=== PATIENT | male | born 1975 | race Caucasian/White ===

== ENCOUNTER 2022-11-01 15:14 | Outpatient (OUT) | payer BC, SELFPAY ==
[2022-11-01 07:35] LABS: Basophils Percent Auto 0.4 % (0.2-2.0); Eosinophils Absolute Auto 0.2 10^3/uL (0.0-0.7); Eosinophils Percent Auto 4.3 % (0.9-7.0); Hematocrit 46.1 % (42.0-54.0); Hemoglobin 15.7 g/dL (14.0-18.0); Immature Granulocytes Abs Auto 0.02 10^3/uL (0.00-0.03); Immature Granulocytes Pct Auto 0.4 % (0.0-0.5); Lymphocytes Absolute Auto 1.8 10^3/uL (1.2-3.8); Lymphocytes Percent Auto 33.1 % (20.5-60.0); Mean Corpuscular HGB Conc 34.1 g/dL (29.9-35.2); Mean Corpuscular Hemoglobin 30.7 pg (25.9-34.0); Mean Platelet Volume 8.8 fL (9.5-13.5); Monocytes Absolute Auto 0.4 10^3/uL (0.3-0.8); Monocytes Percent Auto 7.4 % (1.7-12.0); Neutrophils Absolute Auto 2.9 10^3/uL (1.4-6.5); Neutrophils Percent Auto 54.4 % (43.0-75.0); Platelet Count 225 10^3/uL (150-450); Red Blood Count 5.12 10^6/uL (4.70-6.10); Red Cell Distribution Width 12.3 % (11.0-15.0); White Blood Count 5.4 10^3/uL (4.0-11.0)
[2022-11-01 07:43] LABS: Microalbumin Urine Random <1.3 mg/dL (<=30.0)
[2022-11-01 07:54] LABS: Estimated Average Glucose 157 mg/dL; Glycohemoglobin A1C 7.1 % (4.5-6.2)
[2022-11-01 07:56] LABS: Alanine Aminotransferase 32 U/L (16-63); Albumin Level 3.9 g/dL (3.4-5.0); Alkaline Phosphatase 49 U/L (46-116); Anion Gap 8.3; Aspartate Amino Transferase 23 U/L (15-37); BUN Creatinine Ratio 12.7; Bilirubin Total 0.5 mg/dL (0.2-1.0); Calcium 9.2 mg/dL (8.5-10.1); Carbon Dioxide 29.2 mmol/L (21.0-32.0); Chloride 101 mmol/L (98-107); Chol HDL Ratio 3.7; Cholesterol 157 mg/dL (<=200); Estimated GFR (African America >60 (>=60); Estimated GFR (Non-African Ame >60 (>=60); Globulin 3.8 g/dL; Glucose 167 mg/dL (74-106); HDL Cholesterol 42 mg/dL (40-60); LDL Cholesterol Calculated 93.4 mg/dL; Potassium 4.5 mmol/L (3.5-5.1); Sodium 134 mmol/L (136-145); Total Protein 7.7 g/dL (6.4-8.2); Triglycerides 108 mg/dL (<=150); VLDL CHOLESTEROL 21.6 mg/dL
== END 2022-11-01 15:15 | disposition home or self-care (01) ==
LOC: LAB 11-11 15:14
PROVIDERS: PCP Internal Medicine; Visit Provider Internal Medicine
DX: Z00.00 Encounter for general adult medical examination without abnormal findings (principal)
CPT/HCPCS: 36415; 80053; 80061; 82043; 83036; 85025

== ENCOUNTER 2023-02-07 09:39 | Outpatient (OUT) | payer BC, SELFPAY ==
[2023-02-07 10:54] LABS: Estimated Average Glucose 186 mg/dL; Glycohemoglobin A1C 8.1 % (4.5-6.2)
== END 2023-02-07 09:40 | disposition home or self-care (01) ==
LOC: LAB 09:41
PROVIDERS: PCP Internal Medicine; Visit Provider Internal Medicine
DX: E11.65 Type 2 diabetes mellitus with hyperglycemia (principal)
CPT/HCPCS: 36415; 83036

== ENCOUNTER 2023-03-18 13:42 | Outpatient (OUT) | payer BC, SELFPAY ==
--- NOTE | 2023-03-18 | ECG_ITS ---
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
--- NOTE | 2023-03-18 14:18 | CA_ITS ---
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1975 Requested By: TONI GUERRA Order Number: [id number] Reading MD: TONI GUERRA Interpretive Statements Predominant rhythm is sinus with average rate of 87 bpm Tachycardia - max rate of 132 bpm - longest episode of 20min 13sec with rates between 113-126 bpm Bradycardia - min rate of 57 bmp Ventricular ectopy - 119 total (<1%) - 115 PVC - 4 couplets Patient triggered events: 5 - associated with palpitations - associated with rates of 108 and the remainder NSR Impression: Predominant rhythm is sinus with average rate of 87 bpm Fastest rate of 132 bpm and slowest rate of 57 bpm 115 PVC and 4 couplets No pauses or blocks No atrial fibrillation Electronically Signed On 04-12-2023 17:15:23 EST by TONI GUERRA
[2023-03-18 15:00] LABS: Thyroid Stimulating Hormone 1.304 uIU/mL (0.358-3.740)
== END 2023-03-18 13:43 | disposition home or self-care (01) ==
LOC: CARD 13:42
PROVIDERS: PCP Internal Medicine; Visit Provider Internal Medicine
DX: R00.2 Palpitations (principal); R01.1 Cardiac murmur, unspecified; I10 Essential (primary) hypertension
CPT/HCPCS: 36415; 84443; 93005; 93242

== ENCOUNTER 2023-05-13 16:14 | Outpatient (OUT) | payer BC, SELFPAY ==
--- OUTSIDE RECORDS SUMMARY | 2023-05-13 16:17 | XMS_ITS | CCD ---
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 waterproof, cover it with a watertight plastic bag when you take a bath or a shower.? Take fiyn-oqq-pkwlrgc and prescription medicines only as told by your doctor.? If you were prescribed an antibiotic, take it as told by your doctor. Do not stop taking the antibiotic before the prescription is done.? Do not use any tobacco products, such as cigarettes, chewing tobacco, and e-cigarettes. If you need help quitting, ask your doctor.? Keep all follow-up visits as told by your doctor. This is important. These include PT and OT visits.GET HELP IF:? A wound with stitches opens up.? You have more redness, swelling, or pain in your hand.? You have more fluid or blood coming from your hand.? Your hand feels warm to the touch.? You have pus or a bad smell coming from your hand.? You have a fever.GET HELP RIGHT AWAY IF:? You suddenly have very bad pain in your hand.? You had feeling (sensation) in your hand before but you suddenly lose feeling.? Your wrist or hand becomes bent (contracted) without you trying to bend it.? Your symptoms had gotten better and they suddenly get worse.? Your hand or fingers are turning pink or blue.This information is not intended to replace advice given to you by your health care provider. Make sure you discuss any questions you have with your health care provider.Document Released: 10/01/2010 Document Revised: 08/04/2016 Document Reviewed: 12/05/2015[employer] Interactive Patient Education ?2017 [employer].Medication Information:The exam and treatment you received today in the [facility] Emergency Department were for an urgent problem and are not intended as complete care. It is important for you to follow up with a doctor, nurse practitioner, or physician?s commercial escrow assistant for ongoing care. If your symptoms become worse or you do not improve as expected and you are unable to reach your usual health care provider, you should return to the Emergency Department, we are available 24 hours a day.For those patients who have received Radiology results, the interpretation of your X-ray as given to you by our Emergency Department physician is only a preliminary report. The Radiologist will review your films and if there is a change in the diagnosis you will be notified by phone. Please make sure you have provided a working phone number so we can reach you if necessary.In the event that you had a lab culture while you were a patient in the Emergency Department, you will be notified by phone if there is a need to change your antibiotic. Please make sure you have provided a working phone number so we can reach you if necessary.[facility] Emergency Department has provided you with a complete list of medications post discharge. Please inform your division order analyst/provider of your visit and for further instruction on these medications. Any specific questions regarding your chronic medications and dosages should be discussed with your primary care physician(s) and/or pharmacist. New MedicationsPrinted Prescriptionscephalexin (Keflex 500 mg oral capsule) 1 cap Oral Every 12 hours scheduled time for 5 Days. Refills: 0.Medications to Continue That Have Not ChangedOther Medicationsglimepiride (glimepiride 1 mg oral tablet) 1 tab(s) Oral every day.lisinopril (lisinopril 2.5 mg oral tablet) 1 tab(s) Oral every day.metFORMIN (metFORMIN 1000 mg oral tablet) 1 tab(s) Oral 2 times a day.Visit InformationVisit Diagnosis:Diagnoses This Visit Crush injury - 3rd digit left hand (T14.8XXA) UC - Wrist/Hand/Finger Pain or Swelling ([id number])If you received any narcotics, sedation, or any other medication that causes drowsiness for the next 24 hours, unless otherwise directed:? Do not drive a car.? Do not operate machinery such as power tools, lawn mowers, drills, sewing machines, or stoves? Avoid alcoholic beverages and drugs for allergies, nerves, or sleep? Do not make important personal or business decisions or sign any legal documentsReason for Visit:C/O smashing injury to left middle finger.Allergies:Substance Reaction Symptoms Type CommentsNo Known Medication Allergies DrugVital Signs: Vitals and Measurements this Visit (last charted value for your 04/10/2017 visit) Vital Signs This Visit Temperature Oral: 36.9 DegC Peripheral Pulse Rate: 73 bpm Respiratory Rate: 16 br/min Systolic Blood Pressure: 122 mmHg Diastolic Blood Pressure: 82 mmHg SpO2: 97 % O2 Flow: 0 L/min Measurements This Visit Height: 172.7 cm Weight: 97.5 kg Body Mass Index: 32.69 kg/y0Chgklvhb List:Problem Onset CommentsNo Problems foundMajor Tests and Procedures:The following procedures and tests were performed during your ED visit.LaboratoryRadiologyXR Finger Left 04/10/17 12:11:00 EST Stat, struck 3rd digit left hand with hammer, ecchymosis, Allow Modification Per Radiologist, Transport Mode: Cart, 04/10/17 12:11:00 ESTCardiology Viruses or BacteriaWhat?s got you sick?Antibiotics only treat bacterial infections. Viral illnesses cannot be treated with antibiotics. When an antibiotic is not prescribed, ask your healthcare professional for tips on how to relieve symptoms and feel better. Usual CauseIllnessVirusesBacteria Antibiotic NeededCold/Runny Nose NOBronchitis/Chest Cold (in otherwise healthy children and adults) NOWhooping Cough YesFlu NOStrep Throat YesSore Throat (except strep) NOFluid in the middle ear (otitis media with effusion) NOUrinary Tract Infection YesAntibiotics Aren?t Always the Answerwww.cdc.gov/getsmart GET SMART Know When Antibiotics [place]. Department of Health and Human ServicesCenters for Disease Control and Prevention December 2013 Normal [facility] Recordon 017 Urgent Care Record [facility] ? [id number] [place] [address] pATIENT DISCHARGE INSTRUCTIONSPatient InformationName: ROBERTO SCHNEIDER Age: 41 YearsDate of : [birth year]MRN: [id number] For Visit: UC - Wrist/Hand/Finger Pain or Swelling; LEFT 3RD FINGER LACERATIONArrival Time: 04/10/17 11:59:00Phone: Primary Care Physician: José Miguel Cheung Physician: Sheila KilgorerComment:Visit Diagnosis:Diagnoses This Visit Crush injury - 3rd digit left hand (T14.8XXA) UC - Wrist/Hand/Finger Pain or Swelling ([id number])If you received any narcotics, sedation, or any other medication that causes drowsiness for the next 24 hours, unless otherwise directed:? Do not drive a car.? Do not operate machinery such as power tools, lawn mowers, drills, sewing machines, or stoves? Avoid alcoholic beverages and drugs for allergies, nerves, or sleep? Do not make important personal or business decisions or sign any legal documentsWith: Address: When:José Miguel Cheung [address] [place] [id number] Business (1)Comments:Keep the injury clean and dry, do not submerge in the waterCan take ibuprofen and/or Tylenol as needed for pain, can elevate as needed to help reduce swellingAny increase in discomfort or any inability to perform your work duties return for reevaluationMedication Information:The exam and treatment you received today in the [facility] Urgent Care were for an urgent problem and are not intended as complete care. It is important for you to follow up with a doctor, nurse practitioner, or physician?s commercial escrow assistant for ongoing care. If your symptoms become worse or you do not improve as expected and you are unable to reach your usual health care provider, you should return to the Emergency Department, we are available 24 hours a day.For those patients who have received Radiology results, the interpretation of your X-ray as given to you by our Urgent Care physician is only a preliminary report. The Radiologist will review your films and if there is a change in the diagnosis you will be notified by phone. Please make sure you have provided a working phone number so we can reach you if necessary.In the event that you had a lab culture while you were a patient in the Urgent Care, you will be notified by phone if there is a need to change your antibiotic. Please make sure you have provided a working phone number so we can reach you if necessary.[facility] has provided you with a complete list of medications post discharge. Please inform your division order analyst/provider of your visit and for further instruction on these medications. Any specific questions regarding your chronic medications and dosages should be discussed with your primary care physician(s) and/or pharmacist. Medications to Continue That Have Not ChangedOther Medicationsglimepiride (glimepiride 1 mg oral tablet) 1 tab(s) Oral every day.lisinopril (lisinopril 2.5 mg oral tablet) 1 tab(s) Oral every day.metFORMIN (metFORMIN 1000 mg oral tablet) 1 tab(s) Oral 2 times a day.Visit InformationAllergies:Substanc e Reaction Symptoms Type CommentsNo Known Medication Allergies DrugVital Signs: Vitals and Measurements this Visit (last charted value for your 04/10/2017 visit) Vital Signs This Visit Temperature Oral: 36.9 DegC Peripheral Pulse Rate: 73 bpm Respiratory Rate: 16 br/min Systolic Blood Pressure: 122 mmHg Diastolic Blood Pressure: 82 mmHg SpO2: 97 % O2 Flow: 0 L/min Measurements This Visit Height: 172.7 cm Weight: 97.5 kg Body Mass Index: 32.69 kg/r4Dliieqjk List:Problem Onset CommentsNo Problems found Patient EducationCrush Injury of the Kathi crush injury of the hand happens when a great amount of force is suddenly applied to your hand. For example, this might happen if a heavy load falls on your hand. This injury can damage your skin and many parts (structures) in the hand and wrist joint. Treatment will depend on which parts are damaged and how severe your injury is.HOME CAREIf You Have a Splint:? Wear the splint as told by your doctor. Remove it only as told by your doctor.? Loosen the splint if your fingers tingle, get numb, or turn cold and blue.? Do not let your splint get wet if it is not waterproof.? Keep the splint clean. Wound Care? If you have any skin wounds that were covered with bandages (dressings), follow instructions from your doctor about how to take care of your wounds. Make sure you:? Wash your hands with soap and water before you change your bandage. If you cannot use soap and water, use hand orchid hand.? Change your bandage as told by your doctor.? Leave stitches (sutures), skin glue, or skin tape (adhesive) strips in place. They may need to stay in place for 2 weeks or longer. If tape strips get loose and curl up, you may trim the loose edges. Do not remove tape strips completely unless your doctor says it is okay.? If you have skin wounds, check them every day for signs of infection. Check for:? More redness, swelling, or pain.? More fluid or blood.? Warmth.? Pus or a bad smell.Managing Pain, Stiffness, and Swelling? If directed, put ice on the injured area.? Put ice in a plastic bag.? Place a towel between your skin and the bag.? Leave the ice on for 20 minutes, 2?3 times a day.? Raise (elevate) the injured area above the level of your heart while you are sitting or lying down.Driving? Do not drive or use heavy machinery while taking prescription pain medicine.? Ask your doctor when it is safe to drive if you have a splint on your hand or arm.Activity? Return to your normal activities as told by your doctor. Ask your doctor what activities are safe for you.? Work with a physical therapist (PT) or occupational therapist (OT) as told by your doctor.General Instructions? Do not put pressure on any part of the splint until it is fully hardened. This may take many hours.? If you have a splint and it is not waterproof, cover it with a watertight plastic bag when you take a bath or a shower.? Take nwyf-zye-sujwewv and prescription medicines only as told by your doctor.? If you were prescribed an antibiotic, take it as told by your doctor. Do not stop taking the antibiotic before the prescription is done.? Do not use any tobacco products, such as cigarettes, chewing tobacco, and e-cigarettes. If you need help quitting, ask your doctor.? Keep all follow-up visits as told by your doctor. This is important. These include PT and OT visits.GET HELP IF:? A wound with stitches opens up.? You have more redness, swelling, or pain in your hand.? You have more fluid or blood coming from your hand.? Your hand feels warm to the touch.? You have pus or a bad smell coming from your hand.? You have a fever.GET HELP RIGHT AWAY IF:? You suddenly have very bad pain in your hand.? You had feeling (sensation) in your hand before but you suddenly lose feeling.? Your wrist or hand becomes bent (contracted) without you trying to bend it.? Your symptoms had gotten better and they suddenly get worse.? Your hand or fingers are turning pink or blue.This information is not intended to replace advice given to you by your health care provider. Make sure you discuss any questions you have with your health care provider.Document Released: 10/01/2010 Document Revised: 08/04/2016 Document Reviewed: 12/05/2015[employer] Interactive Patient Education ?2017 [employer] Viruses or BacteriaWhat?s got you sick?Antibiotics only treat bacterial infections. Viral illnesses cannot be treated with antibiotics. When an antibiotic is not prescribed, ask your healthcare professional for tips on how to relieve symptoms and feel better. Usual CauseIllnessVirusesBacteria Antibiotic NeededCold/Runny Nose NOBronchitis/Chest Cold (in otherwise healthy children and adults) NOWhooping Cough YesFlu NOStrep Throat YesSore Throat (except strep) NOFluid in the middle ear (otitis media with effusion) NOUrinary Tract Infection YesAntibiotics Aren?t Always the Answerwww.cdc.gov/getsmart GET SMART Know When Antibiotics [place] Department of Health and Human ServicesCenters for Disease Control and Prevention December 2013 [facility] XR Finger Lefton 12-15-2017 XR Finger Left FINGER LEFTCLINICAL DATA: Impact injury to middle finger distally today, painFour views of the left middle finger were obtained. No definite acutefracture or dislocation is seen. No significant focal osseous or articularabnormalities are identified. There is mild soft tissue swelling distally.No obvious opaque foreign body. There is a small faint density overlying thesoft tissue of the middle finger laterally at the level of the proximalphalanx on the frontal view with slight out pouching of the skin surface onthe oblique view, correlate for a small skin density at this level.IMPRESSION:1. LEFT MIDDLE FINGER STUDY FAILS TO DEMONSTRATE DEFINITE ACUTE FRACTURE ORDISLOCATION.2. FOLLOW-UP NEEDED.AKHIL Frances #: [id number]: 04/10/2017T: 04/10/2017 Final Dictated by: Obed Oliveira MD SDictated DT/TM: 04/10/17 1:07Signed (Electronic Signature): Obed Oliveira MD 04/10/17 4:38 pmTechnologist: Mallory LOMAX [facility] Vital Signs Date Time Vital Sign Value Performing Clinician Facility 02-16-2023 15:30-0400 Body height 171.45 cm José Miguel Ball Other [address] Other 02-16-2023 15:30-0400 Body mass index (BMI) [Ratio] 34.59 kg/m2 José Miguel Ball Other [address] Other 02-16-2023 15:30-0400 Body weight 101.7 kg José Miguel Ball Other [address] Other 02-16-2023 15:30-0400 Diastolic blood pressure 87 mm[Hg] José Miguel Ball Other [address] Other 02-16-2023 15:30-0400 Respiratory rate 12 /min José Miguel Ball Other [address] Other 02-16-2023 15:30-0400 Systolic blood pressure 129 mm[Hg] José Miguel Ball Other [address] Other 10-21-2022 15:30-0400 Body height 171.45 cm José Miguel Ball Other [address] Other 10-21-2022 15:30-0400 Body mass index (BMI) [Ratio] 34.78 kg/m2 José Miguel Ball Other [address] Other 10-21-2022 15:30-0400 Body weight 102.24 kg José Miguel Ball Other [address] Other 10-21-2022 15:30-0400 Diastolic blood pressure 92 mm[Hg] José Miguel Ball Other [address] Other 10-21-2022 15:30-0400 Respiratory rate 12 /min José Miguel Ball Other [address] Other 10-21-2022 15:30-0400 Systolic blood pressure 133 mm[Hg] José Miguel Ball Other [address] Other 07-29-2022 16:30-0400 Body height 171.45 cm José Miguel Ball Other [address] Other 07-29-2022 16:30-0400 Body mass index (BMI) [Ratio] 34.96 kg/m2 José Miguel Ball Other [address] Other 07-29-2022 16:30-0400 Body weight 102.79 kg José Miguel Ball Other [address] Other 07-29-2022 16:30-0400 Diastolic blood pressure 76 mm[Hg] José Miguel Ball Other [address] Other 07-29-2022 16:30-0400 Respiratory rate 12 /min José Miguel Ball Other [facility] Other 07-29-2022 16:30-0400 Systolic blood pressure 122 mm[Hg] José Miguel Ball Other [facility] Other 07-23-2022 13:04-0400 Body height 172.72 cm DO José Miguel Ball Work Phone: [facility] 07-23-2022 13:04-0400 Body temperature 98.7 [degF] DO José Miguel Ball Work Phone: [facility] 07-23-2022 13:04-0400 Body weight 101 kg DO José Miguel Ball Work Phone: [facility] 07-23-2022 13:04-0400 Diastolic blood pressure 85 mm[Hg] DO José Miguel Ball Work Phone: [facility] 07-23-2022 13:04-0400 Heart rate 91 /min DO José Miguel Ball Work Phone: [facility] 07-23-2022 13:04-0400 Respiratory rate 18 /min DO José Miguel Ball Work Phone: [facility] 07-23-2022 13:04-0400 SaO2% (BldA) [Mass fraction] 98 % DO José Miguel Ball Work Phone: [facility] 07-23-2022 13:04-0400 Systolic blood pressure 139 mm[Hg] DO José Miguel Ball Work Phone: [facility] 05-02-2022 09:15-0500 Body height 171.45 cm Karlenemaxine Trevino Other [facility] Other 05-02-2022 09:15-0500 Body mass index (BMI) [Ratio] 37.03 kg/m2 Karlenemaxine Trevino Other [address] Other 05-02-2022 09:15-0500 Body weight 108.86 kg Karlene Calvey Other [address] Other 12-06-2021 09:15-0400 Body height 171.45 cm Karlene Calvey Other [address] Other 12-06-2021 09:15-0400 Body mass index (BMI) [Ratio] 37.03 kg/m2 Karlene Calvey Other [address] Other 12-06-2021 09:15-0400 Body weight 108.86 kg Karlene Calvey Other [address] Other 11-08-2021 10:15-0400 Body height 171.45 cm Karlene Calvey Other [address] Other 11-08-2021 10:15-0400 Body mass index (BMI) [Ratio] 37.03 kg/m2 Karlene Calvey Other [address] Other 11-08-2021 10:15-0400 Body weight 108.86 kg Karlene Calvey Other [address] Other 07-16-2021 09:15-0400 Body height 171.45 cm Karlene Calvey Other [address] Other 07-16-2021 09:15-0400 Body mass index (BMI) [Ratio] 37.03 kg/m2 Karlene Calvey Other [address] Other 07-16-2021 09:15-0400 Body weight 108.86 kg Karlene Calvey Other [address] Other 03-20-2021 10:30-0500 Body height 171.45 cm Karlene Trevino Other [address] Other 03-20-2021 10:30-0500 Body mass index (BMI) [Ratio] 32.4 kg/m2 Karlene Trevino Other [address] Other 03-20-2021 10:30-0500 Body weight 95.26 kg Karlene Trevino Other [address] Other Encounters Encounter Date Encounter Type Care Provider Facility Start: 05-11-2023 End: 05-11-2023 ambulatory José Miguel Jonatan Other [address] Other Start: 05-11-2023 Telephone encounter José Miguel Ball [facility] Start: 05-04-2023 End: 05-04-2023 ambulatory José Miguel Ball Other [address] Other Start: 05-04-2023 Telephone encounter José Miguel Ball [facility] Start: 03-27-2023 End: 03-27-2023 ambulatory José Miguel Ball Other [address] Other Start: 03-27-2023 Office outpatient vi sit 15 minutes José Miguel Ball [facility] Start: 03-23-2023 End: 03-23-2023 ambulatory José Miguel Ball Other [address] Other Start: 03-23-2023 Telephone encounter José Miguel Ball [facility] Start: 03-12-2023 End: 03-12-2023 ambulatory José Miguel Ball Other [address] Other Start: 03-12-2023 Telephone encounter José Miguel Ball [facility] Start: 03-10-2023 End: 03-10-2023 ambulatory José Miguel Ball Other [address] Other Start: 03-10-2023 Telephone encounter José Miguel Ball [facility] Start: 03-06-2023 End: 03-06-2023 ambulatory José Miguel Cheung Other [address] Other Start: 03-06-2023 Telephone encounter José Miguel [facility] Start: 02-16-2023 End: 02-16-2023 ambulatory José Miguel Cheung Other [address] Other Start: 02-16-2023 Office outpatient vi sit 25 minutes José Miguel Cheung [facility] Start: 02-09-2023 End: 02-09-2023 ambulatory José Miguel Cheung Other [address] Other Start: 02-09-2023 Telephone encounter José Miguel [facility] [facility] Start: 02-02-2023 End: 02-02-2023 ambulatory José Miguel Cheung Other [address] Other Start: 02-02-2023 Telephone encounter José Miguel [facility] Start: 01-21-2023 End: 01-21-2023 ambulatory José Miguel Cheung Other [address] Other Start: 01-21-2023 Office outpatient vi sit 15 minutes José Miguel Cheung [facility] Start: 01-07-2023 End: 01-07-2023 ambulatory Karlene Trevino Other [address] Other Start: 01-07-2023 Office outpatient vi sit 15 minutes Karlene Trevino [facility] Start: 12-31-2022 End: 12-31-2022 ambulatory Karlene Trevino Facility:[facility] Start: 12-31-2022 End: 12-31-2022 ambulatory DO José Miguel Cheung Work Phone: [facility] Work Phone: Start: 12-31-2022 End: 12-31-2022 Patient encounter procedure DO José Miguel Cheung Work Phone: [facility] [employer] Work Phone: Start: 11-27-2022 End: 11-27-2022 ambulatory José Miguel Cheung Other [address] Other Start: 11-27-2022 Office outpatient vi sit 15 minutes José Miguel Cheung [facility] Start: 11-12-2022 End: 11-12-2022 Patient encounter procedure DO José Miguel Cheung Work Phone: [facility] Start: 11-12-2022 End: 11-12-2022 ambulatory José Miguel Cheung [facility] Other Start: 11-12-2022 Office outpatient vi sit 15 minutes Karlene Trevino [facility] Start: 10-21-2022 End: 10-21-2022 ambulatory José Miguel Cheung Other [address] Other Start: 10-21-2022 Encounter for genera l adult medical examination without abnormal findings José Miguel Cheung [facility] Start: 10-21-2022 Periodic preventive med est patient 40-64yrs José Miguel Cheung [facility] Start: 07-29-2022 End: 07-29-2022 ambulatory José Miguel Cheung Other [address] Other Start: 07-29-2022 Office outpatient vi sit 15 minutes José Miguel Cheung [facility] Start: 07-23-2022 End: 07-23-2022 Emergency department patient visit José Miguel Cheung Facility:[facility] Start: 07-23-2022 End: 07-23-2022 Emergency department patient visit DO José Miguel Cheung Work Phone: [facility] Work Phone: Start: 07-01-2022 End: 07-02-[address] JOSÉ MIGUEL CHEUNG Facility: Start: 06-10-2022 End: 06-10-2022 ambulatory Karlene Trevino Other [address] Other Start: 06-10-2022 Office outpatient vi sit 15 minutes Kralene Calvey [facility] Start: 06-02-2022 End: 06-02-2022 ambulatory José Miguel Cheung Other [address] Other Start: 06-02-2022 Telephone encounter [facility] Start: 05-02-2022 End: 05-02-2022 ambulatory Karlene Calvey Other [address] Other Start: 05-02-2022 Office outpatient vi sit 15 minutes Karlene Calvey [facility] Start: 03-28-2022 End: 03-28-2022 ambulatory Karlene Calvey Other [address] Other Start: 03-28-2022 Office outpatient vi sit 15 minutes Karlene Calvey [facility] Start: 03-28-2022 Telephone encounter Karlene Batesey [facility] Start: 02-21-2022 End: 02-21-2022 ambulatory Karlene Calvey Other [address] Other Start: 02-21-2022 Office outpatient vi sit 15 minutes Karlene Calvey [facility] Start: 02-08-2022 End: 02-09-[address] JOSÉ MIGUEL CHEUNG Facility:[facility] Start: 01-29-2022 Adult health examination José Miguel Cheung Other [address] Other Start: 12-06-2021 End: 12-06-2021 ambulatory Karlene Calvey Other [address] Other Start: 12-06-2021 Office outpatient vi sit 15 minutes Karlene Calvey [facility] Start: 11-18-2021 End: 12-05-[address] JOSÉ MIGUEL CHEUNG Facility:[facility] Start: 11-08-2021 End: 11-08-2021 ambulatory Karlene Calvey Other [address] Other Start: 11-08-2021 Office outpatient vi sit 15 minutes Karlene Calvey [facility] Start: 08-17-2021 End: 08-18-[address] JOSÉ MIGUEL CHEUNG Facility: Start: 08-02-[address] JOSÉ MIGUEL CHEUNG Facili ty:[facility] Start: 07-16-2021 End: 07-16-2021 ambulatory Karlene Calvbecky Other [address] Other Start: 07-16-2021 Office outpatient vi sit 15 minutes Karlene Calvey [facility] Start: 05-21-2021 End: 05-21-2021 ambulatory Karlene Calvey Other [address] Other Start: 05-21-2021 Office outpatient vi sit 15 minutes Karlene Calvey [facility] Start: 03-20-2021 End: 03-20-2021 ambulatory Karlene Calvey Other [address] Other Start: 03-20-2021 Office outpatient vi sit 15 minutes Karlene Calvey [facility] Start: 04-10-2017 End: 04-13-2017 [facility] Facility[facility] Procedures Date Procedure Procedure Detail Performing Clinician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
== END 2023-05-13 16:15 | disposition home or self-care (01) ==
LOC: SLEEP 16:14
PROVIDERS: PCP Internal Medicine; Visit Provider Internal Medicine
DX: G47.33 Obstructive sleep apnea (adult) (pediatric) (principal)
CPT/HCPCS: 95806

== ENCOUNTER 2023-06-26 14:56 | Outpatient (OUT) | payer BC, SELFPAY ==
[2023-06-26 15:44] LABS: Estimated Average Glucose 186 mg/dL; Glycohemoglobin A1C 8.1 % (4.5-6.2)
== END 2023-06-26 14:57 | disposition home or self-care (01) ==
LOC: LAB 14:57
PROVIDERS: PCP Internal Medicine; Visit Provider Internal Medicine
DX: E11.65 Type 2 diabetes mellitus with hyperglycemia (principal)
CPT/HCPCS: 36415; 83036

== ENCOUNTER 2023-07-10 13:45 | Outpatient (OUT) | payer BC, SELFPAY ==
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
--- NOTE | 2023-07-10 14:00 | CA_ITS ---
Patient Name: KASSI SCHNEIDER MR#: [id number] : 1975 Exam Date: 07/10/2023 Ordering Doctor: TAMMY MCGOWAN ECHOCARDIOGRAM REPORT PROCEDURE: CA ECHO DOPPLER COMPLETE INDICATIONS: Dyspnea on exertion, diabetes, hypertension COMPARISON: None. DESCRIPTION: COMPLETE ECHOCARDIOGRAM Real-time transthoracic echocardiography with 2D, M-mode, spectral and color flow Doppler performed. QUALITY: Technical quality was good. 68 , 225#, BSA 2.15 m2 LEFT VENTRICLE: Normal chamber size. Normal left ventricular wall thickness. LV EF: Global left ventricular systolic function is normal; visually estimated ejection fraction is 55 to 60%. No significant wall motion abnormalities. DIASTOLIC: Normal diastolic function. ATRIAL SEPTUM: Visually appears intact. LEFT ATRIUM: Normal chamber size. RIGHT ATRIUM: Normal chamber size. RIGHT VENTRICLE: Normal chamber size. Normal right ventricular systolic function. TRICUSPID VALVE: Normal mobility and thickness. No stenosis with trivial regurgitation. Doppler studies reveal mildly (35-45) elevated right sided pressures. RVSP 37 mmHg MITRAL VALVE: Normal mobility and thickness. No evidence of mitral valve stenosis. There is no mitral annular calcification. Trivial mitral regurgitation. AORTIC VALVE: Normal trileaflet appearance. No visible sclerosis. Normal leaflet mobility. No evidence of aortic valve stenosis. No aortic regurgitation. AORTIC ROOT: Normal diameter when corrected for body surface area and appearance. PULMONIC VALVE: Normal thickness and mobility. No stenosis. No regurgitation. PERICARDIUM: No evidence of pericardial effusion. IVC: Collapses with inspirations. IVC is normal in size. CONCLUSION: 1. Global left ventricular systolic function is normal; visually estimated ejection fraction is 55 to 60% 2. Normal right ventricular size and systolic function 3. Normal diastolic function 4. No significant valvular abnormalities Adult Echocardiography Procedure Report Left Ventricle LVEDD (3.7 - 5.6 cm): 4.38 cm LVESD (2.2 - 4.0 cm): 3.05 cm LVIVS thickness (0.6 - 1.2 cm): 0.83 cm LVPW thickness (0.5 - 1.0 cm): 0.85 cm e': 0.13 m/s E - e': 6.07 LVOT Max Gradient: 4.43 mm[Hg] LVOT Area (cm2): 1.05 m/s Peak Velocity (LVOT): 1.05 m/s Mean Velocity (LVOT): 0.69 m/s LVOT Diameter 2.28 cm Left Atrium LA Volume Index (2D A2C): 23.76 ml/m2 Left Atrium Systolic Dimension: 3.18 cm Mitral Valve MV E to A Ratio: 1.39 Mitral Valve A-Wave Peak Velocity: 0.58 m/s Mitral Valve E-Wave Peak Velocity: 0.81 m/s Right Ventricle Aorta AO Root Diam: 3.69 cm Ascending Ao Diam: 3.46 cm Aortic Valve AoV Area (Peak Prasanna): 3.12 cm2, 3.12 cm2 AoV Area (VTI): 3.14 cm2, 3.14 cm2 Peak Velocity(Antegrade Flow): 1.38 m/s Peak Gradient(Antegrade Flow): 7.63 mm[Hg] Mean Velocity(Antegrade Flow): 0.86 m/s Mean Gradient(Antegrade Flow): 3.64 mm[Hg] Velocity Time Integral: 26.35 cm Tricuspid Valve Peak Velocity (Regurgitant Flow): 2.91 m/s Pulmonic Valve Mean Gradient: 2.42 mm[Hg] Mean Velocity: 0.72 m/s Peak Velocity: 1.05 m/s, 0.95 m/s Peak Gradient: 4.39 mm[Hg], 3.61 mm[Hg] Right Atrium Right Atrium Systolic Pressure: 47.03 ml, 47.03 ml Dictated by: Kenny Bautista M.D. on 07/10/2023 at 16:45 Approved by: Kenny Bautista M.D. on 07/10/2023 at 16:48
== END 2023-07-10 13:46 | disposition home or self-care (01) ==
LOC: CARD 13:45
PROVIDERS: PCP Internal Medicine; Visit Provider Nurse Practitioner
DX: R06.09 Other forms of dyspnea (principal)
CPT/HCPCS: 93306

== ENCOUNTER 2023-09-16 07:17 | Outpatient (OUT) | payer BC, SELFPAY ==
--- NOTE | 2023-09-16 07:00 | NM_ITS ---
Patient Name: KASSI SCHNEIDER MR#: [id number] : 1975 Exam Date: 09/16/2023 Ordering Doctor: MYRON ALMANZA M.D. RADIOLOGY REPORT PROCEDURE: NM TORI PERF SPECT REST STR COMPARISON: None. INDICATIONS: CHEST PAIN TECHNIQUE: Exam Description: Stress/Rest one day protocol gated SPECT Rest Imagin.3 mCi Tc-99m Cardiolite IV on 09/16/2023 Stress Imaging 30.0 mCi Tc-99m Cardiolite IV on 09/16/2023 Exercise Protocol: Luca Heart Rate (bpm): Rest: 55 Max: 146 PMHR: 85 Blood Pressure: Rest: 112/78 Max: 146/84 Exercise Time: Minutes: 9 Seconds: 00 Stage Reached: Stage: 3 Mets 10.1 Symptoms: Rest and peak stress ECG findings were pending and the exercise portion of the study was pending per attending physician Dr. CEBALLOS . For more details please see separate cardiac stress test report. FINDINGS: QUALITY OF STUDY: Good. PERFUSION DEFECT: LOCATION: [place]. SIZE: Small (1-2 segments). SEVERITY: Mild. TYPE: Persistent. WALL MOTION: Normal. LV SIZE: Normal. 90 mL. TID / TCD: None; 0.9 LVEF: Normal. Calculated EF 60%. SUMMARY: Myocardial perfusion imaging study has ABNORMAL findings. CONCLUSION: 1. Small fixed defect in the apex likely atypical thinning 2. No reversible ischemia 3. Pending exercise test Dictated by: Travis Adrian MD on 09/16/2023 at 15:31 Approved by: Travis Adrian MD on 09/16/2023 at 15:33
--- OUTSIDE RECORDS SUMMARY | 2023-09-16 07:19 | XMS_ITS | CCD ---
Author Organization [facility] Care Team Providers Care Dentistry Teacher Name Role Phone Spasic, Mark Unavailable Unavailable Spasic, Mark Unavailable Unavailable Jonatan, José Miguel Unavailable Unavailable Karlene Trevino Unavailable José Miguel Cheung Unavailable JONATAN, DR VALDEZ Primary Care Unavailable BALL, DR VALDEZ Consulting Unavailable BALL, DR VALDEZ Attending Unavailable BALL, DR VALDEZ Admitting Unavailable BALL, DR VALDEZ Primary Care Unavailable CALVEY, KARLENE Attending Unavailable URIEL, KARLENE Admitting Unavailable BALL, [...] Unavailable Ball, DO Valdez Primary Care Provider [phone] Graham, [facility] Emma Fuentes Emergency Provider DO José Miguel Cheung Primary Care Provider [phone] MD Karlene Trevino Attending Provider [phone] José Miguel Cheung Primary Care Unavailable Bullsandy, Emma E Admitting Unavailable Bullimore, Emma E Attending Unavailable José Miguel Cheung Primary Care Unavailable Karlene Trevino Admitting Unavailable Karlene Trevino Attending Unavailable Karlene Trevino Admitting Unavailable Karlene Trevino Attending Unavailable José Miguel Cheung Primary Care Unavailable MYRON ALMANZA Attending Unavailable TAMMY MCGOWAN Attending Unavailable Allergies Allergy Classification Reported Allergen(s) Allergy Type Date of Onset Reaction(s) Facility (1 source) No Known Medication Allergies; Translations: [No Known Medication Allergies] Propensity to adverse reactions to drug (disorder) [facility] Repository (20 sources) Non-steroidal anti-inflammato ry agent Drug allergy unable to take while on [employer] Other (5 sources) patient allergy list reviewed by nurse or physicia Propensity to adverse reactions Comment:Done [employer] Other Medications Current Medications Medication Drug Class(es) [...] tablet (20 sources) Phosphodiesterase 5 Inhibitor Start: 06-24-2022 take 1 tablet by mouth once daily as needed Sildenafil Active MG PO June 15, 2023 12:00am [employer] tablet Orally Once a day as needed for ED; Note: Source Status: Taking; Refills: 5; Provider: Jonatan Fuentes Completed/Discontinued Medications Medication Drug Class(es) Dates Sig [...] suspension (20 sources) Corticosteroid Start: 02-21-2022 Kenalog-40 28 Jan, 2022 40 mg Problems Active Problems Problem Classification [...] Chronic Other nutritional; endocrine; and metabolic disorders (19 sources) Obesity caused by energy imbalance; Translations: [...] sinusitis] Onset: 05-18-2017 Episodic Residual codes; unclassified (4 sources) Obstructive sleep apnea syndrome; Translations: [Obstructive [...] Range Facility Office Visiton 06-26-2023 Follow-up visit [id number] Fr ren Schneider 1975 M Date Provider Department Center 06/26/2023 TAMMY ZAVALA [facility] Family History Problem Relation Age of Onset Coronary artery disease Father Hypertension Father Family Status - Relation Status Age at Father Level of Service:84598 [place] OFFICE/OUTPATIENT NEW MODERATE MDM 45 MINUTES Normal [facility] MR knee LT wo conon 01-01-20 MR knee LT wo con [facility] [place] [address] MRI Report Signed with Addenda Patient: Roberto Schneider MR#: [id number] 816 : 1975 Acct:[id number] Age/Sex: 47 / M ADM Date: 12/31/22 Loc: Room: Type: [facility] Attending Dr: Karlene Trevino MD Copies to: Karlene Trevino MD Ordering Provider: Karlene Trevino MD Date of Service: 12/31/22 MR/MR knee LT wo con: [id number] ADDENDUM 1 MR/MR knee LT wo con Impression: This is of the left knee Impression dictated by: Delmer Keith M.D.12/31/2022 7:14 PM Dictation Location: [place] [address] Addendum Dictated By: Delmer Keith DO Addendum [...] Delmer Keith M.D.12/31/2022 7:09 PM Dictation Location: [place] [address] Transcribed By: [facility] 12/31/221908 Dictated By: Delmer Keith DO 12/31/221904 Signed By: 12/31/221908 [facility] MR knee RT wo conon 01-01-20 MR knee RT wo con [facility] [place] [address] MRI Report Signed Patient: Roberto Schneider MR#: [id number] 816 : 1975 Acct:[id number] Age/Sex: 47 / M ADM Date: 12/31/22 Loc: MR Room: Type: [facility] Attending Dr: Karlene Trevino MD Copies to: [...] Delmer Keith M.D.12/31/2022 7:13 PM Dictation Location: [place] [address] Transcribed By: [facility] 12/31/221912 Dictated By: Delmer Keith DO 12/31/221908 Signed By: 12/31/221912 Normal [facility] XR knee BI 3V - NOT FOR ER U [place] 11-12-2022 XR knee BI 3V - NOT FOR ER USE [facility] Main [place] [address] [place] [address] XRay Report Signed Patient: Roberto Schneider MR#: [id number] 816 : 1975 Acct:[id number] Age/Sex: 47 / M ADM Date: 11/12/22 Loc: SOXD Room: Type: [facility] Attending Dr: Karlene Trevino MD Copies to: [...] Donell Marquez M.D.11/12/2022 4:45 PM Dictation Location: [place] [address] Transcribed By: [facility] 11/12/22 1645 Dictated By: Donell Marquez II, MD 11/12/22 1641 Signed By: 11/12/22 1645 [facility] XR lumbar spine min 4V*on XR lumbar spine min 4V* [facility] Main [place] [address] [place] [address] XRay Report Signed Patient: Roberto Schneider MR#: [id number] 816 : 1975 Acct:[id number] Age/Sex: 46 / M ADM Date: 07/23/22 [...] Donell Marquez M.D.07/23/2022 2:01 PM Dictation Location: [place] [address] Transcribed By: [facility] 07/23/22 1401 Dictated By: Donell Marquez II, MD 07/23/22 1358 Signed By: 07/23/22 1401 [facility] XR thoracic spine 3V*on 06-26 XR thoracic spine 3V* [facility] Main [place] [address] [place] [address] XRay Report Signed Patient: Roberto Schneider MR#: [id number] 816 : 1975 Acct:[id number] Age/Sex: 46 / M ADM Date: 07/23/22 [...] Donell Marquez M.D.07/23/2022 1:58 PM Dictation Location: [place] [address] Transcribed By: [facility] 07/23/22 1358 Dictated By: Donell Marquez II, MD 07/23/22 1356 Signed By: 07/23/22 1358 [facility] GLYCOHEMOGLOBIN A1Con 2022 ADA RECOMMENDATION SEE BELOW Normal [facility] Comment on above: Result Comment: ADA RECOMMENDED LIMIT 4.0 - 6.0 ADA THERAPEUTIC TARGET < 7.0 ACTION SUGGESTED > 7.0 Performed By: #### A 1C #### [facility] [address] [place] [address] Dr. Farheen Carrillo Glucose [Mass/Vol] 140 mg/dL Normal [facility] Comment on above: Performed By: #### A 1C #### [facility] [address] [place] [address] [address] Farheen Carrillo HbA1c (Bld) [Mass fraction] 6.5 % Critically high 4.5-6.2 [facility] Comment on above: Performed By: #### A 1C #### [facility] [address] [address] [address] Farheen Carrillo TESTOSTERONE, TOTALon 2021 Testosterone [Mass/Vol] 389 ng/dL Normal 264-916 [facility] Comment on above: Result Comment: Adul t male reference interval is based on a population of healthy nonobese males (BMI <30) between 19 and 39 years old. emmett Muse.al. JCEM 2017,102;7364-0410. PMID: [id number]. Performed By: #### T ESTTOT #### [facility] [address] [place] [address] [address] Farheen Carrillo GLYCOHEMOGLOBIN A1Con 2021 ADA RECOMMENDATION SEE BELOW Normal [facility] Comment on above: Result Comment: ADA RECOMMENDED LIMIT 4.0 - 6.0 ADA THERAPEUTIC TARGET < 7.0 ACTION SUGGESTED > 7.0 Performed By: #### A 1C #### [facility] [address] [place] [address] Dr. Farheen Carrillo Glucose [Mass/Vol] 194 mg/dL Normal [facility] Comment on above: Performed By: #### A 1C #### [facility] [address] [place] [address] Dr. Farheen Carrillo HbA1c (Bld) [Mass fraction] 8.4 % Critically high 4.5-6.2 [facility] Comment on above: Performed By: #### A 1C #### [facility] [address] [place] [address] Dr. Farheen Carrillo CBC AUTO DIFFon 08-17-2021 BASO # 0.0 103/ul Normal 0.0-0.1 [facility] Comment on above: Performed By: #### D ATCBC #### [facility] [address] [place] [address] Dr. Farheen Carrillo Basophils/100 WBC (Bld) 0.7 % Normal 0.2-2.0 [facility] Comment on above: Performed By: #### D ATCBC #### [facility] [address] [place] [address] Dr. Farheen Carrillo EO # 0.3 103/ul Normal 0.0-0.7 [facility] Comment on above: Performed By: #### D ATCBC #### [facility] [address] [place] [address] Dr. Farheen Carrillo Eosinophils/100 WBC (Bld) 5.5 % Normal 0.9-7.0 [facility] Comment on above: Performed By: #### D ATCBC #### [facility] [address] [place] [address] Dr. Farheen Carrillo Erythrocyte distribution width (RBC) [Ratio] 12.0 % Normal 11.0-15.0 [facility] Comment on above: Performed By: #### D ATCBC #### [facility] [address] [place] [address] [address] aFrheen Carrillo Hematocrit (Bld) [Volume fraction] 44.7 % Normal 42.0-54.0 [facility] Comment on above: Performed By: #### D ATCBC #### [facility] [address] [place] [address] [address] Farheen Carrillo Hemoglobin (Bld) [Mass/Vol] 15.6 g/dL Normal 14.0-18.0 [facility] Comment on above: Performed By: #### D ATCBC #### [facility] [address] [place] [address] Dr. Farheen Carrillo IG # 0.02 10e3/ul Normal 0.00-0.03 [facility] Comment on above: Performed By: #### D ATCBC #### [facility] [address] [place] [address] Dr. Farheen Carrillo IG % 0.3 % Normal 0.0-0.5 [facility] Comment on above: Performed By: #### D ATCBC #### [facility] [address] [place] [address] Dr. Farheen Carrillo LYMPH # 2.3 103/ul Normal 1.2-3.8 [facility] Comment on above: Performed By: #### D ATCBC #### [facility] [address] [place] [address] Dr. Farheen Carrillo Lymphocytes/100 WBC (Bld) 39.1 % Normal 20.5-60.0 [facility] Comment on above: Performed By: #### D ATCBC #### [facility] [address] [place] [address] Dr. Farheen Carrillo MCH (RBC) [Entitic mass] 31.1 pg Normal 25.9-34.0 [facility] Comment on above: Performed By: #### D ATCBC #### [facility] [address] [place] [address] Dr. Farheen Carrillo MCHC (RBC) [Mass/Vol] 34.9 g/dL Normal 29.9-35.2 [facility] Comment on above: Performed By: #### D ATCBC #### [facility] [address] [place] [address] Dr. Farheen Carrillo MCV (RBC) [Entitic vol] 89.0 fL Normal 80.0-94.0 [facility] Comment on above: Performed By: #### D ATCBC #### [facility] [address] [place] [address] Dr. Farheen Carrillo MONO # 0.5 103/ul Normal 0.3-0.8 [facility] Comment on above: Performed By: #### D ATCBC #### [facility] [address] [place] [address] Dr. Farheen Carrillo Monocytes/100 WBC (Bld) 8.5 % Normal 1.7-12.0 [facility] Comment on above: Performed By: #### D ATCBC #### [facility] [address] [place] [address] Dr. Farheen Carrillo NEUT # 2.7 103/ul Normal 1.4-6.5 [facility] Comment on above: Performed By: #### D ATCBC #### [facility] [address] [place] [address] Dr. Farheen Carrillo Neutrophils/100 WBC (Bld) 45.9 % Normal 43.0-75.0 [facility] Comment on above: Performed By: #### D ATCBC #### [facility] [address] [place] [address] Dr. Farheen Carrillo Platelet mean volume (Bld) [Entitic vol] 8.9 fL Critically low 9.5-13.5 [facility] Comment on above: Performed By: #### D ATCBC #### [facility] [address] [place] [address] Dr. Farheen Carrillo PLT 208 103/ul Normal 150-450 [facility] Comment on above: Performed By: #### D ATCBC #### [facility] [address] [place] [address] Dr. Farheen Carrillo RBC 5.02 106/ul Normal 4.70-6.10 [facility] Comment on above: Performed By: #### D ATCBC #### [facility] [address] [place] [address] [address] Farheen Carrillo WBC 5.9 103/ul Normal 4.0-11.0 [facility] Comment on above: Performed By: #### D ATCBC #### [facility] [address] [place] [address] [address] Farheen Carrillo MARGIE- BMP WITH LIPIDon 2021 Anion gap [Moles/Vol] 10.1 mmol/L Normal [facility] Comment on above: Performed By: #### D ATBMP #### [facility] [address] [place] [address] [address] Farheen Carrillo Calcium [Mass/Vol] 8.5 mg/dL Normal 8.5-10.1 [facility] Comment on above: Performed By: #### D ATBMP #### [facility] [address] [place] [address] Dr. Farheen Carrillo Chloride [Moles/Vol] 100 mmol/L Normal 98-107 [facility] Comment on above: Performed By: #### D ATBMP #### [facility] [address] [place] [address] Dr. Farheen Carrillo Cholesterol [Mass/Vol] 164 mg/dL Normal <=200 [facility] Comment on above: Performed By: #### D ATBMP #### [facility] [address] [place] [address] Dr. Farheen Carrillo Cholesterol in HDL [Mass/Vol] 35 mg/dL Critically low 40-60 [facility] Comment on above: Performed By: #### D ATBMP #### [facility] [address] [place] [address] Dr. Farheen Carrillo Cholesterol in LDL [Mass/Vol] 77.8 mg/dL Normal [facility] Comment on above: Performed By: #### D ATBMP #### [facility] [address] [place] [address] Dr. Farheen Carrillo CO2 [Moles/Vol] 29.4 mmol/L Normal 21.0-32.0 [facility] Comment on above: Performed By: #### D ATBMP #### [facility] [address] [place] [address] [address] Farheen Carrillo Creatinine [Mass/Vol] 1.13 mg/dL Normal 0.70-1.30 [facility] Comment on above: Performed By: #### D ATBMP #### [facility] [address] [place] [address] [address] Farheen Carrillo EGFR-AF IRANIAN >60 Normal >=60 [facility] Comment on above: Performed By: #### D ATBMP #### [facility] [address] [place] [address] [address] Farheen Carrillo EGFR-NON AF IRANIAN >60 Normal >=60 [facility] Comment on above: Performed By: #### D ATBMP #### [facility] [address] [place] [address] [address] Farheen Carrillo Glucose [Mass/Vol] 246 mg/dL Critically high 74-106 [facility] Comment on above: Performed By: #### D ATBMP #### [facility] [address] [address] [address] Farheen Carrillo HDL NORMAL > or = 60 mg/dl - LO W CARDIOVASCULAR RISK <40 mg/dl - HIGH CARDIOVASCULAR RISK Normal [facility] Comment on above: Performed By: #### D ATBMP #### [facility] [address] [address] [address] Farheen Carrillo LDL CALC NORMAL SEE BELOW Normal [facility] Comment on above: Result Comment: <100 mg/dl OPTIMAL 100 - 129 mg/dl NEAR OR ABOVE OPTIMAL 130 - 159 mg/dl BORDERLINE HIGH 160 - 189 mg/dl HIGH >190 mg/dl VERY HIGH Performed By: #### D ATBMP #### [facility] [address] [address] [address] Farheen Carrillo Potassium [Moles/Vol] 4.5 mmol/L Normal 3.5-5.1 [facility] Comment on above: Performed By: #### D ATBMP #### [facility] [address] [place] [address] [address] Farheen Carrillo Sodium [Moles/Vol] 135 mmol/L Critically low 136-145 [facility] Comment on above: Performed By: #### D ATBMP #### [facility] [address] [place] [address] [address] Farheen Carrillo Triglyceride [Mass/Vol] 256 mg/dL Critically high <=150 [facility] Comment on above: Performed By: #### D ATBMP #### [facility] [address] [place] [address] [address] Farheen Carrillo Urea nitrogen [Mass/Vol] 18.0 mg/dL Normal 7.0-18.0 [facility] Comment on above: Performed By: #### D ATBMP #### [facility] [address] [place] [address] Dr. Farheen Carrillo Urea nitrogen/Creatini ne [Mass ratio] 15.9 mg/mg Normal [facility] Comment on above: Performed By: #### D ATBMP #### [facility] [address] [place] [address] [address] Farheen Carrillo VLDL CALC 51.2 mg/dL Normal [facility] Comment on above: Performed By: #### D ATBMP #### [facility] [address] [place] [address] [address] Farheen Carrillo GLYCOHEMOGLOBIN A1Con 2021 ADA RECOMMENDATION SEE BELOW Normal [facility] Comment on above: Result Comment: ADA RECOMMENDED LIMIT 4.0 - 6.0 ADA THERAPEUTIC TARGET < 7.0 ACTION SUGGESTED > 7.0 Performed By: #### D ATA1C #### [facility] [address] [place] [address] Dr. Farheen Carrillo Glucose [Mass/Vol] 263 mg/dL Normal [facility] Comment on above: Performed By: #### D ATA1C #### [facility] [address] [place] [address] Dr. Farheen Carrillo HbA1c (Bld) [Mass fraction] 10.8 % Critically high 4.5-6.2 [facility] Comment on above: Performed By: #### D ATA1C #### [facility] [address] [place] [address] [address] Farheen Carrillo XR knee BI 3Von 07-16-2021 XR knee BI 3V [facility] [employer] Other XR knee BI 3V [facility] [employer] Other XR knee BI 3V 1111 [facility] [employer] Other XR knee BI 3V [address] [employer] Other XR knee BI 3V [facility] [employer] Other XR knee BI 3V Signed [employer] Other XR knee BI 3V Patient: Zoila Schneider MR#: [id number] [place] [employer] Other XR knee BI 3V 816 [employer] Other XR knee BI 3V : 1975 Acct:[id number] [place] [employer] Other XR knee BI 3V Age/Sex: 45 / M ADM Date: 07/16/21 [employer] Other XR knee BI 3V Loc: SOXD Room: Type: [facility] [employer] Other XR knee BI 3V Attending Dr: Cindy Trevino MD [employer] Other XR knee BI 3V Ordering Provider: Nigel Trevino MD [employer] Other XR knee BI 3V Date of Service: 07/16/21 [employer] Other XR knee BI 3V 11887) XR/XR knee BI 3V - NOT FOR ER USE: Rupture of right quadriceps tendon, [employer] Other XR knee BI 3V initial encounter;Ruptur [employer] Other XR knee BI 3V Copies to: Karlene Trevino MD [employer] Other XR knee BI 3V 3 views both knee plain film [employer] Other XR knee BI 3V COMPARISON:06/02/20 No rt [employer] Other XR knee BI 3V HISTORY:Bilateral pa tellar tendon repair. [employer] Other XR knee BI 3V Postsurgical changes of bilateral patellar repair identified. There are small bony density inferior [employer] Other XR knee BI 3V to the RIGHT patella . This likely incidental. Bony alignment adequate. No acute bony findings seen. [employer] Other XR knee BI 3V X R/XR knee BI 3V - NOT FOR ER USE [employer] Other XR knee BI 3V IMPRESSION:No postsu rgical complication. [employer] Other XR knee BI 3V Impression dictated by: Delmer Keith M.D.07/16/2021 12:20 PM [employer] Other XR knee BI 3V Dictation Location: [place] [address] [employer] Other XR knee BI 3V Transcribed By: PWS 07/16/21 1220 [employer] Other XR knee BI 3V Dictated By: Randy Keith DO 07/16/21 1218 [employer] Other XR knee BI 3V Signed By: [employer] Other XR knee BI 3V 07/16/21 1220 [employer] Other Coding Summaryon 04-13-2017 Coding Summary CODING DATE: 017 [facility] STATUS: Home PAYOR: Workers Compensation [employer] DESCRIPTION [...] Donovan Rebolledo Date Saved: 04/13/2017 08:58 am [facility] Coding Summary CODING DATE: 017 [facility] STATUS: Home PAYOR: Workers [employer] DESCRIPTION [...] Donovan Rebolledo Date Saved: 04/13/2017 08:58 am [facility] Discharge Instructionson Discharge Instructions [id number] [facility] ED Note-Nursingon 04-11-2017 ED Note-Nursing Pt leaves a message on our voicemail to report he is Fine back to work . [facility] ED Note-Nursing No answer, message w ith return # left [facility] ED Clinical Summaryon 2016 ED Clinical Summary [facility] ? Urgent [address] [place] [address] clinical SummaryPERSON INFORMATIONName: JENNIE ROBERTO PREMA Age: 41 Years Sex: MALEDOB: [birth year] MRN: Acct#:Visit Reason: UC - Wrist/Hand/Finger Pain or Swelling; LEFT 3RD FINGER LACERATION Arrival:04/10/17 11:59:00 Discharge: 04/10/17 12:51:00LOS: 000 00:52 Check In: 04/10/17 11:59:00 Checkout: 04/10/17 12:51:00Address:[address] [facility] [address]NMD: José Miguel Cheung EPROVIDER INFORMATIONProvider Role Assigned UnassignedSpasic Mark BRITO ED PA 04/10/17 12:02:11Zaida De Dios PATENT LITIGATION ASSOCIATE Nurse 04/10/17 12:08:50VITALS INFORMATIONVital Sign Triage LatestTemperature TympanicTemperature Temporal ArteryPulse Rate 73 bpm 73 bpmO2 Sat 97 % 97 %Respiratory Rate 16 br/min 16 br/minBlood Pressure 122 mmHg/82 mmHg 122 mmHg/82 mmHgMEDICAL INFORMATIONMedications Given:Medication Dose Routebacitracin topical 500 unit(s) TOPAllergy Information:No Known Medication AllergiesPHYSICIAN DOCUMENTATIONDISCHARGE INFORMATION:Discharge Disposition: HomeDischarge Location: HomePATIENT EDUCATION INFORMATIONInstructions: Crush Injury of the Hand, Tgak-mk-KeymDuqewz-Up:With: Address: When:José Miguel Cheung [facility] [place] [address] [facility] (1)Comments:Keep the injury clean and dry, do not submerge in the waterCan take ibuprofen and/or Tylenol as needed for pain, can elevate as needed to help reduce swellingAny increase in discomfort or any inability to perform your work duties return for reevaluationDIAGNOSIS:Crush injury - 3rd digit left handComment: Normal [facility] ED Note - Physicianon 2016 ED Note [...] other complaints or concerns. Patient works for [employer]. Nail and nailbed is intact for range [...] PlanDiagnosisCrush injury - 3rd digit left hand ([id number] T14.8XXA, Discharge, Medical)PlanPrescriptions: Launch prescriptionsPharmacy:Keflex 500 mg oral capsule (Prescribe): 500 mg, 1 cap(s), PO, q12hr, for 5 day(s), 10 cap(s), 0 Refill(s).Patient was given the following educational materials: Crush Injury of the Hand, Fidm-xh-Gsvu.Follow up with: José Miguel Cheung Keep the [...] Kilgore[Verified on: 04/10/2017 13:20 EST] Mark Kilgore [facility] ED Note-Nursingon 04-10-2017 ED Note-Nursing Order to clean, use bacitracin, dress the wound and apply splint. Wound cleaned with betasept, bacitracin applied, 2x2, fingercot gauze applied, baseball splint applied per orders. Normal [facility] ED Note-Nursing Injured digit L hand soaking in tepid h2o and betasept. Normal [facility] ED Patient Summaryon 017 ED Patient Summary [facility] ? 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 Change your bandage as told by your [...] take a bath or a shower.? Take hsxi-toy-terxcwt and prescription medicines only as told by [...] Document Reviewed: 12/05/2015[employer]ud[employer] Interactive Patient Education ?2017 [employer].Medication Information:The exam and treatment you received today in the [facility] Emergency Department were for an urgent problem and are not intended as complete care. It is important for you to follow up with a doctor, nurse practitioner, or physician?s pastry assistant for ongoing care. If your symptoms [...] number so we can reach you if necessary.[facility] Emergency Department has provided you with a complete list of medications post discharge. Please inform your occupational therapist rehab manager/provider of your visit and for further instruction [...] (T14.8XXA) UC - Wrist/Hand/Finger Pain or Swelling ([id number])If you received any narcotics, sedation, or any [...] Weight: 97.5 kg Body Mass Index: 32.69 kg/g5Hpfteudp List:Problem Onset CommentsNo Problems foundMajor Tests and [...] the [email or web address].gov/getsmart GET SMART Know When Antibiotics Shazia.. Department of Health and Human ServicesCenters for Disease Control and Prevention December 2013 Normal [facility] Urgent Care Recordon 017 Urgent Care Record [facility] ? Urgent [id number] [place] [address] pATIENT DISCHARGE INSTRUCTIONSPatient InformationName: ROBERTO SCHNEIDER Age: 41 YearsDate of : 73MRN: [id number] Visit: UC - Wrist/Hand/Finger Pain or Swelling; LEFT 3RD FINGER LACERATIONArrival Time: 04/10/17 11:59:00Phone: Primary Care Physician: José Miguel Cheung Physician: Sehila KilgorerComment:Visit Diagnosis:Diagnoses This Visit Crush injury - 3rd digit left hand (T14.8XXA) UC - Wrist/Hand/Finger Pain or Swelling ([id number])If you received any narcotics, sedation, or any [...] legal documentsWith: Address: When:José Miguel Cheung [address], [place] [address] Business (1)Comments:Keep the injury clean and dry, do not submerge in the waterCan take ibuprofen and/or Tylenol as needed for pain, can elevate as needed to help reduce swellingAny increase in discomfort or any inability to perform your work duties return for reevaluationMedication Information:The exam and treatment you received today in the [facility] were for an urgent problem and are not intended as complete care. It is important for you to follow up with a doctor, nurse practitioner, or physician?s pastry assistant for ongoing care. If your symptoms [...] number so we can reach you if necessary.[facility] has provided you with a complete list of medications post discharge. Please inform your occupational therapist rehab manager/provider of your visit and for further instruction [...] Weight: 97.5 kg Body Mass Index: 32.69 kg/m7Bzsbpfro List:Problem Onset CommentsNo Problems found Patient EducationCrush [...] cannot use soap and water, use hand rental boats caretaker.? Change your bandage as told by your [...] take a bath or a shower.? Take nvcl-[id number] and prescription medicines only as told by [...] Document Reviewed: 12/05/2015[employer] Patient Education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
== END 2023-09-16 07:18 | disposition home or self-care (01) ==
LOC: NM 07:18
PROVIDERS: PCP Internal Medicine; Visit Provider Internal Medicine Cardiovascular Disease
DX: R07.9 Chest pain, unspecified (principal)
CPT/HCPCS: 78452; 93017; A9500

== ENCOUNTER 2023-11-13 06:30 | Outpatient (OUT) | payer BC, SELFPAY ==
--- OUTSIDE RECORDS SUMMARY | 2023-11-13 06:34 | XMS_ITS | CCD ---
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 AIypC5HsjeC2DNWomJZbMIGbjDMEu L1mxosvp5dmfqrzVkJtSLGeYNf5AJ f3JLNxhJqdBeZhVKB1 RgD4HLF9mCFmaM3auTvxgjdbtM4sG yc+TdkosEguIKH9CIs0C7TfUyu8AJ UuwRhwSF3rwWWuOZpl Iz2kkTwfwTbrTF6iRRCnwdzcy440T oWpj9jmWCKgwGPaGYjiRYZ8Z14uv6 U4VDIhMJZsSFX1mMQ5 zS9swWtrnixrxUSjeMwolaXacXrhL PelONgrD461OYGxnBiqJgEbDRu1E3 KaGhw3MLElcAgmES0r vKSjWBocMy9jrVjnrSknDP5wIXCwe wzmi700SbMnf9soXWLokEWcYPnoGZ W9C35rv6X4MBItCPJd SRH2rUQ5uV6osFicofunvINbyCapt jLeoHtgPXqgQAxqN843VSJaiTmmIh BsnPr5N9PeUxf9VWZw zKrbAN7mkGVqKGwrCz6txBhguCsfT K9mKIYkfjvvx197PyCcf3bzOPUapV VsRCaaAKB8U27el3M8 OAIgYTCuUPJ0jUW0xQ8xaZhglsdld ORohDqkznNnzXalNSvpLDogJ484WG RvcDsnPlBhdGllbnQg ZTsbHSa3O7GuFgcbuEK+LR26HLKcE O07nXThjOZdq3qirBb9PuYuQVZoPR L0dZixUTrlh2XdPMHn A39lzKSfi1W7EIPnpAitkNZaPvStw WE7wM0xFImxncvrk2tmbvkrVyjhs7 tgnf42mS49J52qZGff PWCdWUObTGYbOKDrtYoaft8rmU6xE i8+PWAayQL5lMR8pI3pPTOqSrP4FM zjC660GmSndNQsZfpj d9bco8cmvGe1KrP5MRCgciDscHymM DV2q0FfGq52M01qIWkjKKXaYYTsUP LlHFAeuUiykv2veO0y Ii8+BEVfhUR1tMI2wM3wZtRmIbF4X YomD313GtVhpHVcUmepV60vY6NepQ A+OGMiTco6WBXkrLsp HP8ffMUiSEfqJh5qQTY7OwYlElBrF YcjT3OqCJQjtakjsrhosMM4WEAwPV XuwH95Ck8hkWhbHBCv yIOMqW5rmvrse5mnehpnRiVrIXHzT Pa9UWm3VWBwbVzgOcYvEDO3CeH0RO W3gEApqH4kiGauliex xK2wF1DzCVGjaruaTi56yZ8dStCwS dS2SGfgGqp+Eu6DRJ7HEhpbYmPBHm sgSjwvdGQ+PHRkIHN0 yVgmAKnoABPixV8eSRPyX3p2YhAwF hJ9JOmtO0ZpTIEvfpoePp90aS9vYk FdRbU5MXkbJ7OoziH0 FSKqoXOuETaaSKZ2J71oq2L0SKZdS NSjITX9sZS7qA6ctSgxtbrcmOHnzD sgdmVydGljYWwtYWxp R857EIFvtEfoIjY8RpW4BjU6WcT6P 4UoPzw2JKXvcDtgRF4vfITsYUmpOg 0oyTjuuObyTR8iZNPi ayefKNAtpO5sMHNecECypRvcLV2wD SJggsobr823FpGuLNE4YGAarBHyS0 PmnH8bGjYpLZQqPDDl I2ZksXWoPBtnW122OZyiPiN4TLOjy lGgC1KqQRLmmXxcOlF8j2J8Zu91SQ BZZWFyczwvdGQ+PHRk QYC8aXqeOIisAJMglF4uDHBhN8d7Y xIjAxS2MQjmX9BsKAEiydhgNa58jD 5dCuCyGqO4BWuvT9Nm unI8AOUnwBJyMYyjZCN3R37ot9C5Y CUlIFTlDBX2tWQ5yK5tiFkwoqvdaU VmdDsgdmVydGljYWwt AEggM135WKXrkIqjQq9hjMG5N6PbC rw9JJBhtKlpQO0oxIXxIRxzNx0wgY ikbHhpND0oXZZfjooo GYAvuH2gVRSuhKYfeKrpEB0uXYOdf wjed955InGpJER6MKLazGWaV5LvpR 2bBlWtRRZdMMEmK2Jk yJYlVBhdE350DOcsGyL6YUKyheXpA 2TeNNFheMtjKyT4j2L7Rx9OyVSrV7 QuX4c3W7UfDlebcTQ+ AY15IVGpDN24nXNnsORwe6msjWq9M uTfPAFnMOK0gMmpENszm3LoNPShZ0 9wgBEec9J2KTWbaBxa dFFfViRwrSS6cM0dCAqjizpdn5sgb xwnKkoya5mthx16gS51Z68pQJquXW RoPSIzMCUiIHZhbGln if7tnT6pWw3+KHBxxHQ3jGL4rE9oV mBgHaG8XAdgW451ObEyvNJiQdysp7 cqm2kjnDi0KzMjKYSl ujKbgDujJYS9x8WfMr14T06kEHyzW RDiPHOuPDGpQISmjSvyvg2mkW8aCv 8+JJ8pu3lxmb26xV71 dHI+SMSjPDN6rBdaVBbzQBTsoA3jN LmmXvX3KWQgFhPplA92zWCcSYptTp 0pzWpvxVryEJ4hLZIu kffga448HhFak8dtAFClbNJzIQjmQ AP6Y93xc5Y3HPGvATEdOKK4nHQ0uS 1hbGlnbjogbGVmdDsg roXaxSmdEYiuRZvoS981EIWtvFcdY kEkiSOyU9hdqrNJLC7uKcifsBA+PH WgJGX8hVkkUZkeECEz dB7fFHPtF0r3VgZrIaC1APymC3Cik iF0AGFkmPDjJLWyyRMHpJ9qocsyn5 xvcjogIzAwMDAwMDt0 BHh3OVBasJaoVaPuLYQ6NpJ6XZW7w KOcxC9jgFotnfkstH2hNoe+RklOOj wvdGQ+HPTqRCR3yBll ZLukYHSciH3cKMTdS0p6FcJtBlO9X GzvO6DhsxA6WZQrvNKxMNOrqPBMtS 8awtirm7nejcmjEqDn HMTqRBt8CPb2URBkxZfpUmAaKRJ3L aE5SFP5yIEjqS2nsOllxmaztX7nWa c+TVJOOjwvdGQ+PHRk MNF5nAnzKNdhEBJahY1iKIIpM3r0R uCxLxU2WDmeX9ZtkeM5ZBEknIDvVG YadNSFbO8xuiitr4lq gbhcXdByJHShMVh6KTb8HFPfhVykY eDgNES5IaM3REL9kXHclS6orDobum uxwT1xGgo+JUR1SJE9 GW45CS93Y0RhOdjzyLNjlMM+PHRhY mxlIHdpZHRoPScxMDAlJyBzdHlsZT 2uPx9rTYEzLXMkxYgw jOSpSoNwu8mbN (more content not included)... Normal [facility] CHEMISTRYOrdered By: Lab ROP User on 10-14-2023 Glucose [Mass/Vol] 240 mg/dL High 55 - 99 mg/dL [facility] POC Subsection Comment on above: Result Comment: Trevor tian RN/ POC Device SN [id number] 1 Invalid Interpretation Code [facility] POC Subsection POC User ID [id number] 1 Invalid Interpretation Code [facility] POC Subsection POC Username EDISON VUONG Invalid Interpretation Code [facility] POC Subsection CNPNon 10-14-2023 CNPN Telephone (CATHMN) KASSI SCHNEIDER ([id number]) 1975 M Date Time Provider Department 10/14/23 MILAGROS GUARDADO During your visit today, we recorded the following information about you: Tianna Mendes 10/14/2023 2:41 PM Signed Call from spouse with concern of swelling and tingling at the catheter insertion site. S/p cath on 10/08. Only noticed these symptoms today No redness, some discomfort, some bruising. Call back number [phone] Jinny Galvez APRN.LIVESTOCK SALES REPRESENTATIVE 10/14/2023 4:56 PM Signed Pt experienced some swelling and tingling in hand and is now at the ER Pt completed ultrasound Allergies As of Date: 10/14/2023 (No Known Allergies) Date Reviewed: 10/09/2023 Reviewed by: Emmie Hayward, DAVON - Fully Assessed Prescriptions as of 10/14/2023 - isosorbide mononitrate ER (IMDUR) 30 mg 24 hr tablet Take 0.5 tablets by mouth once daily. - metFORMIN (GLUCOPHAGE) 500 mg tablet Take 1 tablet by mouth two times a day with meals. - JARDIANCE 25 mg tablet Take 25 mg by mouth daily with breakfast. - pioglitazone (ACTOS) 30 mg tablet Take 30 mg by mouth once daily. - lisinopril (ZESTRIL) 5 mg tablet Take 1 tablet by mouth every afternoon. - metoprolol succinate ER (TOPROL XL) 25 mg 24 hr tablet Take 12.5 mg by mouth daily at bedtime. - Naproxen SR (EC-NAPROSYN) 500 mg EC tablet Take 500 mg by mouth two times a day with meals. - Zflzqqkivotji-Wjzrpbzl-Zqkeqn (MULTIVITAMIN 50 PLUS) tab Take 1 tablet by mouth once daily. - Ascorbic Acid (VITAMIN C) 1,000 mg tablet Take 1,000 mg by mouth once daily. - aspirin, enteric coated (ECOTRIN LOW STRENGTH) 81 mg EC tablet Take 1 tablet by mouth once daily. Problem List As Of Date: 10/14/2023 (None) Encounter Status:Closed by JINNY GALVEZ on 10/14/23 Normal [facility] Capillary Glucose POCon 09-25 Glucose [Mass/Vol] 240 mg/dL High 55-99 [facility] Comment on above: Result Comment: Trevor tian RN/ Performed By: #### 2 [id number] #### [facility] [address] [place] [address] Consent for Treatmenton 09-25 Consent for Treatment [id number] Normal [facility] Discharge Instructionson Discharge Instructions [id number] Normal [facility] ED Clinical Summaryon 2023 ED Clinical Summary [address] [address] ED Clinical Summary Person Information Name: KASSI SCHNEIDER [place] Age: 48 Years : 1975 Sex: Male Language: [place] PCP: JOSÉ MIGUEL CHEUNG DO Marital Status: Phone: [phone] Visit Id: Visit Reason: Post surgical problem; Wrist pain-swelling; RIGHT ARM SWELLING/NUMB WHERE HEART CATH WAS Speciality: Acuity: 3 Enc Type: Emergency Med Service: Emergency Arrival: 10/14/2023 15:50:28 Discharge: 10/14/2023 17:25:58 LOS: 000 01:35 Checkin: 10/14/2023 15:50:28 Checkout: 10/14/2023 17:25:58 Dispo Type: Home (Routine DC) EVENTS: Event Name Event Status Request Date/Time Start Date/Time Complete Date/Time Arrive Complete 10/14/2023 15:50:28 10/14/2023 15:50:28 10/14/2023 15:50:28 Document Home Meds Request 10/14/2023 15:50:28 Triage Complete 10/14/2023 15:50:28 10/14/2023 15:58:37 10/14/2023 15:58:37 Bed Assign Complete 10/14/2023 15:53:21 10/14/2023 15:53:21 10/14/2023 15:53:21 Dr Exam Complete 10/14/2023 15:53:21 10/14/2023 15:58:31 10/14/2023 15:58:31 RN Exam Complete 10/14/2023 15:53:21 10/14/2023 16:41:00 10/14/2023 16:41:00 Registration Complete 10/14/2023 15:58:31 10/14/2023 17:06:03 10/14/2023 17:06:03 Dr Exam Complete 10/14/2023 16:02:10 10/14/2023 16:02:10 10/14/2023 16:02:10 US Complete 10/14/2023 16:23:40 10/14/2023 16:32:23 10/14/2023 17:01:10 Pending Labs Complete 10/14/2023 16:43:50 10/14/2023 16:43:50 10/14/2023 16:43:51 Discharge Complete 10/14/2023 17:04:33 10/14/2023 17:26:15 10/14/2023 17:26:15 Reg Complete Request 10/14/2023 17:06:03 Reg Bed Request Complete 10/14/2023 17:06:03 10/14/2023 17:06:03 10/14/2023 17:06:03 Transfer Complete 10/14/2023 17:26:15 10/14/2023 17:26:15 10/14/2023 17:26:15 ADDRESS: [address] [place] [phone] PHYS DOC NOTES: MEDICAL INFORMATION: Prescriptions Given: PATIENT EDUCATION INFORMATION: Instructions: Follow up: With: Address: When: Chris Dave [address] [place] [address] [employer] ([employer] In 3 days 10/17/2023 Comments: Call Dr for diagnosis based follow up DIAGNOSIS: Post surgical complication; Swelling of right wrist Normal [facility] ED Note-Physicianon 10-14-19 ED Note-Physician Basic Information Time Seen: Robinson Grace PA-C 10/14/2023 15:58 Chief Complaint Pt presents to ED with complaints of right wrist numbness and swelling onset today after right wrist heart cath on thursday. radial pusle and cap refilll WNL History of Present Illness 48-year-old male reports emergency department with chief complaint of right wrist numbness and swelling. Reports started today after walking. Reports he had a heart catheterization in [facility] that he really went to his right wrist on Thursday. He reports that he was doing okay, but became the more numb today. Is concerned. When to get checked out. Denies any fevers or chills. Denies any blood thinner use. States that no chest pain or shortness of breath. Review of Systems No other aggravating or relieving factors no other associated symptoms no other prior treatments or complaints. Family: Reviewed and noncontributory Social: lives at home Review of systems negative unless otherwise specified in the HPI. Physical Exam Vitals & Measurements T: 36.8 ?C(Oral) HR: 73(Peripheral) RR: 18 BP: 122/80 SpO2: 98% HT: 172 cm WT: 102 kg BMI: 34.48 General: The patient appears well and in no apparent distress. Patient is resting comfortably on bed. Afebrile Skin: Warm, dry, no pallor noted. Mild ecchymosis located over the right wrist. No obvious deformity noted. No warmth on palpation. Head: Normocephalic, atraumatic Neck: No JVD Eye: PERRLA, EOMI ENT: Moist mucus membranes Cardiovascular: Regular rate normal peripheral perfusion. Radial pulses +2 bilaterally. Cap refill is brisk. Respiratory: No respiratory distress no accessory muscle use no obvious audible wheezing Chest Wall: no deformity Musculoskeletal: normal ROM, no deformity, no swelling GI: No obvious distention Neurological: A&O moves all extremities equal strength and symmetry Psychiatric: Cooperative and appropriate Medical Decision Making 48-year-old male reports emergency department chief complaint of some numbness of his right hand. Reports he had a cardiac catheterization on Thursday, and having numbness that started today with some mild swelling. Exam of the patient reveals mild ecchymosis noted, but the right hand is otherwise neurovascularly intact. Appropriate cap refill. He is on any blood thinners. Denies any other pains. Compartments are soft. Due to concerns, I did reach out to our mailing manager, Dr. Jo, and did discuss the case with him. He stated that this sounds more like radial nerve compression, but related ultrasound to make sure there is nothing else going on. Due to this, did do an ultrasound. Ultrasound was negative or any DVT. No other acute findings were discussed with the patient. Discussed return precautions. Follow-up with your primary care provider in 3 to 5 days. If symptoms worsen, do not improve, or new symptoms arise please report back to emergency department for further evaluation. The patient was understanding and agreeable to plan moving forward. Assessment/Plan Post surgical complication (T81.9XXA: Unspecified complication of procedure, initial encounter) Swelling of right wrist (M25.431: Effusion, right wrist) Orders: US UE Venous Duplex Right Disposition Plan Patient Discharge Condition Stable Discharge Disposition To home Discharge Prescription List Prescriptions No active prescription medications Follow-up With When Contact Information Chris Dave In 3 days 10/17/[address] [place] [phone] (1) Additional Instructions: Call Dr for diagnosis based follow up Attestation Patient seen and evaluated by the physician periodicals library assistant. Attending physician was present in the emergency department and supervised care. This visit was performed by both the physician and an APC. I performed all aspects of the MDM as documented. This report was transcribed using voice recognition software. Every effort was made to ensure accuracy, however, inadvertently computerized technical sales manager mistakes may be present. Appropriate healthcare PPE was used in evaluating this patient. The patient was placed in a mask. The healthcare provider was wearing mask, gloves, and utilizing proper hand hygiene. All equipment was properly cleansed. I performed a substantive part of the MDM during the patient?s E/M visit. I personally made or approved the documented management plan and acknowledge its risk of complications. (Independent Interpretation) My (EKG/X-Ray/US/CT as applicable) interpretation as above. (Discussion) Management/test interpretation discussed with APC. Problem List/Past Medical History Ongoing No qualifying data Historical Diabetes mellitus Hypertension Procedure/Surgical History Cardiac catheterization. Medications Inpatient No active inpatient medications Home No active home medications Allergies No Known Medication Allergies Social History Alcohol Current, 1-2 times per year, (more content not included)... Normal [facility] Comment on above: Result Comment: Elec tronically Signed By: Robinson Grace PA-C\.br\Date and Time Signed: 10/14/23 18:28 EDT\.br\Electronically Co-Signed By: Shravan Colunga DO\.br\Date and Time Co-Signed: 10/14/23 18:38 EDT ED Patient Education Noteon 10-14-2023 ED Patient Education Note Normal [facility] ED Patient Summaryon 024 ED Patient Summary (Inserted Image. Marlee ble to display) [place] [address] Patient Discharge Instructions Person Information Name: KASSI SCHNEIDER Age: 48 Years Arrival Date: 10/14/2023 15:50:28 Discharge Diagnosis: Post surgical complication; Swelling of right wrist Primary Care Physician: JOSÉ MIGUEL CHEUNG DO Provider Information Primary Provider: Shravan Colunga DO Advanced Truck Operator:None The exam and treatment you received in the Emergency Department were for an urgent problem and are not intended as complete care. It is important that you follow up with a doctor, nurse practitioner, or physician?s periodicals library assistant for ongoing care. If your symptoms become worse or you do not improve as expected and you are unable to reach your usual health care provider, you should return to the Emergency Department. We are available 24 hours a day. KASSI SCHNEIDER has been given the following list of patient education materials, prescriptions and follow-up instructions: Follow-up Instructions: With: Address: When: Chris Dave [address] [place] [address] [employer] ([employer] In 3 days 10/17/2023 Comments: Call Dr for diagnosis based follow up In the event that this physician does not participate in your insurance network, please consult with your insurance company to find a nearby participating provider. Patient Education Materials: A MESSAGE TO ALL PATIENTS REGARDING OPIOIDS PRESCRIPTION OPIOIDS: WHAT YOU NEED TO KNOW Prescription opioids can be used to help relieve kwgqgqkk-rs-kztxdr pain and are often prescribed following a surgery or injury, or for certain health conditions. These medications can be an important part of the treatment but also come with serious risks. It is important to work with your healthcare provider to make sure you are getting the safest, most effective care. WHAT ARE THE RISKS AND SIDE EFFECTS OF OPIOID USE? Prescription opioids carry serious risks of addiction and overdose, especially with prolonged use. An opioid overdose, often marked by slowed breathing, can cause sudden . The use of prescription opioids can have a number of side effects as well, even when taken as directed: ? Tolerance?meaning you might need to take more of the medication for the same pain relief ? Physical dependence?meaning you have symptoms of withdrawal when a medication is stopped ? Increased sensitivity to pain ? Constipation ? Nausea, vomiting, and dry mouth ? Sleepiness and dizziness ? Confusion ? Depression ? Low levels of testosterone that can result in lower sex drive, energy, and strength ? Itching and sweating RISKS ARE GREATER WITH: ? History of drug misuse, substance use disorder, or overdose ? Mental health conditions (such as depression or anxiety) ? Sleep apnea ? Older age (65 years and older) ? Avoid alcohol while taking prescription opioids. Also, unless specifically advised by your health care provider, medications to avoid include: ? Benzodiazepines (such as Xanax or Valium) ? Muscle relaxants (such as Soma or Flexeril) ? Hypnotics (such as Ambien or Lunesta) ? Other prescription opioids KNOW YOUR OPTIONS Talk to your health care provider about ways to manage your pain that don?t involve prescription opioids. Some of these options may actually work better and have fewer risks and side effects. Options may include: ? Pain relievers such as acetaminophen, ibuprofen, and naproxen ? Some medication that are also used for depression or seizures ? Physical therapy and exercise ? Cognitive behavioral therapy, a psychological, goal-directed approach, in which patients learn how to modify physical, behavioral, and emotional triggers of pain and stress. IF YOU ARE PRESCRIBED OPIOIDS FOR PAIN: ? Never take opioids in greater amounts or more often than prescribed. ? Follow up with your primary health care provider. o Work together to create a plan on how to manage your pain. o Talk about ways to help manage your pain that don?t involve prescription opioids. o Talk about any and all concerns and side effects. ? Help prevent misuse and abuse o Never sell or share prescription opioids. o Never use another person?s prescription opioids. ? Store prescription opioids in a secure place and out of reach of others (this may include visitors, children, friends, and family). ? Safely dispose of unused prescription opioids: Find your community drug take-back program or your pharmacy mail-back program, or flush them down the toilet, following guidance from the Food and Drug Administration (www.fda.gov/Drugs/ResourcesF orYou). ? Visit www.cdc.gov/drugoverdose to learn about the risks of opioids abuse and overdose. ? If you believe you may be struggling with addiction, tell your health manager managed care and ask for guidance or call [facility] National Helpline at (more content not included)... Normal [facility] UE Venous Duplex Righton 10-14-2023 UE Venous Duplex Right Exam Date/Time: 10/14/2023 17:01 EDT Reason for Exam: Swelling Report IMPRESSION: NO EVIDENCE FOR DEEP VENOUS THROMBOSIS FROM THE LEVEL OF THE INTERNAL JUGULAR VEIN TO THE ANTECUBITAL FOSSA IN THE RIGHT ARM. UPPER EXTREMITY VENOUS DUPLEX EXAM: CLINICAL HISTORY: Right upper extremity edema A venous duplex exam of the right upper extremity was obtained. The following veins were evaluated, including the jugular, subclavian, axillary, brachial, basilic and cephalic veins. The veins were evaluated with color Doppler imaging, compression and augmentation if possible. All the veins demonstrated show no evidence for deep venous thrombosis. Ordering Provider: Robinson Grace FINAL REPORT Dictated: 10/14/2023 5:22 pm Chip Parish DO Signed (Electronic Signature): 10/14/2023 5:22 pm Signed by: Chip Parish DO Transcribed by: KAL Technologist: TERESA Elizabeth [facility] XR cerv spine AP/LAT/FLX/EXT on 10-13-2023 XR cerv spine AP/LAT/FLX/EXT [facility] [address] [place] [address] XRay Report Signed Patient: Kassi Schneider MR#: [id number] 816 : 1975 Acct:[id number] Age/Sex: 48 / M ADM Date: 10/13/23 Loc: [facility] Room: Type: [facility] Attending Dr: Shravan Hutchison DO Copies to: Shravan Hutchison DO Ordering Provider: Shravan Hutchison DO Date of Service: 10/13/23 XR/XR cerv spine AP/LAT/FLX/EXT: M54.2 - Cervicalgia CERVICAL SPINE WITH FLEXION AND EXTENSION VIEWS -4 views: CLINICAL HISTORY: Right shoulder pain for weeks radiating from the neck. No injury. COMPARISON: None AP as well as lateral views in neutral, flexion and extension were obtained. No acute fractures are identified. There is slight retrolisthesis of C3 on C4 and 2 to 3 mm of retrolisthesis of C5 on C6. Alignment does not change significantly with flexion or extension. Multilevel disc space narrowing is noted with relative sparing at C4-5. There is mild endplate spurring as well as facet disease. No prevertebral soft tissue swelling is identified. XR/XR cerv spine AP/LAT/FLX/EXT IMPRESSION: DEGENERATIVE CHANGES, DESCRIBED. Impression dictated by: Bianca Pérez M.D.10/13/2023 2:34 PM Dictation Location: [place] [address] Transcribed By: [facility] 10/13/23 1434 Dictated By: Bianca Pérez MD 10/13/23 1431 Signed By: 10/13/23 1434 [facility] XR shoulder RT min 2V*on XR shoulder RT min 2V* [facility] [address] [place] [address] XRay Report Signed Patient: Kassi Schneider MR#: [id number] 816 : 1975 Acct:[id number] Age/Sex: 48 / M ADM Date: 10/13/23 Loc: [facility] Room: Type: [facility] Attending Dr: Shravan Hutchison DO Copies to: Shravan Hutchison DO Ordering Provider: Shravan Hutchison DO Date of Service: 10/13/23 XR/XR shoulder RT min 2V*: M25.511 - Pain in right shoulder 4 views RIGHT shoulder plain film HISTORY: RIGHT shoulder pain for weeks COMPARISON: None ACUTE FINDINGS: None DEGENERATIVE CHANGE: Unremarkable SOFT TISSUE FINDINGS: Unremarkable JOINT EFFUSION: None POSTOP CHANGES: None BONY MINERALIZATION: Adequate XR/XR shoulder RT min 2V* IMPRESSION: No acute findings. Impression dictated by: Delmer Keith M.D.10/13/2023 12:08 PM Dictation Location: [place] [address] Transcribed By: [facility] 10/13/23 1208 Dictated By: Delmer Keith DO 10/13/23 1204 Signed By: 10/13/23 1208 Normal [facility] Basic metabolic 2000 panelon 10-09-2023 Anion gap [Moles/Vol] 10 mmol/L Normal 8-15 [facility] Comment on above: Order Comment: Speci men Type: BLOOD SPECIMEN Ordering Facility: [facility] Address: [address] [place] [address] Performed By: #### 2 4321-2 #### [facility] CLIA [id number] [address] [place] [address] [place] Calcium [Mass/Vol] 9.8 mg/dL Normal 8.5-10.2 [facility] Comment on above: Order Comment: Speci men Type: BLOOD SPECIMEN Ordering Facility: [facility] Address: [address] [place] [address] Performed By: #### 2 4321-2 #### [facility] CLIA [id number] [address] [place] [address] [place] Chloride [Moles/Vol] 101 mmol/L Normal 98-107 [facility] Comment on above: Order Comment: Speci men Type: BLOOD SPECIMEN Ordering Facility: [facility] Address: [address] [place] [address] Performed By: #### 2 4321-2 #### [facility] CLIA [id number] [address] [place] [address] [place] CO2 [Moles/Vol] 26 mmol/L Normal 22-30 [facility] Comment on above: Order Comment: Speci men Type: BLOOD SPECIMEN Ordering Facility: [facility] Address: [address] [place] [address] Performed By: #### 2 4321-2 #### [facility] CLIA [id number] [address] [place] [address] [place] Creatinine [Mass/Vol] 1.24 mg/dL High 0.73-1.22 [facility] Comment on above: Order Comment: Speci men Type: BLOOD SPECIMEN Ordering Facility: [facility] Address: [address] [place] [address] Performed By: #### 2 4321-2 #### [facility] CLIA [id number] [address] [place] [address] [place] Creatinine and Glomerular filtration rate.predicted panel (S/P/Bld) 71 mL/min/1.73m??? Normal >=60 [facility] Comment on above: Order Comment: Speci men Type: BLOOD SPECIMEN Ordering Facility: [facility] Address: [address] [place] [address] Result Comment: Haven mated Glomerular Filtration Rate (eGFR) is calculated using the 2020 CKD-EPI creatinine equation. This equation utilizes serum creatinine, sex, and age as parameters. The creatinine assay has traceable calibration to isotope dilution-mass spectrometry. Refer to KDIGO guidelines for clinical interpretation. In patients with unstable renal function, e.g. those with acute kidney injury, the eGFR may not accurately reflect actual GFR. Performed By: #### 2 4321-2 #### [facility] CLIA [id number] [address] [place] [address] [place] Glucose [Mass/Vol] 198 mg/dL High 74-99 [facility] Comment on above: Order Comment: Speci men Type: BLOOD SPECIMEN Ordering Facility: [facility] Address: [address] [place] [address] Result Comment: The [place] Diabetes Association (ADA) provides guidance for cutoff values for fasting glucose and random glucose. The ADA defines fasting as no caloric intake for at least 8 hours. Fasting plasma glucose results between 100 to 125 mg/dL indicate increased risk for diabetes (prediabetes). Fasting plasma glucose results greater than or equal to 126 mg/dL meet the criteria for diagnosis of diabetes. In the absence of unequivocal hyperglycemia, results should be confirmed by repeat testing. In a patient with classic symptoms of hyperglycemia or hyperglycemic crisis, random plasma glucose results greater than or equal to 200 mg/dL meet the criteria for diagnosis of diabetes. Reference: Standards of Medical Care in Diabetes 2016, [place] Diabetes Association. Diabetes Care. 2016.39(Suppl 1). Performed By: #### 2 4321-2 #### [facility] CLIA [id number] [address] [place] [address] [place] Potassium [Moles/Vol] 4.6 mmol/L Normal 3.7-5.1 [facility] Comment on above: Order Comment: Armandoi men Type: BLOOD SPECIMEN Ordering Facility: [facility] Address: [address] [place] [address] Performed By: #### 2 4321-2 #### [facility] CLIA [id number] [address] [place] [address] [place] Sodium [Moles/Vol] 137 mmol/L Normal 136-144 [facility] Comment on above: Order Comment: Armandoi men Type: BLOOD SPECIMEN Ordering Facility: [facility] Address: [address] [place] [address] Performed By: #### 2 4321-2 #### [facility] CLIA [id number] [address] Urea nitrogen [Mass/Vol] 22 mg/dL Normal 9-24 [facility] Comment on above: Order Comment: Speci men Type: BLOOD SPECIMEN Ordering Facility: [facility] Address: [address] [place] [address] Performed By: #### 2 4321-2 #### [facility] CLIA [id number] [address] [place] [address] [facility] CARD CATH DIAGNOSTICon 10-08 CARD CATH DIAGNOSTIC Site Id: [facility] Lab #: [id number] Perinatal Educator 5 Study Date: 10/09/2023 Start Time: 10/09/2023 10:00:30 AM End Time: 10/09/2023 10:50:23 AM Physician Name Milagros Guardado M.D., Agam M.D. Nursing/Cristhian Petersen(Rene) (Anna) Meaghan Haile R.N., R. R.N. + + PATIENT INFORMATION + + Name: KASSI SCHNEIDER : 1975 Age: 48 years Gender: M Height: 68 in / 173 cm Weight: 210.98 lb / 95.70 kg BMI: 31.98 kg/m BSA: 2.09 m Allergies: NKDA + --+ CLINICAL HISTORY/INDICATION(s) + --+ Intermediate-risk noninvasive findings with worsening/limiting symptoms; AUC score = 7. CAD Presentation: Symptoms Unlikely to be Ischemic Angina Classification (within 2 weeks): CCS I Anti-Angina Meds (within 2 weeks): No. No Heart Failure No Cardiomyopathy - No LV Dysfunction Pre-Op Evaluation before Non-Card Surg: No Cardiogenic Shock: No Cardiac Arrest: No 48 year old male with h/o DM, HTN who had atypical chest pain with ectopy on exercise stress test. Access Point Sheath Size Hemostasis Method Right Radial Artery 6F Short Radial TR band + + DIAGNOSTIC FINDINGS + + Coronary Anatomy: Right Dominant Injection Site(s): Coronary Artery LMT: _ The LMT is normal. Additional Comment: The left main is a large caliber vessel that gives rise to the LAD and LCx. There is no obstructive disease in the left main. LAD: _ The 2nd diagonal LAD is narrowed 50 % - focal disease. Additional Comment: The LAD is a large caliber vessel that gives rise to the diagonal branches. There is a focal stenosis of 50% in the proximal portion of the second diagonal branch. LCX: _ The Circumflex has mild diffuse disease. Additional Comment: The LCx is a large caliber vessel that gives rise to the OM branches. There is no evidence of significant obstructive disease in the LCx. RAMUS: _ The Ramus is Absent. RCA: _ The RCA has mild diffuse disease. Additional Comment: The RCA is a large caliber vessel that gives rise to the rPDA and rPL branches. There is mild diffuse disease in the RCA. +-------+ IMAGING +-------+ Intravascular imaging not performed. + + HEMODYNAMIC INTERROGATION + + Hemodynamic interrogation not performed. + + HEMODYNAMICS + + + + IMPRESSION/PLAN + + Impression: -Right dominant coronary circulation -Focal stenosis of 50% in proximal portion of 2nd diagonal branch Recommended Treatment: Medical Therapy for non-obstructive CAD. Plan: -Continue medical management -Add imdur 15 mg daily in AM. Continue low dose aspirin 81/d with food. Continue aggressive medical management of Risk Factors for CAD. + ------+ ADVERSE OUTCOME(s)/COMPLICATION(s) + ------+ None + --+ PROCEDURAL & TECHNICAL DETAILS + --+ Status Category Description Used Catheter, Diagnostic Imaging - 4Fr x 100cm Infiniti TL Diagnostic Angiographic Catheter, Lena Right Coronary, JR 4, Femoral Selective ThruLumen, Standard, 0.038in max guidewire (EA/1) Used Catheter, Diagnostic Imaging - 4Fr x 100cm Infiniti TL Diagnostic Angiographic Catheter, Lena Left Coronary, JL 3.5, Femoral Selective ThruLumen, Small, 0.038in max guidewire (EA/1) PROCEDURE SEQUENCE: Time Procedure Performed 10/09/2023 10:30:57 AM Left Heart Cath PROCEDURE DETAILS: Contrast: Contrast Type Total Infused Omnipaque 150ml 39 Blood Loss: < 30ml Specimen: No Specimen Obtained RADIATION: Procedure performed under Fluoroscopic Guidance Total Dose Dose Area Product Total Exposure Time 316.23 mGy 20.83 Gy*cm 283.00 sec + + MEDICAL HISTORY + + LVEF Assessed within Past 6 Months: No Physician Intra Service Procedure End Time: 10/09/2023 10:50:23 AM Attending Physician Presence Attestation: Electronically submitted by: Milagros Guardado MD On: 10/09/2023 at 4:16:17 PM Final CC [employer] [facility] : [id number] DynamicsSISUID See Link below for Image Normal [facility] CBC panel Auto (Bld)on 10-08 Erythrocyte distribution width (RBC) [Ratio] 12.1 % Normal 11.5-15.0 [facility] Comment on above: Order Comment: Speci men Type: BLOOD SPECIMEN Ordering Facility: [facility] Address: [address] [place] [address] Performed By: #### 5 8410-2 #### [facility] CLIA [id number] [address] [place] [address] [place] Hematocrit (Bld) [Volume fraction] 48.9 % Normal 39.0-51.0 [facility] Comment on above: Order Comment: Speci men Type: BLOOD SPECIMEN Ordering Facility: [facility] Address: [address] [place] [address] Performed By: #### 5 8410-2 #### [facility] CLIA [id number] [address] [place] [address] [place] Hemoglobin (Bld) [Mass/Vol] 16.5 g/dL Normal 13.0-17.0 [facility] Comment on above: Order Comment: Speci men Type: BLOOD SPECIMEN Ordering Facility: [facility] Address: [address] [place] [address] Performed By: #### 5 8410-2 #### [facility] CLIA [id number] [address] [place] [address] [place] MCH (RBC) [Entitic mass] 30.7 pg Normal 26.0-34.0 [facility] Comment on above: Order Comment: Speci men Type: BLOOD SPECIMEN Ordering Facility: [facility] Address: [address] [place] [address] Performed By: #### 5 8410-2 #### [facility] CLIA [id number] [address] [place] [address] [place] MCHC (RBC) [Mass/Vol] 33.7 g/dL Normal 30.5-36.0 [facility] Comment on above: Order Comment: Speci men Type: BLOOD SPECIMEN Ordering Facility: [facility] Address: [address] [place] [address] Performed By: #### 5 8410-2 #### [facility] CLIA [id number] [address] [place] [address] [place] MCV (RBC) [Entitic vol] 91.1 fL Normal 80.0-100.0 [facility] Comment on above: Order Comment: Speci men Type: BLOOD SPECIMEN Ordering Facility: [facility] Address: [address] [place] [address] Performed By: #### 5 8410-2 #### [facility] CLIA [id number] [address] [place] [address] [place] Nucleated RBC (Bld) [#/Vol] 10*3/uL Normal <0.01 [facility] Comment on above: Order Comment: Speci men Type: BLOOD SPECIMEN Ordering Facility: [facility] Address: [address] [place] [address] Performed By: #### 5 8410-2 #### [facility] CLIA [id number] [address] [place] [address] [place] Platelet mean volume (Bld) [Entitic vol] 9.5 fL Normal 9.0-12.7 [facility] Comment on above: Order Comment: Speci men Type: BLOOD SPECIMEN Ordering Facility: [facility] Address: [address] [place] [address] Performed By: #### 5 8410-2 #### [facility] CLIA [id number] [address] [place] [address] [place] Platelets (Bld) [#/Vol] 211 10*3/uL Normal 150-400 [facility] Comment on above: Order Comment: Speci men Type: BLOOD SPECIMEN Ordering Facility: [facility] Address: [address] [place] [address] Performed By: #### 5 8410-2 #### [facility] CLIA [id number] [address] [place] [address] [place] RBC (Bld) [#/Vol] 5.37 10*6/uL Normal 4.20-6.00 [facility] Comment on above: Order Comment: Speci men Type: BLOOD SPECIMEN Ordering Facility: [facility] Address: [address] [place] [address] Performed By: #### 5 8410-2 #### [facility] CLIA [id number] [address] [place] [address] [place] WBC (Bld) [#/Vol] 5.43 10*3/uL Normal 3.70-11.00 [facility] Comment on above: Order Comment: Speci men Type: BLOOD SPECIMEN Ordering Facility: [facility] Address: [address] [place] [address] Performed By: #### 5 8410-2 #### [facility] IA [id number] [address] [place] [address] [place] ECG COMPLETEon 10-09-2023 ECG COMPLETE Ventricular Rate : 6 2 BPM Atrial Rate : 62 BPM P-R Interval : 138 ms QRS Duration : 84 ms Q-T Interval : 408 ms QTC Calculation(Bazett) : 414 ms Calculated P [place] : 28 degrees Calculated R [place] : -9 degrees Calculated T [place] : -2 degrees NORMAL SINUS RHYTHM NORMAL ECG Confirmed by JOSUÉ MONIQUE MD ([id number]) on 10/18/2023 2:13:12 PM NAME : KASSI SCHNEIDER PID : [id number] : 1975 Gender : Male Race : ORD : [id number] Procedure Date : Oct 09 2023 09:24:20 Edit Date : Oct 18 2023 14:13:18 Diagnosis: NORMAL SINUS RHYTHM NORMAL ECG Confirmed by JOSUÉ MONIQUE MD ([id number]) on 10/18/2023 2:13:12 PM Test Reason : 921 Location : 23 : [place] [address] Overread By : JOSUÉ MONIQUE MD Edited By : JOSUÉ MONIQUE MD Referred By : , Acquired by : [id number], Normal [facility] Erythrocyte distribution wid th Auto (RBC) [Ratio]on 10-09-2023 Erythrocyte distribution width (RBC) [Ratio] 12.1 % 11.5-15.0 [facility] Hematocrit Auto (Bld) [Volum e fraction]on 10-09-2023 Hematocrit (Bld) [Volume fraction] 48.9 % 39.0-51.0 [facility] Hemoglobin [Mass/volume] in Bloodon 10-09-2023 Hemoglobin (Bld) [Mass/Vol] 16.5 g/dL 13.0-17.0 [facility] Laboratory - Chemistry and C hemistry - challengeon 10-09-2023 Calcium [Mass/Vol] 9.8 mg/dL 8.5-10.2 [facility] Chloride [Moles/Vol] 101 mmol/L 98-107 [facility] CO2 [Moles/Vol] 26 mmol/L 22-30 [facility] Creatinine [Mass/Vol] 1.24 mg/dL High 0.73-1.22 [facility] Glucose [Mass/Vol] 198 mg/dL High 74-99 [facility] Comment on above: The [place] Diabete s Association (ADA) provides guidance for cutoff values for fasting glucose and random glucose. The ADA defines fasting as no caloric intake for at least 8 hours. Fasting plasma glucose results between 100 to 125 mg/dL indicate increased risk for diabetes (prediabetes).Fasting plasma glucose results greater than or equal to 126 mg/dL meet the criteria for diagnosis of diabetes. In the absence of unequivocal hyperglycemia, results should be confirmed by repeat testing. In a patient with classic symptoms of hyperglycemia or hyperglycemic crisis, random plasma glucose results greater than or equal to 200 mg/dL meet the criteria for diagnosis of diabetes.Reference: Standards of Medical Care in Diabetes 2016, [place] Diabetes Association. Diabetes Care. 2016.39(Suppl 1). Potassium [Moles/Vol] 4.6 mmol/L 3.7-5.1 [facility] Sodium [Moles/Vol] 137 mmol/L 136-144 [facility] Urea nitrogen [Mass/Vol] 22 mg/dL 9-24 [facility] Leukocytes [#/volume] correc ernestine for nucleated erythrocytes in Blood by Automated counon 10-09-2023 WBC corrected for nucl RBC Auto (Bld) [#/Vol] 5.43 k/uL 3.70-11.00 [facility] MCH Auto (RBC) [Entitic mass ]on 10-09-2023 MCH (RBC) [Entitic mass] 30.7 pg 26.0-34.0 [facility] MCHC Auto (RBC) [Mass/Vol]on 10-09-2023 MCHC (RBC) [Mass/Vol] 33.7 g/dL 30.5-36.0 [facility] MCV Auto (RBC) [Entitic vol] on 10-09-2023 MCV (RBC) [Entitic vol] 91.1 fL 80.0-100.0 [facility] No Panel Informationon 10-08 Estimated GFR (CKD-EPI) 71 mL/min/1.73m??? >=60 [facility] Comment on above: Estimated Glomerular Filtration Rate (eGFR) is calculated using the 2020 CKD-EPI creatinine equation. This equation utilizes serum creatinine, sex, and age as parameters. The creatinine assay has traceable calibration to isotope dilution-mass spectrometry. Refer to KDIGO guidelines for clinical interpretation. In patients with unstable renal function, e.g. those with acute kidney injury, the eGFR may not accurately reflect actual GFR. Nucleated RBC Auto (Bld) [#/ Vol]on 10-09-2023 Nucleated RBC (Bld) [#/Vol] 10*3/uL <0.01 [facility] Platelet mean volume Auto (B ld) [Entitic vol]on 10-09-2023 Platelet mean volume (Bld) [Entitic vol] 9.5 fL 9.0-12.7 [facility] Platelets Auto (Bld) [#/Vol] on 10-09-2023 Platelets (Bld) [#/Vol] 211 10*3/uL 150-400 [facility] RBC Auto (Bld) [#/Vol]on RBC (Bld) [#/Vol] 5.37 10*6/uL 4.20-6.[address] [facility] Serum or plasma anion gap de terminationon 10-09-2023 Anion gap [Moles/Vol] 10 mmol/L 8-15 [facility] CNPNon 10-08-2023 CNPN Telephone (CATLMN) KASSI SCHNEIDER ([id number]) 1975 M Date Time Provider Department 10/08/23 MILAGROS GUARDADO During your visit today, we recorded the following information about you: Lisa Martínez, DAVON 10/08/2023 1:29 PM Signed [facility] LAB INSTRUCTIONS: Readiness to Learn: Cognitive Ability: Alert and oriented Motivation To Learn: Interested Family/Significant Other Support: Unable to assess - Family not present Instruction Provided To: Patient Patient Learns Best By: Verbal Instruction Factors Affecting Learning: None Physical Limitations Affecting Learning: None Learning Response: Procedure: Diagnostic Cath with Intervention Pre procedure education topics: Arrival time/NPO Status/Medications/Travel Instructions/Restrictions Patient/Family Response Evaluation: Verbalizes understanding Follow Up Plan and Medication: As directed by physician Instruction/Supplemental Material Given: Cardiac catheterization instructions, procedure information, hospital information, hotel information. Instructed By Lisa Martínez, DAVON. In Department of CARDIOLOGY. Allergies As of Date: 10/08/2023 (No Known Allergies) Date Reviewed: 09/30/2023 Reviewed by: Sonny Greenberg RN - Fully Assessed Reason for Visit: Patient Education [91] Prescriptions as of 10/08/2023 - metFORMIN (GLUCOPHAGE) 500 mg tablet Take 1 tablet by mouth two times a day with meals. - JARDIANCE 25 mg tablet Take 25 mg by mouth daily with breakfast. - pioglitazone (ACTOS) 30 mg tablet Take 30 mg by mouth once daily. - lisinopril (ZESTRIL) 5 mg tablet Take 1 tablet by mouth every afternoon. - metoprolol succinate ER (TOPROL XL) 25 mg 24 hr tablet Take 12.5 mg by mouth daily at bedtime. - Naproxen SR (EC-NAPROSYN) 500 mg EC tablet Take 500 mg by mouth two times a day with meals. - Ivlrfphcjqfep-Cosounsx-Suzsqp (MULTIVITAMIN 50 PLUS) tab Take 1 tablet by mouth once daily. - Ascorbic Acid (VITAMIN C) 1,000 mg tablet Take 1,000 mg by mouth once daily. - aspirin, enteric coated (ECOTRIN LOW STRENGTH) 81 mg EC tablet Take 1 tablet by mouth once daily. Problem List As Of Date: 10/08/2023 (None) Encounter Status:Closed by LISA MARTÍNEZ on 10/08/23 [facility] Mathew 10-02-2023 CNPN Telephone (CATHMN) KASSI SCHNEIDER ([id number]) 1975 M Date Time Provider Department 10/02/23 MILAGROS GUARDADO During your visit today, we recorded the following information about you: Florentino Schaeffer 10/02/2023 4:52 PM Signed Saved medical records to scanned documents. Allergies As of Date: 10/02/2023 (No Known Allergies) Date Reviewed: 09/30/2023 Reviewed by: Sonny Greenberg, DAVON - Fully Assessed Reason for Visit: Received Outside Medical Records [[id number]] Prescriptions as of 10/02/2023 - metFORMIN (GLUCOPHAGE) 500 mg tablet Take 1 tablet by mouth two times a day with meals. - JARDIANCE 25 mg tablet Take 25 mg by mouth daily with breakfast. - pioglitazone (ACTOS) 30 mg tablet Take 30 mg by mouth once daily. - lisinopril (ZESTRIL) 5 mg tablet Take 1 tablet by mouth every afternoon. - metoprolol succinate ER (TOPROL XL) 25 mg 24 hr tablet Take 12.5 mg by mouth daily at bedtime. - Naproxen SR (EC-NAPROSYN) 500 mg EC tablet Take 500 mg by mouth two times a day with meals. - Nhsatzlzwvjqd-Dqitbinw-Msrlwz (MULTIVITAMIN 50 PLUS) tab Take 1 tablet by mouth once daily. - Ascorbic Acid (VITAMIN C) 1,000 mg tablet Take 1,000 mg by mouth once daily. - aspirin, enteric coated (ECOTRIN LOW STRENGTH) 81 mg EC tablet Take 1 tablet by mouth once daily. Problem List As Of Date: 10/02/2023 (None) Encounter Status:Closed by FLORENTINO SCHAEFFER on 10/02/23 Normal [facility] CBC panel Auto (Bld)on 09-29 Erythrocyte distribution width (RBC) [Ratio] 12.2 % 11.5 - 15.0 % [facility] Hematocrit (Bld) [Volume fraction] 47.6 % 39.0 - 51.0 % [facility] Hemoglobin (Bld) [Mass/Vol] 15.8 g/dL 13.0 - 17.0 g/dL [facility] Interpretation and review of laboratory results Normal [facility] MCH (RBC) [Entitic mass] 30.4 pg 26.0 - 34.0 pg [facility] MCHC (RBC) [Mass/Vol] 33.2 g/dL 30.5 - 36.0 g/dL [facility] MCV (RBC) [Entitic vol] 91.7 fL 80.0 - 100.0 fL [facility] Nucleated RBC (Bld) [#/Vol] NINF [facility] Platelet mean volume (Bld) [Entitic vol] 10.0 fL 9.0 - 12.7 fL [facility] Platelets (Bld) [#/Vol] 208 10*3/uL [facility] RBC (Bld) [#/Vol] 5.19 10*6/uL 4.20 - 6.00 m/uL [facility] WBC (Bld) [#/Vol] 5.69 10*3/uL [facility] Erythrocyte distribution width (RBC) [Ratio] 12.2 % Normal 11.5-15.0 [facility] Comment on above: Order Comment: Speci men Type: BLOOD SPECIMEN Ordering Facility: [facility] Address: [address] [place] [address] Performed By: #### 5 8410-2 #### [facility] CLIA [id number] [address] [place] [address] [place] [address] [place] Hematocrit (Bld) [Volume fraction] 47.6 % Normal 39.0-51.0 [facility] Comment on above: Order Comment: Speci men Type: BLOOD SPECIMEN Ordering Facility: [facility] Address: [address] [place] [address] Performed By: #### 5 8410-2 #### [facility] CLIA [id number] [address] [place] [address] [place] Hemoglobin (Bld) [Mass/Vol] 15.8 g/dL Normal 13.0-17.0 [facility] Comment on above: Order Comment: Speci men Type: BLOOD SPECIMEN Ordering Facility: [facility] Address: [address] [place] [address] Performed By: #### 5 8410-2 #### [facility] CLIA [id number] [address] [place] [address] [place] MCH (RBC) [Entitic mass] 30.4 pg Normal 26.0-34.0 [facility] Comment on above: Order Comment: Speci men Type: BLOOD SPECIMEN Ordering Facility: [facility] Address: [address] [place] [address] Performed By: #### 5 8410-2 #### [facility] CLIA [id number] [address] [place] [address] [place] MCHC (RBC) [Mass/Vol] 33.2 g/dL Normal 30.5-36.0 [facility] Comment on above: Order Comment: Speci men Type: BLOOD SPECIMEN Ordering Facility: [facility] Address: [address] [place] [address] Performed By: #### 5 8410-2 #### [facility] CLIA [id number] [address] [place] [address] [place] MCV (RBC) [Entitic vol] 91.7 fL Normal 80.0-100.0 [facility] Comment on above: Order Comment: Speci men Type: BLOOD SPECIMEN Ordering Facility: [facility] Address: [address] [place] [address] Performed By: #### 5 8410-2 #### [facility] CLIA [id number] [address] [place] [address] [place] Nucleated RBC (Bld) [#/Vol] 10*3/uL Normal <0.01 [facility] Comment on above: Order Comment: Speci men Type: BLOOD SPECIMEN Ordering Facility: [facility] Address: [address] [place] [address] Performed By: #### 5 8410-2 #### [facility] CLIA [id number] [address] [place] [address] [place] Platelet mean volume (Bld) [Entitic vol] 10.0 fL Normal 9.0-12.7 [facility] Comment on above: Order Comment: Speci men Type: BLOOD SPECIMEN Ordering Facility: [facility] Address: [address] [place] [address] Performed By: #### 5 8410-2 #### [facility] CLIA [id number] [address] [place] [address] [place] Platelets (Bld) [#/Vol] 208 10*3/uL Normal 150-400 [facility] Comment on above: Order Comment: Speci men Type: BLOOD SPECIMEN Ordering Facility: [facility] Address: [address] [place] [address] Performed By: #### 5 8410-2 #### [facility] CLIA [id number] [address] [place] [address] [place] RBC (Bld) [#/Vol] 5.19 10*6/uL Normal 4.20-6.00 [facility] Comment on above: Order Comment: Speci men Type: BLOOD SPECIMEN [facility] [facility] Address: [address] [place] [address] Performed By: #### 5 8410-2 #### [facility] CLIA [id number] [address] [place], [place] [address] [place] [address] [place] WBC (Bld) [#/Vol] 5.69 10*3/uL Normal 3.70-11.00 [facility] Comment on above: Order Comment: Speci men Type: BLOOD SPECIMEN Ordering Facility: [facility] Address: [address] [place] [address] Performed By: #### 5 8410-2 #### [facility] CLIA [id number] [address] [place] [address] [place] CNOVon 09-30-2023 CNOV Office Visit (CATHMN ) KASSI SCHNEIDER ([id number]) 1975 M Date Time Provider Department 09/30/23 8:45 AM MILAGROS GUARDADO During your visit today, we recorded the following information about you: Pulse Respiration Blood pressure Weight 67/minute 18/minute 118/76 95.7 kg Height 1.727 m Milagros Guardado MD 09/30/2023 10:52 AM [facility] [place] Vinny Mclaughlin Department of Cardiovascular Medicine SECTION OF INTERVENTIONAL CARDIOLOGY OUTPATIENT VISIT DATE September 29, 2023 OUTPATIENT VISIT TYPE NEW PRIMARY CARE PHYSICIAN: To use this Smartlink, specify the provider ID whose address you want to display, e.g., .PROVADDR[1 (where 1 is the provider ID). REFERRING PHYSICIAN: No referring provider defined for this encounter. CHIEF COMPLAINT: No chief complaint on file. HISTORY OF PRESENT ILLNESS: Mr. Schneider is a 48 year old male who presents today - CPOE RF DMx18y, male, Body mass index is 32.08 kg/m?. 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 he needs to clear being off 5-7 days post procedure for being spray unit feeder Tent Thursday The procedure including risks, benefits, options and personnel performing the procedure was discussed with the patient. There are no contraindications to the procedure. Kassi Schneider expressed understanding and agreed to proceed. TCI instructions reviewed no DM Rx morning of procedure no allergie labs and EKG today - Diabetes Mellitus No results found for: HBA1C target Hgba1c < 6.5% Diabetic diet restrictions Target BMI closer to 25.0 Daily Aerobic Exercise adverse response to trulicity taking jardiance 25/am, metformin 500 bid - Hypertension Target JNC VIII Guideline goal for BP control Specifically SBP < 150 mm Hg and DBP < 80 mm Hg lisinopril 5/am, toprol xl 12.5/pm -?HLP Rx as indicated NURSING INTAKE: Past medical history of: obesity, DANIELLE with CPAP, DM2, HTN OSH PCP office visit note 06/26/23: New patient here to establish care. Self [...] to improve. Denies chest pain, and lightheadedness/syncope. The patient is here today for cardiovascular evaluation and a second opinion. He was seeing a mailing manager in [place] for palpitations/fluttering that started about one year ago when he was taking Trulicity injections. That mailing manager had him do an echocardiogram and a stress test. He was told the stress test was abnormal and it was suggested he have a CT scan and a heart cath, but the testing was not available in [place] until October. For the last few months he has been experiencing a tightness and soreness/discomfort on the right side of his chest mostly with activities (walking and carrying laundry baskets up stairs), but sometimes at rest. The discomfort occasionally radiates to the left side of his chest. He complains of neck/back pain, but believes that is due to his job. He has this chest discomfort daily and does not believe it is bad enough to go to the emergency room. He was recently diagnosed with sleep apnea and has been wearing a CPAP for 3 months. His fatigued has improved. His palpitations have also improvised and he gets them occasionally. Risk factors for coronary artery disease hypertension, diabetes, family history of CAD, obesity He denies shortness of breath, dyspnea on exertion, orthopnea, PND, lightheadedness, syncope, claudication, leg swelling, cough, and wheezing. 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 OSH Echo: Conclusions Global left ventricular systolic function is normal; visually estimated EF is 55 to 60% Normal right ventricular size and systolic function Normal diastolic function No significant valvular abnormalities 09/17/23 OSH Treadmill Stress Test: 11/01/22 BUN 15 Creat 1.18 GFR >60 Chol 157 Trig 108 LDL 93.4 HDL 42 A1C 7.1 PAST MEDICAL HISTORY Diagnosis Date Diabetes mellitus (HCC) HTN (hypertension) Sleep apnea CPAP PAST SURGICAL HISTORY Procedure Laterality Date PAST SURGICAL HISTORY OF double patella rupture repair SOCIAL HISTORY Social History Tobacco Use Smoking status: Never Smokeless tobacco: N (more content not included)... Normal [facility] Mathew 09-30-2023 NAIF Telephone (ADARSH) KSASI SCHNEIDER ([id number]) 1975 M Date Time Provider Department 09/30/23 MILAGROS GUARDADO During your visit today, we recorded the following information about you: Florentino Schaeffer 09/30/2023 3:23 PM Signed Rec'd images. Uploaded via [employer] Echo dtd 07/10/23 NM Stress dtd 09/16/23 Allergies As of Date: 09/30/2023 (No Known Allergies) Date Reviewed: 09/30/2023 Reviewed by: Sonny Greenberg RN - Fully Assessed Reason for Visit: Received Outside Medical Records [[id number]] Cmt: [facility] Prescriptions as of 09/30/2023 - metFORMIN (GLUCOPHAGE) 500 mg tablet Take 1 tablet by mouth two times a day with meals. - JARDIANCE 25 mg tablet Take 25 mg by mouth daily with breakfast. - pioglitazone (ACTOS) 30 mg tablet Take 30 mg by mouth once daily. - lisinopril (ZESTRIL) 5 mg tablet Take 1 tablet by mouth every afternoon. - metoprolol succinate ER (TOPROL XL) 25 mg 24 hr tablet Take 12.5 mg by mouth daily at bedtime. - Naproxen SR (EC-NAPROSYN) 500 mg EC tablet Take 500 mg by mouth two times a day with meals. - Efdxlvjqnriqc-Llrdnytu-Ikcyjq (MULTIVITAMIN 50 PLUS) tab Take 1 tablet by mouth once daily. - Ascorbic Acid (VITAMIN C) 1,000 mg tablet Take 1,000 mg by mouth once daily. - aspirin, enteric coated (ECOTRIN LOW STRENGTH) 81 mg EC tablet Take 1 tablet by mouth once daily. Problem List As Of Date: 09/30/2023 (None) Encounter Status:Closed by FLORENTINO SCHAEFFER on 09/30/23 Normal [facility] Cholesterol in LDL Calc [Mas s/Vol]on 09-30-2023 Cholesterol in LDL [Mass/Vol] 75 mg/dL <100 [facility] Comment on above: <100 mg/dL, Optimal 100-129 mg/dL, Near optimal/above optimal 130-159 mg/dL, Borderline high 160-189 mg/dL, High>189 mg/dL, Very highSecondary prevention optimal LDL Cholesterol levels are recommended to be < 70 mg/dL Cholesterol in VLDL Calc [Ma ss/Vol]on 09-30-2023 Cholesterol in VLDL [Mass/Vol] 52 mg/dL High <30 [facility] Comprehensive metabolic 2000 panelon 09-30-2023 Albumin [Mass/Vol] 4.3 g/dL 3.9 - 4.9 g/dL [facility] ALP [Catalytic activity/Vol] 60 U/L 38 - 113 U/L [facility] ALT [Catalytic activity/Vol] 21 U/L 10 - 54 U/L [facility] Anion gap [Moles/Vol] 10 mmol/L 8 - 15 mmol/L [facility] AST [Catalytic activity/Vol] 17 U/L 14 - 40 U/L [facility] Bilirubin [Mass/Vol] 0.4 mg/dL 0.2 - 1.3 mg/dL [facility] Calcium [Mass/Vol] 10.2 mg/dL 8.5 - 10. 2 mg/dL [facility] Chloride [Moles/Vol] 99 mmol/L 98 - 107 mmol/L [facility] CO2 [Moles/Vol] 26 mmol/L 22 - 30 mmol/L [facility] Creatinine [Mass/Vol] 1.21 mg/dL 0.73 - 1.22 mg/dL [facility] GFR/1.73 sq M.predicted among non-blacks MDRD (S/P/Bld) [Vol rate/Area] 73 mL/min/{1.73_m2} - PINF [facility] Comment on above: Estimated Glomerular Filtration Rate (eGFR) is calculated using the 2020 CKD-EPI creatinine equation. This equation utilizes serum creatinine, sex, and age as parameters. The creatinine assay has traceable calibration to isotope dilution-mass spectrometry. Refer to KDIGO guidelines for clinical interpretation. In patients with unstable renal function, e.g. those with acute kidney injury, the eGFR may not accurately reflect actual GFR. Glucose [Mass/Vol] 281 mg/dL High 74 - 99 mg/dL [facility] Comment on above: The [place] Diabete s Association (ADA) provides guidance for cutoff values for fasting glucose and random glucose. The ADA defines fasting as no caloric intake for at least 8 hours. Fasting plasma glucose results between 100 to 125 mg/dL indicate increased risk for diabetes (prediabetes). Fasting plasma glucose results greater than or equal to 126 mg/dL meet the criteria for diagnosis of diabetes. In the absence of unequivocal hyperglycemia, results should be confirmed by repeat testing. In a patient with classic symptoms of hyperglycemia or hyperglycemic crisis, random plasma glucose results greater than or equal to 200 mg/dL meet the criteria for diagnosis of diabetes. Reference: Standards of Medical Care in Diabetes 2016, [place] Diabetes Association. Diabetes Care. 2016.39(Suppl 1). Potassium [Moles/Vol] 5.1 mmol/L 3.7 - 5.1 mmol/L [facility] Protein [Mass/Vol] 7.1 g/dL 6.3 - 8.0 g/dL [facility] Sodium [Moles/Vol] 135 mmol/L Low 136 - 144 mmol/L [facility] Urea nitrogen [Mass/Vol] 22 mg/dL 9 - 24 mg/dL [facility] Albumin [Mass/Vol] 4.3 g/dL Normal 3.9-4.9 [facility] Comment on above: Order Comment: Speci men Type: BLOOD SPECIMEN Ordering Facility: [facility] Address: [address] [place] [address] Performed By: #### 2 4323-8, 26294-2 #### [facility] CLIA [id number] [address] [place] [address] [place] ALP [Catalytic activity/Vol] 60 U/L Normal 38-113 [facility] Comment on above: Order Comment: Speci men Type: BLOOD SPECIMEN Ordering Facility: [facility] Address: [address] [place] [address] Performed By: #### 2 4323-8, 11218-0 #### [facility] CLIA [id number] [address] [place] [address] [place] ALT [Catalytic activity/Vol] 21 U/L Normal 10-54 [facility] Comment on above: Order Comment: Speci men Type: BLOOD SPECIMEN Ordering Facility: [facility] Address: [address] [place] [address] Performed By: #### 2 4323-8, 63421-0 #### [facility] CLIA [id number] [address] [place] [address] [place] Anion gap [Moles/Vol] 10 mmol/L Normal 8-15 [facility] Comment on above: Order Comment: Speci men Type: BLOOD SPECIMEN Ordering Facility: [facility] Address: [address] [place] [address] Performed By: #### 2 4323-8, 58498-4 #### [facility] CLIA [id number] [address] [place] [address] [place] AST [Catalytic activity/Vol] 17 U/L Normal 14-40 [facility] Comment on above: Order Comment: Speci men Type: BLOOD SPECIMEN Ordering Facility: [facility] Address: [address] [place] [address] Performed By: #### 2 4323-8, 92602-4 #### [facility] CLIA [id number] [address] [place] [address] [place] Bilirubin [Mass/Vol] 0.4 mg/dL Normal 0.2-1.3 [facility] Comment on above: Order Comment: Speci men Type: BLOOD SPECIMEN Ordering Facility: [facility] Address: [address] [place] [address] Performed By: #### 2 4323-8, 30480-6 #### [facility] CLIA [id number] [address] [place] [address] [place] Calcium [Mass/Vol] 10.2 mg/dL Normal 8.5-10.2 [facility] Comment on above: Order Comment: Speci men Type: BLOOD SPECIMEN Ordering Facility: [facility] Address: [address] [place] [address] Performed By: #### 2 4323-8, 80069-0 #### [facility] CLIA [id number] [address] [place], [place] [id number] [place] Chloride [Moles/Vol] 99 mmol/L Normal 98-107 [facility] Comment on above: Order Comment: Speci men Type: BLOOD SPECIMEN Ordering Facility: [facility] Address: [address] [place] [address] Performed By: #### 2 4323-8, 93608-9 #### [facility] CLIA [id number] [address] [place] [address] [place] CO2 [Moles/Vol] 26 mmol/L Normal 22-30 [facility] Comment on above: Order Comment: Armandoi men Type: BLOOD SPECIMEN Ordering Facility: [facility] Address: [address] [place] [address] Performed By: #### 2 4323-8, 49656-0 #### [facility] CLIA [id number] [address] [place] [address] [place] Creatinine [Mass/Vol] 1.21 mg/dL Normal 0.73-1.22 [facility] Comment on above: Order Comment: Speci men Type: BLOOD SPECIMEN Ordering Facility: [facility] Address: [address] [place] [address] Performed By: #### 2 4323-8, 14957-8 #### [facility] CLIA [id number] [address] [place] [address] [place] Creatinine and Glomerular filtration rate.predicted panel (S/P/Bld) 73 mL/min/1.73m??? Normal >=60 [facility] Comment on above: Order Comment: Hermann pritchard Type: BLOOD SPECIMEN Ordering Facility: [facility] Address: [address] [place] [address] Result Comment: Haven mated Glomerular Filtration Rate (eGFR) is calculated using the 2020 CKD-EPI creatinine equation. This equation utilizes serum creatinine, sex, and age as parameters. The creatinine assay has traceable calibration to isotope dilution-mass spectrometry. Refer to KDIGO guidelines for clinical interpretation. In patients with unstable renal function, e.g. those with acute kidney injury, the eGFR may not accurately reflect actual GFR. Performed By: #### 2 4323-8, 60861-0 #### [facility] CLIA [id number] [address] [place] [address] [place] Glucose [Mass/Vol] 281 mg/dL High 74-99 [facility] Comment on above: Order Comment: Armandoi men Type: BLOOD SPECIMEN Ordering Facility: [facility] Address: [address] [place] [address] Result Comment: The [place] Diabetes Association (ADA) provides guidance for cutoff values for fasting glucose and random glucose. The ADA defines fasting as no caloric intake for at least 8 hours. Fasting plasma glucose results between 100 to 125 mg/dL indicate increased risk for diabetes (prediabetes). Fasting plasma glucose results greater than or equal to 126 mg/dL meet the criteria for diagnosis of diabetes. In the absence of unequivocal hyperglycemia, results should be confirmed by repeat testing. In a patient with classic symptoms of hyperglycemia or hyperglycemic crisis, random plasma glucose results greater than or equal to 200 mg/dL meet the criteria for diagnosis of diabetes. Reference: Standards of Medical Care in Diabetes 2016, [place] Diabetes Association. Diabetes Care. 2016.39(Suppl 1). Performed By: #### 2 4323-8, 75654-0 #### [facility] CLIA [id number] [address] [place] [address] [place] Potassium [Moles/Vol] 5.1 mmol/L Normal 3.7-5.1 [facility] Comment on above: Order Comment: Speci men Type: BLOOD SPECIMEN Ordering Facility: [facility] Address: [address] [place] [address] Performed By: #### 2 4323-8, 16932-8 #### [facility] CLIA [id number] [address] [place] [address] [place] Protein [Mass/Vol] 7.1 g/dL Normal 6.3-8.0 [facility] Comment on above: Order Comment: Speci men Type: BLOOD SPECIMEN Ordering Facility: [facility] Address: [address] [place] [address] Performed By: #### 2 4323-8, 84436-1 #### [facility] CLIA [id number] [address] [place] [address] [place] Sodium [Moles/Vol] 135 mmol/L Low 136-144 [facility] Comment on above: Order Comment: Speci men Type: BLOOD SPECIMEN Ordering Facility: [facility] Address: [address] [place], [place] [address] Performed By: #### 2 4323-8, 39275-6 #### [facility] CLIA [id number] [address] [place] [address] [place] Urea nitrogen [Mass/Vol] 22 mg/dL Normal 9-24 [facility] Comment on above: Order Comment: Speci men Type: BLOOD SPECIMEN Ordering Facility: [facility] Address: [address] [place] [address] Performed By: #### 2 4323-8, 56950-9 #### [facility] CLIA [id number] [address] [place] [address] [place] ECG COMPLETEon 09-30-2023 ECG COMPLETE Ventricular Rate : 5 8 BPM Atrial Rate : 58 BPM P-R Interval : 132 ms QRS Duration : 92 ms Q-T Interval : 412 ms QTC Calculation(Bazett) : 404 ms Calculated P [place] : 28 degrees Calculated R [place] : -10 degrees Calculated T [place] : -7 degrees SINUS BRADYCARDIA MINIMAL VOLTAGE CRITERIA FOR LVH, MAY BE NORMAL VARIANT ( R in aVL ) BORDERLINE ECG Confirmed by SHAILESH SHINE MD ([id number]) on 10/18/2023 4:21:36 PM NAME : KASSI SCHNEIDER PID : [id number] : 1975 Gender : Male Race : ORD : [id number] Procedure Date : Sep 30 2023 10:26:33 Edit Date : Oct 18 2023 16:21:38 Diagnosis: SINUS BRADYCARDIA MINIMAL VOLTAGE CRITERIA FOR LVH, MAY BE NORMAL VARIANT ( R in aVL ) BORDERLINE ECG Confirmed by SHAILESH SHINE MD ([id number]) on 10/18/2023 4:21:36 PM Test Reason : Location : 314 : J14 J14 Overread By : SHAILESH SHINE MD Edited By : SHAILESH SHINE MD Referred By : MILAGROS GUARDADO Acquired by : CHLOE MARK Normal [facility] Erythrocyte distribution wid th Auto (RBC) [Ratio]on 09-30-2023 Erythrocyte distribution width (RBC) [Ratio] 12.2 % 11.5-15.0 [facility] Hematocrit Auto (Bld) [Volum e fraction]on 09-30-2023 Hematocrit (Bld) [Volume fraction] 47.6 % 39.0-51.0 [facility] Hemoglobin [Mass/volume] in Bloodon 09-30-2023 Hemoglobin (Bld) [Mass/Vol] 15.8 g/dL 13.0-17.0 [facility] Laboratory - Chemistry and C hemistry - challengeon 09-30-2023 Albumin [Mass/Vol] 4.3 g/dL 3.9-4.9 [facility] ALP [Catalytic activity/Vol] 60 U/L 38-113 [facility] ALT [Catalytic activity/Vol] 21 U/L 10-54 [facility] AST [Catalytic activity/Vol] 17 U/L 14-40 [facility] Bilirubin [Mass/Vol] 0.4 mg/dL 0.2-1.3 [facility] Calcium [Mass/Vol] 10.2 mg/dL 8.5-10.2 [facility] Chloride [Moles/Vol] 99 mmol/L 98-107 [facility] Cholesterol [Mass/Vol] 162 mg/dL <200 [facility] Comment on above: <200 mg/dL, Desirabl e 200-239 mg/dL, Borderline high>239 mg/dL, High Cholesterol in HDL [Mass/Vol] 35 mg/dL Low >39 [facility] Comment on above: 40-59 mg/dL, Accepta ble>59 mg/dL, High: Negative risk factor for coronary heart disease<40 mg/dL, Low: Positive risk factor for coronary heart disease CO2 [Moles/Vol] 26 mmol/L 22-30 [facility] Creatinine [Mass/Vol] 1.21 mg/dL 0.73-1.22 [facility] Glucose [Mass/Vol] 281 mg/dL High 74-99 [facility] Comment on above: The [place] Diabete s Association (ADA) provides guidance for cutoff values for fasting glucose and random glucose. The ADA defines fasting as no caloric intake for at least 8 hours. Fasting plasma glucose results between 100 to 125 mg/dL indicate increased risk for diabetes (prediabetes).Fasting plasma glucose results greater than or equal to 126 mg/dL meet the criteria for diagnosis of diabetes. In the absence of unequivocal hyperglycemia, results should be confirmed by repeat testing. In a patient with classic symptoms of hyperglycemia or hyperglycemic crisis, random plasma glucose results greater than or equal to 200 mg/dL meet the criteria for diagnosis of diabetes.Reference: Standards of Medical Care in Diabetes 2016, [place] Diabetes Association. Diabetes Care. 2016.39(Suppl 1). Potassium [Moles/Vol] 5.1 mmol/L 3.7-5.1 [facility] Sodium [Moles/Vol] 135 mmol/L Low 136-144 [facility] Triglyceride [Mass/Vol] 260 mg/dL High <150 [facility] Comment on above: <150 mg/dL, Normal 1 50-199 mg/dL, Borderline high 200-499 mg/dL, High>499 mg/dL, Very high Urea nitrogen [Mass/Vol] 22 mg/dL 9-24 [facility] Leukocytes [#/volume] correc ernestine for nucleated erythrocytes in Blood by Automated counon 09-30-2023 WBC corrected for nucl RBC Auto (Bld) [#/Vol] 5.69 k/uL 3.70-11.00 [facility] Lipid 1996 panelon 4 Cholesterol [Mass/Vol] 162 mg/dL NINF - 200 mg/dL [facility] Comment on above: <200 mg/dL, Desirabl e 200-239 mg/dL, Borderline high >239 mg/dL, High Cholesterol in HDL [Mass/Vol] 35 mg/dL Low 39 - PINF mg/dL [facility] Comment on above: 40-59 mg/dL, Accepta ble >59 mg/dL, High: Negative risk factor for coronary heart disease <40 mg/dL, Low: Positive risk factor for coronary heart disease Cholesterol in LDL [Mass/Vol] 75 mg/dL NINF - 100 mg/dL [facility] Comment on above: <100 mg/dL, Optimal 100-129 mg/dL, Near optimal/above optimal 130-159 mg/dL, Borderline high 160-189 mg/dL, High >189 mg/dL, Very high Secondary prevention optimal LDL Cholesterol levels are recommended to be < 70 mg/dL Cholesterol in LDL/Cholesterol in HDL [Mass ratio] 2.14 {ratio} NINF - 2.54 [facility] Comment on above: Reference: 1. National Cholesterol Education Program ATP III Guideline At-A-Glance Quick Desk Reference: National Heart, Lung, and Blood [place]. National Institutes of Health. 2001: NIH Publication No. 01-3305. 2. An International Atherosclerosis Society position paper: global recommendations for the management of dyslipidemia: executive summary, Atherosclerosis. 2014: 232(2):410-413. Cholesterol in VLDL [Mass/Vol] 52 mg/dL High NINF - 30 mg/dL [facility] Cholesterol non HDL [Mass/Vol] 127 mg/dL NINF - 130 mg/dL [facility] Comment on above: <130 mg/dL, Optimal 130-159 mg/dL, Near optimal/above optimal 160-189 mg/dL, Borderline high 190-219 mg/dL, High >219 mg/dL, Very high Secondary prevention optimal non HDL Cholesterol levels are recommended to be <100 mg/dL Cholesterol.total/ Cholesterol in HDL [Mass ratio] 4.63 {ratio} NINF - 5.10 [facility] Fasting Time 0 hrs [facility] Triglyceride [Mass/Vol] 260 mg/dL High NINF - 150 mg/dL [facility] Comment on above: <150 mg/dL, Normal 150-199 mg/dL, Borderline high 200-499 mg/dL, High >499 mg/dL, Very high Cholesterol [Mass/Vol] 162 mg/dL Normal <200 [facility] Comment on above: Order Comment: Speci men Type: BLOOD SPECIMEN Ordering Facility: [facility] Address: [address] [place] [address] Result Comment: <200 mg/dL, Desirable 200-239 mg/dL, Borderline high >239 mg/dL, High Performed By: #### 2 4323-8, 83194-1 #### [facility] CLIA [id number] [address] [place], [place] [address] [id number] [place] [address] [place] Cholesterol in HDL [Mass/Vol] 35 mg/dL Low >39 [facility] Comment on above: Order Comment: Hermann men Type: BLOOD SPECIMEN Ordering Facility: [facility] Address: [address] [place] [address] Result Comment: 40-5 9 mg/dL, Acceptable >59 mg/dL, High: Negative risk factor for coronary heart disease <40 mg/dL, Low: Positive risk factor for coronary heart disease Performed By: #### 2 4323-8, 54098-2 #### [facility] CLIA [id number] [address] [place] [address] [place] Cholesterol in LDL [Mass/Vol] 75 mg/dL Normal <100 [facility] Comment on above: Order Comment: Hermann pritchard Type: BLOOD SPECIMEN Ordering Facility: [facility] Address: [address] [place] [address] Result Comment: <100 mg/dL, Optimal 100-129 mg/dL, Near optimal/above optimal 130-159 mg/dL, Borderline high 160-189 mg/dL, High >189 mg/dL, Very high Secondary prevention optimal LDL Cholesterol levels are recommended to be < 70 mg/dL Performed By: #### 2 4323-8, 79867-8 #### [facility] CLIA [id number] [address] [place] [address] [place] Cholesterol in LDL/Cholesterol in HDL [Mass ratio] 2.14 {ratio} Normal <2.54 [facility] Comment on above: Order Comment: Hermann pritchard Type: BLOOD SPECIMEN Ordering Facility: [facility] Address: [address] [place] [address] Result Comment: Refjean paul ferris: 1. National Cholesterol Education Program ATP III Guideline At-A-Glance Quick Desk Reference: National Heart, Lung, and Blood [place]. National Institutes of Health. 2001: NIH Publication No. 01-3305. 2. An International Atherosclerosis Society position paper: global recommendations for the management of dyslipidemia: executive summary, Atherosclerosis. 2014: 232(2):410-413. Performed By: #### 2 4323-8, 26722-9 #### [facility] CLIA [id number] [address] [place] [address] [place] Cholesterol in VLDL [Mass/Vol] 52 mg/dL High <30 [facility] Comment on above: Order Comment: Speci men Type: BLOOD SPECIMEN Ordering Facility: [facility] Address: [address] [id number] Performed By: #### 2 4323-8, 62079-5 #### [facility] CLIA [id number] [address] [place] [address] [place] Cholesterol non HDL [Mass/Vol] 127 mg/dL Normal <130 [facility] Comment on above: Order Comment: Speci men Type: BLOOD SPECIMEN Ordering Facility: [facility] Address: [address] [place] [address] Result Comment: <130 mg/dL, Optimal 130-159 mg/dL, Near optimal/above optimal 160-189 mg/dL, Borderline high 190-219 mg/dL, High >219 mg/dL, Very high Secondary prevention optimal non HDL Cholesterol levels are recommended to be <100 mg/dL Performed By: #### 2 4323-8, 71180-6 #### [facility] CLIA [id number] [address] [place] [address] [place] Cholesterol.total/ Cholesterol in HDL [Mass ratio] 4.63 {ratio} Normal <5.10 [facility] Comment on above: Order Comment: Speci men Type: BLOOD SPECIMEN Ordering Facility: [facility] Address: [address] [place] [address] Performed By: #### 2 4323-8, 14045-3 #### [facility] CLIA [id number] [address] [place] [address] [place] FASTING TIME 0 hrs Normal [facility] Comment on above: Order Comment: Speci men Type: BLOOD SPECIMEN Ordering Facility: [facility] Address: [address] [place], [place] [id number] Performed By: #### 2 4323-8, 94058-0 #### [facility] CLIA [id number] [address] [place] [address] [place] Triglyceride [Mass/Vol] 260 mg/dL High <150 [facility] Comment on above: Order Comment: Speci men Type: BLOOD SPECIMEN Ordering Facility: [facility] Address: [address] [place] [address] Result Comment: <150 mg/dL, Normal 150-199 mg/dL, Borderline high 200-499 mg/dL, High >499 mg/dL, Very high Performed By: #### 2 4323-8, 69706-9 #### [facility] CLIA [id number] [address] [place] [address] [place] [address] [place] MCH Auto (RBC) [Entitic mass ]on 09-30-2023 MCH (RBC) [Entitic mass] 30.4 pg 26.0-34.0 [facility] MCHC Auto (RBC) [Mass/Vol]on 09-30-2023 MCHC (RBC) [Mass/Vol] 33.2 g/dL 30.5-36.0 [facility] MCV Auto (RBC) [Entitic vol] on 09-30-2023 MCV (RBC) [Entitic vol] 91.7 fL 80.0-100.0 [facility] No Panel Informationon 09-29 Interpretation and review of laboratory results Abnormal [facility] Estimated GFR (CKD-EPI) 73 mL/min/1.73m??? >=60 [facility] Comment on above: Estimated Glomerular Filtration Rate (eGFR) is calculated using the 2020 CKD-EPI creatinine equation. This equation utilizes serum creatinine, sex, and age as parameters. The creatinine assay has traceable calibration to isotope dilution-mass spectrometry. Refer to KDIGO guidelines for clinical interpretation. In patients with unstable renal function, e.g. those with acute kidney injury, the eGFR may not accurately reflect actual GFR. Fasting Status 0 hrs [facility] Non-HDL Cholesterol 127 mg/dL <130 [facility] Comment on above: <130 mg/dL, Optimal 130-159 mg/dL, Near optimal/above optimal 160-189 mg/dL, Borderline high 190-219 mg/dL, High>219 mg/dL, Very highSecondary prevention optimal non HDL Cholesterol levels are recommended to be <100 mg/dL Nucleated RBC Auto (Bld) [#/ Vol]on 06-05-2024 Nucleated RBC (Bld) [#/Vol] 10*3/uL <0.01 [facility] Platelet mean volume Auto (B ld) [Entitic vol]on 09-30-2023 Platelet mean volume (Bld) [Entitic vol] 10.0 fL 9.0-12.7 [facility] Platelets Auto (Bld) [#/Vol] on 09-30-2023 Platelets (Bld) [#/Vol] 208 10*3/uL 150-400 [facility] Protein [Mass/volume] in Ser um or Plasmaon 09-30-2023 Protein [Mass/Vol] 7.1 g/dL 6.3-8.0 [facility] RBC Auto (Bld) [#/Vol]on RBC (Bld) [#/Vol] 5.19 10*6/uL 4.20-6.[address] [facility] Serum or plasma anion gap de terminationon 09-30-2023 Anion gap [Moles/Vol] 10 mmol/L 8-15 [facility] Serum or plasma total choles terol/high density lipoprotein (HDL) cholesterol mass jani 09-30-2023 Cholesterol.total/ Cholesterol in HDL [Mass ratio] 4.63 {ratio} <5.10 [facility] Office Visiton 09-18-2023 Follow-up visit [id number] Fr ren Schneider 1975 M Date Provider Department Center 09/18/2023 3848-MYRON SANCHES DAVID [facility] Family History Problem Relation Age of Onset Coronary artery disease Father Hypertension Father Family Status - Relation Status Age at Father Level of Service:55579 HI OFFICE/OUTPATIENT ESTABLISHED MOD MDM 30 MIN Normal [facility] Orders Onlyon 09-17-2023 Orders Only [id number] Fr ren Schneider 1975 M Date Provider Department Center 09/17/2023 Q2561-GOKAWULL, HISTORICAL [facility] Family History Problem Relation Age of Onset Coronary artery disease Father Hypertension Father Family Status - Relation Status Age at Father Normal [facility] Office Visiton 07-27-2023 Follow-up visit [id number] Fr ren Schneider 1975 M Date Provider Department Center 07/27/2023 3848-LARRY SANCHESKiya CARD [facility] Family History Problem Relation Age of Onset Coronary artery disease Father Hypertension Father Family Status - Relation Status Age at Father Level of Service:12477 HI OFFICE/OUTPATIENT ESTABLISHED MOD MDM 30 MIN Reason for Visit and Comments: Follow-up [783300] Normal [facility] Office Visiton 06-26-2023 Follow-up visit [id number] Fr ren Schneider 1975 M Date Provider Department Center 06/26/2023 120-TAMMY MCGOWAN CARD [facility] Family History Problem Relation Age of Onset Coronary artery disease Father Hypertension Father Family Status - Relation Status Age at Father Level of Service:98393 HI OFFICE/OUTPATIENT NEW MODERATE MDM 45 MINUTES Normal [facility] MR knee LT wo conon 01-01-20 MR knee LT wo con [facility] [place] [address] MRI Report Signed with Addenda Patient: Kassi Schneider MR#: [id number] 816 : 1975 Acct:[id number] Age/Sex: 47 / M ADM Date: 12/31/22 Loc: Room: Type: [facility] Attending Dr: Karlene Trevino MD Copies to: Karlene Trevino MD Ordering Provider: Karlene Trevino MD Date of Service: 12/31/22 MR/MR knee LT wo con: S76.112A ADDENDUM 1 MR/MR knee LT wo con Impression: This is of the left knee Impression dictated by: Delmer Keith M.D.12/31/2022 7:14 PM Dictation Location: [place] [address] Addendum Dictated By: Delmer Keith DO Addendum [...] M.D.12/31/2022 7:09 PM Dictation Location: [place] [address] Transcribed By: [facility] 12/31/221908 Dictated By: Delmer Keith DO 12/31/221904 Signed By: 12/31/221908 Normal [facility] MR knee RT wo yousif 01-01-20 MR knee RT wo con [facility] [place] [address] MRI Report Signed Patient: Kassi Schneider MR#: [id number] 816 : 1975 Acct:[id number] Age/Sex: 47 / M ADM Date: 12/31/22 Loc: Room: Type: [facility] Attending Dr: Karlene Trevino MD Copies to: [...] M.D.12/31/2022 7:13 PM Dictation Location: [place] [address] Transcribed By: [facility] 12/31/221912 Dictated By: Delmer Keith DO 12/31/221908 Signed By: 12/31/221912 Normal [facility] XR knee BI 3V - NOT FOR ER U [place] 11-12-2022 XR knee BI 3V - NOT FOR ER USE [facility] [place] [address] [place], [place] [id number] XRay Report Signed Patient: Kassi Schneider MR#: [id number] 816 : 1975 Acct:[id number] Age/Sex: 47 / M ADM Date: 11/12/22 Loc: SOXD Room: Type: [facility] Attending Dr: Karlene Trevino MD Copies to: [...] Donell Marquez M.D.11/12/2022 4:45 PM Dictation Location: [place] [address] Transcribed By: [facility] 11/12/22 1645 Dictated By: Donell Marquez II, MD 11/12/22 1641 Signed By: 11/12/22 1645 Normal [facility] GLYCOHEMOGLOBIN A1Con 2022 ADA RECOMMENDATION SEE BELOW Normal [facility] Comment on above: Result Comment: ADA RECOMMENDED LIMIT 4.0 - 6.0 ADA THERAPEUTIC TARGET < 7.0 ACTION SUGGESTED > 7.0 Performed By: #### A 1C #### [facility] [address] [place] [address] Dr. Farheen Carrillo Glucose [Mass/Vol] 140 mg/dL Normal [facility] Comment on above: Performed By: #### A 1C #### [facility] [address] [place] [address] Dr. Farheen Carrillo HbA1c (Bld) [Mass fraction] 6.5 % Critically high 4.5-6.2 [facility] Comment on above: Performed By: #### A 1C #### [facility] [address] [place] [address] Dr. Farheen Carrillo TESTOSTERONE, TOTALon 2021 Testosterone [Mass/Vol] 389 ng/dL Normal 264-916 [facility] Comment on above: Result Comment: Adul t male reference interval is based on a population of healthy nonobese males (BMI <30) between 19 and 39 years old. emmett Muse.al. JCEM 2017,102;3522-0782. PMID: [id number]. Performed By: #### T ESTTOT #### [facility] [address] [place] [address] Dr. Farheen Carrillo GLYCOHEMOGLOBIN A1Con 2021 ADA RECOMMENDATION SEE BELOW Normal [facility] Comment on above: Result Comment: ADA RECOMMENDED LIMIT 4.0 - 6.0 ADA THERAPEUTIC TARGET < 7.0 ACTION SUGGESTED > 7.0 Performed By: #### A 1C #### [facility] [address] [place] [address] Dr. Farheen Carrillo Glucose [Mass/Vol] 194 mg/dL Normal [facility] Comment on above: Performed By: #### A 1C #### [facility] [address] [place] [address] Dr. Farheen Carrillo HbA1c (Bld) [Mass fraction] 8.4 % Critically high 4.5-6.2 [facility] Comment on above: Performed By: #### A 1C #### [facility] [address] [place] [address] Dr. Farheen Carrillo CBC AUTO DIFFon 08-17-2021 BASO # 0.0 103/ul Normal 0.0-0.1 [facility] Comment on above: Performed By: #### D ATCBC #### [facility] [address] [place] [address] Dr. Farheen Carrillo Basophils/100 WBC (Bld) 0.7 % Normal 0.2-2.0 [facility] Comment on above: Performed By: #### D ATCBC #### [facility] [address] [place] [address] Dr. Farheen Carrillo EO # 0.3 103/ul Normal 0.0-0.7 [facility] Comment on above: Performed By: #### D ATCBC #### [facility] [address] [place] [address] Dr. Farheen Carrillo Eosinophils/100 WBC (Bld) 5.5 % Normal 0.9-7.0 [facility] Comment on above: Performed By: #### D ATCBC #### [facility] [address] [place] [address] Dr. Farheen Carrillo Erythrocyte distribution width (RBC) [Ratio] 12.0 % Normal 11.0-15.0 [facility] Comment on above: Performed By: #### D ATCBC #### [facility] [address] [place] [address] Dr. Farheen Carrillo Hematocrit (Bld) [Volume fraction] 44.7 % Normal 42.0-54.0 [facility] Comment on above: Performed By: #### D ATCBC #### [facility] [address] [place] [address] Dr. Farheen Carrillo Hemoglobin (Bld) [Mass/Vol] 15.6 g/dL Normal 14.0-18.0 [facility] Comment on above: Performed By: #### D ATCBC #### [facility] [address] [place] [address] Dr. Farheen Carrillo IG # 0.02 10e3/ul Normal 0.00-0.03 [facility] Comment on above: Performed By: #### D ATCBC #### [facility] [address] [place] [address] Dr. Farheen Carrillo IG % 0.3 % Normal 0.0-0.5 [facility] Comment on above: Performed By: #### D ATCBC #### [facility] [address] [place] [address] Dr. Farheen Carrillo LYMPH # 2.3 103/ul Normal 1.2-3.8 [facility] Comment on above: Performed By: #### D ATCBC #### [facility] [address] [place] [address] Dr. Farheen Carrillo Lymphocytes/100 WBC (Bld) 39.1 % Normal 20.5-60.0 [facility] Comment on above: Performed By: #### D ATCBC #### [facility] [address] [place] [address] Dr. Farheen Carrillo MCH (RBC) [Entitic mass] 31.1 pg Normal 25.9-34.0 [facility] Comment on above: Performed By: #### D ATCBC #### [facility] [address] [place] [address] Dr. Farheen Carrillo MCHC (RBC) [Mass/Vol] 34.9 g/dL Normal 29.9-35.2 [facility] Comment on above: Performed By: #### D ATCBC #### [facility] [address] [place] [address] Dr. Farheen Carrillo MCV (RBC) [Entitic vol] 89.0 fL Normal 80.0-94.0 [facility] Comment on above: Performed By: #### D ATCBC #### [facility] [address] [place] [address] Dr. Farheen Carrillo MONO # 0.5 103/ul Normal 0.3-0.8 [facility] Comment on above: Performed By: #### D ATCBC #### [facility] [address] [place] [address] Dr. Farheen Carrillo Monocytes/100 WBC (Bld) 8.5 % Normal 1.7-12.0 [facility] Comment on above: Performed By: #### D ATCBC #### [facility] [address] [place] [address] Dr. Farheen Carrillo NEUT # 2.7 103/ul Normal 1.4-6.5 [facility] Comment on above: Performed By: #### D ATCBC #### [facility] [address] [address] [address] Farheen Carrillo Neutrophils/100 WBC (Bld) 45.9 % Normal 43.0-75.0 [facility] Comment on above: Performed By: #### D ATCBC #### [facility] [address] [address] [address] Farheen Carrillo Platelet mean volume (Bld) [Entitic vol] 8.9 fL Critically low 9.5-13.5 [facility] Comment on above: Performed By: #### D ATCBC #### [facility] [address] [address] [address] Farheen Carrillo PLT 208 103/ul Normal 150-450 [facility] Comment on above: Performed By: #### D ATCBC #### [facility] [address] [place] [address] Dr. Farheen Carrillo RBC 5.02 106/ul Normal 4.70-6.10 [facility] Comment on above: Performed By: #### D ATCBC #### [facility] [address] [address] [address] Farheen Carrillo WBC 5.9 103/ul Normal 4.0-11.0 [facility] Comment on above: Performed By: #### D ATCBC #### [facility] [address] [place] [address] Dr. Farheen Carrillo MARGIE- BMP WITH LIPIDon 2021 Anion gap [Moles/Vol] 10.1 mmol/L Normal [facility] Comment on above: Performed By: #### D ATBMP #### [facility] [address] [address] [address] Farheen aCrrillo Calcium [Mass/Vol] 8.5 mg/dL Normal 8.5-10.[address] [facility] Comment on above: Performed By: #### D ATBMP #### [facility] [address] [address] [address] Farheen Carrillo Chloride [Moles/Vol] 100 mmol/L Normal 98-107 [facility] Comment on above: Performed By: #### D ATBMP #### [facility] [address] [address] [address] Farheen Carrillo Cholesterol [Mass/Vol] 164 mg/dL Normal <=200 [facility] Comment on above: Performed By: #### D ATBMP #### [facility] [address] [address] [address] Farheen Carrillo Cholesterol in HDL [Mass/Vol] 35 mg/dL Critically low 40-60 [facility] Comment on above: Performed By: #### D ATBMP #### [facility] [address] [address] [address] Farheen Carrillo Cholesterol in LDL [Mass/Vol] 77.8 mg/dL Normal [facility] Comment on above: Performed By: #### D ATBMP #### [facility] [address] [address] [address] Farheen Carrillo CO2 [Moles/Vol] 29.4 mmol/L Normal 21.0-32.0 [facility] Comment on above: Performed By: #### D ATBMP #### [facility] [address] [address] [address] Farheen Carrillo Creatinine [Mass/Vol] 1.13 mg/dL Normal 0.70-1.30 [facility] Comment on above: Performed By: #### D ATBMP #### [facility] [address] [address] [address] Farheen Carrillo EGFR-AF AFGHAN >60 Normal >=60 [facility] Comment on above: Performed By: #### D ATBMP #### [facility] [address] [address] [address] Farheen Carrillo EGFR-NON AF AFGHAN >60 Normal >=60 [facility] Comment on above: Performed By: #### D ATBMP #### [facility] [address] [address] [address] Farheen Carrillo Glucose [Mass/Vol] 246 mg/dL Critically high 74-106 [facility] Comment on above: Performed By: #### D ATBMP #### [facility] [address] [address] [address] Farheen Carrillo HDL NORMAL > or = 60 mg/dl - LO W CARDIOVASCULAR RISK <40 mg/dl - HIGH CARDIOVASCULAR RISK Normal [facility] Comment on above: Performed By: #### D ATBMP #### [facility] [address] [address] [address] Farheen Carrillo LDL CALC NORMAL SEE BELOW Normal [facility] Comment on above: Result Comment: <100 mg/dl OPTIMAL 100 - 129 mg/dl NEAR OR ABOVE OPTIMAL 130 - 159 mg/dl BORDERLINE HIGH 160 - 189 mg/dl HIGH >190 mg/dl VERY HIGH Performed By: #### D ATBMP #### [facility] [address] [address] [address] Farheen Carrillo Potassium [Moles/Vol] 4.5 mmol/L Normal 3.5-5.1 [facility] Comment on above: Performed By: #### D ATBMP #### [facility] [address] [place] [address] [address] Farheen Carrillo Sodium [Moles/Vol] 135 mmol/L Critically low 136-145 [facility] Comment on above: Performed By: #### D ATBMP #### [facility] [address] [place] [address] [address] Farheen Carrillo Triglyceride [Mass/Vol] 256 mg/dL Critically high <=150 [facility] Comment on above: Performed By: #### D ATBMP #### [facility] [address] [place] [address] [address] Farheen Carrillo Urea nitrogen [Mass/Vol] 18.0 mg/dL Normal 7.0-18.0 [facility] Comment on above: Performed By: #### D ATBMP #### [facility] [address] [place] [address] [address] Farheen Carrillo Urea nitrogen/Creatinin e [Mass ratio] 15.9 mg/mg [facility] Comment on above: Performed By: #### D ATBMP #### [facility] [address] [place] [address] [address] Farheen Carrillo VLDL CALC 51.2 mg/dL Normal [facility] Comment on above: Performed By: #### D ATBMP #### [facility] [address] [place], [place] [address] Dr. Farheen Carrillo GLYCOHEMOGLOBIN A1Con 2021 ADA RECOMMENDATION SEE BELOW Normal [facility] Comment on above: Result Comment: ADA RECOMMENDED LIMIT 4.0 - 6.0 ADA THERAPEUTIC TARGET < 7.0 ACTION SUGGESTED > 7.0 Performed By: #### D ATA1C #### [facility] [address] [place] [address] [address] Farheen Carrillo Glucose [Mass/Vol] 263 mg/dL Normal [facility] Comment on above: Performed By: #### D ATA1C #### [facility] [address] [place] [address] [address] Farheen Carrillo HbA1c (Bld) [Mass fraction] 10.8 % Critically high 4.5-6.2 [facility] Comment on above: Performed By: #### D ATA1C #### [facility] [address] [place], [place] [address] Dr. Farheen Carrillo XR knee BI 3Von 07-16-2021 XR knee BI 3V [facility] [employer] Other XR knee BI 3V [facility] [employer] Other XR knee BI 3V [address] [place] [address] [employer] Other XR knee BI 3V [address] [employer] Other XR knee BI 3V XRay Report [employer] Other XR knee BI 3V Signed [place] [employer] Other XR knee BI 3V Patient: Zoila Schneider terese Wei MR#: [id number] [facility] [employer] Other XR knee BI 3V 816 [facility] [employer] Other XR knee BI 3V : 1975 Acct:[id number] [facility] [employer] Other XR knee BI 3V Age/Sex: 45 / M ADM Date: 07/16/21 [employer] Other XR knee BI 3V Loc: SOXD Room: Type: REG CLI [employer] Other XR knee BI 3V Attending Dr: Cindy Trevino MD [employer] Other XR knee BI 3V Ordering Provider: Nigel Trevino MD [employer] Other XR knee BI 3V Date of Service: 07/16/21 [employer] Other XR knee BI 3V [id number]) XR/XR knee BI 3V - NOT FOR ER USE: Rupture of right quadriceps tendon, [employer] Other XR knee BI 3V initial encounter;Ruptur [employer] Other XR knee BI 3V Copies to: Karlene Trevino MD [employer] Other XR knee BI 3V 3 views both knee plain film [employer] Other XR knee BI 3V COMPARISON:06/02/20 No rt [employer] Other XR knee BI 3V HISTORY:Bilateral pa tellar tendon repair. [employer] Other XR knee BI 3V Postsurgical changes of bilateral patellar repair identified. There are small bony density inferior [employer] Other XR knee BI 3V to the RIGHT patella . This likely incidental. Bony alignment adequate. No acute bony findings seen. [employer] Other XR knee BI 3V X R/XR knee BI 3V - NOT FOR ER USE [employer] Other XR knee BI 3V IMPRESSION:No postsu rgical complication. [employer] Other XR knee BI 3V Impression dictated by: Delmer Keith M.D.07/16/2021 12:20 PM [employer] Other XR knee BI 3V Dictation Location: RADIO-PC-11 [place] [employer] Other XR knee BI 3V Transcribed By: P[place] 07/16/21 1220 [place] [employer] Other XR knee BI 3V Dictated By: Randy Keith DO 07/16/21 1218 [place] [employer] Other XR knee BI 3V Signed By: [employer] Other XR knee BI 3V 07/16/21 1220 [facility] [employer] Other Coding Summaryon 04-13-2017 Coding Summary CODING DATE: 017 [facility] STATUS: Home PAYOR: Workers Compensation [employer] [...] Sang Rebolledo' Date Saved: 04/13/2017 08:58 am [facility] Coding Summary CODING DATE: 017 [facility] STATUS: Home PAYOR: Workers Compensation APC [...] Donovan Rebolledo Date Saved: 04/13/2017 08:58 am [facility] Discharge Instructionson Discharge Instructions [id number] [facility] ED Note-Nursingon 04-11-2017 ED Note-Nursing Pt leaves a message on our voicemail to report he is Fine back to work . [facility] ED Note-Nursing No answer, message w ith return # left [facility] ED Clinical Summaryon 2016 ED Clinical Summary [facility] ? Urgent [id number] [place], [place] [id number] clinical SummaryPERSON INFORMATIONName: SAKINAMAXXKASSI Age: 41 Years Sex: MALEDOB: [birth year] MRN: Acct#:Visit Reason: UC - Wrist/Hand/Finger Pain or Swelling; LEFT 3RD FINGER LACERATION Arrival:04/10/17 11:59:00 Discharge: 04/10/17 12:51:00LOS: 000 00:52 Check In: 04/10/17 11:59:00 Checkout: 04/10/17 12:51:00Address:[address] [place] [id number]: José Miguel Cheung EPROVIDER INFORMATIONProvider Role Assigned UnassignedSpasic Mark BRITO ED PA 04/10/17 12:02:11Zaida De Dios ORDER PLANNER Nurse 04/10/17 12:08:50VITALS INFORMATIONVital Sign Triage LatestTemperature TympanicTemperature Temporal ArteryPulse Rate 73 bpm 73 bpmO2 Sat 97 % 97 %Respiratory Rate 16 br/min 16 br/minBlood Pressure 122 mmHg/82 mmHg 122 mmHg/82 mmHgMEDICAL INFORMATIONMedications Given:Medication Dose Routebacitracin topical 500 unit(s) TOPAllergy Information:No Known Medication AllergiesPHYSICIAN DOCUMENTATIONDISCHARGE INFORMATION:Discharge Disposition: HomeDischarge Location: HomePATIENT EDUCATION INFORMATIONInstructions: Crush Injury of the Hand, Puta-it-CwqlZwiyxl-Up:With: Address: When:José Miguel Cheung [address] [phone] Business (1)Comments:Keep the injury clean and dry, do not submerge in the waterCan take ibuprofen and/or Tylenol as needed for pain, can elevate as needed to help reduce swellingAny increase in discomfort or any inability to perform your work duties return for reevaluationDIAGNOSIS:Crush injury - 3rd digit left handComment: [facility] ED Note - Physicianon 2016 ED Note - Physician Patient: KASSI SCHNEIDER : 41 years Sex: MALE : [...] other complaints or concerns. Patient works for [employer]. Nail and nailbed is intact for range [...] PlanDiagnosisCrush injury - 3rd digit left hand ([id number] T14.8XXA, Discharge, Medical)PlanPrescriptions: Launch prescriptionsPharmacy:Keflex 500 mg oral capsule (Prescribe): 500 mg, 1 cap(s), PO, q12hr, for 5 day(s), 10 cap(s), 0 Refill(s).Patient was given the following educational materials: Crush Injury of the Hand, Hram-tk-Zlff.Follow up with: José Miguel Cheung Keep the [...] Kilgore[Verified on: 04/10/2017 13:20 EST] Mark Kilgore [facility] ED Note-Nursingon 04-10-2017 ED Note-Nursing Order to clean, use bacitracin, dress the wound and apply splint. Wound cleaned with betasept, bacitracin applied, 2x2, fingercot gauze applied, baseball splint applied per orders. [facility] ED Note-Nursing Injured digit L hand soaking in tepid h2o and betasept. [facility] ED Patient Summaryon 017 ED Patient Summary [facility] ? 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 Change your bandage as told by your [...] take a bath or a shower.? Take xlhv-nsi-kvzsvrg and prescription medicines only as told by [...] Document Reviewed: 12/05/2015[employer] Patient Education ?2017 [employer]Medication Information:The exam and treatment you received today in the [facility] Emergency Department were for an urgent problem and are not intended as complete care. It is important for you to follow up with a doctor, nurse practitioner, or physician?s periodicals library assistant for ongoing care. If your symptoms [...] number so we can reach you if necessary.[facility] Emergency Department has provided you with a complete list of medications post discharge. Please inform your automatic clipper and stripper/provider of your visit and for further instruction [...] (T14.8XXA) UC - Wrist/Hand/Finger Pain or Swelling ([id number])If you received any narcotics, sedation, or any [...] Weight: 97.5 kg Body Mass Index: 32.69 kg/k6Ktlzuevz List:Problem Onset CommentsNo Problems foundMajor Tests and [...] Disease Control and Prevention December 2013 Normal [facility]gent Care [place] 017 Urgent Care Record [facility] ? Urgent [id number] [place] [address] pATIENT DISCHARGE INSTRUCTIONSPatient InformationName: KASSI SCHNEIDER Age: 41 YearsDate of : [birth year]MRN: [id number] For Visit: UC - Wrist/Hand/Finger Pain or Swelling; LEFT 3RD FINGER LACERATIONArrival Time: 04/10/17 11:59:00Phone: Primary Care Physician: José Miguel Cheung EAtdioni Physician: Wyatt Kilgorement:Visit Diagnosis:Diagnoses This Visit Crush injury - 3rd digit left hand (T14.8XXA) UC - Wrist/Hand/Finger Pain or Swelling ([id number])If you received any narcotics, sedation, or any [...] any legal documentsWith: Address: When:José Miguel Cheung [address] [place], [place] [phone] Business (1)Comments:Keep the injury clean and dry, do not submerge in the waterCan take ibuprofen and/or Tylenol as needed for pain, can elevate as needed to help reduce swellingAny increase in discomfort or any inability to perform your work duties return for reevaluationMedication Information:The exam and treatment you received today in the [facility] were for an urgent problem and are not intended as complete care. It is important for you to follow up with a doctor, nurse practitioner, or physician?s periodicals library assistant for ongoing care. If your symptoms [...] number so we can reach you if necessary.[facility] Urgent [facility] has provided you with a complete list of medications post discharge. 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 Change your bandage as told by your [...] take a bath or a shower.? Take auyu-crj-hxkmcvq and prescription medicines only as told by [...] Document Reviewed: 12/05/2015[employer] Patient Education ?2017 [employer]. Viruses or BacteriaWhat?s got you sick?Antibiotics only [...] for Disease Control and Prevention December 2013 [facility] XR Finger Lefton 04-10-2017 XR Finger Left [...] ACUTE FRACTURE ORDISLOCATION.2. FOLLOW-UP NEEDED.AKHIL Frances #: [id number]: 04/10/2017T: 04/10/2017 Final Dictated by: Obed Oliveira MD SDictated DT/TM: 04/10/17 1:07Signed (Electronic Signature): Roxanne DUTTA, Obed S 04/10/17 4:38 pmTechnologist: Mallory LOMAX [facility] Vital Signs Date Time Vital Sign Value Performing Clinician Facility 11-04-2023 15:03-0400 Body height 171.45 cm DO José Miguel Ball Work Phone: [facility] 11-04-2023 15:03-0400 Body mass index (BMI) [Ratio] 33.2 kg/m2 DO José Miguel Ball Work Phone: [facility] 11-04-2023 15:03-0400 Body weight 97.74 kg DO José Miguel Ball Work Phone: [facility] 11-04-2023 15:03-0400 Diastolic blood pressure 76 mm[Hg] DO José Miguel Ball Work Phone: [facility] 11-04-2023 15:03-0400 Heart rate 73 /min DO José Miguel Ball Work Phone: [facility] 11-04-2023 15:03-0400 Respiratory rate 12 /min DO José Miguel Ball Work Phone: [facility] 11-04-2023 15:03-0400 Systolic blood pressure 109 mm[Hg] DO José Miguel Ball Work Phone: [facility] 10-14-2023 16:34-0400 gluc 240 mg/dL Shravan Colunga [facility] 10-14-2023 16:34-0400 gluc Shravan Colunga [facility] 10-14-2023 15:54-0400 Body temperature 98.24 [degF] Shravan Colunga [facility] 10-14-2023 15:54-0400 Diastolic blood pressure 80 mm[Hg] Shravan Colunga [facility] 10-14-2023 15:54-0400 Heart rate 73 /min Shravan Colunga [facility] 10-14-2023 15:54-0400 Respiratory rate 18 /min Shravan Colunga [facility] 10-14-2023 15:54-0400 SaO2% (BldA) [Mass fraction] 98 % Shravan Colunga [facility] 10-14-2023 15:54-0400 Systolic blood pressure 122 mm[Hg] Shravan Colunga [facility] 09-30-2023 09:15-0400 Diastolic blood pressure 76 mm[Hg] Milagros Guardado MD Work Phone: [facility] 09-30-2023 09:15-0400 Systolic blood pressure 118 mm[Hg] Milagros Guardado MD Work Phone: [facility] 09-30-2023 09:06-0400 Body height 172.7 cm Milagros Guardado MD Work Phone: [facility] 09-30-2023 09:06-0400 Body mass index (BMI) [Ratio] 32.08 kg/m2 Milagros Guardado MD Work Phone: [facility] 09-30-2023 09:06-0400 Body weight 95.71 kg Milagros Guardado MD Work Phone: [facility] 09-30-2023 09:06-0400 Heart rate 67 /min Milagros Guardado MD Work Phone: [facility] 09-30-2023 09:06-0400 Respiratory rate 18 /min Milagros Guardado MD Work Phone: [facility] 09-30-2023 09:06-0400 SaO2% (BldA) [Mass fraction] 98 % Milagros Guardado MD Work Phone: [facility] Comment on above: 02-16-2023 15:30-0400 Body height 171.45 cm José Miguel Cheung Other [employer] Other 02-16-2023 15:30-0400 Body mass index (BMI) [Ratio] 34.59 kg/m2 José Miguel Ball Other [employer] Other 02-16-2023 15:30-0400 Body weight 101.7 kg José Miguel Ball Other [employer] Other 02-16-2023 15:30-0400 Diastolic blood pressure 87 mm[Hg] José Miguel Ball Other [employer] Other 02-16-2023 15:30-0400 Respiratory rate 12 /min José Miguel Ball Other [employer] Other 02-16-2023 15:30-0400 Systolic blood pressure 129 mm[Hg] José Miguel Ball Other [employer] Other 10-21-2022 15:30-0400 Body height 171.45 cm José Miguel Ball Other [employer] Other 10-21-2022 15:30-0400 Body mass index (BMI) [Ratio] 34.78 kg/m2 José Miguel Ball Other [employer] Other 10-21-2022 15:30-0400 Body weight 102.24 kg José Miguel Ball Other [employer] Other 10-21-2022 15:30-0400 Diastolic blood pressure 92 mm[Hg] José Miguel Ball Other [employer] Other 10-21-2022 15:30-0400 Respiratory rate 12 /min José Miguel Ball Other [employer] Other 10-21-2022 15:30-0400 Systolic blood pressure 133 mm[Hg] José Miguel Ball Other [employer] Other 07-29-2022 16:30-0400 Body height 171.45 cm José Miguel Ball Other [employer] Other 07-29-2022 16:30-0400 Body mass index (BMI) [Ratio] 34.96 kg/m2 José Miguel Ball Other [employer] Other 07-29-2022 16:30-0400 Body weight 102.79 kg José Miguel Ball Other [facility] [employer] Other 07-29-2022 16:30-0400 Diastolic blood pressure 76 mm[Hg] José Miguel Ball Other [facility] [employer] Other 07-29-2022 16:30-0400 Respiratory rate 12 /min José Miguel Ball Other [employer] Other 07-29-2022 16:30-0400 Systolic blood pressure 122 mm[Hg] José Miguel Ball Other [facility]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 answered. Patient voices understanding and is agreeable wi (more content not included)... [facility] 10-14-2023 Hospital Discharg e instructions Follow Up Care 10/14/2023 15:51:49 With:Chris Dave Address: [employer] [place] [id number] Business (1) When:10/17/2023 17:04:28 Comments:Call Dr for diagnosis based follow up [facility] 10-14-2023 Telephone encounter Note Pt experienced some swelling and tingling in hand and is now at the ER Pt completed ultrasound [facility] Work Phone: 10-14-2023 Miscellaneous Notes Pt experienced some swelling and tingling in hand and is now at the ER Pt completed ultrasound Call from spouse with concern of swelling and tingling at the catheter insertion site. S/p cath on 10/08. Only noticed these symptoms today No redness, some discomfort, some bruising. Call back number [phone] documented in this encounter [facility] 10-14-2023 Telephone encounter Note Call from spouse with concern of swelling and tingling at the catheter insertion site. S/p cath on 10/08. Only noticed these symptoms today No redness, some discomfort, some bruising. Call back number [phone] [facility] 10-14-2023 Evaluation + Plan note Extrac ernestine from: Title:ED Note Author:Robinson Grace PA-C te:10/14/23 Post surgical complication ( T81.9XXA: Unspecified complication of procedure, initial encounter) Swelling of right wrist (M25.431: Effusion, right wrist) Orders: US UE Venous Duplex Right [facility]06-17-2024 NoteHNO ID: [id number] Author: MILAGROS GUARDADO MD Service: ? Author Type: Physician Type: Progress Notes Filed: 10/12/2023 08:16 Note Text: .[facility]06-17-2024 History of Present illness Narrative* Milagros Guardado MD - 10/12/2023 8:16 AM EDT . [facility] Telephone encounter Note * Telephone Encounter - Lisa Martínez RN - 10/08/2023 1:29 PM EDT CARDIOVASCULAR LAB INSTRUCTIONS: Readiness to Learn: Cognitive Ability: Alert and oriented Motivation To Learn: Interested Family/Significant Other Support: Unable to assess - Family not present Instruction Provided To: Patient Patient Learns Best By: Verbal Instruction Factors Affecting Learning: None Physical Limitations Affecting Learning: None Learning Response: Procedure: Diagnostic Cath with Intervention Pre procedure education topics: Arrival time/NPO Status/Medications/Travel Instructions/Restrictions Patient/Family Response Evaluation: Verbalizes understanding Follow Up Plan and Medication: As directed by physician Instruction/Supplemental Material Given: Cardiac catheterization instructions, procedure information, hospital information, hotel information. Instructed By Lisa Martínez RN. In Department of CARDIOLOGY. [facility]06-13-2024 Miscellaneous Notes* Telephone Encounter - Lisa Martínez RN - 10/08/2023 1:29 PM EDT CARDIOVASCULAR LAB INSTRUCTIONS: Readiness to Learn: Cognitive Ability: Alert and oriented Motivation To Learn: Interested Family/Significant Other Support: Unable to assess - Family not present Instruction Provided To: Patient Patient Learns Best By: Verbal Instruction Factors Affecting Learning: None Physical Limitations Affecting Learning: None Learning Response: Procedure: Diagnostic Cath with Intervention Pre procedure education topics: Arrival time/NPO Status/Medications/Travel Instructions/Restrictions Patient/Family Response Evaluation: Verbalizes understanding Follow Up Plan and Medication: As directed by physician Instruction/Supplemental Material Given: Cardiac catheterization instructions, procedure information, hospital information, hotel information. Instructed By Lisa Martínez RN. In Department of CARDIOLOGY. [facility] Telephone encounter Note * Telephone Encounter - Florentino Schaeffer - 10/02/2023 4:52 PM EDT Saved medical records to scanned documents. [facility]06-07-2024 Miscellaneous Notes* Telephone Encounter - Florentino Schaeffer - 10/02/2023 4:52 PM EDT Saved medical records to scanned documents. documented in [facility] Telephone encounter Note * Telephone Encounter - Florentino Schaeffer - 09/30/2023 3:13 PM EDT Rec'd images. Uploaded via [employer] 07/10/23 NM Stress dtd 09/16/23 [facility]06-05-2024 Miscellaneous Notes* Telephone Encounter - Florentino Schaeffer - 09/30/2023 3:13 PM EDT Rec'd images. Uploaded via [employer] 07/10/23 NM Stress dtd 09/16/23 documented in this encounterPrem[facility]06-[facility]-2024 NoteCholesterol Ratio (LDL/HDL)September 30, 2023 10:42am2.14<2.54Reference:1. National Cholesterol Education Program ATP III Guideline At-A-Glance Quick Desk Reference: National Heart, Lung, and Blood [place]. National Institutes of Health. 2001: NIH PublicationNo. 330.2. An International Atherosclerosis Society position paper: global recommendations for the management of dyslipidemia: executive summary, Atherosclerosis. 2014: 232(2):410-413.[facility] Comment on above:Reference:1. National Cholesterol Education Program ATP III Guideline At-A-Glance Quick Desk Reference: National Heart, Lung, and Blood [place]. National Institutes of Health. 2000: NIH PublicationNo. .2. An International Atherosclerosis Society position paper: global recommendations for the management of dyslipidemia: executive summary, Atherosclerosis. 2014: 232(2):410-413.09-30-2023 NoteCholesterol Ratio (LDL/HDL)September 30, 2023 10:42am 2.14<2.54Reference:1. National Cholesterol Education Program ATP III Guideline At-A-Glance Quick Desk Reference: National Heart, Lung, and Blood [place]. National Institutes of Health. 2001: NIH PublicationNo. 330.2. An International Atherosclerosis Society position paper: global recommendations for the management of dyslipidemia: executive summary, Atherosclerosis. 2014: 232(2):410-413.[facility] on above:Reference:1. National Cholesterol Education Program ATP III Guideline At-A-Glance Quick Desk Reference: National Heart, Lung, and Blood [place]. National Institutes of Health. 2001: NIH PublicationNo. 330.2. An International Atherosclerosis Society position paper: global recommendations for the management of dyslipidemia: executive summary, Atherosclerosis. 2014: 232(2):410-413. 09-30-2023 NoteCholesterol Ratio (LDL/HDL)September 30, 2023 10:42am2.14<2.54 Reference:1. National Cholesterol Education Program ATP III Guideline At-A-Glance Quick Desk Reference: National Heart, Lung, and Blood [place]. National Institutes of Health. 2001: NIH PublicationNo. 3305.2. An International Atherosclerosis Society position paper: global recommendations for the management of dyslipidemia: executive summary, Atherosclerosis. 2014: 232(2):410-413.[facility] on above:Reference:1. National Cholesterol Education Program ATP III Guideline At-A-Glance Quick Desk Reference: National Heart, Lung, and Blood [place]. National Institutes of Health. 2001: NIH PublicationNo. 3305.2. An International Atherosclerosis Society position paper: global recommendations for the management of dyslipidemia: executive summary, Atherosclerosis. 2014: 232(2):410413. 09-30-2023 History of Present illness Narrative* Milagros Guardado MD - 09/30/2023 8:45 AM EDT Images from the original note were not included. [facility] [place] Vinny Mclaughlin Department of Cardiovascular Medicine SECTION OF INTERVENTIONAL CARDIOLOGY OUTPATIENT VISIT DATE September 29, 2023 OUTPATIENT VISIT TYPE NEW PRIMARY CARE PHYSICIAN: To use this Smartlink, specify the provider ID whose address you want to display, e.g., .PROVADDR[1(where 1 is the provider ID). REFERRING PHYSICIAN: No referring provider defined for this encounter. CHIEF COMPLAINT: No chief complaint on file. HISTORY OF PRESENT ILLNESS: Mr. Schneider is a 48 year old male who presents today - CPOE RF DMx18y, male, Body mass index is 32.08 kg/m . 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 he needs to clear being off 5-7 days post procedure for being spray unit feeder Tent Thursday The procedure including risks, benefits, options and personnel performing the procedure was discussed with the patient. There are no contraindications to the procedure. Kassi Schneider expressed understanding and agreed to proceed. TCI instructions reviewed no DM Rx morning of procedure no allergie labs and EKG today - Diabetes Mellitus No results found for: HBA1C target Hgba1c < 6.5% Diabetic diet restrictions Target BMI closer to 25.0 Daily Aerobic Exercise adverse response to trulicity taking jardiance 25/am, metformin 500 bid - Hypertension Target JNC VIII Guideline goal for BP control Specifically SBP < 150 mm Hg and DBP < 80 mm Hg lisinopril 5/am, toprol xl 12.5/pm -?HLP Rx as indicated NURSING INTAKE: Past medical history of: obesity, DANIELLE with CPAP, DM2, HTN OSH PCP office visit note 06/26/23: New patient here to establish care. Self [...] to improve. Denies chest pain, and lightheadedness/syncope. The patient is here today for cardiovascular evaluation and a second opinion. He was seeing a mailing manager in [place] for palpitations/fluttering that started about one year ago when he was taking Trulicity injections. That mailing manager had him do an echocardiogram and a stress test. He was told thestress test was abnormal and it was suggested he have a CT scan and a heart cath, but the testing was not available in [place] until October. For the last few months he has been experiencing a tightness and soreness/discomfort on the right side of his chest mostly with activities (walking and carrying laundry baskets up stairs), but sometimes at rest. The discomfort occasionally radiates to the left side of his chest. He complains of neck/back pain, but believes that is due to his job. He has this chest discomfort daily and does not believe it is bad enough to go to the emergency room. He was recently diagnosed with sleep apnea and has been wearing a CPAP for 3 months. His fatigued has improved. His palpitations have also improvised and he gets them occasionally. Risk factors for coronary artery disease hypertension, diabetes, family history of CAD, obesity He denies shortness of breath, dyspnea on exertion, orthopnea, PND, lightheadedness, syncope, claudication, leg swelling, cough, and wheezing. 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 OSH Echo: Conclusions Global left ventricular systolic function is normal; visually estimated EF is 55 to 60% Normal right ventricular size and systolic function Normal diastolic function No significant valvular abnormalities 09/17/23 OSH Treadmill Stress Test: 11/01/22 BUN 15 Creat 1.18 GFR >60 Chol 157 Trig 108 LDL 93.4 HDL 42 A1C 7.1 PAST MEDICAL HISTORY Diagnosis Date Diabetes mellitus (HCC) HTN (hypertension) Sleep apnea CPAP PAST SURGICAL HISTORY Procedure Laterality Date PAST SURGICAL HISTORY OF double patella rupture repair SOCIAL HISTORY Social History Tobacco Use Smoking status: Never Smokeless tobacco: Never Vaping Use Vaping Use: Never used Substance Use Topics Alcohol use: Not Currently Comment: very little Drug use: Never FAMILY HISTORY Problem Relation Age of Onset Stroke Father Coronary Artery Disease Father CABG (twice) Heart Attack Paternal Grandfather heavy smoker ALLERGIES: ALLERGIES No Known Allergies MEDICATIONS: metFORMIN (GLUCOPHAGE) 500 mg tablet Take 1 tablet by mouth two times a day with meals. JARDIANCE 25 mg tablet Take 25 mg by mouth daily with breakfast. pioglitazone (ACTOS) 30 mg tablet Take 30 mg by mouth once daily. lisinopril (ZESTRIL) 5 mg tablet Take 1 tablet by mouth every afternoon. metoprolol succinate ER (TOPROL XL) 25 mg 24 hr tablet Take 12.5 mg by mouth once daily. Naproxen SR (EC-NAPROSYN) 500 mg EC tablet Take 500 mg by mouth two times a day with meals. Gyuacixrmedth-Uoexbyaj-Tdowal (MULTIVITAMIN 50 PLUS) tab Take 1 tablet by mouth once daily. Ascorbic Acid (VITAMIN C) 1,000 mg tablet Take 1,000 mg by mouth once daily. REVIEW OF SYSTEMS: GENERAL: no fever, no chills, and no change in weight HEENT: no headaches, no hearing loss, no difficulty swallowing, no visual changes, no nose bleeds SKIN: no rashes, no lesions, and no ulcers RESPIRATORY: SEE HPI CARDIOVASCULAR: no dizziness, no syncope, no claudication, and no edema GASTROINTESTINAL: no abdominal pain, no nausea, no vomiting, no difficulty or painful swallowing, and no melanotic stools GENITOURINARY: no dysuria, no frequency, and no nocturia MUSCULOSKELETAL: no joint pain, no joint swelling, no muscle pain or myalgias, and no pain with walking NEUROLOGIC: no numbness, no tingling, and no sensation of pins and needles HEMATOLOGY: no bruising easily, no prolonged bleeding, no anemia, and no cancer ENDOCRINE: no cold or heat intolerance, no polyuria, no polydipsia, no goiter, no thyroid disease, and diabetes PSYCH: no sleep disturbance, no mood disorders, and no recent psychosocial stressors PHYSICAL EXAMINATION: BP 118/76 Pulse 67 Resp 18 Ht 5' 8 (1.73m) Wt 211 lb (95.7kg) SpO2 98[RA]% BMI 32.09 kg/(m^2). General:well developed, obese, per his Body mass index is 32.08 kg/m . Neck:no JVD, no carotid bruits Lungs:clear to auscultation and no rales Heart:regular rhythm, S1, S2 normal, no S3, no S4, no heaves, no thrills, and no murmur Abdomen:bowel sounds present Extremities:cool Neurologic:Oriented to time, place and person CARDIOVASCULAR MEDICINE TESTING: No Cardiovascular testing perfomed today. There were no tests performed for review. OSH testing above IMPRESSION: Mr. Schneider is a 48 year old male - CPOE RF DMx18y, male, Body mass index is 32.08 kg/m . 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 he needs to clear being off 5-7 days post procedure for being spray unit feeder Tent Thursday The procedure including risks, benefits, options and personnel performing the procedure was discussed with the patient. There are no contraindications to the procedure. Kassi Schneider expressed understanding and agreed to proceed. TCI instructions reviewed no DM Rx morning of procedure no allergie labs and EKG today - Diabetes Mellitus No results found for: HBA1C target Hgba1c < 6.5% Diabetic diet restrictions Target BMI closer to 25.0 Daily Aerobic Exercise adverse response to trulicity taking jardiance 25/am, metformin 500 bid - Hypertension Target JNC VIII Guideline goal for BP control Specifically SBP < 150 mm Hg and DBP < 80 mm Hg lisinopril 5/am, toprol xl 12.5/pm -?HLP Rx as indicated . Milagros Guardado MD September 30, 2023 10:22 AM documented in this encounterPrem[facility] NoteHNO ID: [id number] Author: MILAGROS GUARDADO MD Service: ? Author Type: Physician Type: Progress Notes Filed: 09/30/2023 10:52 Note Text: [facility] Department of Cardiovascular Medicine SECTION OF INTERVENTIONAL CARDIOLOGY OUTPATIENT VISIT DATE September 29, 2023 OUTPATIENT VISIT TYPE NEW PRIMARY CARE PHYSICIAN: To use this Smartlink, specify the provider ID whose address you want to display, e.g., .PROVADDR[1 (where 1 is the provider ID). REFERRING PHYSICIAN: No referring provider defined for this encounter. CHIEF COMPLAINT: No chief complaint on file. HISTORY OF PRESENT ILLNESS: Mr. Schneider is a 48 year old male who presents today - CPOE RF DMx18y, male, Body mass index is 32.08 kg/m?. 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 he needs to clear being off 5-7 days post procedure for being spray unit feeder Tent Thursday The procedure including risks, benefits, options and personnel performing the procedure was discussed with the patient. There are no contraindications to the procedure. Kassi Schneider expressed understanding and agreed to proceed. TCI instructions reviewed no DM Rx morning of procedure no allergie labs and EKG today - Diabetes Mellitus No results found for: HBA1C target Hgba1c < 6.5% Diabetic diet restrictions Target BMI closer to 25.0 Daily Aerobic Exercise adverse response to trulicity taking jardiance 25/am, metformin 500 bid - Hypertension Target JNC VIII Guideline goal for BP control Specifically SBP < 150 mm Hg and DBP < 80 mm Hg lisinopril 5/am, toprol xl 12.5/pm -?HLP Rx as indicated NURSING INTAKE: Past medical history of: obesity, DANIELLE with CPAP, DM2, HTN OSH PCP office visit note 06/26/23: New patient here to establish care. Self [...] to improve. Denies chest pain, and lightheadedness/syncope. The patient is here today for cardiovascular evaluation and a second opinion. He was seeing a mailing manager in [place] for palpitations/fluttering that started about one year ago when he was taking Trulicity injections. That mailing manager had him do an echocardiogram and a stress test. He was told the stress test was abnormal and it was suggested he have a CT scan and a heart cath, but the testing was not available in [place] until October. For the last few months he has been experiencing a tightness and soreness/discomfort on the right side of his chest mostly with activities (walking and carrying laundry baskets up stairs), but sometimes at rest. The discomfort occasionally radiates to the left side of his chest. He complains of neck/back pain, but believes that is due to his job. He has this chest discomfort daily and does not believe it is bad enough to go to the emergency room. He was recently diagnosed with sleep apnea and has been wearing a CPAP for 3 months. His fatigued has improved. His palpitations have also improvised and he gets them occasionally. Risk factors for coronary artery disease hypertension, diabetes, family history of CAD, obesity He denies shortness of breath, dyspnea on exertion, orthopnea, PND, lightheadedness, syncope, claudication, leg swelling, cough, and wheezing. 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 OSH Echo: Conclusions Global left ventricular systolic function is normal; visually estimated EF is 55 to 60% Normal right ventricular size and systolic function Normal diastolic function No significant valvular abnormalities 09/17/23 OSH Treadmill Stress Test: 11/01/22 BUN 15 Creat 1.18 GFR >60 Chol 157 Trig 108 LDL 93.4 HDL 42 A1C 7.1 PAST MEDICAL HISTORY Diagnosis Date Diabetes mellitus (HCC) HTN (hypertension) Sleep apnea CPAP PAST SURGICAL HISTORY Procedure Laterality Date PAST SURGICAL HISTORY OF double patella rupture repair SOCIAL HISTORY Social History Tobacco Use Smoking status: Never Smokeless tobacco: Never Vaping Use Vaping Use: Never used Substance Use Topics Alcohol use: Not Currently Comment: very little Drug use: Never FAMILY HISTORY Problem Relation Age of Onset Stroke Father Coronary Artery Disease Father CABG (twice) Heart Attack Paternal Grandfather heavy s (more content not included)...[facility]05-24-2024 Note [facility] PROGRESS NOTE Chief Complaint: Patient here for follow up stress test. Did have some chest tightness after the stress. Denies SOB. HPI: Kassi Schneider is a 48 y.o. male who was referred to cardiology for palpiations. 48 yo male with past medical history including [id number]: Obesity, DANIELLE with Cpap, HTN, Palpitations, DM type 2- no personal CAD history FMH: Father HTN, Stroke; Maternal grandfather DM PSH: no pertinent cardiac surgery or procedures Social: never a smoker, occasional/social alcohol, denied illicit drug use Stress test was performed for perioperative restratification. Patient was noted to have apical thinning. Additional investigation was recommended. Patient declines cath at this time, would like to proceed with coronary CTA Continues to have occasional chest discomfort. He denies any additional complaints or concerns Review of Systems Review of Systems Constitutional: Positive for malaise/fatigue. Cardiovascular: Positive for chest pain. Musculoskeletal: Positive for arthritis, back pain, joint pain and myalgias. All other systems reviewed and are negative. Visit Vitals Ht 1.753 m (5' 9 ) Wt 97.1 kg (214 lb) BMI 31.60 kg/m??? Smoking Status Never BSA 2.17 m??? No Known Allergies Medications: Current Outpatient Medications on File Prior to Visit Medication Sig Dispense Refill EC-Naproxen 500 mg EC tablet Take 500 mg by mouth every 12 (twelve) hours. Jardiance 25 mg Take 25 mg by mouth in the morning. lisinopril 5 mg tablet TAKE 1 TABLET BY MOUTH EVERY DAY FOR 90 DAYS metFORMIN (Glucophage) 1,000 mg tablet Take 1,000 mg by mouth in the morning and at bedtime. pioglitazone (Actos) 30 mg tablet glimepiride (Amaryl) 2 mg tablet TAKE 1 TABLET BY MOUTH EVERY DAY WITH BREAKFAST OR THE FIRST MAIL MEAL OF THE DAY No current facility-administered medications on file prior [...] found for the past 12 months Assessment/Plan: Diabetes mellitus (CMS/HCC) Diabetes is managed by PCP Intermittent palpitations Stable since starting to use Cpap and stopping trulicity Patient had PVCs, couplets MONTAGUE (dyspnea on exertion) Echo unremarkable Given Frequent PVCs, and in addition to diabetes, prudent to rule out ischemia Abnormal Stress Test Patient was noted to have small defect at the apex, likely apical thinning -Given finding of apical thinning on stress test, in addition to persistent symptoms, would recommend proceeding with invasive coronary angiography with possible revascularization. Patient declines at this time, and wishes to proceed with noninvasive evaluation. Will order CTA coronary. He understands that if this is abnormal, he will proceed with invasive coronary angiography -Optimize medical management -Aggressive risk factor modification -Plan of care discussed with patient. All questions were answered. Patient voices understanding and is agreeable with current plan. -Patient was educated on red flag symptoms. Strict return precautions were provided. Patient verbalizes understanding -Follow-up in cardiology clinic after stress test Thank you for allowing us to participate in the care of your patient. Please do not hesitate to contact cardiology with any questions or concerns. Myron Sanches MDLake County [facility]04-01-2024 NoteUTP CARDIOLOGY PROGRESS NOTE HPI: Kassi Schneider is a 48 y.o. male who was referred to cardiology for palpiations. 48 yo male with past medical history including [id number]: Obesity, DANIELLE with Cpap, HTN, Palpitations, DM type 2- no personal CAD history FMH: Father HTN, Stroke; Maternal grandfather DM PSH: no pertinent cardiac surgery or procedures Social: never a smoker, occasional/social alcohol, denied illicit drug use Patient was evaluated by Eliane Mcgowan NP last month, and echo was obtained due to dyspnea on exertion. Echo was performed. LVEF was within normal limits. No significant valvular abnormalities. Normal right-sided pressures. Patient continues to have palpitations. He continues to have dyspnea on exertion. He denies any anginal chest pain, although he does endorse occasional atypical chest pain. He denies any near-syncope or syncope. No lower extremity edema, orthopnea, or paroxysmal nocturnal dyspnea. Review of Systems 10 point ROS is performed and is negative unless otherwise specified. Visit Vitals BP 130/82 (BP Location: Left arm, Patient Position: Sitting, BP Cuff Size: Adult) Pulse 70 Resp 11 Ht 1.753 m (5' 9 ) Wt 103 kg (228 lb) SpO2 98% BMI 33.67 kg/m??? Smoking Status Never BSA [...] found for the past 12 months Assessment/Plan: Diabetes mellitus (CMS/HCC) Diabetes is managed by PCP Intermittent palpitations Stable since starting to use Cpap and stopping trulicity Patient had PVCs, couplets MONTAGUE (dyspnea on exertion) Echo unremarkable Given Frequent PVCs, and in addition to diabetes, prudent to rule out ischemia Will order Lexiscan stress test to rule out ischemia -Optimize medical management -Aggressive risk factor modification -Plan of care discussed with patient. All questions were answered. Patient voices understanding and is agreeable with current plan. -Patient was educated on red flag symptoms. Strict return precautions were provided. Patient verbalizes understanding -Follow-up in cardiology clinic after stress test Thank you for allowing us to participate in the care of your patient. Please do not hesitate to contact cardiology with any questions or concerns. Myron Sanches MDUnUniversity Hospitals [facility]03-01-2024 Notee [facility]03-01-2024 NoteIn light of MONTAGUE, DM type 2, HTN and noted LVH on EKG will order echocardiogram for assessment of cardiac function, valvular function and rt sided pressures. [facility]03-01-2024 NoteStable since starting to use Cpap and stopping trulicityUnUniversity Hospitals [facility]03-01-2024 Note Diabetes is managed by PCPUnUniversity [facility]als [facility]03-01-2024 Note Continue to use Cpap nightly f/u with PCP and sleep medicineUnUniversity [facility]als [facility]03-01-2024 NoteNew patient here to establish care. Self ref [...] myalgias. All other systems reviewed and are negative.[facility] 06-26-2023 NoteUTP CARDIOLOGY PROGRESS NOTE HPI: Kassi Schneider is a 47 y.o. male here [...] rt sided pressures. RTC after echo with [facility]endingLake [facility]01-18-2024 Evaluation note* Encounter Date Diagnosis Assessment Notes Treatment Notes Treatment Clinical Notes Apr, DANIELLE (obstructive sleep apnea) (ICD-10 - G47.33) AHI 17, Psat 79% [facility] Other 12-01-2023 Evaluation note* Encounter Date Diagnosis [...] Microalbumin, Dilated eye exam and Foot exam [facility] Other 11-16-2023 Evaluation note* Encounter Date Diagnosis Assessment Notes Treatment Notes Treatment Clinical Notes Feb, Controlled type 2 diabetes mellitus with hyperglycemia, without long-term current use of insulin (ICD-10 - E11.65) Feb, Type 2 diabetes mellitus with hyperglycemia (ICD-10 - E11.65) [facility] Other 11-14-2023 Evaluation note* Encounter Date Diagnosis Assessment Notes Treatment Notes Treatment Clinical Notes Feb, Rupture of right quadriceps tendon, initial encounter (ICD-10 - S76.111A) Feb, Acute non-recurrent frontal sinusitis (ICD-10 - J01.10) Feb, Acute non-recurrent maxillary sinusitis (ICD-10 - J01.00) Feb, Type 2 diabetes mellitus with diabetic polyneuropathy, without long-term current use of insulin (ICD-10 - E11.42) [facility] Other 11-14-2023 Evaluation note* Encounter Date Diagnosis Assessment Notes Treatment Notes Treatment Clinical Notes Feb, Controlled type 2 diabetes mellitus with hyperglycemia, without long-term current use of insulin (ICD-10 - E11.65) Feb, Type 2 diabetes mellitus with hyperglycemia (ICD-10 - E11.65) [facility] Other 11-10-2023 Evaluation note* Encounter Date Diagnosis Assessment Notes Treatment Notes Treatment Clinical Notes Feb, Intermittent palpitations (ICD-10 - R00.2) Feb, Heart murmur (ICD-10 - R01.1) Feb, Primary hypertension (ICD-10 - I10) [facility] Other 10-23-2023 Evaluation note* Encounter Date Diagnosis [...] index [BMI] 34.0-34.9, adult (ICD-10 - Z68.34) [facility] Other 10-16-2023 Evaluation note* Encounter Date Diagnosis Assessment Notes Treatment Notes Treatment Clinical Notes Jan, Controlled type 2 diabetes mellitus with hyperglycemia, without long-term current use of insulin (ICD-10 - E11.65) [facility] Other 10-09-2023 Evaluation note* Encounter Date Diagnosis Assessment Notes Treatment Notes Treatment Clinical Notes Jan, Controlled type 2 diabetes mellitus with hyperglycemia, without long-term current use of insulin (ICD-10 - E11.65) [facility] Other 09-27-2023 Evaluation note* Encounter Date Diagnosis Assessment Notes Treatment Notes Treatment Clinical Notes Dec, Acute non-recurrent maxillary sinusitis (ICD-10 - J01.00) Instructed to use Robitussin or Mucinex for cough, saline or Flonase NS for congestion, Tylenol for pain and fever. Dec, Primary hypertension (ICD-10 - I10) Avoid use of decongestants w/ BP meds [facility] Other 09-13-2023 Evaluation note* Encounter Date Diagnosis [...] Patient can f/u on a PRN basis. [facility] Other 08-03-2023 Evaluation note* Encounter Date Diagnosis Assessment Notes Treatment Notes Treatment Clinical Notes Nov, Acute non-recurrent maxillary sinusitis (ICD-10 - J01.00) Instructed to use Robitussin or Mucinex for cough, saline or Flonase NS for congestion, Tylenol for pain and fever. [facility] Other 07-19-2023 Evaluation note* Encounter Date Diagnosis Assessment Notes Treatment Notes Treatment Clinical Notes Oct, Rupture of right quadriceps tendon, initial encounter (ICD-10 - S76.111A) Rx given for Medrol Dosepak. We will also submit for [facility] approval for cortisone injection bilateral knees and MRI of bilateral knees. Patient instructed on the use of Voltaren Gel in the meantime as he is unable to take oral NSAIDs Oct, Rupture of left quadriceps tendon, initial encounter (ICD-10 - S76.112A) [facility] Other 06-27-2023 Evaluation note* Encounter Date Diagnosis [...] Discussed choices and mutually agreed on Cologuard [facility] Other 04-04-2023 Evaluation note* Encounter Date Diagnosis [...] Notify office w/ fever or purulent drainage [facility] Other 02-14-2023 Evaluation note* Encounter Date Diagnosis Assessment Notes Treatment Notes Treatment Clinical Notes May, Rupture of right quadriceps tendon, initial encounter (ICD-10 - S76.111A) Patient returns to recheck bilateral knees. Bilateral knee cortisone injections given on 02/21/2022. Bilateral patella tendon repair ([facility] DOS 06/02/2020). Patient states he has [...] quadriceps tendon, initial encounter (ICD-10 - S76.112A) [facility] Other 01-06-2023 Evaluation note* Encounter Date Diagnosis [...] quadriceps tendon, initial encounter (ICD-10 - S76.112A) [facility] Other 12-02-2022 Evaluation note* Encounter Date Diagnosis Assessment Notes Treatment Notes Treatment Clinical Notes Mar, Rupture of right quadriceps tendon, initial encounter (ICD-10 - S76.111A) We will submit for [facility] approval for Lidocaine Patches, Voltaren Gel, and Copper Fit Knee Sleeves Mar, Rupture of left quadriceps tendon, initial encounter (ICD-10 - S76.112A) [facility] Other 12-02-2022 Evaluation note* Encounter Date Diagnosis Assessment Notes Treatment Notes Treatment Clinical Notes Mar, Rupture of right quadriceps tendon, initial encounter (ICD-10 - S76.111A) Mar, Rupture of left quadriceps tendon, initial encounter (ICD-10 - S76.112A) [facility] Other 10-28-2022 Evaluation note* Encounter Date Diagnosis Assessment Notes Treatment Notes Treatment Clinical Notes Jan, Rupture of right quadriceps tendon, initial encounter (ICD-10 - S76.111A) Bilateral knees injected with cortisone under sterile technique, patient tolerated well. Patient also instructed on the use of topical Voltaren Gel and Lidocaine Patches, Rx given Jan, Rupture of left quadriceps tendon, initial encounter (ICD-10 - S76.112A) [facility] Other 08-12-2022 Evaluation note* Encounter Date Diagnosis Assessment Notes Treatment Notes Treatment Clinical Notes Nov, Rupture of right quadriceps tendon, initial encounter (ICD-10 - S76.111A) Continue use of Naproxen. We will check labs at return appointment Nov, Rupture of left quadriceps tendon, initial encounter (ICD-10 - S76.112A) [facility] Other 07-15-2022 Evaluation note* Encounter Date Diagnosis Assessment Notes Treatment Notes Treatment Clinical Notes Oct, Rupture of right quadriceps tendon, initial encounter (ICD-10 - S76.111A) Patient instructed on the use of NSAID regularly, RX Naproxen. We will also submit for [facility] approval for physical therapy with modalities. May consider cortisone injection in future - will submit for [facility] approval for injection Oct, Rupture of left quadriceps tendon, initial encounter (ICD-10 - S76.112A) [facility] Other 03-22-2022 Evaluation note* Encounter Date Diagnosis Assessment Notes Treatment Notes Treatment Clinical Notes Jun, Rupture of right quadriceps tendon, initial encounter (ICD-10 - S76.111A) Activity as tolerated Jun, Rupture of left quadriceps tendon, initial encounter (ICD-10 - S76.112A) [facility] Other 01-25-2022 Evaluation note* Encounter Date Diagnosis [...] quadriceps tendon, initial encounter (ICD-10 - S76.112A) [facility] Other 11-24-2021 Evaluation note* Encounter Date Diagnosis Assessment Notes Treatment Notes Treatment Clinical Notes Feb, Rupture of right quadriceps tendon, initial encounter (ICD-10 - S76.111A) Take NSAID regularly. Continue working 20 hours per week and current weight limitations until after first of year then increase to 30 hours per week. Feb, Rupture of left quadriceps tendon, initial encounter (ICD-10 - S76.112A) [facility] Other 02-06-2021 History general Narrative - Reported* Type Description Date Medical History DM Surgical History bilateral patella tendon repair 06/02/20 [employer] Other 02-06-2021 History general Narrative - Reported* Type Description Date Medical History DM Medical History bilateral quadriceps tendon rupt ure Surgical History bilateral patella tendon repair 06/02/20 [place] [facility] Other Evaluation noteNo [facility] Other Evaluation noteNo assessment information available [facility] Work Phone: Evaluation note* Diagnosis Onset Date Resolution Status Rupture of left quadriceps muscle acute Rupture of right quadriceps tendon acute [facility] Work Phone: Evaluation note* Diagnosis Hyperlipidemia LDL goal <70- Primary Other and unspecified hyperlipidemia Abnormal stress test Other nonspecific abnormal cardiovascular system function study Type 2 diabetes mellitus with other circulatory complication, without long-term current use of insulin ([facility]) Class 1 obesity due to excess calories with serious comorbidity and body mass index (BMI) of 32.0 to 32.9 in adult Hypertension goal BP (blood pressure) < 140/80 Unspecified essential hypertension Abnormal stress test Other nonspecific abnormal cardiovascular system function study [facility] Diagnosis OPENED IN ERROR- Primary To allow closing an encounter opened in error (used in SmartSet) documented [facility] Diagnosis Onset Date Resolution Status Cervical radiculopathy acute Rotator cuff syndrome of right shoulder acute [facility] Work Phone: evaluation note* Diagnosis Onset Date Resolution Status Cervical radiculopathy acute Rotator cuff syndrome of right shoulder acute Obesity acute DANIELLE (obstructive sleep apnea) acute Primary hypertension acute Type 2 diabetes mellitus with hyperglycemia acute Wellness examination noneact martha [facility] Work Phone: History general Narrative - [...] repair 06/02/20 Hospitalization History SEE SURGICAL HX [place] [facility] Other [facility]qui general Narrative - Reported* Type Description Date [...] repair 06/02/20 Hospitalization History SEE SURGICAL HX [facility] Other Hospital course Narrative No data available for this section [facility] Additional Instructions Ice to the [...] bladder or bowel control or any other [facility] Work Phone: Progress note No data available for this section [facility] (n[facility]ative[facility] Outpatient Procedure (Routine) - Pending Review Specialty Diagnoses / Procedures Referred By Gordy chris [facility] Diagnoses Hyperlipidemia LDL goal <70 Abnormal stress test Type 2 diabetes mellitus with other circulatory complication, without long-term current use of insulin ([facility]) Class 1 obesity due to excess calories with serious comorbidity and body mass index (BMI) of 32.0 to 32.9 in adult Hypertension goal BP (blood pressure) < 140/80 Procedures ECHO ECHO TTHRC R-T 2D W/WOM-MODE COMPL SPEC&COLR D Milagros Guardado MD [address] [place] [address] [facility] [id number] [place] [address] Referral ID Status Reason Start Date Expiration Date Visits Requested Visits Authorized [id number] Pending Review Auto-Generat ed Referral 09/30/2023 09/29/2024 1 1 * Outpatient Procedure (Routine) - Pending Review Specialty Diagnoses / Procedures Referred By Gordy chris Ref[facility] Diagnoses Hyperlipidemia LDL goal <70 Abnormal stress test Type 2 diabetes mellitus with other circulatory complication, without long-term current use of insulin ([facility]) Class 1 obesity due to excess calories with serious comorbidity and body mass index (BMI) of 32.0 to 32.9 in adult Hypertension goal BP (blood pressure) < 140/80 Procedures ECG COMPLETE ECG ROUTINE ECG W/LEAST 12 LDS W/I&R Milagros Guardado MD [address] [place] [address] [facility] [address] [address] Referral ID Status Reason Start Date Expiration Date Visits Requested Visits Authorized [id number] Pending Review Auto-Generat ed Referral 09/30/2023 09/29/2024 1 1 * Transition of Care (Routine) - Ref Not Required Specialty Diagnoses / Procedures Referred By Gordy chris Referred To Contact [facility] [place] Procedures CARDIOVASCULAR MEDICINE OP FOLLOW UP APPT ORDER Milagros Guardado MD [address] [place] [address] [facility] [address] [address] Referral ID Status Reason Start Date Expiration Date Visits Requested Visits Authorized [id number] Ref Not Required PCP Requested Referral 07/01/2024 09/29/2024 1 1 * Outpatient Procedure (Routine) - Closed Specialty Diagnoses / Procedures Referred By Gordy chris Referred To Contact [facility] [place] Diagnoses Hyperlipidemia LDL goal <70 Abnormal stress test Procedures ECG COMPLETE ECG ROUTINE ECG W/LEAST 12 LDS W/I&R Milagros Guardado MD [address] [place] [address] [address] Referral ID Status Reason Start Date Expiration Date V isits Requested Visits Authorized [id number] Closed Auto-Generate d Referral 09/30/2023 09/29/2024 1 1 [facility] Summary Purpose Family History Relationship Condition Age at Onset Recorded Date/T conrado Not Specified Diabetes mellitus Unknown Hypertension Unknown Relationship Condition Age at Onset Recorded Date/T conrado family member Diabetes mellitus Unknown father Hypertension Unknown History of stroke Unknown grandparent Diabetes mellitus Unknown Relationship Condition Age at Onset Recorded Date/T conrado aunt Diabetes mellitus Unknown father Hypertension Unknown History [...] riceps muscle Rupture of right quadriceps tendon Chief Complaint M25.511 - Pain in ri ght shoulder NEW RT SHOULDER/ARM PAIN NX Reason for Visit Cervical radiculopat hy Rotator cuff syndrome of right shoulder Chief Complaint M25.511 m54.2 NEW RT SHOULDER/ARM PAIN NX R shoulder rotator cuff Wellness Reason for Visit Cervical radiculopat hy Rotator cuff syndrome of right shoulder Obesity DANIELLE (obstructive sleep apnea) Primary hypertension Type 2 diabetes mellitus with hyperglycemia Wellness examination Additional Source Comments (unrecognized sect ion and content) No Status Records FoundNo Status Records FoundNo Status Records FoundNo Status Records FoundNo Status Records FoundNo Status Records FoundNo Status Records FoundNo Status Records Found INFORMATION SOURCE (unrecogn ized section and content) DATE CREATED AUTHOR 10/20/2017 [facility] DATE CREATED AUTHOR AUTHOR'S ORGANIZ ATION 07/05/2022 [facility] DATE CREATED AUTHOR AUTHOR'S ORGANIZ ATION 10/09/2023 [facility] EPIC DATE CREATED AUTHOR AUTHOR'S ORGANIZ ATION 10/16/2023 [facility] DATE CREATED AUTHOR AUTHOR'S ORGANIZ ATION 10/18/2023 [facility] DATE CREATED AUTHOR AUTHOR'S ORGANIZ ATION 10/18/2023 [facility] DATE CREATED AUTHOR AUTHOR'S ORGANIZ ATION 10/23/2023 [facility] DATE CREATED AUTHOR AUTHOR'S ORGANIZ ATION 10/29/2023 [facility] REASON FOR VISIT (unrecogniz ed section and content) Reason Comments New Patient Reason Comments Received Outside Medical Records [facility] Reason Comments Received Outside Medical Records Reason Comments Patient Education Care Teams (unrecognized sec tion and content) Team Status: Active Member Role Status Dates José Miguel Cheung DO Primary Care Provider Active Team Status: Active Member Role Status Dates José Miguel Cheung DO Primary Care Provider Active Start: September 30, 2023 Milagros Guardado MD Attending Provider Active Start: September 30, 2023 Team Status: Active Member Role Status Dates José Miguel Cheung DO Primary Care Provider Active Start: October 09, 2023 Milagros Guardado MD Attending Provider Active Start: October 09, 2023 Team Status: Active Member Role Status Dates José Miguel Cheung DO Primary Care Provider Active Start: October 13, 2023 Shravan Hutchison DO Attending Provider Active St art: October 13, 2023 Team Status: Inactive Member Role Status Dates José Miguel Cheung DO Primary Care Provider Active Start: October 13, 2023 End: October 13, 2023 Shravan Hutchison DO Attending Provider Active St art: October 13, 2023 End: October 13, 2023 Team Status: Inactive Member Role Status Dates José Miguel Cheung DO Primary Care Provider Active Emma Stevenson , [employer]- Emergency Provider Active Team Status: Inactive Member Role Status Dates JoséM iguel Cheung DO Primary Care Provider Active Karlene [...] June 16, 2023 End: June 16, 2023 Basket Turner Relationship Specialty Start Date End Date José Miguel Cheung DO [address] [place] [address] PCP - General Internal Medicine 09/30/23 Basket Turner Relationship Specialty Start Date End Date José Miguel Cheung DO [address] [facility] [place] [address] PCP - General Internal Medicine 09/30/23 Basket Turner Relationship Specialty Start Date End Date José Miguel Cheung DO [address] [facility] [place] [address] PCP - General Internal Medicine 09/30/23 Team Status: Active Member Role Status Dates José Miguel Cheung DO Primary Care Provider Active Start: October 21, 2023 Shravan Hutchison DO Attending Provider Active St art: October 21, 2023 Team Status: Inactive Member Role Status Dates José Miguel Cheung DO Primary Care Provide r, Attending Provider Active Start: November 04, 2023 End: November 04, 2023 Goals (unrecognized section and content) Goals may be documented in a n alternate section Source Comments (unrecognize d section and content) In the event this informatio n is protected by the Federal Confidentiality of Alcohol and Drug Abuse Patient Records regulations: The Federal rules restrict any use of the information to criminally investigate or prosecute any alcohol or drug abuse patient.[facility] the event this information is protected by the Federal Confidentiality of Alcohol and Drug Abuse Patient Records regulations: The Federal rules restrict any use of the information to criminally investigate or prosecute any alcohol or drug abuse patient.[facility] Hospital[facility] the event this information is protected by the Federal Confidentiality of Alcohol and Drug Abuse Patient Records regulations: The Federal rules restrict any use of the information to criminally investigate or prosecute any alcohol or drug abuse patient.[facility] Hospital[facility] the event this information is protected by the Federal Confidentiality of Alcohol and Drug Abuse Patient Records regulations: The Federal rules restrict any use of the information to criminally investigate or prosecute any alcohol or drug abuse patient.[facility] HospitalIn the event this information is protected by the Federal Confidentiality of Alcohol and Drug Abuse Patient Records regulations: The Federal rules restrict any use of the information to criminally investigate or prosecute any alcohol or drug abuse patient.[facility] the event this information is protected by the Federal Confidentiality of Alcohol and Drug Abuse Patient Records regulations: The Federal rules restrict any use of the information to criminally investigate or prosecute any alcohol or drug abuse patient.[facility] FOR RECORDS PERTAINING TO PATIENTS WHO ARE [...] BE BASED ON THE PRIMARY CLINICAL RECORDS. [facility]. provides no warranty or guarantee of the accuracy or completeness of information in this document.
[2023-11-13 07:10] LABS: Basophils Percent Auto 0.5 % (0.2-2.0); Eosinophils Absolute Auto 0.2 10^3/uL (0.0-0.7); Hematocrit 45.8 % (42.0-54.0); Hemoglobin 15.6 g/dL (14.0-18.0); Immature Granulocytes Abs Auto 0.01 10^3/uL (0.00-0.03); Immature Granulocytes Pct Auto 0.2 % (0.0-0.5); Lymphocytes Absolute Auto 2.1 10^3/uL (1.2-3.8); Lymphocytes Percent Auto 36.9 % (20.5-60.0); Mean Corpuscular HGB Conc 34.1 g/dL (29.9-35.2); Mean Corpuscular Hemoglobin 31.3 pg (25.9-34.0); Mean Corpuscular Volume 91.8 fL (80.0-94.0); Mean Platelet Volume 9.3 fL (9.5-13.5); Monocytes Absolute Auto 0.5 10^3/uL (0.3-0.8); Monocytes Percent Auto 8.3 % (1.7-12.0); Neutrophils Absolute Auto 2.9 10^3/uL (1.4-6.5); Neutrophils Percent Auto 50.1 % (43.0-75.0); Platelet Count 205 10^3/uL (150-450); Red Blood Count 4.99 10^6/uL (4.70-6.10); Red Cell Distribution Width 12.5 % (11.0-15.0); White Blood Count 5.8 10^3/uL (4.0-11.0)
[2023-11-13 07:38] LABS: Alanine Aminotransferase 32 U/L (16-63); Albumin Globulin Ratio 1.2; Albumin Level 3.7 g/dL (3.4-5.0); Alkaline Phosphatase 52 U/L (46-116); Anion Gap 10.5; Aspartate Amino Transferase 23 U/L (15-37); BUN Creatinine Ratio 18.7; Bilirubin Total 0.6 mg/dL (0.2-1.0); Calcium 9.1 mg/dL (8.5-10.1); Carbon Dioxide 30.4 mmol/L (21.0-32.0); Chloride 101 mmol/L (98-107); Cholesterol 92 mg/dL (<=200); Estimated GFR (African America >60 (>=60); Estimated GFR (Non-African Ame 57 (>=60); Globulin 3.2 g/dL; Glucose 157 mg/dL (74-106); HDL Cholesterol 47 mg/dL (40-60); LDL Cholesterol Calculated 26.8 mg/dL; Potassium 4.9 mmol/L (3.5-5.1); Sodium 137 mmol/L (136-145); Thyroid Stimulating Hormone 2.189 uIU/mL (0.358-3.740); Total Protein 6.9 g/dL (6.4-8.2); Triglycerides 91 mg/dL (<=150); VLDL CHOLESTEROL 18.2 mg/dL
== END 2023-11-13 06:31 | disposition home or self-care (01) ==
LOC: LAB 06:31
PROVIDERS: PCP Internal Medicine; Visit Provider Internal Medicine
DX: Z00.00 Encounter for general adult medical examination without abnormal findings (principal)
CPT/HCPCS: 36415; 80053; 80061; 84443; 85025

== ENCOUNTER 2024-11-19 07:19 | Outpatient (OUT) | payer BC, SELFPAY ==
--- OUTSIDE RECORDS SUMMARY | 2024-11-19 07:22 | XMS_ITS | CCD ---
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 Other injuries and conditions due to external causes (15 sources) History of fall; Translations: [History of falling] 06-06-2020 Episodic Comment on above: Problem List clean-u p per request of Phys. EHR Cmte Other male genital disorders (20 sources) Erectile dysfunction co-occurrent and due to arterial insufficiency; Translations: [Erectile dysfunction due to arterial insufficiency] 06-15-2023 Chronic Other male genital disorders (5 sources) Impotence of organic origin; Translations: [Erectile dysfunction due to diseases classified elsewhere] Onset: 10-16-2017 Chronic Other nervous system disorders (5 sources) Chronic pain; Translations: [Other chronic pain] 02-23-2024 Chronic Other nervous system disorders (4 sources) Other chronic pain; Translations: [Other chronic pain] 02-23-2024 Chronic Other nervous system disorders (15 sources) Postoperative pain ; Translations: [Other acute postprocedural pain] 06-06-2020 Episodic Comment on above: Problem List clean-u p per request of Phys. EHR Cmte Other non-traumatic joint disorders (13 sources) Pain in right shoulder; Translations: [Right [...] nutritional; endocrine; and metabolic disorders (19 sources) Obesity; Translations: [Obesity, unspecified] 06-24-2023 Chronic Other nutritional; endocrine; and metabolic disorders (20 sources) Obese class I; Translations: [Body mass index 33.0-33.9, adult] Onset: 05-10-2015 Chronic Other nutritional; endocrine; and metabolic disorders (5 sources) Obesity, unspecified; Translations: [Obesity, unspecified] 11-04-2023 Chronic Other screening for suspected conditions (not mental disorders or infectious disease) (20 sources) Decreased testosterone level ; Translations: [Other specified abnormal findings of blood chemistry] Onset: 02-08-2022 Episodic Comment on above: Problem List clean-u p per request of Phys. EHR Cmte Other upper respiratory infections (20 sources) Sinusitis; Translations: [Chronic infection of sinus NOS] Chronic Other upper respiratory infections (15 sources) Acute nasopharyngitis [common cold]; Translations: [Acute sinusitis] Onset: 05-18-2017 Episodic Residual codes; unclassified (16 sources) Obstructive sleep apnea syndrome; Translations: [Obstructive sleep apnea (adult) (pediatric)] 06-15-2023 Chronic Residual codes; unclassified (6 sources) Obstructive sleep apnea (adult) (pediatric); Translations: [Obstructive sleep apnea (adult)(pediatric)] Chronic Residual codes; unclassified (15 sources) Difficulty sleeping ; Translations: [Sleep deprivation] 06-07-2020 Episodic Comment on above: Problem List clean-u p per request of Phys. EHR Cmte Residual codes; unclassified (15 sources) Patient encounter status; Translations: [Encounter for prophylactic measures, unspecified] 06-06-2020 Episodic Comment on above: Problem List clean-u p [facility] Spondylosis; intervertebral disc disorders; other back problems (9 sources) Cervical spondylosis; Translations: [Other spondylosis with radiculopathy, cervical region] 02-23-2024 Chronic Spondylosis; intervertebral disc disorders; other back problems (20 sources) Cervical radiculopathy; Translations: [Radiculopathy, cervical region] Onset: 10-13-2023 10-13-2023 Episodic Sprains and strains (20 sources) Strain of right quadriceps muscle, fascia and tendon, initial encounter; Translations: [Strain of left quadriceps muscle, fascia and tendon, initial encounter] Onset: 05-28-2020 Resolved: 12-06-2021 Episodic Comment on above: Problem List clean-u p per request of Phys. EHR Cmte Unclassified (1 source) OPENED IN ERROR 10-12-2023 Past or Other Problems Problem Classification Problem Date Documented Da te Episodic/Chronic Conditions associated with dizziness or vertigo (5 sources) Dizziness and giddiness; Translations: [Dizziness and giddiness] Onset: 01-09-2016 Episodic Immunizations and screening for infectious disease (5 sources) Vaccination given; Translations: [Encounter for immunization] Onset: 02-01-2018 Episodic Other connective tissue disease (17 sources) Unspecified rotator cuff tear or rupture of right shoulder, not specified as traumatic; Translations: [Disorders of bursae and tendons in shoulder region, unspecified] Onset: 12-07-2023 10-13-2023 Episodic Other lower respiratory disease (2 sources) Other forms of dyspnea; Translations: [Other forms of dyspnea] Onset: 06-26-2023 Episodic Other nervous system disorders (5 sources) Paresthesia; Translations: [Paresthesia of skin] Onset: 01-09-2016 Episodic Unclassified (5 sources) Exposure to acute respiratory syndrome coronavirus 2; Translations: [Contact with and (suspected) exposure to COVID-19] Resolved: 07-09-2021 Results Test Name Value Interpretation Reference Range Facility Office Visiton 10-06-2024 Follow-up visit [id number] Fr ren Ocampo 1975 M Date Provider Department Center 10/06/2024 [facility] Family History Problem Relation Age of Onset Coronary artery disease Father Hypertension Father Family Status - Relation Status Age at Mother Alive Father Alive Level of Service:15937 [place] OFFICE/OUTPATIENT ESTABLISHED MOD MDM 30 MIN Reason for Visit and Comments: Chest Pain [627512] Palpitations [101044] Normal [facility] Glucose (Bld) [Mass/Vol]on 0 09-14-2024 Glucose Blood, POC 203 mg/dL [facility] - Hematology and Cell countson 09-14-2024 HbA1c (Bld) [Mass fraction] 9 % [facility] No Panel Informationon 09-14 [facility] Glucose (Bld) [Mass/Vol]on 0 06-06-2024 Glucose Blood, POC 154 mg/dL [facility] - Hematology [facility] Cell countson 06-06-2024 HbA1c (Bld) [Mass fraction] 9.6 % [facility] No Panel Informationon 06-06 [facility] Healthcare Office Visiton 05-30-2024 Follow-up visit [id number] Fr ren Ocampo 1975 M Date Provider Department Center 05/30/2024 3848-[facility] Family History Problem Relation Age of Onset Coronary artery disease Father Hypertension Father Family Status - Relation Status Age at Father Level of Service:66616 [place] OFFICE/OUTPATIENT ESTABLISHED LOW MDM 20 MIN Normal [facility] Glucose (Bld) [Mass/Vol]on 1 Glucose Blood, POC 173 mg/dL [facility] HbA1c (Bld) [Mass fraction]o n 02-01-2024 [facility] Cell count[facility] 02-01-2024 HbA1c (Bld) [Mass fraction] 9.3 % [facility] MR cervical spine wo conon 0 12-30-2023 MR cervical spine wo con [facility] [place] [address] MRI Report Signed Patient: Kassi Ocampo MR#: [id number] : 1975 Acct:[id number] Age/Sex: 48 / M ADM Date: 12/30/23 Loc: Room: Type: [facility] Attending Dr: Shravan Hutchison DO Copies to: Shravan Hutchison DO Ordering Provider: Shravan Hutchison DO Date of Service: 12/30/23 MR/MR cervical spine wo con: failed conservative tx: PT/oral meds/activity mods MR cervical spine wo con 12/30/2023 6:41 AM SIGNS AND SYMPTOMS: Neck pain on the right posteriorly with right upper extremity radiculopathy PROTOCOL: Multiplanar multisequence MR images of the cervical spine were obtained without IV contrast. COMPARISON: 10/13/2023 FINDINGS: The bones of the cervical spine are in anatomic alignment. There is preservation of vertebral body heights. There is mild disc height loss at C3-C4 with moderate disc height loss at C5-C6 and C6-C7. The marrow signal is within normal limits. The cord is normal in signal. No epidural or paraspinous fluid collection is appreciated. The visualized paraspinous soft tissues are within normal limits. The prevertebral soft tissues are within normal limits. At C2-C3: There is a normal disc, central canal, and neural foramen. At C3-C4: There is a broad-based disc bulge with uncovertebral joint spurring and facet hypertrophy. There is mild bilateral neural foraminal narrowing with mild spinal canal narrowing. At C4-C5: There is a normal disc, central canal, and neural foramen. At C5-C6: There is a broad-based disc bulge. There is facet and operative joint degenerative change contributing to moderate to severe right neural foraminal narrowing and mild spinal canal narrowing. At C6-C7: There is a broad-based disc bulge with uncovertebral joint spurring contributing to moderate right and mild left neural foraminal narrowing with mild spinal canal narrowing. At C7-T1: There is a normal disc, central canal, and neural foramen. MR/MR cervical spine wo con IMPRESSION: There is no cord compression or cord signal abnormality. At C3-C4: There is a broad-based disc bulge with uncovertebral joint spurring and facet hypertrophy. There is mild bilateral neural foraminal narrowing with mild spinal canal narrowing. At C5-C6: There is a broad-based disc bulge. There is facet and operative joint degenerative change contributing to moderate to severe right neural foraminal narrowing and mild spinal canal narrowing. At C6-C7: There is a broad-based disc bulge with uncovertebral joint spurring contributing to moderate right and mild left neural foraminal narrowing with mild spinal canal narrowing. Impression dictated by: Donell Marquez M.D.12/30/2023 12:41 PM Dictation Location: [place] [address] Transcribed By: [facility] 12/30/23 1241 Dictated By: Donell Marquez II, MD 12/30/23 1227 Signed By: 12/30/23 1241 Normal [facility] Basophils Auto (Bld) [#/Vol] on 11-13-2023 Basophils (Bld) [#/Vol] 0.0 10 3/uL 0.0-0.1 [facility] Basophils/100 WBC Auto (Bld) on 11-13-2023 Basophils/100 WBC (Bld) 0.5 % 0.2-2.0 [facility] Cholesterol in LDL Calc [Mas s/Vol]on 11-13-2023 Cholesterol in LDL [Mass/Vol] 26.8 mg/dL [facility] Comment on above: <100 mg/dl [id number] 0-129 mg/dl NEAR OR ABOVE [id number] mg/dl BORDERLINE [id number] mg/dl HIGH>190 mg/dl VERY HIGH Cholesterol in VLDL Calc [Ma ss/Vol]on 11-13-2023 Cholesterol in VLDL [Mass/Vol] 18.2 mg/dL [facility] Eosinophils/100 WBC Auto (Bl d)on 11-13-2023 Eosinophils/100 WBC (Bld) 4.0 % 0.9-7.0 [facility] Erythrocyte distribution wid th Auto (RBC) [Ratio]on 11-13-2023 Erythrocyte distribution width (RBC) [Ratio] 12.5 % 11.0-15.0 [facility] Estimated glomerular filtrat ion rate (GFR) non- Americanon 11-13-2023 GFR/1.73 sq M.predicted among non-blacks MDRD (S/P/Bld) [Vol rate/Area] 57 mL/min/{1.73_m2} Low >=60 [facility] Globulin Calc (S) [Mass/Vol] on 11-13-2023 Globulin (S) [Mass/Vol] 3.2 g/dL [facility] Hematocrit Auto (Bld) [Volum e fraction]on 11-13-2023 Hematocrit (Bld) [Volume fraction] 45.8 % 42.0-54.0 [facility] Hemoglobin [Mass/volume] in Bloodon 11-13-2023 Hemoglobin (Bld) [Mass/Vol] 15.6 g/dL 14.0-18.0 [facility] Laboratory - Chemistry and C hemistry - challengeon 11-13-2023 Albumin [Mass/Vol] 3.7 g/dL 3.4-5.0 [facility] ALP [Catalytic activity/Vol] 52 U/L 46-116 [facility] ALT [Catalytic activity/Vol] 32 U/L 16-63 [facility] AST [Catalytic activity/Vol] 23 U/L 15-37 [facility] Bilirubin [Mass/Vol] 0.6 mg/dL 0.2-1.0 [facility] Calcium [Mass/Vol] 9.1 mg/dL 8.5-10.1 [facility] Chloride [Moles/Vol] 101 mmol/L 98-107 [facility] Cholesterol [Mass/Vol] 92 mg/dL <=200 [facility] Cholesterol in HDL [Mass/Vol] 47 mg/dL 40-60 [facility] Comment on above: > or =60 mg/dl - LOW CARDIOVASCULAR RISK<40 mg/dl - HIGH CARDIOVASCULAR RISK CO2 [Moles/Vol] 30.4 mmol/L 21.0-32.0 [facility] Creatinine [Mass/Vol] 1.34 mg/dL High 0.70-1.30 [facility] GFR/1.73 sq M.predicted MDRD (S/P/Bld) [Vol rate/Area] mL/min/{1.73_m2} >=60 [facility] Glucose [Mass/Vol] 157 mg/dL High 74-106 [facility] Potassium [Moles/Vol] 4.9 mmol/L 3.5-5.1 [facility] Protein [Mass/Vol] 6.9 g/dL 6.4-8.2 [facility] Sodium [Moles/Vol] 137 mmol/L 136-145 [facility] Triglyceride [Mass/Vol] 91 mg/dL <=150 [facility] TSH Qn 2.189 m[IU]/L 0.358-3.74 0 [facility] Urea nitrogen [Mass/Vol] 25.0 mg/dL High 7.0-18.0 [facility] Urea nitrogen/Creatinin e [Mass ratio] 18.7 mg/mg [facility] Laboratory - Hematology and Cell countson 11-13-2023 Immature granulocytes/100 WBC (Bld) 0.2 % 0.0-0.5 [facility] Leukocytes [#/volume] correc ernestine for nucleated erythrocytes in Blood by Automated counon 11-13-2023 WBC corrected for nucl RBC Auto (Bld) [#/Vol] 5.8 10 3/uL 4.0-11.0 [facility] Lymphocytes Auto (Bld) [#/Vo l]on 11-13-2023 Lymphocytes (Bld) [#/Vol] 2.1 10 3/uL 1.2-3.8 [facility] Lymphocytes/100 WBC Auto (Bl d)on 11-13-2023 Lymphocytes/100 WBC (Bld) 36.9 % 20.5-60.0 [facility] MCH Auto (RBC) [Entitic mass ]on 11-13-2023 MCH (RBC) [Entitic mass] 31.3 pg 25.9-34.0 [facility] MCHC Auto (RBC) [Mass/Vol]on 11-13-2023 MCHC (RBC) [Mass/Vol] 34.1 g/dL 29.9-35.2 [facility] MCV Auto (RBC) [Entitic vol] on 11-13-2023 MCV (RBC) [Entitic vol] 91.8 fL 80.0-94.0 [facility] Monocytes Auto (Bld) [#/Vol] on 11-13-2023 Monocytes (Bld) [#/Vol] 0.5 10 3/uL 0.3-0.8 [facility] Monocytes/100 WBC Auto (Bld) on 11-13-2023 Monocytes/100 WBC (Bld) 8.3 % 1.7-12.0 [facility] Neutrophils Auto (Bld) [#/Vo l]on 11-13-2023 Neutrophils (Bld) [#/Vol] 2.9 10 3/uL 1.4-6.5 [facility] Neutrophils/100 WBC Auto (Bl d)on 11-13-2023 Neutrophils/100 WBC (Bld) 50.1 % 43.0-75.0 [facility] No Panel Informationon 11-12 Eosinophils # (Auto) 0.2 10 3/uL 0.0-0.7 [facility] Immature Granulocyte # (Auto) 0.01 10 3/uL 0.00-0.03 [facility] Platelet mean volume Auto (B ld) [Entitic vol]on 11-13-2023 Platelet mean volume (Bld) [Entitic vol] 9.3 fL Low 9.5-13.5 [facility] Platelets Auto (Bld) [#/Vol] on 11-13-2023 Platelets (Bld) [#/Vol] 205 10 3/uL 150-450 [facility] RBC Auto (Bld) [#/Vol]on RBC (Bld) [#/Vol] 4.99 10 6/uL 4.70-6.10 [facility] Serum or plasma albumin/glob ulin mass ratioon 11-13-2023 Albumin/Globulin [Mass ratio] 1.2 {ratio} [facility] Serum or plasma anion gap de terminationon 11-13-2023 Anion gap [Moles/Vol] 10.5 mmol/L [facility] Serum or plasma total choles terol/high density lipoprotein (HDL) cholesterol mass jani 11-13-2023 Cholesterol.total/ Cholesterol in HDL [Mass ratio] 2.0 {ratio} [facility] Comment on above: 3.3 - 4.4 LOW RISK4. 4 - 7.1 AVERAGE RISK7.1 - 11.0 MODERATE RISK>11.0 HIGH RISK Office Visiton 10-27-2023 Follow-up visit [id number] Fr ren Ocampo 1975 M Date Provider Department Center 10/27/2023 [facility]8-MYRON ALMANZA DAVID [facility] Family History Problem Relation Age of Onset Coronary artery disease Father Hypertension Father Family Status - Relation Status Age at Father Level of Service:64043 [place] OFFICE/OUTPATIENT ESTABLISHED LOW MDM 20 MIN Normal [facility] Coding Summary.on 10-17-2023 Coding Summary. DJHPBaqb19GDi9lPl+PG hlYWQ+PE1 KJBHaD93ouDOavC4yJ6WNAHwSHevd VVJMTDvRNwDhqtLmGD1fsAImZKOr IC8+CK0dNENaIyavlMPqg1S2kNF4P 30ogu9qTJewvKN7EOYsIjCsxrhut9 ovvNi5WDcxNddpGyYq OAFnbQ88KJA0lK98Bc50sNChuNLji 7uueWa4RrWxZXVdIXO0zXzyQTzao8 XvVBJmD16mrHOxg6H7 MERmoTykmCCxUrAjcSS9pK3rFZvjb dhww8wdadnxZdc7gj17pDSxp9X2vB F1J2ReacJ5MYAenAAg WoodsXEHtG2twwmrd7aubpevGiGvK BBtGNr3FUk3XWQerIfaBzIaUV42ID G0EOHvdcKiP5JkIZKc lWjdAxF2a8V6Dm6PJ1JRJyxzQ9NMX UFSWTwvdGQ+HY34fc50C3NcFelsTo h4PGWaTGY9jXG7gY5k TOEtYLpeq4A6vQQ4I5UqrsPcux2ja 1kdMEYyZTayE76jvXUuu3B8TNYehC J6GFZvdPmwAsQezX53 Oyc+VPLtiZkwh4UtXjazm8bfa3ahv Ua9QwzaHERzjuBetGsoFRH6c0NcYp 2aNTHadDT5kRP0aF2f ZgZrEuC7SQmbL342IjXacRCxPnjlP 79nI2UhtZH+HZPaLui9WJEszVeaRH 8qT4SzZESnhrdqoXHg pHyvHM9pSBGrhuexYSDxpO4hJHFkS 0c4RqMhQnY1LXpbS8HcQIRtlaifAy 07pK0nSnUmJpN2STyb L3GpluK3TEYyiYCxPKieKSY2M62nm 4X6ARYhLQQhGWK4eFZ9zL7sdNaraj ogbGVmdDsgdmVydGlj HBhvSCsjL715CYXhjWcaYpSyNRmbI yBEYXRlOiAgMDYvMjIvMjAyNDwvdG Q+GIPdQNJ9xWkdMIVx iLEbANxvBx7ydEqcuXghQI8dJUFat hnzQWNpyK4fFNYreRNjoXjzRU4kVR Msmvzcz577KcCzQFJ0 ZHCucHArW4YiiS9eKhWpZCUlQUJuL 9QswMYdFLyxS724GQngYzL4SJTekt BtY6WdYIYxlKeiGgX0 i4O8Ju5Eu4BtamkhG0DybTKhAwPbV smyIYy9W3XdZdvliFE+LR26ZSDlPY 94MHl1AMX6dCnzFRvk DHScV4AepO7nWeZmLBSdAAIgUgw+P HRhYmxlIHdpZHRoPScxMDAlJyBzdH rkPY8qHc2rINYgFTLp rEiuhDStGkYap0quYWEiQLegIY7de ElnM8VpjUK6RYQqx1e1Dd99A28xI6 JvdXA+CAVjmIC7cCV5 xS2kRfKdZvT6SPgdM511VlPcgHNwZ rqog1goh5azgWk1MkI1LKSwkxHtkH rkLSR2c7HzDg97R98r MTmyNJTiZFOySNUsOPWslFhjwj5fy G9wIi8+KPOllJQ2oMF1mR5sKbGuUd P1RCmiF784WhQpaHKv Wmazq1cjd1wdkFt4HjJbZMUfoaZca QcaRCQ9r8IjCr46N1BnpPcqu8QvDm k3qt21kAZsd3V1nRA2 P1JuTVCaqbwssCUncBqkFW3oMMHle nqqOQIimI1fJJGuM5x9JtCrPzG4NL mkD1NlleR2VZKucEKq QOBmcPJMhM2taotup5auerxdYuBmZ TFkPMf4GCx9XWIihVxxVeYoLSI5Ih J3AWY5kTQcqD3tlGya srfvcZ9dNjp+GMS8uJRqnAKXMX1zK jwvdGQ+VRKmBJM1bRdlNBivYHQjsV 6cQSWcW4j4YeJsVkV0 GAslA8FadxN4NKEcmVKdFBLwsFEKr A4rvanii3onzqzqOpTqOXWjNUg4CK a4ICJrxHlyAzOiHAT3 MhD0QST4iXKcmG1saFfnjsaypG3yK yc+RvvlwHkjMUN8QAa2W9GdPkf2BZ ZvsVbmKU0ptWCxNOof Le1fmWrpqNrtYV9oTQGcocwug291J tSsu6dqHFQawSZsTSglRNP8D99zu4 G5NZObYQDdDFJ9cMU0 oG8bjOadcrspsSXaaPhpkqEzkEcuW MxvBYmnN742XKVsvIjqQnUxPOs2O9 EmTjq3UWAkmHggOC1b iIYyFAtjIo6ctCwlhZzhPF8xMPCha ikkq471KzDzi6lmDBWbjHTmYIzqFT F8V87bv8L8KVUrWVRc WIG9nTI8pP7ahXgvjysswVTchBudd gZfgBzcUGnjLCwaF349KDDjrUklAn HbeYq0V3QaBox6FAWo xAotKC9myUPdKIztVn1jcAeudMvmZ B2uYMTaauyfa433IdQzm3woPDOgiR HgXRfeILU7J68ul1Q1 TTOqMTVgTUY0uIF6jX4uaMoesaunr UGeyHofgwXyfSwhJNxyZVirH084GC RvcDsnPlBhdGllbnQg QOfsOWp1N1KwElapgGL+SN58FIHbX X67rLCaaVClm7iuyKh6VdNrSQRySJ V0yCyxQZiiu9MwOGZa J05ivOSpt2N3KDNkfQthjWNxDcVqy MN4bA3hGNkvuyxam7ztlhytEjnlc1 pqhc11xR72U72wMAvj DLCvEAQmLPTwUOCkoZsady8vcT8zZ i8+FAQxgIA9lKB1pF4cGPVjXmT1BW osV054AnRlaSAiMlam v2bqk6cbkPm8JaJ4GJNgacQmhEffJ ZP0r8DoBf88S63zUBmvWANpZMJdEO NzCETzhGyviq2daC0t Ii8+FHOipEJ1zNN0zV6qSiIfUoR5W NuqJ973TfCvuWAtIattB39hW7SjyZ A+HGFhEcn7ALNstQfr GC5kaZExBSyuDe8fCNO3IcObFkDqN KayU2NrNRPkegzdyytdmNR7OCNsIP PnbB49Ug9ofWqtNGJr lVLIbE2uzfzpk9cxicrnKsRhIBDyZ Vs3XBx1TIJqfJtrKwUjZCR9DtH5CN X9hGJtyH0eaSlghsat cU8aC3VySMJonoxsXp61bQ6oRdHsN jK7LXsuPut+Uw5GYH7AGttwMdLGYm sgSjwvdGQ+PHRkIHN0 jCtxOIaiWSYuxT6xVRCqI5t0QuHzZ uP6DFzkU3OiZJNapuvlLy79sF4bOz PiBjV3UPgrG8CuoqT4 DLWkqMGoSRsbXYJ3X47hx1E9DLJfQ XNfQXS8rZW7yO3vbNclusletSYoyV sgdmVydGljYWwtYWxp G870LUZtoCqsZqA5RqK3SxH9PwU7W 6VzUpv9CYUzaYnlEM5pzWFoIMwyHk 5oxEgvwRxbEI2vPZIi hqkrUSUbfT8zFXMuvBQbjIbxFO1qU CUrmyfyr229MiWlUQN3ZNCqsVMbC7 UjhL6wEgHjQPNqFXYb S2GjpXDvHGmyY981KAsaPaA0YEUft vFtX7XpORJfvAdiQtR8i8U4Vs61KN BZZWFyczwvdGQ+PHRk PHR8yQnnZHswPVEojB6dNUAzY6q7J rVwLhN8PPqjJ8JjSFIutawhLa67iU 4lImInIxQ0ZZzbB2Cm ezV2XCHqvHXlCYkxVSH5R56il4D4I XDvNMDgYHX8qYK3dW7kzAigilmuhS VmdDsgdmVydGljYWwt QXlfS741ZMVjyJnoEb1usJF4O8DvP jd1AVKkjJcfFB3auLSxVAvfDb5ppB dupQhxWL3zBUYpdslx SYHxmO9bBFDxmMFcwYmpXZ0xYFKiz vumt790IhMaNOT2RVQqpTDzR9DhkO 5lEaKbEMOdBYAyL6Pw wWEpFGyqG215RPfnWjA3QQUqvmWrY 2WwVFTpcOvkJvU4x4V1Pd3RlPQmK6 RmP6v6E2JeRcwvqSD+ YK23DYNbJP42pIClpJInu7kgjUw9F xUyHXIlZYU4lTofCMxtu7EyJWExJ3 9pvPTsl4M6NMTfyJuu sJVfSiKkoOX1vH9yVDnxwdltm2ymy voiVbjof6fiuf77wF52J18qGNrrWI RoPSIzMCUiIHZhbGln kk8fmG7lSa2+BAIhbLL7cUW0uI7mQ uOvIgR8JMufG127IsUzdCEbCishz7 mrn4klmUg5ZrItANUo wlOsuHdyRLI4q1NeFp69A82aNWyhR BTcOCGiPPMnMWPklRqwfp7yzQ7mZv 8+ZZ9cz8fmyy80hR03 dHI+CFUzWGC4rDdtAOjoRKSweH8rU GqhFuZ2UOOcYzCmaZ43oSMyLEluEc 2qxGqznTowTZ5uQHFm wmhso279BxBmv0qfYIOasTHrTMjnL ND3W70me6A3KRZvBXEiBRI0sOR0qS 1hbGlnbjogbGVmdDsg nsPahGwpGUecFTgfO074ZWCulVjuP lLevDReL7rlxuXVIZ7hWxhpaAY+PH PmWHY6bLgnNGheDOGl sR5uKCAiA5q5DhJeYtI3AVspM7Gue vN7SDWxmHVsNSYejSUEnM7ywshmh5 xvcjogIzAwMDAwMDt0 CCg1EVRwiGreCoCtKRC6RbP1DYT6i CKvtS7ytBqlhfsobB4lGqp+RklOOj wvdGQ+BTPiWCT5vElp HMidRKIasL0tFSGxF5c2QmQiMwB9M HlqO2UoowH4IEApxUZpWAKfcXQNgG 5pbuazt4jbzvvzRsQx TWPtDRb2LMx0RGMdgDtbIwFbMJW6G dO5BGW5hLDajO1neRqqfrlarD8cYp c+TVJOOjwvdGQ+PHRk CNC7kPcgLGzoLZVkhZ8bPSXfY6k2H zRbFnY5TPwrK9VlwzR1TQWmzSDeXP YowZJObU4chvnha9cs fkznSaXsZLLqNXx0SRf5JFTgzHmlY lSeEKM9GfF3FTV6qYMttC3wsNjoqb zxbF7zLjw+KHP4OHK7 ZP77KT67N5PtSnzzaLCgcAD+PHRhY mxlIHdpZHRoPScxMDAlJyBzdHlsZT 6dCz4gBSEvRTLcuKpq dBNiHjDjm3sxV (more content not included)... Normal [facility] CHEMISTRYOrdered By: Lab ROP User on 10-14-2023 Glucose [Mass/Vol] 240 mg/dL High 55 - 99 mg/dL [facility] POC Subsection Comment on above: Result Comment: Trevor tian RN/ POC Device SN [id number] 1 Invalid Interpretation Code [facility] POC Subsection POC User ID [id number] 1 Invalid Interpretation Code [facility] P[facility] Subsection POC Username EDISON VUONG Invalid Interpretation Code [facility] POC Subsection Mathew 10-14-2023 NEFTALIN Telephone (CATHMN) KASSI OCAMPO ([id number]) 1975 M Date Time Provider Department 10/14/23 MILAGROS TURNER During your visit today, we recorded the following information about you: Tianna Mendes 10/14/2023 2:41 PM Signed Call from spouse with concern of swelling and tingling at the catheter insertion site. S/p cath on 10/08. Only noticed these symptoms today No redness, some discomfort, some bruising. Call back number [phone] Jinny Galvez APRN.[facility] 10/14/2023 4:56 PM Signed Pt experienced some swelling and tingling in hand and is now at the ER Pt completed ultrasound Allergies As of Date: 10/14/2023 (No Known Allergies) Date Reviewed: 10/09/2023 Reviewed by: Emmie Hayward RN - Fully Assessed Prescriptions as of 10/14/2023 [...] two times a day with meals. - Yycyoyzskuitu-Yvhzibfy-Krbzmq (MULTIVITAMIN 50 PLUS) tab Take 1 tablet by mouth once daily. - Ascorbic Acid (VITAMIN C) 1,000 mg tablet Take 1,000 mg by mouth once daily. - aspirin, enteric coated (ECOTRIN LOW STRENGTH) 81 mg EC tablet Take 1 tablet by mouth once daily. Problem List As Of Date: 10/14/2023 (None) Encounter Status:Closed by JINNY GALVEZ on 10/14/[address] [facility] Capillary Glucose POCon 09-25 Glucose [Mass/Vol] 240 mg/dL High 55-99 [facility] Comment on above: Result Comment: Trevor tian RN/ Performed By: #### [id number] #### [facility] Laboratory [address] [place] [address] Consent for Treatmenton 09-25 Consent for Treatment [id number] Normal [facility] Discharge Instructionson Discharge Instructions [id number] Normal [facility] ED Clinical Summaryon 2023 ED Clinical Summary [address] [address] ED Clinical Summary Person Information Name: KASSI OCAMPO Wei Violetta/[facility] Age: 48 Years : 1975 Sex: Male Language: Syriac PCP: JOSÉ MIGUEL GUERRA DO Marital Status: Phone: [phone] Visit Id: Visit Reason: Post surgical problem; [...] 10/14/2023 17:26:15 10/14/2023 17:26:15 10/14/2023 17:26:15 ADDRESS: [address] [place] [id number] PHYS DOC NOTES: MEDICAL INFORMATION: Prescriptions Given: PATIENT EDUCATION INFORMATION: Instructions: Follow up: With: Address: When: Chris Dave [address] [place] [address] CustomMade (1) In 3 days 10/17/2023 Comments: Call Dr for diagnosis based follow up DIAGNOSIS: Post surgical complication; Swelling of right wrist Normal [facility] ED Note-Physicianon 10-14-19 ED Note-Physician [...] Reports he had a heart catheterization in [facility] that he really went to his right [...] concerns, I did reach out to our stitch welder, Dr. Jo, and did discuss the case [...] Chris Dave In 3 days 10/17/[address] [place], [place] [id number] [facility] (1) Additional Instructions: Call Dr for diagnosis based follow up Attestation Patient seen and evaluated by the physician housekeeper and laundry assistant. Attending physician was present in the emergency department and supervised care. This visit was performed by both the physician and an APC. I performed all aspects of the MDM as documented. This report was transcribed using voice recognition software. Every effort was made to ensure accuracy, however, inadvertently computerized mushroom grower mistakes may be present. Appropriate healthcare PPE [...] per year, (more content not included)... Normal [facility] Comment on above: Result Comment: Elec tronically Signed By: Robinson Grace PA-C\.br\Date and Time Signed: 10/14/23 18:28 EDT\.br\Electronically Co-Signed By: Shravan Colunga DO\.br\Date and Time Co-Signed: 10/14/23 18:38 EDT ED Patient Education Noteon 10-14-2023 ED Patient Education Note Normal [facility] ED Patient Summaryon 024 ED Patient Summary (Inserted Image. Marlee ble to display) [address] [address] Patient Discharge Instructions Person Information Name: KASSI OCAMPO Age: 48 Years Arrival Date: 10/14/2023 15:50:28 Discharge Diagnosis: Post surgical complication; Swelling of right wrist Primary Care Physician: JOSÉ MIGUEL GUERRA DO Provider Information Primary Provider: Shravan Colunga DO Advanced Mill Roll Operator:None The exam and treatment you received in the Emergency Department were for an urgent problem and are not intended as complete care. It is important that you follow up with a doctor, nurse practitioner, or physician?s housekeeper and laundry assistant for ongoing care. If your symptoms become worse or you do not improve as expected and you are unable to reach your usual health care provider, you should return to the Emergency Department. We are available 24 hours a day. KASSI OCAMPO has been given the following list of patient education materials, prescriptions and follow-up instructions: Follow-up Instructions: With: Address: When: Chris Dave [address] [place] [address] Business (1) In 3 days 10/17/2023 Comments: Call Dr for diagnosis based follow up In the event that this physician does not participate in your insurance network, please consult with your insurance company to find a nearby participating provider. Patient Education Materials: A MESSAGE TO ALL PATIENTS REGARDING OPIOIDS PRESCRIPTION OPIOIDS: WHAT YOU NEED TO KNOW Prescription opioids can be used to help relieve cbcunhmb-fg-yqcfyl pain and are often prescribed following a [...] be struggling with addiction, tell your health child care attendant school and ask for guidance or call [facility] National Helpline at (more content not included)... Normal [facility] US UE Venous Duplex Righton 10-14-2023 UE Venous [...] Chip Parish DO Transcribed by: KAL Technologist: HW Normal [facility] XR cerv spine AP/LAT/FLX/EXT on 10-13-2023 XR cerv spine AP/LAT/FLX/EXT [facility] [address] [place] [address] XRay Report Signed Patient: Kassi Ocampo MR#: [id number] : 1975 Acct:[id number] Age/Sex: 48 / M ADM Date: 10/13/23 Loc: [facility] Room: Type: REG CLI Attending Dr: Shravan Hutchison DO Copies to: [...] Bianca Pérez M.D.10/13/2023 2:34 PM Dictation Location: [place] [address] Transcribed By: [facility] 10/13/23 1434 Dictated By: Bianca Pérez MD 10/13/23 1431 Signed By: 10/13/23 1434 Normal [facility] XR shoulder RT min 2V*on XR shoulder RT min 2V* [facility] [address] [place] [address] XRay Report Signed Patient: Kassi Ocampo MR#: [id number] : 1975 Acct:[id number] Age/Sex: 48 / M ADM Date: 10/13/23 Loc: [facility] Room: Type: REG CLI Attending Dr: Shravan Hutchison DO Copies to: [...] Delmer Keith M.D.10/13/2023 12:08 PM Dictation Location: [place] [address] Transcribed By: [facility] 10/13/23 1208 Dictated By: Delmer Keith DO 10/13/23 1204 Signed By: 10/13/23 1208 Normal [facility] Basic metabolic 2000 panelon 10-09-2023 Anion gap [Moles/Vol] 10 mmol/L Normal 8-15 [facility] Comment on above: Order Comment: Speci men Type: BLOOD SPECIMEN Ordering Facility: [facility] Address: [address] [place] [address] Performed By: #### 2 4321-2 #### [facility] CLIA [id number] [address] [place] [address] [place] Calcium [Mass/Vol] 9.8 mg/dL Normal 8.5-10.2 [facility] Comment on above: Order Comment: Speci men Type: BLOOD SPECIMEN Ordering Facility: [facility] Address: [address] [place] [address] Performed By: #### 2 4321-2 #### [facility] CLIA [id number] [address] [place] [address] [place] Chloride [Moles/Vol] 101 mmol/L Normal 98-107 [facility] Comment on above: Order Comment: Speci men Type: BLOOD SPECIMEN Ordering Facility: [facility] Address: [address] [place] [address] Performed By: #### 2 4321-2 #### [facility] CLIA [id number] [address] [place] [address] [place] CO2 [Moles/Vol] 26 mmol/L Normal 22-30 [facility] Comment on above: Order Comment: Speci men Type: BLOOD SPECIMEN Ordering Facility: [facility] Address: [address] [place] [address] Performed By: #### 2 4321-2 #### [facility] CLIA [id number] [address] [place] [address] [place] Creatinine [Mass/Vol] 1.24 mg/dL High 0.73-1.22 [facility] Comment on above: Order Comment: Speci men Type: BLOOD SPECIMEN Ordering Facility: [facility] Address: [address] [place] [address] Performed By: #### 2 4321-2 #### [facility] CLIA [id number] [address] [place] [address] [place] Creatinine and Glomerular filtration rate.predicted panel (S/P/Bld) 71 mL/min/1.73m??? Normal >=60 [facility] Comment on above: Order Comment: Speci men Type: BLOOD SPECIMEN Ordering Facility: [facility] Address: [address] [place] [address] Result Comment: Haven mated Glomerular Filtration Rate [...] GFR. Performed By: #### 2 4321-2 #### [facility] CLIA [id number] [address] [place] [address] [place] Glucose [Mass/Vol] 198 mg/dL High 74-99 [facility] Comment on above: Order Comment: Speci men Type: BLOOD SPECIMEN Ordering Facility: [facility] Address: [address] [place] [address] Result Comment: The [place] Diabetes Association (ADA) provides guidance for cutoff [...] Standards of Medical Care in Diabetes 2016, [place] Diabetes Association. Diabetes Care. 2016.39(Suppl 1). Performed By: #### 2 4321-2 #### [facility] CLIA [id number] [address] [place] [address] [place] Potassium [Moles/Vol] 4.6 mmol/L Normal 3.7-5.1 [facility] Comment on above: Order Comment: Speci men Type: BLOOD SPECIMEN Ordering Facility: [facility] Address: [address] [place] [address] Performed By: #### 2 4321-2 #### [facility] CLIA [id number] [address] [place] [address] [place] Sodium [Moles/Vol] 137 mmol/L Normal 136-144 [facility] Comment on above: Order Comment: Speci men Type: BLOOD SPECIMEN Ordering Facility: [facility] Address: [address] [place] [address] Performed By: #### 2 4321-2 #### [facility] CLIA [id number] [address] [place] [address] [place] Urea nitrogen [Mass/Vol] 22 mg/dL Normal 9-24 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 Nursing/Tech Cristhian Torres(Rene) (Anna) Meaghan Haile R.N., R. R.N. + + PATIENT INFORMATION + + Name: KASSI OCAMPO : 1975 Age: 48 years Gender: M [...] Femoral Selective ThruLumen, Standard, 0.038in max guidewire (EA/) Used Catheter, Diagnostic Imaging - 4Fr x 100cm Infiniti TL Diagnostic Angiographic Catheter, Lena Left Coronary, JL 3.5, Femoral Selective ThruLumen, Small, 0.038in max guidewire (EA/) PROCEDURE SEQUENCE: Time Procedure Performed 10/09/2023 10:30:57 [...] Physician Presence Attestation: Electronically submitted by: Milagros Turner MD On: 10/09/2023 at 4:16:17 PM Final CC [employer] Medical Image : [id number] See Link below for Image Normal [facility] CBC panel Auto (Bld)on 10-08 Erythrocyte distribution width (RBC) [Ratio] 12.1 % Normal 11.5-15.0 [facility] Comment on above: Order Comment: Hermann pritchard Type: BLOOD SPECIMEN Ordering Facility: [facility] Address: [address] [place] [address] Performed By: #### 5 8410-2 #### [facility] CLIA [id number] [address] [place] [address] [place] Hematocrit (Bld) [Volume fraction] 48.9 % Normal 39.0-51.0 [facility] Comment on above: Order Comment: Speci men Type: BLOOD SPECIMEN Ordering Facility: [facility] Address: [address] [place] [address] Performed By: #### 5 8410-2 #### [facility] CLIA [id number] [address] [place] [address] [place] Hemoglobin (Bld) [Mass/Vol] 16.5 g/dL Normal 13.0-17.0 [facility] Comment on above: Order Comment: Speci men Type: BLOOD SPECIMEN Ordering Facility: [facility] Address: [address] [place] [address] Performed By: #### 5 8410-2 #### [facility] CLIA [id number] [address] [place] [address] [place] MCH (RBC) [Entitic mass] 30.7 pg Normal 26.0-34.0 [facility] Comment on above: Order Comment: Speci men Type: BLOOD SPECIMEN Ordering Facility: [facility] Address: [address] [place] [address] Performed By: #### 5 8410-2 #### [facility] CLIA [id number] [address] [place] [address] [place] MCHC (RBC) [Mass/Vol] 33.7 g/dL Normal 30.5-36.0 [facility] Comment on above: Order Comment: Speci men Type: BLOOD SPECIMEN Ordering Facility: [facility] Address: [address] [place] [address] Performed By: #### 5 8410-2 #### [facility] CLIA [id number] [address] [place] [address] [place] MCV (RBC) [Entitic vol] 91.1 fL Normal 80.0-100.0 [facility] Comment on above: Order Comment: Speci men Type: BLOOD SPECIMEN Ordering Facility: [facility] Address: [address] [place] [address] Performed By: #### 5 8410-2 #### [facility] CLIA [id number] [address] [place] [address] [place] Nucleated RBC (Bld) [#/Vol] 10*3/uL Normal <0.01 [facility] Comment on above: Order Comment: Speci men Type: BLOOD SPECIMEN Ordering Facility: [facility] Address: [address] [place] [address] Performed By: #### 5 8410-2 #### [facility] CLIA [id number] [address] [place] [address] [place] Platelet mean volume (Bld) [Entitic vol] 9.5 fL Normal 9.0-12.7 [facility] Comment on above: Order Comment: Speci men Type: BLOOD SPECIMEN Ordering Facility: [facility] Address: [address] [place] [address] Performed By: #### 5 8410-2 #### [facility] CLIA [id number] [address] [place] [address] [place] Platelets (Bld) [#/Vol] 211 10*3/uL Normal 150-400 [facility] Comment on above: Order Comment: Speci men Type: BLOOD SPECIMEN Ordering Facility: [facility] Address: [address] [place] [address] Performed By: #### 5 8410-2 #### [facility] CLIA [id number] [address] [place] [address] [place] RBC (Bld) [#/Vol] 5.37 10*6/uL Normal 4.20-6.00 [facility] Comment on above: Order Comment: Speci men Type: BLOOD SPECIMEN Ordering Facility: [facility] Address: [address] [place] [address] Performed By: #### 5 8410-2 #### [facility] CLIA [id number] [address] [place] [address] [place] WBC (Bld) [#/Vol] 5.43 10*3/uL Normal 3.70-11.00 [facility] Comment on above: Order Comment: Speci men Type: BLOOD SPECIMEN Ordering Facility: [facility] Address: [address] [place] [address] Performed By: #### 5 8410-2 #### [facility] CLIA [id number] [address] [place] [address] [place] ECG COMPLETEon 10-09-2023 ECG COMPLETE Ventricular Rate : 6 2 BPM Atrial Rate : 62 BPM P-R Interval : 138 ms QRS Duration : 84 ms Q-T Interval : 408 ms QTC Calculation(Bazett) : 414 ms Calculated P [place] : 28 degrees Calculated R [place] : -9 degrees Calculated T [place] : -2 degrees NORMAL SINUS RHYTHM NORMAL ECG Confirmed by JOSUÉ MONIQUE MD ([id number]) on 10/18/2023 2:13:12 PM NAME : KASSI OCAMPO PID : [id number] : 1975 Gender : Male Race : ORD : [id number] Procedure Date : Oct 09 2023 09:24:20 Edit Date : Oct 18 2023 14:13:18 Diagnosis: NORMAL SINUS RHYTHM NORMAL ECG Confirmed by JOSUÉ MONIQUE MD ([id number]) on 10/18/2023 2:13:12 PM Test Reason : 921 Location : 23 : [place] [address] Overread By : JOSUÉ MONIQUE MD Edited By : JOSUÉ MONIQUE MD Referred By : , Acquired by : [id number], Normal [facility] Erythrocyte distribution wid th Auto (RBC) [Ratio]on 10-09-2023 Erythrocyte distribution width (RBC) [Ratio] 12.1 % 11.5-15.0 [facility] Hematocrit Auto (Bld) [Volum e fraction]on 10-09-2023 Hematocrit (Bld) [Volume fraction] 48.9 % 39.0-51.0 [facility] Hemoglobin [Mass/volume] in Bloodon 10-09-2023 Hemoglobin (Bld) [Mass/Vol] 16.5 g/dL 13.0-17.0 [facility] Laboratory - Chemistry and C hemistry - challengeon 10-09-2023 Calcium [Mass/Vol] 9.8 mg/dL 8.5-10.2 [facility] Chloride [Moles/Vol] 101 mmol/L 98-107 [facility] CO2 [Moles/Vol] 26 mmol/L 22-30 [facility] Creatinine [Mass/Vol] 1.24 mg/dL High 0.73-1.22 [facility] Glucose [Mass/Vol] 198 mg/dL High 74-99 [facility] Comment on above: The [place] Diabete s Association (ADA) provides guidance for [...] Standards of Medical Care in Diabetes 2016, [place] Diabetes Association. Diabetes Care. 2016.39(Suppl 1). Potassium [Moles/Vol] 4.6 mmol/L 3.7-5.1 [facility] Sodium [Moles/Vol] 137 mmol/L 136-144 [facility] Urea nitrogen [Mass/Vol] 22 mg/dL 9-24 [facility] Leukocytes [#/volume] correc ernestine for nucleated erythrocytes in Blood by Automated counon 10-09-2023 WBC corrected for nucl RBC Auto (Bld) [#/Vol] 5.43 k/uL 3.70-11.00 [facility] MCH Auto (RBC) [Entitic mass ]on 10-09-2023 MCH (RBC) [Entitic mass] 30.7 pg 26.0-34.0 [facility] MCHC Auto (RBC) [Mass/Vol]on 10-09-2023 MCHC (RBC) [Mass/Vol] 33.7 g/dL 30.5-36.0 [facility] MCV Auto (RBC) [Entitic vol] on 10-09-2023 MCV (RBC) [Entitic vol] 91.1 fL 80.0-100.0 [facility] No Panel Informationon 10-08 Estimated GFR (CKD-EPI) 71 mL/min/1.73m??? >=60 [facility] Comment on above: Estimated Glomerular Filtration [...] 10-09-2023 Nucleated RBC (Bld) [#/Vol] 10*3/uL <0.01 [facility] Platelet mean volume Auto (B ld) [Entitic vol]on 10-09-2023 Platelet mean volume (Bld) [Entitic vol] 9.5 fL 9.0-12.7 [facility] Platelets Auto (Bld) [#/Vol] on 10-09-2023 Platelets (Bld) [#/Vol] 211 10*3/uL 150-400 [facility] RBC Auto (Bld) [#/Vol]on RBC (Bld) [#/Vol] 5.37 10*6/uL 4.20-6.00 [facility] Serum or plasma anion gap de terminationon 10-09-2023 Anion gap [Moles/Vol] 10 mmol/L 8-15 [facility] CNPNon 10-08-2023 CNPN Telephone (MELODYN) KASSI OCAMPO ([id number]) 1975 M Date Time Provider Department 10/08/23 KIRBYWeiJUAN VALLADARESYARON RIOS During your visit today, we recorded the following information about you: Lisa Martínez, RN 10/08/2023 1:29 PM Signed CARDIOVASCULAR LAB INSTRUCTIONS: [...] information, hotel information. Instructed By Lisa Martínez, RN. In Department of CARDIOLOGY. Allergies As of Date: 10/08/2023 (No Known Allergies) Date Reviewed: 09/30/2023 Reviewed by: Sonny Greenberg, DAVON - Fully Assessed Reason for Visit: Patient [...] two times a day with meals. - Ujstlppkpnpht-Lnzwggsh-Oewmsa (MULTIVITAMIN 50 PLUS) tab Take 1 tablet by mouth once daily. - Ascorbic Acid (VITAMIN C) 1,000 mg tablet Take 1,000 mg by mouth once daily. - aspirin, enteric coated (ECOTRIN LOW STRENGTH) 81 mg EC tablet Take 1 tablet by mouth once daily. Problem List As Of Date: 10/08/2023 (None) Encounter Status:Closed by LISA MARTÍNEZ on 10/08/[address] [facility] Mathew 10-02-2023 CNPN Telephone (CATHMN) KASSI OCAMPO ([id number]) 1975 M Date Time Provider Department 10/02/23 MILAGROS TURNER During your visit today, we recorded the following information about you: Florentino Frost 10/02/2023 4:52 PM Signed Saved medical records to scanned documents. Allergies As of Date: 10/02/2023 (No Known Allergies) Date Reviewed: 09/30/2023 Reviewed by: Sonny Greenberg, RN - Fully Assessed Reason for Visit: Received Outside Medical Records [[id number]] Prescriptions as of 10/02/2023 - metFORMIN (GLUCOPHAGE) [...] two times a day with meals. - Jfrbaocncqttv-Hdkvqhox-Lvxxcr (MULTIVITAMIN 50 PLUS) tab Take 1 tablet by mouth once daily. - Ascorbic Acid (VITAMIN C) 1,000 mg tablet Take 1,000 mg by mouth once daily. - aspirin, enteric coated (ECOTRIN LOW STRENGTH) 81 mg EC tablet Take 1 tablet by mouth once daily. Problem List As Of Date: 10/02/2023 (None) Encounter Status:Closed by FLORENTINO FROST on 10/02/[address] [facility] CBC panel Auto (Bld)on 09-29 Erythrocyte distribution width (RBC) [Ratio] 12.2 % 11.5 - 15.0 % [facility] Hematocrit (Bld) [Volume fraction] 47.6 % 39.0 - 51.0 % [facility] Hemoglobin (Bld) [Mass/Vol] 15.8 g/dL 13.0 - 17.0 g/dL [facility] Interpretation and review of laboratory results Normal [facility] MCH (RBC) [Entitic mass] 30.4 pg 26.0 - 34.0 pg [facility] MCHC (RBC) [Mass/Vol] 33.2 g/dL 30.5 - 36.0 g/dL [facility] MCV (RBC) [Entitic vol] 91.7 fL 80.0 - 100.0 fL [facility] Nucleated RBC (Bld) [#/Vol] NINF [facility] Platelet mean volume (Bld) [Entitic vol] 10.0 fL 9.0 - 12.7 fL [facility] Platelets (Bld) [#/Vol] 208 10*3/uL [facility] RBC (Bld) [#/Vol] 5.19 10*6/uL 4.20 - 6.00 m/uL [facility] WBC (Bld) [#/Vol] 5.69 10*3/uL [facility] Erythrocyte distribution width (RBC) [Ratio] 12.2 % Normal 11.5-15.0 [facility] Comment on above: Order Comment: Speci men Type: BLOOD SPECIMEN Ordering Facility: [facility] Address: [address] [place] [address] Performed By: #### 5 8410-2 #### [facility] CLIA [id number] [address] [place] [address] [place] [facility] Hematocrit (Bld) [Volume fraction] 47.6 % Normal 39.0-51.0 [facility] Comment on above: Order Comment: Speci men Type: BLOOD SPECIMEN Ordering Facility: [facility] Address: [address] [place] [address] Performed By: #### 5 8410-2 #### [facility] CLIA [id number] [address] [place] [address] [place] Hemoglobin (Bld) [Mass/Vol] 15.8 g/dL Normal 13.0-17.0 [facility] Comment on above: Order Comment: Speci men Type: BLOOD SPECIMEN Ordering Facility: [facility] Address: [address] [place] [address] Performed By: #### 5 8410-2 #### [facility] CLIA [id number] [address] [place] [address] [place] MCH (RBC) [Entitic mass] 30.4 pg Normal 26.0-34.0 [facility] Comment on above: Order Comment: Speci men Type: BLOOD SPECIMEN Ordering Facility: [facility] Address: [address] [place] [address] Performed By: #### 5 8410-2 #### [facility] CLIA [id number] [address] [place] [address] [place] MCHC (RBC) [Mass/Vol] 33.2 g/dL Normal 30.5-36.0 [facility] Comment on above: Order Comment: Speci men Type: BLOOD SPECIMEN Ordering Facility: [facility] Address: [address] [place] [address] Performed By: #### 5 8410-2 #### [facility] CLIA [id number] [address] [place] [address] [place] MCV (RBC) [Entitic vol] 91.7 fL Normal 80.0-100.0 [facility] Comment on above: Order Comment: Speci men Type: BLOOD SPECIMEN Ordering Facility: [facility] Address: [address] [place] [address] Performed By: #### 5 8410-2 #### [facility] CLIA [id number] [address] [place] [address] [place] Nucleated RBC (Bld) [#/Vol] 10*3/uL Normal <0.01 [facility] Comment on above: Order Comment: Speci men Type: BLOOD SPECIMEN Ordering Facility: [facility] Address: [address] [place] [address] Performed By: #### 5 8410-2 #### [facility] CLIA [id number] [address] [place] [address] [place] Platelet mean volume (Bld) [Entitic vol] 10.0 fL Normal 9.0-12.7 [facility] Comment on above: Order Comment: Speci men Type: BLOOD SPECIMEN Ordering Facility: [facility] Address: [address] [place] [address] Performed By: #### 5 8410-2 #### [facility] CLIA [id number] [address] [place] [address] [place] Platelets (Bld) [#/Vol] 208 10*3/uL Normal 150-400 [facility] Comment on above: Order Comment: Speci men Type: BLOOD SPECIMEN Ordering Facility: [facility] Address: [address] [place] [address] Performed By: #### 5 8410-2 #### [facility] CLIA [id number] [address] [place] [address] [place] RBC (Bld) [#/Vol] 5.19 10*6/uL Normal 4.20-6.00 [facility] Comment on above: Order Comment: Speci men Type: BLOOD SPECIMEN Ordering Facility: [facility] Address: [address] [place] [address] Performed By: #### 5 8410-2 #### [facility] CLIA [id number] [address] [place] [address] [place] WBC (Bld) [#/Vol] 5.69 10*3/uL Normal 3.70-11.00 [facility] Comment on above: Order Comment: Speci men Type: BLOOD SPECIMEN Ordering Facility: [facility] Address: [address] [place] [address] Performed By: #### 5 8410-2 #### [facility] CLIA [id number] [address] [place] [address] [place] [address] [place] [facility] CNOVon 09-30-2023 CNOV Office Visit (CATHMN ) KASSI OCAMPO Wei ([id number]) 1975 M Date Time Provider Department 09/30/23 8:45 AM MILAGROS TURNER CATHMN During your visit today, we recorded the following information about you: Pulse Respiration Blood pressure Weight 67/minute 18/minute 118/76 95.7 kg Height 1.727 m Milagros Turner MD 09/30/2023 10:52 AM Signed [facility] [place] [facility] Department of Cardiovascular Medicine SECTION [...] on file. HISTORY OF PRESENT ILLNESS: Mr. Ocampo is a 48 year old male who presents today - CPOE RF DMx18y, male, Body mass index is 32.08 kg/m?. 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 There are no contraindications to the procedure. Kassi Ocampo expressed understanding and agreed to proceed. TCI [...] a second opinion. He was seeing a stitch welder in [place] for palpitations/fluttering that started about one year ago when he was taking Trulicity injections. That stitch welder had him do an echocardiogram and a stress test. He was told the stress test was abnormal and it was suggested he have a CT scan and a heart cath, but the testing was not available in [place] until October. 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 Normal [facility] CNPMarlen 09-30-2023 CNPN Telephone (CATHMN) KASSI OCAMPO ([id number]) 1975 M Date Time Provider Department 09/30/23 MILAGROS TURNER During your visit today, we recorded the following information about you: Santosh Florentino Nemesio 09/30/2023 3:23 PM Signed Rec'd images. Uploaded via [employer] Echo dtd 07/10/23 NM Stress dtd 09/16/23 Allergies As of Date: 09/30/2023 (No Known Allergies) Date Reviewed: 09/30/2023 Reviewed by: Sonny Greenberg RN - Fully Assessed Reason for Visit: Received Outside Medical Records [1822] Cmt: [facility] Prescriptions as of 09/30/2023 - metFORMIN (GLUCOPHAGE) [...] two times a day with meals. - Cjlskkjvftepm-Vetvoayu-Tvpxfp (MULTIVITAMIN 50 PLUS) tab Take 1 tablet by mouth once daily. - Ascorbic Acid (VITAMIN C) 1,000 mg tablet Take 1,000 mg by mouth once daily. - aspirin, enteric coated (ECOTRIN LOW STRENGTH) 81 mg EC tablet Take 1 tablet by mouth once daily. Problem List As Of Date: 09/30/2023 (None) Encounter Status:Closed by FLORENTINO FROST on 09/30/[address] [facility] Cholesterol in LDL Calc [Mas s/Vol]on 09-30-2023 Cholesterol in LDL [Mass/Vol] 75 mg/dL <100 [facility] Comment on above: <100 mg/dL, Optimal 100-129 mg/dL, Near optimal/above optimal 130-159 mg/dL, Borderline high 160-189 mg/dL, High>189 mg/dL, Very highSecondary prevention optimal LDL Cholesterol levels are recommended to be < 70 mg/dL Cholesterol in VLDL Calc [Ma ss/Vol]on 09-30-2023 Cholesterol in VLDL [Mass/Vol] 52 mg/dL High <30 [facility] Comprehensive metabolic 2000 panelon 09-30-2023 Albumin [Mass/Vol] 4.3 g/dL 3.9 - 4.9 g/dL [facility] ALP [Catalytic activity/Vol] 60 U/L 38 - 113 U/L [facility] ALT [Catalytic activity/Vol] 21 U/L 10 - 54 U/L [facility] Anion gap [Moles/Vol] 10 mmol/L 8 - 15 mmol/L [facility] AST [Catalytic activity/Vol] 17 U/L 14 - 40 U/L [facility] Bilirubin [Mass/Vol] 0.4 mg/dL 0.2 - 1.3 mg/dL [facility] Calcium [Mass/Vol] 10.2 mg/dL 8.5 - 10. 2 mg/dL [facility] Chloride [Moles/Vol] 99 mmol/L 98 - 107 mmol/L [facility] CO2 [Moles/Vol] 26 mmol/L 22 - 30 mmol/L [facility] Creatinine [Mass/Vol] 1.21 mg/dL 0.73 - 1.22 mg/dL [facility] GFR/1.73 sq M.predicted among non-blacks MDRD (S/P/Bld) [Vol rate/Area] 73 mL/min/{1.73_m2} - PINF [facility] Comment on above: Estimated Glomerular Filtration Rate [...] 281 mg/dL High 74 - 99 mg/dL [facility] Comment on above: The [place] Diabete s Association (ADA) provides guidance for [...] Standards of Medical Care in Diabetes 2016, [place] Diabetes Association. Diabetes Care. 2016.39(Suppl 1). Potassium [Moles/Vol] 5.1 mmol/L 3.7 - 5.1 mmol/L [facility] Protein [Mass/Vol] 7.1 g/dL 6.3 - 8.0 g/dL [facility] Sodium [Moles/Vol] 135 mmol/L Low 136 - 144 mmol/L [facility] Urea nitrogen [Mass/Vol] 22 mg/dL 9 - 24 mg/dL [facility] Albumin [Mass/Vol] 4.3 g/dL Normal 3.9-4.9 [facility] Comment on above: Order Comment: Speci men Type: BLOOD SPECIMEN Ordering Facility: [facility] Address: [address] [place] [address] Performed By: #### 2 4323-8, 13100-5 #### [facility] CLIA [id number] [address] [place] [address] [place] ALP [Catalytic activity/Vol] 60 U/L Normal 38-113 [facility] Comment on above: Order Comment: Speci men Type: BLOOD SPECIMEN Ordering Facility: [facility] Address: [address] [place] [address] Performed By: #### 2 4323-8, 70976-4 #### [facility] CLIA [id number] [address] [place] [address] [place] ALT [Catalytic activity/Vol] 21 U/L Normal 10-54 [facility] Comment on above: Order Comment: Speci men Type: BLOOD SPECIMEN Ordering Facility: [facility] Address: [address] [place] [address] Performed By: #### 2 4323-8, 78691-9 #### [facility] CLIA [id number] [address] [place] [address] [place] Anion gap [Moles/Vol] 10 mmol/L Normal 8-15 [facility] Comment on above: Order Comment: Speci men Type: BLOOD SPECIMEN Ordering Facility: [facility] Address: [address] [place] [address] Performed By: #### 2 4323-8, 13021-5 #### [facility] CLIA [id number] [address] [place] [address] [place] AST [Catalytic activity/Vol] 17 U/L Normal 14-40 [facility] Comment on above: Order Comment: Speci men Type: BLOOD SPECIMEN Ordering Facility: [facility] Address: [address] [place] [address] Performed By: #### 2 4323-8, 13468-2 #### [facility] CLIA [id number] [address] [place] [address] [place] Bilirubin [Mass/Vol] 0.4 mg/dL Normal 0.2-1.3 [facility] Comment on above: Order Comment: Speci men Type: BLOOD SPECIMEN Ordering Facility: [facility] Address: [address] [place] [address] Performed By: #### 2 4323-8, 83311-2 #### [facility] CLIA [id number] [address] [place] [address] [place] Calcium [Mass/Vol] 10.2 mg/dL Normal 8.5-10.2 [facility] Comment on above: Order Comment: Speci men Type: BLOOD SPECIMEN Ordering Facility: [facility] Address: [address] [place] [address] Performed By: #### 2 4323-8, 90757-6 #### [facility] CLIA [id number] [address] [place] [address] [place] Chloride [Moles/Vol] 99 mmol/L Normal 98-107 [facility] Comment on above: Order Comment: Speci men Type: BLOOD SPECIMEN Ordering Facility: [facility] Address: [address] [place] [address] Performed By: #### 2 4323-8, 92389-6 #### [facility] CLIA [id number] [address] [place] [address] [place] CO2 [Moles/Vol] 26 mmol/L Normal 22-30 [facility] Comment on above: Order Comment: Speci men Type: BLOOD SPECIMEN Ordering Facility: [facility] Address: [address] [place] [address] Performed By: #### 2 4323-8, 33709-0 #### [facility] CLIA [id number] [address] [place] [address] [place] Creatinine [Mass/Vol] 1.21 mg/dL Normal 0.73-1.22 [facility] Comment on above: Order Comment: Hermann pritchard Type: BLOOD SPECIMEN Ordering Facility: [facility] Address: [address] [place] [address] Performed By: #### 2 4323-8, 63405-0 #### [facility] CLIA [id number] [address] [place] [address] [place] Creatinine and Glomerular filtration rate.predicted panel (S/P/Bld) 73 mL/min/1.73m??? Normal >=60 [facility] Comment on above: Order Comment: Hermann pritchard Type: BLOOD SPECIMEN Ordering Facility: [facility] Address: [address] [place] [address] Result Comment: Haven mated Glomerular Filtration Rate [...] actual GFR. Performed By: #### 2 4323-8, 97167-1 #### [facility] CLIA [id number] [address] [place] [address] [place] Glucose [Mass/Vol] 281 mg/dL High 74-99 [facility] Comment on above: Order Comment: Hermann pritchard Type: BLOOD SPECIMEN Ordering Facility: [facility] Address: [address] [place] [address] Result Comment: The [place] Diabetes Association (ADA) provides guidance for cutoff [...] Standards of Medical Care in Diabetes 2016, [place] Diabetes Association. Diabetes Care. 2016.39(Suppl 1). Performed By: #### 2 4323-8, 37252-6 #### [facility] CLIA [id number] [address] [place] [address] [place] Potassium [Moles/Vol] 5.1 mmol/L Normal 3.7-5.1 [facility] Comment on above: Order Comment: Hermann men Type: BLOOD SPECIMEN Ordering Facility: [facility] Address: [address] [place] [address] Performed By: #### 2 4323-8, 10464-8 #### [facility] CLIA [id number] [address] [place] [address] [place] Protein [Mass/Vol] 7.1 g/dL Normal 6.3-8.0 [facility] Comment on above: Order Comment: Armandoi macho Type: BLOOD SPECIMEN Ordering Facility: [facility] Address: [address] [place] [address] Performed By: #### 2 4323-8, 66575-0 #### [facility] CLIA [id number] [address] [place] [address] [place] Sodium [Moles/Vol] 135 mmol/L Low 136-144 [facility] Comment on above: Order Comment: Armandoi men Type: BLOOD SPECIMEN Ordering Facility: [facility] Address: [address] [place] [address] Performed By: #### 2 4323-8, 40752-2 #### [facility] CLIA [id number] [address] [place] [address] [place] Urea nitrogen [Mass/Vol] 22 mg/dL Normal 9-24 [facility] Comment on above: Order Comment: Speci men Type: BLOOD SPECIMEN Ordering Facility: [facility] Address: [address] [place] [address] Performed By: #### 2 4323-8, 98678-1 #### [facility] CLIA [id number] [address] [place] [address] [id number] [place] [address] OF [facility] ECG COMPLETEon 09-30-2023 ECG COMPLETE Ventricular Rate : 5 8 BPM Atrial Rate : 58 BPM P-R Interval : 132 ms QRS Duration : 92 ms Q-T Interval : 412 ms QTC Calculation(Bazett) : 404 ms Calculated P [place] : 28 degrees Calculated R [place] : -10 degrees Calculated T [place] : -7 degrees SINUS BRADYCARDIA MINIMAL VOLTAGE CRITERIA FOR LVH, MAY BE NORMAL VARIANT ( R in aVL ) BORDERLINE ECG Confirmed by SHAILESH SHINE MD ([id number]) on 10/18/2023 4:21:36 PM NAME : KASSI OCAMPO PID : [id number] : 1975 Gender : Male Race : ORD : [id number] Procedure Date : Sep 30 2023 10:26:33 Edit Date : Oct 18 2023 16:21:38 Diagnosis: SINUS BRADYCARDIA MINIMAL VOLTAGE CRITERIA FOR LVH, MAY BE NORMAL VARIANT ( R in aVL ) BORDERLINE ECG Confirmed by SHAILESH SHINE MD ([id number]) on 10/18/2023 4:21:36 PM Test Reason : Location : 314 : J14 J14 Overread By : SHAILESH SHINE MD Edited By : SHAILESH SHINE MD Referred By : MILAGROS TURNER Acquired by : CHLOE MARK Normal [facility] Erythrocyte distribution wid th Auto (RBC) [Ratio]on 09-30-2023 Erythrocyte distribution width (RBC) [Ratio] 12.2 % 11.5-15.0 [facility] Hematocrit Auto (Bld) [Volum e fraction]on 09-30-2023 Hematocrit (Bld) [Volume fraction] 47.6 % 39.0-51.0 [facility] Hemoglobin [Mass/volume] in Bloodon 09-30-2023 Hemoglobin (Bld) [Mass/Vol] 15.8 g/dL 13.0-17.0 [facility] Laboratory - Chemistry and C hemistry - challengeon 09-30-2023 Albumin [Mass/Vol] 4.3 g/dL 3.9-4.9 [facility] ALP [Catalytic activity/Vol] 60 U/L 38-113 [facility] ALT [Catalytic activity/Vol] 21 U/L 10-54 [facility] AST [Catalytic activity/Vol] 17 U/L 14-40 [facility] Bilirubin [Mass/Vol] 0.4 mg/dL 0.2-1.3 [facility] Calcium [Mass/Vol] 10.2 mg/dL 8.5-10.2 [facility] Chloride [Moles/Vol] 99 mmol/L 98-107 [facility] Cholesterol [Mass/Vol] 162 mg/dL <200 [facility] Comment on above: <200 mg/dL, Desirabl e 200-239 mg/dL, Borderline high>239 mg/dL, High Cholesterol in HDL [Mass/Vol] 35 mg/dL Low >39 [facility] Comment on above: 40-59 mg/dL, Accepta ble>59 mg/dL, High: Negative risk factor for coronary heart disease<40 mg/dL, Low: Positive risk factor for coronary heart disease CO2 [Moles/Vol] 26 mmol/L 22-30 [facility] Creatinine [Mass/Vol] 1.21 mg/dL 0.73-1.22 [facility] Glucose [Mass/Vol] 281 mg/dL High 74-99 [facility] Comment on above: The [place] Diabete s Association (ADA) provides guidance for [...] Standards of Medical Care in Diabetes 2016, [place] Diabetes Association. Diabetes Care. 2016.39(Suppl 1). Potassium [Moles/Vol] 5.1 mmol/L 3.7-5.1 [facility] Sodium [Moles/Vol] 135 mmol/L Low 136-144 [facility] Triglyceride [Mass/Vol] 260 mg/dL High <150 [facility] Comment on above: <150 mg/dL, Normal 1 50-199 mg/dL, Borderline high 200-499 mg/dL, High>499 mg/dL, Very high Urea nitrogen [Mass/Vol] 22 mg/dL 9-24 [facility] Leukocytes [#/volume] correc ernestine for nucleated erythrocytes in Blood by Automated counon 09-30-2023 WBC corrected for nucl RBC Auto (Bld) [#/Vol] 5.69 k/uL 3.70-11.00 [facility] Lipid 1996 panelon 4 Cholesterol [Mass/Vol] 162 mg/dL NINF - 200 mg/dL [facility] Comment on above: <200 mg/dL, Desirabl e 200-239 mg/dL, Borderline high >239 mg/dL, High Cholesterol in HDL [Mass/Vol] 35 mg/dL Low 39 - PINF mg/dL [facility] Comment on above: 40-59 mg/dL, Accepta ble >59 mg/dL, High: Negative risk factor for coronary heart disease <40 mg/dL, Low: Positive risk factor for coronary heart disease Cholesterol in LDL [Mass/Vol] 75 mg/dL NINF - 100 mg/dL [facility] Comment on above: <100 mg/dL, Optimal 100-129 mg/dL, Near optimal/above optimal 130-159 mg/dL, Borderline high 160-189 mg/dL, High >189 mg/dL, Very high Secondary prevention optimal LDL Cholesterol levels are recommended to be < 70 mg/dL Cholesterol in LDL/Cholesterol in HDL [Mass ratio] 2.14 {ratio} NINF - 2.54 [facility] Comment on above: Reference: 1. National Cholesterol Education Program ATP III Guideline At-A-Glance Quick Desk Reference: National Heart, Lung, and Blood [place]. National Institutes of Health. 2001: NIH Publication No. 01-3305. 2. An International Atherosclerosis Society position paper: global recommendations for the management of dyslipidemia: executive summary, Atherosclerosis. 2014: 232(2):410-413. Cholesterol in VLDL [Mass/Vol] 52 mg/dL High NINF - 30 mg/dL [facility] Cholesterol non HDL [Mass/Vol] 127 mg/dL NINF - 130 mg/dL [facility] Comment on above: <130 mg/dL, Optimal 130-159 mg/dL, Near optimal/above optimal 160-189 mg/dL, Borderline high 190-219 mg/dL, High >219 mg/dL, Very high Secondary prevention optimal non HDL Cholesterol levels are recommended to be <100 mg/dL Cholesterol.total/ Cholesterol in HDL [Mass ratio] 4.63 {ratio} NINF - 5.10 [facility] Fasting Time 0 hrs [facility] Triglyceride [Mass/Vol] 260 mg/dL High NINF - 150 mg/dL [facility] Comment on above: <150 mg/dL, Normal 150-199 mg/dL, Borderline high 200-499 mg/dL, High >499 mg/dL, Very high Cholesterol [Mass/Vol] 162 mg/dL Normal <200 [facility] Comment on above: Order Comment: Hermann pritchard Type: BLOOD SPECIMEN Ordering Facility: [facility] Address: [address] [place] [address] Result Comment: <200 mg/dL, Desirable 200-239 mg/dL, Borderline high >239 mg/dL, High Performed By: #### 2 4323-8, 53943-8 #### [facility] CLIA [id number] [address] [place] [address] OF [facility] Cholesterol in HDL [Mass/Vol] 35 mg/dL Low >39 [facility] Comment on above: Order Comment: Hermann pritchard Type: BLOOD SPECIMEN Ordering Facility: [facility] Address: [address] [place] [address] Result Comment: 40-5 9 mg/dL, Acceptable >59 mg/dL, High: Negative risk factor for coronary heart disease <40 mg/dL, Low: Positive risk factor for coronary heart disease Performed By: #### 2 4323-8, 96758-3 #### [facility] CLIA [id number] [address] [place] [address] [place] Cholesterol in LDL [Mass/Vol] 75 mg/dL Normal <100 [facility] Comment on above: Order Comment: Hermann men Type: BLOOD SPECIMEN Ordering Facility: [facility] Address: [address] [place] [address] Result Comment: <100 mg/dL, Optimal 100-129 mg/dL, Near optimal/above optimal 130-159 mg/dL, Borderline high 160-189 mg/dL, High >189 mg/dL, Very high Secondary prevention optimal LDL Cholesterol levels are recommended to be < 70 mg/dL Performed By: #### 2 4323-8, 78560-5 #### [facility] CLIA [id number] [address] [place] [address] [place] Cholesterol in LDL/Cholesterol in HDL [Mass ratio] 2.14 {ratio} Normal <2.54 [facility] Comment on above: Order Comment: Armandoi men Type: BLOOD SPECIMEN Ordering Facility: [facility] Address: [address] [place] [address] Result Comment: Refe rence: 1. National Cholesterol Education Program ATP III Guideline At-A-Glance Quick Desk Reference: National Heart, Lung, and Blood [place]. National Institutes of Health. 2001: NIH Publication No. 01-3305. 2. An International Atherosclerosis Society position paper: global recommendations for the management of dyslipidemia: executive summary, Atherosclerosis. 2014: 232(2):410-413. Performed By: #### 2 4323-8, 14396-4 #### [facility] CLIA [id number] [address] [place] [address] [place] Cholesterol in VLDL [Mass/Vol] 52 mg/dL High <30 [facility] Comment on above: Order Comment: Hermann men Type: BLOOD SPECIMEN Ordering Facility: [facility] Address: [address] [place] [address] Performed By: #### 2 4323-8, 91410-1 #### [facility] CLIA [id number] [address] [place] [address] [place] Cholesterol non HDL [Mass/Vol] 127 mg/dL Normal <130 [facility] Comment on above: Order Comment: Speci men Type: BLOOD SPECIMEN Ordering Facility: [facility] Address: [address] [place] [address] Result Comment: <130 mg/dL, Optimal 130-159 mg/dL, Near optimal/above optimal 160-189 mg/dL, Borderline high 190-219 mg/dL, High >219 mg/dL, Very high Secondary prevention optimal non HDL Cholesterol levels are recommended to be <100 mg/dL Performed By: #### 2 4323-8, 73570-7 #### [facility] CLIA [id number] [address] [place] [address] [place] Cholesterol.total/ Cholesterol in HDL [Mass ratio] 4.63 {ratio} Normal <5.10 [facility] Comment on above: Order Comment: Speci men Type: BLOOD SPECIMEN Ordering Facility: [facility] Address: [address] [place] [address] Performed By: #### 2 4323-8, 25556-9 #### [facility] CLIA [id number] [address] [place] [address] [place] FASTING TIME [address] [facility] Comment on above: Order Comment: Speci men Type: BLOOD SPECIMEN Ordering Facility: [facility] Address: [address] [place] [address] Performed By: #### 2 4323-8, 53142-0 #### [facility] CLIA [id number] [address] [place] [address] [place] Triglyceride [Mass/Vol] 260 mg/dL High <150 [facility] Comment on above: Order Comment: Speci men Type: BLOOD SPECIMEN Ordering Facility: [facility] Address: [address] [place] [address] Result Comment: <150 mg/dL, Normal 150-199 mg/dL, Borderline high 200-499 mg/dL, High >499 mg/dL, Very high Performed By: #### 2 4323-8, 55729-1 #### [facility] CLIA [id number] [address] [place] [address] [place] MCH Auto (RBC) [Entitic mass ]on 09-30-2023 MCH (RBC) [Entitic mass] 30.4 pg 26.0-34.0 [facility] MCHC Auto (RBC) [Mass/Vol]on 09-30-2023 MCHC (RBC) [Mass/Vol] 33.2 g/dL 30.5-36.0 [facility] MCV Auto (RBC) [Entitic vol] on 09-30-2023 MCV (RBC) [Entitic vol] 91.7 fL 80.0-100.0 [facility] No Panel Informationon 09-29 Interpretation and review of laboratory results Abnormal [facility] Estimated GFR (CKD-EPI) 73 mL/min/1.73m??? >=60 [facility] Comment on above: Estimated Glomerular Filtration [...] reflect actual GFR. Fasting Status 0 hrs [facility] Non-HDL Cholesterol 127 mg/dL <130 [facility] Comment on above: <130 mg/dL, Optimal 130-159 mg/dL, Near optimal/above optimal 160-189 mg/dL, Borderline high 190-219 mg/dL, High>219 mg/dL, Very highSecondary prevention optimal non HDL Cholesterol levels are recommended to be <100 mg/dL Nucleated RBC Auto (Bld) [#/ Vol]on 09-30-2023 Nucleated RBC (Bld) [#/Vol] 10*3/uL <0.01 [facility] Platelet mean volume Auto (B ld) [Entitic vol]on 09-30-2023 Platelet mean volume (Bld) [Entitic vol] 10.0 fL 9.0-12.7 [facility] Platelets Auto (Bld) [#/Vol] on 09-30-2023 Platelets (Bld) [#/Vol] 208 10*3/uL 150-400 [facility] Protein [Mass/volume] in Ser um or Plasmaon 09-30-2023 Protein [Mass/Vol] 7.1 g/dL 6.3-8.0 [facility] RBC Auto (Bld) [#/Vol]on RBC (Bld) [#/Vol] 5.19 10*6/uL 4.20-6.00 [facility] Serum or plasma anion gap de terminationon 09-30-2023 Anion gap [Moles/Vol] 10 mmol/L 8-15 [facility] Serum or plasma total choles terol/high density lipoprotein (HDL) cholesterol mass jani 09-30-2023 Cholesterol.total/ Cholesterol in HDL [Mass ratio] 4.63 {ratio} <5.10 [facility] GLYCOHEMOGLOBIN A1Con 2022 ADA RECOMMENDATION SEE BELOW Normal [facility] Comment on above: Result Comment: ADA RECOMMENDED LIMIT 4.0 - 6.0 ADA THERAPEUTIC TARGET < 7.0 ACTION SUGGESTED > 7.0 Performed By: #### A 1C #### [facility] [address] [place] [address] Dr. Farheen Carrillo Glucose [Mass/Vol] 140 mg/dL Normal [facility] Comment on above: Performed By: #### A 1C #### [facility] [address] [address] [address] Farheen Carrillo HbA1c (Bld) [Mass fraction] 6.5 % Critically high 4.5-6.2 [facility] Comment on above: Performed By: #### A 1C #### [facility] [address] [address] [address] Farheen Carrillo TESTOSTERONE, TOTALon 2021 Testosterone [Mass/Vol] 389 ng/dL Normal 264-916 [facility] Comment on above: Result Comment: Adul t male reference interval is based on a population of healthy nonobese males (BMI <30) between 19 and 39 years old. et. Almazal. JCEM 2017,102;1300-4237. PMID: [id number]. Performed By: #### T ESTTOT #### [facility] [address] [place] [address] Dr. Farheen Carrillo GLYCOHEMOGLOBIN A1Con 2021 ADA RECOMMENDATION SEE BELOW Normal [facility] Comment on above: Result Comment: ADA RECOMMENDED LIMIT 4.0 - 6.0 ADA THERAPEUTIC TARGET < 7.0 ACTION SUGGESTED > 7.0 Performed By: #### A 1C #### [facility] [address] [place] [address] Dr. Farheen Carrillo Glucose [Mass/Vol] 194 mg/dL Normal [facility] Comment on above: Performed By: #### A 1C #### [facility] [address] [place] [address] Dr. Farheen Carrillo HbA1c (Bld) [Mass fraction] 8.4 % Critically high 4.5-6.2 [facility] Comment on above: Performed By: #### A 1C #### [facility] [address] [place] [address] Dr. Farheen Carrillo CBC AUTO DIFFon 08-17-2021 BASO # 0.0 103/ul Normal 0.0-0.1 [facility] Comment on above: Performed By: #### D ATCBC #### [facility] [address] [place] [address] Dr. Farheen Carrillo Basophils/100 WBC (Bld) 0.7 % Normal 0.2-2.0 [facility] Comment on above: Performed By: #### D ATCBC #### [facility] [address] [place] [address] Dr. Farheen Carrillo EO # 0.3 103/ul Normal 0.0-0.7 [facility] Comment on above: Performed By: #### D ATCBC #### [facility] [address] [place] [address] Dr. Farheen Carrillo Eosinophils/100 WBC (Bld) 5.5 % Normal 0.9-7.0 [facility] Comment on above: Performed By: #### D ATCBC #### [facility] [address] [place] [address] Dr. Farheen Carrillo Erythrocyte distribution width (RBC) [Ratio] 12.0 % Normal 11.0-15.0 [facility] Comment on above: Performed By: #### D ATCBC #### [facility] [address] [place] [address] Dr. Farheen Carrillo Hematocrit (Bld) [Volume fraction] 44.7 % Normal 42.0-54.0 [facility] Comment on above: Performed By: #### D ATCBC #### [facility] [address] [place] [address] Dr. Farheen Carrillo Hemoglobin (Bld) [Mass/Vol] 15.6 g/dL Normal 14.0-18.0 [facility] Comment on above: Performed By: #### D ATCBC #### [facility] [address] [place] [address] Dr. Farheen Carrillo IG # 0.02 10e3/ul Normal 0.00-0.03 [facility] Comment on above: Performed By: #### D ATCBC #### [facility] [address] [place] [address] Dr. Farheen Carrillo IG % 0.3 % Normal 0.0-0.5 [facility] Comment on above: Performed By: #### D ATCBC #### [facility] [address] [place] [address] Dr. Farheen Carrillo LYMPH # 2.3 103/ul Normal 1.2-3.8 [facility] Comment on above: Performed By: #### D ATCBC #### [facility] [address] [place] [address] Dr. Farheen Carrillo Lymphocytes/100 WBC (Bld) 39.1 % Normal 20.5-60.0 [facility] Comment on above: Performed By: #### D ATCBC #### [facility] [address] [place] [address] Dr. Farheen Carrillo MCH (RBC) [Entitic mass] 31.1 pg Normal 25.9-34.0 [facility] Comment on above: Performed By: #### D ATCBC #### [facility] [address] [address] [address] Farheen Carrillo MCHC (RBC) [Mass/Vol] 34.9 g/dL Normal 29.9-35.2 [facility] Comment on above: Performed By: #### D ATCBC #### [facility] [address] [address] [address] Farheen Carrillo MCV (RBC) [Entitic vol] 89.0 fL Normal 80.0-94.0 [facility] Comment on above: Performed By: #### D ATCBC #### [facility] [address] [place] [address] Dr. Farheen Carrillo MONO # 0.5 103/ul Normal 0.3-0.8 [facility] Comment on above: Performed By: #### D ATCBC #### [facility] [address] [place] [address] Dr. Farheen Carrillo Monocytes/100 WBC (Bld) 8.5 % Normal 1.7-12.0 [facility] Comment on above: Performed By: #### D ATCBC #### [facility] [address] [place] [address] Dr. Farheen Carrillo NEUT # 2.7 103/ul Normal 1.4-6.5 [facility] Comment on above: Performed By: #### D ATCBC #### [facility] [address] [place] [address] Dr. Farheen Carrillo Neutrophils/100 WBC (Bld) 45.9 % Normal 43.0-75.0 [facility] Comment on above: Performed By: #### D ATCBC #### [facility] [address] [address] [address] Farheen Carrillo Platelet mean volume (Bld) [Entitic vol] 8.9 fL Critically low 9.5-13.5 [facility] Comment on above: Performed By: #### D ATCBC #### [facility] [address] [place] [address] Dr. Farheen Carrillo PLT 208 103/ul Normal 150-450 [facility] Comment on above: Performed By: #### D ATCBC #### [facility] [address] [address] [address] Farheen Carrillo RBC 5.02 106/ul Normal 4.70-6.10 [facility] Comment on above: Performed By: #### D ATCBC #### [facility] [address] [address] [address] Farheen Carrillo WBC 5.9 103/ul Normal 4.0-11.0 [facility] Comment on above: Performed By: #### D ATCBC #### [facility] [address] [address] [address] Farheen Carrillo MARGIE- BMP WITH LIPIDon 2021 Anion gap [Moles/Vol] 10.1 mmol/L Normal [facility] Comment on above: Performed By: #### D ATBMP #### [facility] [address] [place] [address] Dr. Farheen Carrillo Calcium [Mass/Vol] 8.5 mg/dL Normal 8.5-10.1 [facility] Comment on above: Performed By: #### D ATBMP #### [facility] [address] [place] [address] Dr. Farheen Carrillo Chloride [Moles/Vol] 100 mmol/L Normal 98-107 [facility] Comment on above: Performed By: #### D ATBMP #### [facility] [address] [address] [address] Farheen Carrillo Cholesterol [Mass/Vol] 164 mg/dL Normal <=200 [facility] Comment on above: Performed By: #### D ATBMP #### [facility] [address] [address] [address] Farheen Carrillo Cholesterol in HDL [Mass/Vol] 35 mg/dL Critically low 40-60 [facility] Comment on above: Performed By: #### D ATBMP #### [facility] [address] [place] [address] Dr. Farheen Carrillo Cholesterol in LDL [Mass/Vol] 77.8 mg/dL Normal [facility] Comment on above: Performed By: #### D ATBMP #### [facility] [address] [address] [address] Farheen Carrillo CO2 [Moles/Vol] 29.4 mmol/L Normal 21.0-32.0 [facility] Comment on above: Performed By: #### D ATBMP #### [facility] [address] [address] [address] Farheen Carrillo Creatinine [Mass/Vol] 1.13 mg/dL Normal 0.70-1.30 [facility] Comment on above: Performed By: #### D ATBMP #### [facility] [address] [address] [address] Farheen Carrillo EGFR-AF CENTRAL AFRICAN >60 Normal >=60 [facility] Comment on above: Performed By: #### D ATBMP #### [facility] [address] [address] [address] Farheen Carrillo EGFR-NON AF CENTRAL AFRICAN >60 Normal >=60 [facility] Comment on above: Performed By: #### D ATBMP #### [facility] [address] [address] [address] Farheen Carrillo Glucose [Mass/Vol] 246 mg/dL Critically high 74-106 [facility] Comment on above: Performed By: #### D ATBMP #### [facility] [address] [address] [address] Farheen Carrillo HDL NORMAL > or = 60 mg/dl - LO W CARDIOVASCULAR RISK <40 mg/dl - HIGH CARDIOVASCULAR RISK Normal [facility] Comment on above: Performed By: #### D ATBMP #### [facility] [address] [address] [address] Farheen Carrillo LDL CALC NORMAL SEE BELOW Normal [facility] Comment on above: Result Comment: <100 mg/dl OPTIMAL 100 - 129 mg/dl NEAR OR ABOVE OPTIMAL 130 - 159 mg/dl BORDERLINE HIGH 160 - 189 mg/dl HIGH >190 mg/dl VERY HIGH Performed By: #### D ATBMP #### [facility] [address] [address] [address] Farheen Carrillo Potassium [Moles/Vol] 4.5 mmol/L Normal 3.5-5.1 [facility] Comment on above: Performed By: #### D ATBMP #### [facility] [address] [address] [address] Farheen Carrillo Sodium [Moles/Vol] 135 mmol/L Critically low 136-145 Th [facility] Comment on above: Performed By: #### D ATBMP #### [facility] [address] [address] [address] Farheen Carrillo Triglyceride [Mass/Vol] 256 mg/dL Critically high <=150 [facility] Comment on above: Performed By: #### D ATBMP #### [facility] [address] [place] [address] Dr. Farheen Carrillo Urea nitrogen [Mass/Vol] 18.0 mg/dL Normal 7.0-18.0 [facility] Comment on above: Performed By: #### D ATBMP #### [facility] [address] [address] [address] Farheen Carrillo Urea nitrogen/Creatinin e [Mass ratio] 15.9 mg/mg Normal [facility] Comment on above: Performed By: #### D ATBMP #### [facility] [address] [place] [address] Dr. Farheen Carrillo VLDL CALC 51.2 mg/dL Normal [facility] Comment on above: Performed By: #### D ATBMP #### [facility] [address] [place] [address] Dr. Farheen Carrillo GLYCOHEMOGLOBIN A1Con 2021 ADA RECOMMENDATION SEE BELOW Normal [facility] Comment on above: Result Comment: ADA RECOMMENDED LIMIT 4.0 - 6.0 ADA THERAPEUTIC TARGET < 7.0 ACTION SUGGESTED > 7.0 Performed By: #### D ATA1C #### [facility] [address] [place] [address] Dr. Farheen Carrillo Glucose [Mass/Vol] 263 mg/dL Normal [facility] Comment on above: Performed By: #### D ATA1C #### [facility] [address] [address] [address] Farheen Carrillo HbA1c (Bld) [Mass fraction] 10.8 % Critically high 4.5-6.2 [facility] Comment on above: Performed By: #### D ATA1C #### [facility] [address] [place] [address] Dr. Farheen Carrillo XR knee BI 3Von 07-16-2021 XR knee BI 3V [facility] [employer] Other XR knee BI 3V [facility] [employer] Other XR knee BI 3V [address] [place] [address] [employer] Other XR knee BI 3V [address] [employer] Other XR knee BI 3V XRay Report [employer] Other XR knee BI 3V Signed [employer] Other XR knee BI 3V Patient: Zoila Ocampo MR#: [id number] Adrian [employer] Other XR knee BI 3V 816 [employer] Other XR knee BI 3V : 1975 Acct:[id number] [employer] Other XR knee BI 3V Age/Sex: 45 / M ADM Date: 07/16/21 [employer] Other XR knee BI 3V Loc: [facility] Room: Type: REG CLI [employer] Other XR knee BI 3V Attending Dr: Cindy Ureña MD [employer] Other XR knee BI 3V Ordering Provider: Nigel Ureña MD [employer] Other XR knee BI 3V Date of Service: 07/16/21 [employer] Other XR knee BI 3V [id number]) XR/XR knee BI 3V - NOT FOR ER USE: Rupture of right quadriceps tendon, [employer] Other XR knee BI 3V initial encounter;Ruptur [employer] Other XR knee BI 3V Copies to: Karlene Ureña MD [employer] Other XR knee BI 3V 3 views both knee plain film [employer] Other XR knee BI 3V COMPARISON:06/02/20 No rt [employer] Other XR knee BI 3V HISTORY:Bilateral pa tellar tendon repair. [employer] Other XR knee BI 3V Postsurgical changes of bilateral patellar repair identified. There are small bony density inferior [employer] Other XR knee BI 3V to the RIGHT patella . This likely incidental. Bony alignment adequate. No acute bony findings seen. [employer] Other XR knee BI 3V X R/XR knee BI 3V - NOT FOR ER USE [employer] Other XR knee BI 3V IMPRESSION:No postsu rgical complication. [employer] Other XR knee BI 3V Impression dictated by: Delmer Keith M.D.07/16/2021 12:20 PM [employer] Other XR knee BI 3V Dictation Location: [place] [address] [employer] Other XR knee BI 3V Transcribed By: LUCI 07/16/21 1220 [employer] Other XR knee BI 3V Dictated By: Randy Keith DO 07/16/21 1218 [employer] Other XR knee BI 3V Signed By: [employer] Other XR knee BI 3V 07/16/21 1220 [employer] Other Coding Summaryon 04-13-2017 Coding Summary CODING DATE: 017 [facility] STATUS: Home PAYOR: Workers Compensation [employer] DESCRIPTION [...] Donovan Rebolledo Date Saved: 04/13/2017 08:[address] 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 Discharge Instructionson Discharge Instructions [id number] [facility] ED Note-Nursingon 04-11-2017 ED Note-Nursing Pt leaves a message on our voicemail to report he is Fine back to work . [facility] ED Note-Nursing No answer, message w ith return # left [facility] ED Clinical Summaryon 2016 ED Clinical Summary [facility] ? Urgent [id number] [id number] clinical SummaryPERSON INFORMATIONName: KASSI OCAMPO Age: 41 Years Sex: MALEDOB: [birth year] MRN: Acct#:Visit Reason: UC - Wrist/Hand/Finger Pain or Swelling; LEFT 3RD FINGER LACERATION Arrival:04/10/17 11:59:00 Discharge: 04/10/17 12:51:00LOS: 000 00:52 Check In: 04/10/17 11:59:00 Checkout: 04/10/17 12:51:00Address:[address] [place] [id number]: José Miguel Guerra EPROVIDER INFORMATIONProvider Role Assigned UnassignedSpasic Mark BIRTO ED PA 04/10/17 12:02:11Zaida De Dios PATIENT NAVIGATOR Nurse 04/10/17 12:08:50VITALS INFORMATIONVital Sign Triage LatestTemperature TympanicTemperature Temporal ArteryPulse Rate 73 bpm 73 bpmO2 Sat 97 % 97 %Respiratory Rate 16 br/min 16 br/minBlood Pressure 122 mmHg/82 mmHg 122 mmHg/82 mmHgMEDICAL INFORMATIONMedications Given:Medication Dose Routebacitracin topical 500 unit(s) TOPAllergy Information:No Known Medication AllergiesPHYSICIAN DOCUMENTATIONDISCHARGE INFORMATION:Discharge Disposition: HomeDischarge Location: HomePATIENT EDUCATION INFORMATIONInstructions: Crush Injury of the Hand, Xspj-hl-NuzyHwtgxg-Up:With: Address: When:José Miguel Guerra [address] [place] [address] Business (1)Comments:Keep the injury clean and dry, do not submerge in the waterCan take ibuprofen and/or Tylenol as needed for pain, can elevate as needed to help reduce swellingAny increase in discomfort or any inability to perform your work duties return for reevaluationDIAGNOSIS:Crush injury - 3rd digit left handComment: Normal [facility] ED Note - Physicianon 2016 ED Note - Physician Patient: KASSI OCAMPO : 41 years Sex: MALE : [birth year]Associated [...] other complaints or concerns. Patient works for [employer] Nail and nailbed is intact for range [...] off the rest of today, additionally offered offMonday patient declines , states wanting to go [...] PlanDiagnosisCrush injury - 3rd digit left hand ([id number] T14.8XXA, Discharge, Medical)PlanPrescriptions: Launch prescriptionsPharmacy:Keflex 500 mg oral capsule (Prescribe): 500 mg, 1 cap(s), PO, q12hr, for 5 day(s), 10 cap(s), 0 Refill(s).Patient was given the following educational materials: Crush Injury of the Hand, Dbqo-tm-Zxjx.Follow up with: José Miguel Guerra Keep the injury clean and dry, do [...] Kilgore[Verified on: 04/10/2017 13:20 EST] Mark Kilgore [facility] ED Note-Nursingon 04-10-2017 ED Note-Nursing Order to clean, use bacitracin, dress the wound and apply splint. Wound cleaned with betasept, bacitracin applied, 2x2, fingercot gauze applied, baseball splint applied per orders. [facility] ED Note-Nursing Injured digit L hand soaking in tepid h2o and betasept. [facility] ED Patient Summaryon 017 ED Patient Summary [facility] ? Urgent [id number] [place] [address] pATIENT DISCHARGE INSTRUCTIONSPatient InformationName: KASSI OCAMPO Age: 41 YearsDate of : [birth year]MRN: [id number] For Visit: UC - Wrist/Hand/Finger Pain or Swelling; LEFT 3RD FINGER LACERATIONArrival Time: 04/10/17 11:59:00Phone: Primary Care Physician: José Miguel Guerra Physician: Wyatt Kilgorement:Patient EducationWith: Address: When:José Miguel Guerra [address] [place] [address] Business (1)Comments:Keep the injury clean and dry, [...] cannot use soap and water, use hand manufacturing associate.? Change your bandage as told by your [...] take a bath or a shower.? Take jhhl-xue-nmeipov and prescription medicines only as told by [...] Document Reviewed: 12/05/2015[employer] Patient Education ?2017 [employer].Medication Information:The exam and treatment you received today in the [facility] Emergency Department were for an urgent problem and are not intended as complete care. It is important for you to follow up with a doctor, nurse practitioner, or physician?s housekeeper and laundry assistant for ongoing care. If your symptoms [...] number so we can reach you if necessary.[facility] Emergency Department has provided you with a complete list of medications post discharge. Please inform your drum sander setter/provider of your visit and for further instruction [...] (T14.8XXA) UC - Wrist/Hand/Finger Pain or Swelling ([id number])If you received any narcotics, sedation, or any [...] Weight: 97.5 kg Body Mass Index: 32.69 kg/q5Hvtybupq List:Problem Onset CommentsNo Problems foundMajor Tests and [...] Disease Control and Prevention December 2013 Normal [facility] [place] 017 Urgent Care Record [facility] ? Urgent [id number] [id number] pATIENT DISCHARGE INSTRUCTIONSPatient InformationName: KASSI OCAMPO Age: 41 YearsDate of : [birth year]MRN: [id number] For Visit: UC - Wrist/Hand/Finger Pain or Swelling; LEFT 3RD FINGER LACERATIONArrival Time: 04/10/17 11:59:00Phone: Primary Care Physician: José Miguel Guerra Physician: Sheila KilgorerComment:Visit Diagnosis:Diagnoses This Visit Crush injury - 3rd digit left hand (T14.8XXA) UC - Wrist/Hand/Finger Pain or Swelling ([id number])If you received any narcotics, sedation, or any [...] sign any legal documentsWith: Address: When:José Miguel Guerra [address] [place] [address] [facility] (1)Comments:Keep the injury clean and dry, do not submerge in the waterCan take ibuprofen and/or Tylenol as needed for pain, can elevate as needed to help reduce swellingAny increase in discomfort or any inability to perform your work duties return for reevaluationMedication Information:The exam and treatment you received today in the [facility] were for an urgent problem and are not intended as complete care. It is important for you to follow up with a doctor, nurse practitioner, or physician?s housekeeper and laundry assistant for ongoing care. If your symptoms [...] number so we can reach you if necessary.[facility] has provided you with a complete list of medications post discharge. Please inform your drum sander setter/provider of your visit and for further instruction [...] Weight: 97.5 kg Body Mass Index: 32.69 kg/x1Bknqqslp List:Problem Onset CommentsNo Problems found Patient EducationCrush [...] cannot use soap and water, use hand manufacturing associate.? Change your bandage as told by your [...] take a bath or a shower.? Take ttah-ctj-czghdhm and prescription medicines only as told by [...] Document Reviewed: 12/05/2015[employer] Patient Education ?2017 [employer] Viruses or BacteriaWhat?s got you sick?Antibiotics [...] Antibiotics [place]. Department of Health and Human ServicesDoctors Hospitalers for Disease Control and Prevention December [address] [facility] XR Finger Lefton 04-10-2017 XR Finger [...] FRACTURE ORDISLOCATION.2. FOLLOW-UP NEEDED.Obed Oliveira MDJOB #: [id number]: 04/10/2017T: 04/10/2017 Final Dictated by: Obed Oliveira MD SDictated DT/TM: 04/10/17 1:07Signed (Electronic Signature): Obed Oliveira MD 04/10/17 4:38 pmTechnologist: Mallory LOMAX [facility] Vital Signs Date Time Vital Sign Value Performing Clinician Facility 09-14-2024 13:51-0400 Body height 172.7 cm Susan Bennett MD Work Phone: [facility] 09-14-2024 13:51-0400 Body mass index (BMI) [Ratio] 33.15 kg/m2 Susan Bennett MD Work Phone: [facility] 09-14-2024 13:51-0400 Body weight 98.88 kg Susan Bennett MD Work Phone: [facility] 09-14-2024 13:51-0400 Diastolic blood pressure 64 mm[Hg] Susan Bennett MD Work Phone: [facility] 09-14-2024 13:51-0400 Heart rate 75 /min Susan Bennett MD Work Phone: [facility] 09-14-2024 13:51-0400 Respiratory rate 16 /min Susan Bennett MD Work Phone: [facility] 09-14-2024 13:51-0400 SaO2% (BldA) [Mass fraction] 99 % Susan Bennett MD Work Phone: [facility] 09-14-2024 13:51-0400 Systolic blood pressure 104 mm[Hg] Susan Bennett MD Work Phone: [facility] 06-06-2024 15:06-0500 Body height 174 cm Susan Bennett MD Work Phone: [facility] 06-06-2024 15:06-0500 Body mass index (BMI) [Ratio] 32.36 kg/m2 Susan Bennett MD Work Phone: [facility] 06-06-2024 15:06-0500 Body weight 97.98 kg Susan Bennett MD Work Phone: [facility] 06-06-2024 15:06-0500 Diastolic blood pressure 82 mm[Hg] Susan Bennett MD Work Phone: [facility] 06-06-2024 15:06-0500 Heart rate 88 /min Susan Bennett MD Work Phone: [facility] 06-06-2024 15:06-0500 Respiratory rate 18 /min Susan Bennett MD Work Phone: [facility] 06-06-2024 15:06-0500 SaO2% (BldA) [Mass fraction] 99 % Susan Bennett MD Work Phone: [facility] 06-06-2024 15:06-0500 Systolic blood pressure 100 mm[Hg] Susan Bennett MD Work Phone: [facility] 02-01-2024 11:24-0400 Body height 175.3 cm Susan Bennett MD Work Phone: [facility] 02-01-2024 11:24-0400 Body mass index (BMI) [Ratio] 31.01 kg/m2 Susan Bennett MD Work Phone: [facility] 02-01-2024 11:24-0400 Body weight 95.25 kg Susan Bennett MD Work Phone: [facility] 02-01-2024 11:24-0400 Diastolic blood pressure 72 mm[Hg] Susan Bennett MD Work Phone: [facility] 02-01-2024 11:24-0400 Systolic blood pressure 104 mm[Hg] Susan Bennett MD Work Phone: [facility] 02-01-2024 08:18-0400 Body height 171.45 cm DO José Miguel Ball Work Phone: [facility] 02-01-2024 08:18-0400 Body mass index (BMI) [Ratio] 32.4 kg/m2 DO José Miguel Ball Work Phone: [facility] 02-01-2024 08:18-0400 Body weight 95.31 kg DO José Miguel Ball Work Phone: [facility] 11-04-2023 15:03-0400 Body height 171.45 cm DO José Miguel Ball Work Phone: [facility] 11-04-2023 15:03-0400 Body mass index (BMI) [Ratio] 33.2 kg/m2 DO José Miguel Ball Work Phone: [facility] 11-04-2023 15:03-0400 Body weight 97.74 kg DO José Miguel Ball Work Phone: [facility] 11-04-2023 15:03-0400 Diastolic blood pressure 76 mm[Hg] DO José Miguel Ball Work Phone: [facility] 11-04-2023 15:03-0400 Heart rate 73 /min DO José Miguel Ball Work Phone: [facility] 11-04-2023 15:03-0400 Respiratory rate 12 /min DO José Miguel Ball Work Phone: [facility] 11-04-2023 15:03-0400 Systolic blood pressure 109 mm[Hg] DO José Miguel Ball Work Phone: [facility] 10-14-2023 16:34-0400 gluc 240 mg/dL Shravan [facility] 10-14-2023 16:34-0400 gluc Shravanteddy [facility] 10-14-2023 15:54-0400 Body temperature 98.24 [degF] Shravan [facility] 10-14-2023 15:54-0400 Diastolic blood pressure 80 mm[Hg] Shravanteddy [facility] 10-14-2023 15:54-0400 Heart rate 73 /min Shravan [facility] 10-14-2023 15:54-0400 Respiratory rate 18 /min Shravan [facility] 10-14-2023 15:54-0400 SaO2% (BldA) [Mass fraction] 98 % Shravan [facility] 10-14-2023 15:54-0400 Systolic blood pressure 122 mm[Hg] Shravan [facility] 09-30-2023 09:15-0400 Diastolic blood pressure 76 mm[Hg] Milagros Turner MD Work Phone: [facility] 09-30-2023 09:15-0400 Systolic blood pressure 118 mm[Hg] Milagros Turner MD Work Phone: [facility] 09-30-2023 09:06-0400 Body height 172.7 cm Milagros Turner MD Work Phone: [facility] 09-30-2023 09:06-0400 Body mass index (BMI) [Ratio] 32.08 kg/m2 Milagros Turner MD Work Phone: [facility] 09-30-2023 09:06-0400 Body weight 95.71 kg Milagros Turner MD Work Phone: [facility] 09-30-2023 09:06-0400 Heart rate 67 /min Milagros Turner MD Work Phone: [facility] 09-30-2023 09:06-0400 Respiratory rate 18 /min Milagros Turner MD Work Phone: [facility] 09-30-2023 09:06-0400 SaO2% (BldA) [Mass fraction] 98 % Milagros Turner MD Work Phone: [facility] Comment on above: RA 02-16-2023 15:30-0400 Body height 171.45 cm José Miguel Ball Other [employer] Other 02-16-2023 15:30-0400 Body mass index (BMI) [Ratio] 34.59 kg/m2 José Miguel Ball Other [employer] Other 02-16-2023 15:30-0400 Body weight 101.7 kg José Miguel Ball Other [employer] Other 02-16-2023 15:30-0400 Diastolic blood pressure 87 mm[Hg] José Miguel Ball Other [employer] Other 02-16-2023 15:30-0400 Respiratory rate 12 /min José Miguel Ball Other [employer] Other 02-16-2023 15:30-0400 Systolic blood pressure 129 mm[Hg] José Miguel Ball Other [employer] Other 10-21-2022 15:30-0400 Body height 171.45 cm José Miguel Ball Other [employer] Other 10-21-2022 15:30-0400 Body mass index (BMI) [Ratio] 34.78 kg/m2 José Miguel Ball Other [employer] Other 10-21-2022 15:30-0400 Body weight 102.24 kg José Miguel Ball Other [employer] Other 10-21-2022 15:30-0400 Diastolic blood pressure 92 mm[Hg] José Miguel Ball Other [employer] Other 10-21-2022 15:30-0400 Respiratory rate 12 /min José Miguel Ball Other [employer] Other 10-21-2022 15:30-0400 Systolic blood pressure 133 mm[Hg] José Miguel Ball Other [employer] Other 07-29-2022 16:30-0400 Body height 171.45 cm José Miguel Ball Other [employer] Other 07-29-2022 16:30-0400 Body mass index (BMI) [Ratio] 34.96 kg/m2 José Miguel Ball Other [employer] Other 07-29-2022 16:30-0400 Body weight 102.79 kg José Miguel Ball Other [employer] Other 07-29-2022 16:30-0400 Diastolic blood pressure 76 mm[Hg] José Miguel Ball Other [facility] Other 07-29-2022 16:30-0400 Respiratory rate 12 /min José Miguel Ball Other [facility] Other 07-29-2022 16:30-0400 Systolic blood pressure 122 mm[Hg] José Miguel Ball Other [facility] Other 07-23-2022 13:04-0400 Body height 172.72 cm DO José Miguel Ball Work Phone: [facility] 07-23-2022 13:04-0400 Body temperature 98.7 [degF] DO José Miguel Ball Work Phone: [facility] 07-23-2022 13:04-0400 Body weight 101 kg DO José Miguel Ball Work Phone: [facility] 07-23-2022 13:04-0400 Diastolic blood pressure 85 mm[Hg] DO José Miguel Ball Work Phone: [facility] 07-23-2022 13:04-0400 Heart rate 91 /min DO José Miguel Ball Work Phone: [facility] 07-23-2022 13:04-0400 Respiratory rate 18 /min DO José Miguel Ball Work Phone: [facility] 07-23-2022 13:04-0400 SaO2% (BldA) [Mass fraction] 98 % DO José Miguel Ball Work Phone: [facility] 07-23-2022 13:04-0400 Systolic blood pressure 139 mm[Hg] DO José Miguel Ball Work Phone: [facility] 05-02-2022 09:15-0500 Body height 171.45 cm Karlene Janabecky Other [employer] Other 05-02-2022 09:15-0500 Body mass index (BMI) [Ratio] 37.03 kg/m2 Karlene Ureña Other [employer] Other 05-02-2022 09:15-0500 Body weight 108.86 kg Karlene Calvey Other [employer] Other 12-06-2021 09:15-0400 Body height 171.45 cm Karlene Calvey Other [employer] Other 12-06-2021 09:15-0400 Body mass index (BMI) [Ratio] 37.03 kg/m2 Karlene Calvey Other [employer] Other 12-06-2021 09:15-0400 Body weight 108.86 kg Karlene Calvey Other [employer] Other 11-08-2021 10:15-0400 Body height 171.45 cm Karlene Calvey Other [employer] Other 11-08-2021 10:15-0400 Body mass index (BMI) [Ratio] 37.03 kg/m2 Karlene Calvey Other [employer] Other 11-08-2021 10:15-0400 Body weight 108.86 kg Karlene Calvey Other [employer] Other 07-16-2021 09:15-0400 Body height 171.45 cm Karlene Calvey Other [employer] Other 07-16-2021 09:15-0400 Body mass index (BMI) [Ratio] 37.03 kg/m2 Karlene Calvey Other [employer] Other 07-16-2021 09:15-0400 Body weight 108.86 kg Karlene Calvey Other [employer] Other 03-20-2021 10:30-0500 Body height 171.45 cm Karlene Ureña Other [employer] Other 03-20-2021 10:30-0500 Body mass index (BMI) [Ratio] 32.4 kg/m2 Karlene Ureña Other [employer] Other 03-20-2021 10:30-0500 Body weight 95.26 kg Karlene Ureña Other [employer] Other Encounters Encounter Date Encounter Type Care Provider Facility Start: 10-06-2024 End: 10-06-2024 ambulatory [facility] Start: 09-14-2024 End: 09-14-2024 Office outpatient visit 25 minutes Susan Bennett MD Work Phone: [facility] Comment on above: Type 2 diabetes antolin itus with hyperglycemia, without long-term current use of insulin (CMS/HCC) (Primary Dx); Primary hypertension (CMS/HCC); Vitamin D deficiency; Encounter for dietary consultation; Class 1 obesity due to excess calories with serious comorbidity and body mass index (BMI) of 33.0 to 33.9 in adult Start: 09-14-2024 End: 09-14-2024 ambulatory SUSAN BENNETT Not Available Start: 06-24-2024 End: 06-24-2024 ambulatory José Miguel Guerra DO Work Phone: [facility] Work Phone: Start: 06-24-2024 End: 06-24-2024 Patient encounter procedure José Miguel Guerra DO Work Phone: [facility] Work Phone: Start: 06-14-2024 End: 06-14-2024 Telephone encounter Susan Bennett MD Work Phone: [facility] Comment on above: Medication Problem Start: 06-06-2024 End: 02-10-2025 Office outpatient visit 25 minutes Susan Bennett MD Work Phone: [facility] Comment on above: Type 2 diabetes antolin itus with hyperglycemia, without long-term current use of insulin (CMS/HCC) (Primary Dx); Primary hypertension (CMS/HCC); Vitamin D deficiency; Encounter for dietary consultation; Class 1 obesity due to excess calories with serious comorbidity and body mass index (BMI) of 32.0 to 32.9 in adult Start: 06-06-2024 End: 06-06-2024 ambulatory SUSAN BENNETT Not Available Start: 06-06-2024 End: 06-06-2024 Bamboo flowsheet Susan Bennett MD Work Phone: [facility] Start: 06-06-2024 End: 06-06-2024 Bamboo Soysuperheet Susan Bennett MD Work Phone: [facility] Start: 05-30-2024 End: 05-31-2024 ambulatory [facility] Start: 04-04-2024 End: 04-05-2024 Telephone encounter Susan Bnenett MD Work Phone: [facility] Start: 03-31-2024 End: 03-31-2024 ambulatory José Miguel Ball DO Work Phone: [facility] Work Phone: Start: 03-31-2024 End: 03-31-2024 Discharged Recurring José Miguel Ball DO Work Phone: [facility]-Physical Therapy [place] Start: 03-09-2024 End: 03-09-2024 Patient encounter procedure José Miguel Ball DO Work Phone: [facility] Work Phone: Start: 03-09-2024 End: 03-09-2024 ambulatory José Miguel Ball DO Work Phone: [facility] Work Phone: Start: 03-09-2024 Non-patient / Non-visit Benjam in Ball DO Work Phone: [facility] Work Phone: Start: 03-08-2024 Registered Recurring José Miguel Guerra DO Work Phone: [facility] [place] Start: 03-01-2024 Registered Recurring José Miguel Guerra DO Work Phone: [facility]-Physical Therapy [place] Start: 02-23-2024 End: 02-23-2024 ambulatory DO José Miguel Guerra Work Phone: [facility] Work Phone: Start: 02-23-2024 End: 02-23-2024 Patient encounter procedure DO José Miguel Guerra Work Phone: [facility] [place] Work Phone: Start: 02-21-2024 End: 02-21-2024 Refill Susan Bennett MD Work Phone: [facility] Comment on above: Type 2 diabetes antolin itus with hyperglycemia, unspecified whether half-way insulin use ([facility]); Type 2 diabetes mellitus with hyperglycemia, without long-term current use of insulin ([facility]) Start: 02-20-2024 End: 02-21-2024 Refill Susan Bennett MD Work Phone: [facility] Comment on above: Type 2 diabetes antolin itus with hyperglycemia, 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 ([facility]); Type 2 diabetes mellitus with hyperglycemia, without long-term current use of insulin ([facility]) Start: 02-17-2024 Registered Recurring DO Benjam in Ball Work Phone: [facility]-Physical Therapy [place] Start: 02-09-2024 End: 02-16-2024 Telephone encounter Susan Bennett MD Work Phone: [facility] Start: 02-01-2024 End: 02-01-2024 Bamboo flowsheet Susan Bennett MD Work Phone: [facility] Start: 02-01-2024 End: 02-01-2024 Bamboo flowsheet Susan Bennett MD Work Phone: [facility] Start: 02-01-2024 End: 02-01-2024 Office outpatient visit 25 minutes Susan Bennett MD Work Phone: [facility] Comment on above: Type 2 diabetes antolin itus with hyperglycemia, without long-term current use of insulin (CMS/HCC) (Primary Dx); Primary hypertension (CMS/HCC); Vitamin D deficiency; Encounter for dietary consultation; Class 1 obesity without serious comorbidity with body mass index (BMI) of 31.0 to 31.9 in adult, unspecified obesity type Start: 02-01-2024 End: 02-01-2024 ambulatory SUSAN BENNETT Not Available Start: 02-01-2024 End: 02-01-2024 ambulatory DO José Miguel Ball Work Phone: [facility] Work Phone: Start: 02-01-2024 End: 02-01-2024 Patient encounter procedure DO José Miguel Ball Work Phone: [facility] Work Phone: Start: 01-04-2024 End: 01-04-2024 ambulatory DO José Miguel Ball Work Phone: [facility] Work Phone: Start: 01-04-2024 End: 01-04-2024 Patient encounter procedure DO José Miguel Ball Work Phone: [facility] Work Phone: Start: 12-30-2023 End: 12-30-2023 Patient encounter procedure DO José Miguel Ball Work Phone: [facility]MRI [place] Work Phone: Start: 12-30-2023 End: 12-30-2023 ambulatory DO José Miguel Ball Work Phone: [facility] Work Phone: Start: 12-08-2023 End: 12-08-2023 ambulatory DO José Miguel Guerra Work Phone: [facility] Work Phone: Start: 12-08-2023 End: 12-08-2023 Patient encounter procedure DO José Miguel Ball Work Phone: [facility] Work Phone: Start: 12-07-2023 End: 12-07-2023 ambulatory Shravan Hutchison Facility:[facility] Start: 12-07-2023 Registered Recurring DO Benjam in Ball Work Phone: [facility]-Physical Therapy [place] Start: 11-13-2023 Non-patient / Non-visit DO Erik Guerra [facility] Work Phone: Start: 11-04-2023 End: 11-04-2023 ambulatory DO José Miguel Guerra Work Phone: [facility] Work Phone: Start: 11-04-2023 End: 11-04-2023 Encounter for general adult medical examination without abnormal findings DO José Miguel Guerra Work Phone: [facility] Start: 11-04-2023 End: 11-04-2023 Patient encounter procedure DO José Miguel Guerra Work Phone: [facility] Work Phone: Start: 10-27-2023 End: 10-28-2023 ambulatory [facility] Start: 10-21-2023 Registered Recurring DO Benjam in Ball Work Phone: [facility]-Physical Therapy [place] Start: 10-14-2023 End: 10-14-2023 Emergency department patient visit [facility] Start: 10-14-2023 Telephone encounter Robin Turner MD Work Phone: Cardiology Start: 10-13-2023 End: 10-13-2023 Patient encounter procedure DO José Miguel Guerra Work Phone: [facility] Work Phone: Start: 10-13-2023 End: 10-13-2023 ambulatory DO José Miguel Guerra Work Phone: [facility] Work Phone: Start: 10-09-2023 Non-patient / Non-visit DO Erik Guerra Work Phone: [facility] Work Phone: Start: 10-09-2023 End: 10-09-2023 Patient encounter procedure Milagros Turner MD Work Phone: Cardiology Start: 10-09-2023 End: 10-09-2023 ambulatory Milagros Turner MD Work Phone: Cardiology Start: 10-08-2023 Telephone encounter Robin Turner MD Work Phone: Cardiology Comment on above: Patient Education Start: 10-07-2023 End: 10-07-2023 ambulatory NEDA CUETO Not Available Start: 10-02-2023 Telephone encounter Robin Turner MD Work Phone: Cardiology Comment on above: Received Outside Med ical Records Start: 09-30-2023 Telephone encounter Robin Turner MD Work Phone: Cardiology Comment on above: Received Outside Med ical Records ([facility]) Start: 09-30-2023 Non-patient / Non-visit DO Erik Guerra Work Phone: [facility] Work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 limits; and total cholesterol 157, HDL 42, LDL 92; urine microalbumin 12.3. Currently, he is on glimepiride 2 mg once a day, metformin 500 twice a day, Actos 30. He used to be on Trulicity, gave him palpitations, now doing well. [facility] does not work for him and he has come here for second opinion. SUBJECTIVE: MEDICATIONS: Current Outpatient Medications Medication Instructions aspirin 81 mg, Daily RT atorvastatin (LIPITOR) 10 mg, Daily Continuous Glucose [employer] (Dexcom G7 [employer]) device 1 kit, Subcutaneous, Continuous doxepin (SINEquan) 10 MG capsule TAKE 1 TO 2 CAPSULES BY MOUTH EVERY DAY AT BEDTIME empagliflozin (JARDIANCE) 25 mg, Oral, Daily with breakfast lisinopril 5 MG tablet 1 tablet, Daily RT metFORMIN (Glucophage) 500 MG tablet 1 tablet, 2 times daily with meals metFORMIN (GLUCOPHAGE) 1,000 mg, Oral, 2 times daily metoprolol succinate XL (TOPROL-XL) 12.5 mg, Nightly Mounjaro 2.5 mg, Subcutaneous, Every 7 days naproxen (EC NAPROSYN) 500 mg, 2 times daily with meals pioglitazone (ACTOS) 45 mg, Daily RT pioglitazone (ACTOS) 45 mg, Oral, Daily ALLERGIES: Allergies Allergen Reactions Dulaglutide Palpitations Januvia [Sitagliptin] Other Chest pain Past Medical History: Diagnosis Date Diabetes mellitus (CMS/HCC) Hypertension (CMS/HCC) Vitamin D deficiency, unspecified Past Surgical History: Procedure Laterality Date EYE SURGERY KNEE SURGERY Bilateral REVIEW OF SYMPTOMS: 14 POINT OF SYSTEM REVIEWED AND NEGATIVE OBJECTIVE: Constitutional: Afebrile @ home; no weakness or night sweats SKIN: No change in skin color; no itching, rash or lesions; no hair loss; HEENT: No HAs or injury; no dizziness; No difficulty with vision; no eye pain, discharge or lesions; no hearing loss or difficulty; no nasal discharge, NECK: No pain, limitation of motion, lumps or swollen glands RESP: No cough, wheezing or difficulty breathing. No CP with breathing; CARDIO: No CP , SOB or fatigue, No edema, palpitations or dyspnea with exertion GI: No N/V/D or abd. pain; good appetite with no recent change. No heart burn, liver or gallbladder disease; no rectal bleeding or pain : No urinary pain , frequency or odor. MUSCULOSKELETAL: No muscle pain or cramps; no extremity weakness.No joint pain, stiffness, swelling or limitation of movement NEUROLOGY: No H/O seizures, stroke or fainting. No weakness, tremors. Hematology: No bleeding problems or excessive bruising ENDOCRINE: No increase in hunger, thirst or urination; admits compliance to medical management plan Feet: numbness tingling yes , ulcers or skin break no Lab Results Component Value Date HGBA1C 9.6 06/06/2024 HGBA1C 9.3 02/01/2024 Lab Results Component Value Date GLU 154 06/06/2024 GLU 173 02/01/2024 GLU 189 (A) 10/09/2023 10/07/2023 4:10 PM 10/20/2023 11:47 AM 02/01/2024 11:24 AM 06/06/2024 3:06 PM Vitals BMI 32.34 kg/m2 32.99 kg/m2 31.01 kg/m2 32.36 kg/m2 BSA (m2) 2.2 m2 2.17 m2 2.15 m2 2.18 m2 Systolic 120 112 104 100 Diastolic 78 82 72 82 Heart Rate 65 73 88 SpO2 99 % 98 % 99 % Resp 16 16 18 Height (in) 5' 9 5' 8 5' 9 5' 8.5 Weight (lb) 219 217 210 216 Visit Report Report Report Report ASSESSMENT AND PLAN: Assessment/Plan Diagnoses and all orders for this visit: Type 2 diabetes mellitus with hyperglycemia, without long-term current use of insulin ([facility]) - POCT glucose manually resulted - POCT glycosylated hemoglobin (Hb A1C) docked device - Tirzepatide (Mounjaro) 2.5 MG/0.5ML solution auto-injector; Inject 2.5 mg under the skin every 7 (seven) days We will continue with metformin 1000 twice a day, Actos 45, Jardiance 25 mg, will start him on Mounjaro 2.5 mg once weekly. Primary hypertension ([facility]) Vitamin D deficiency Encounter for dietary consultation Class 1 obesity due to excess calories with serious comorbidity and body mass index (BMI) of 32.0 to 32.9 in adult Diet and exercise reviewed with the patient No follow-ups on file. documented in this encounter [facility] 05-30-2024 Note UTP MARLENY CARDIOL OGY PROGRESS NOTE HPI: Kassi Ocampo is a 48 y.o. male who was referred to cardiology for palpiations. 48 yo male with past medical history including [id number]: Obesity, DANIELLE with Cpap, HTN, Palpitations, DM [...] was long. As such, patient went to [facility] for further evaluation. They recommended coronary angiography, which was performed. Patient was noted to have moderate, nonobstructive disease. Patient here for 6 mo follow up non-obstructive CAD, palpitations, and [place]. Had routine labs with lipid panel in October 2023 after last apt. Had some episodes of palpitations a week or so ago. He attributes this sometimes to hyperglycemia. Denies missing any doses of metoprolol. Some of the episodes lasted off and on throughout the day. He doesn't take aspirin regularly because he forgets. Denies chest pain and SOB. Cardiology ROS: 10 point ROS is performed and is negative unless otherwise specified in HPI. Visit Vitals Smoking Status Never Allergies Allergen Reactions Trulicity [Dulaglutide] Palpitations Medications: Current Outpatient Medications on File Prior to Visit Medication Sig Dispense Refill aspirin 81 mg EC tablet Take 81 mg by mouth in the morning. atorvastatin (Lipitor) 40 mg tablet Take 1 tablet (40 mg) by mouth at bedtime. 90 tablet 3 doxepin (SINEquan) 10 mg capsule if needed at bedtime. EC-Naproxen 500 mg EC tablet Take 500 mg by mouth every 12 (twelve) hours. glimepiride (Amaryl) 2 mg tablet TAKE 1 TABLET BY MOUTH EVERY DAY WITH BREAKFAST OR THE FIRST MAIL MEAL OF THE DAY Jardiance 25 mg Take 25 mg by [...] tablet 3 pioglitazone (Actos) 30 mg tablet No current [...] the past 12 months Assessment/Plan: Diabetes mellitus ([facility]) Diabetes is managed by PCP Intermittent palpitations Overall improved, still having some Patient had PVCs, couplets . Declines repeat monitor Continue metoprolol [place] (dyspnea on exertion) Echo unremarkable Non obstructive CAD on cath Abnormal Stress Test Patient was noted to have small defect at the apex, likely apical thinning Non obstructive CAD -Non Obstructive CAD, patient is on aspirin and metoprolol, high intensity statin. Continue current meds. -Optimize medical management -Aggressive risk factor modification -Plan of care discussed with patient. All questions were answered. Patient voices understanding and is agreeable with current plan. -Patient was ed (more content not included)... [facility] 04-04-2024 Telephone encounter Note Pt needs PA for Jardiance. This is third request please. Thank you! [facility] 04-04-2024 Miscellaneous Notes Pt needs PA for Jardiance. This is third request please. Thank you! documented in this encounter [facility] 02-23-2024 Evaluation note Diagnosis Onset Date Resolution Cervical pain (neck) acute Octo 2023 3:44pm Chronic pain acute January 3:44pm Other spondylosis with radiculopathy, cervical region acute February 22 3:44pm [facility] Work Phone: 1(212) 263-299110-15-2024 Telephone encounter Note* Telephone Encounter - Darwin Lee - 02/09/2024 2:15 PM EDT Patient states Prior Auth needed for Jardiance and the Dexcom please and thank you. [facility] [id number] Miscellaneous Notes* Telephone Encounter - Darwin Lee - 02/09/2024 2:15 PM EDT Patient states Prior Auth needed for Jardiance and the Dexcom please and thank you. documented in this encounterUniversity of [facility] Health [id number] History of Present illness Narrative* Susan Bennett MD - 02/01/2024 10:50 AM EDT Kassi Wei Ocampo is a 48 y.o. male Susan Bennett MD presents with chief complaint of Diabetes and Follow-up HPI: Interim history on 01/2024 Follow up visit on 02/01/2024. A1c 9.3 blood sugar 173 and he is on metformin 1000 twice a day, Actos 45 and Jardiance 25. Asking for DEXCOM . Interim history on 09/2023 Follow up visit on 10/20/2023. A1c 10.9, blood sugar 246 and he is on currently metformin 500 twice a day, Actos 30 and Jardiance 25. He has coronary artery disease, no stent done. He lost weight, butsugars get up. HPI: 06/2023 New patient came by himself. A1c in with his labs recently 6.5; blood sugar in our office 245; in lab back in January 2023 was 8.1; kidney function within normal limits; and total cholesterol 157, HDL 42, LDL 92; urine microalbumin 12.3. Currently, he is on glimepiride 2 mg once a day, metformin 500 twice a day, Actos 30. He used to be on Trulicity, gave him palpitations, now doing well. Januvia does not work for him and he has come here for second opinion. SUBJECTIVE: MEDICATIONS: Current Outpatient Medications Medication Instructions aspirin 81 mg, Oral, Daily RT atorvastatin (LIPITOR) 10 mg, Oral, Daily doxepin (SINEquan) 10 MG capsule TAKE 1 TO 2 CAPSULES BY MOUTH EVERY DAY AT BEDTIME empagliflozin (JARDIANCE) 25 mg, Oral, Daily with breakfast lisinopril 5 MG tablet 1 tablet, Oral, Daily RT metFORMIN (Glucophage) 500 MG tablet 1 tablet, Oral, 2 times daily with meals metFORMIN (GLUCOPHAGE) 1,000 mg, Oral, 2 times daily metoprolol succinate XL (TOPROL-XL) 12.5 mg, Oral, Nightly naproxen (EC NAPROSYN) 500 mg, Oral, 2 times daily with meals pioglitazone (ACTOS) 45 mg, Oral, Daily RT ALLERGIES: Allergies Allergen Reactions Dulaglutide Palpitations Januvia [Sitagliptin] Other Chest pain Past Medical History: Diagnosis Date Diabetes mellitus (CMS/HCC) Hypertension (CMS/HCC) Vitamin D deficiency, unspecified Past Surgical History: Procedure Laterality Date EYE SURGERY KNEE SURGERY Bilateral REVIEW OF SYMPTOMS: 14 POINT OF SYSTEM REVIEWED AND NEGATIVE OBJECTIVE: Constitutional: Afebrile @ home; no weakness or night sweats SKIN: No change in skin color; no itching, rash or lesions; no hair loss; HEENT: No HAs or injury; no dizziness; No difficulty with vision; no eye pain, discharge or lesions; no hearing loss or difficulty; no nasal discharge, NECK: No pain, limitation of motion, lumps or swollen glands RESP: No cough, wheezing or difficulty breathing. No CP with breathing; CARDIO: No CP , SOB or fatigue, No edema, palpitations or dyspnea with exertion GI: No N/V/D or abd. pain; good appetite with no recent change. No heart burn, liver or gallbladderdisease; no rectal bleeding or pain : No urinary pain , frequency or odor. MUSCULOSKELETAL: No muscle pain or cramps; no extremity weakness.No joint pain, stiffness, swellingor limitation of movement NEUROLOGY: No H/O seizures, stroke or fainting. No weakness, tremors. Hematology: No bleeding problems or excessive bruising ENDOCRINE: No increase in hunger, thirst or urination; admits compliance to medical management plan Feet: numbness tingling , ulcers or skin break Lab Results Component Value Date HGBA1C 9.3 02/01/2024 Lab Results Component Value Date GLU 173 02/01/2024 GLU 189 (A) 10/09/2023 GLU 198 (H) 10/09/2023 Visit Vitals BP 104/72 Ht 5' 9 Wt 210 lb BMI 31.01 kg/m Smoking Status Never BSA 2.15 m ASSESSMENT AND PLAN: Assessment/Plan Diagnoses and all orders for this visit: Type 2 diabetes mellitus with hyperglycemia, without long-term current use of insulin ([facility]) - POCT glucose manually resulted - POCT glycosylated hemoglobin (Hb A1C) docked device - empagliflozin (Jardiance) 25 MG; Take 1 tablet (25 mg) by mouth in the morning. Take with meals. We will continue with metformin 1000 twice a day, Actos 45, Jardiance 25 mg, samples given for Jardiance, we will send CGM for Dexcom sensor and reader Primary hypertension ([facility]) Vitamin D deficiency Encounter for dietary consultation Class 1 obesity without serious comorbidity with body mass index (BMI) of 31.0 to 31.9 in adult, unspecified obesity type Diet and exercise reviewed with the patient Follow up in about 4 months (around 06/03/2024). documented in this encounterUniversity of [facility] Health [id number] Evaluation note* Diagnosis Onset Date Resolution Status Admit Date Cervical radiculopathy acute Se ptember 2023 7:41am Rotator cuff syndrome of rig ht shoulder acute January 03, 024 7:41am Cervical radiculopathy acute Oc tober 2023 8:16am Cervical pain (neck) acute Octo ozzie 2023 3:44pm Chronic pain acute January 3:44pm Other spondylosis with radiculopathy, cervical region acute O ctober 2023 3:44pm [facility] Work Phone: 1(651) 440-193407-02-2024 NoteUTP [facility] HPI: Kassi Ocampo is a 48 y.o. male who was referred to cardiology for palpiations. 48 yo male with past medical history including [id number]: Obesity, DANIELLE with Cpap, HTN, Palpitations, DM [...] was long. As such, patient went to [facility] for further evaluation. They recommended coronary angiography, [...] the past 12 months Assessment/Plan: Diabetes mellitus ([facility]) Diabetes is managed by PCP Intermittent palpitations [...] is agreeable wi (more content not included)... [facility]06-19-2024 Hospital Discharge instructions Follow Up Care 10/14/2023 15:51:49 With:Chris Dave Address: [address] [place], [place] [id number] Business (1) When:10/17/2023 17:04:28 Comments:Call for diagnosis based follow up [facility]06-19-2024 Telephone encounter Note* Telephone Encounter - Jinny Galvez APRN.CNP - 10/14/2023 4:55 PM EDT Pt experienced some swelling and tingling in hand and is now at the ER Pt completed ultrasound [facility] Work Phone: 1(180) 524-253806-19-2024 Miscellaneous Notes* Telephone Encounter - Jinny Galvez APRN.CNP - 10/14/2023 4:55 PM EDT Pt experienced some swelling and tingling in hand and is now at the ER Pt completed ultrasound * Telephone Encounter - Tianna Mendes - 10/14/2023 2:39 PM EDT Call from spouse with concern of swelling and tingling at the catheter insertion site. S/p cath on 10/08. Only noticed these symptoms today No redness, some discomfort, some bruising. Call back number [phone] documented in this encounterSum[facility]06-[facility]24 Telephone encounter Note * Telephone Encounter - Tianna Mendes - 10/14/2023 2:39 PM EDT Call from spouse with concern of swelling and tingling at the catheter insertion site. S/p cath on 10/08. Only noticed these symptoms today No redness, some discomfort, some bruising. Call back number [phone] [facility]06-19-2024 Evaluation + Plan noteExtracted from: Title:ED Note Author:Sanjay CARREON, Robinson Siddiqui te:10/14/23 Post surgical complication ( T81.9XXA: Unspecified complication of procedure, initial encounter) Swelling of right wrist (M25.431: Effusion, right wrist) Orders: US UE Venous Duplex Right [facility]06-17-2024 NoteHNO ID: [id number] Author: MILAGROS TURNER MD Service: ? Author Type: Physician Type: Progress Notes Filed: 10/12/2023 08:16 Note Text: .[facility]06-17-2024 History of Present illness Narrative* Milagros Turner MD - 10/12/2023 8:16 AM EDT . documented in this encounterSumma Health06-13-2024 Telephone encounter Note * Telephone Encounter - [...] Lisa Martínez RN. In Department of CARDIOLOGY. [facility]06-13-2024 Miscellaneous Notes* Telephone Encounter - Lisa Martínez [...] In Department of CARDIOLOGY. documented in this encounterSumma Health06-07-2024 Telephone encounter Note * Telephone Encounter - Florentino Frost - 10/02/2023 4:52 PM EDT Saved medical records to scanned documents. [facility]06-07-2024 Miscellaneous Notes* Telephone Encounter - Florentino Frost - 10/02/2023 4:52 PM EDT Saved medical records to scanned documents. documented in this encounterSumma Health06-05-2024 Telephone encounter Note * Telephone Encounter - Florentino Frostoine - 09/30/2023 3:13 PM EDT Rec'd images. Uploaded via [facility] dtd 07/10/23 NM Stress dtd 09/16/23 [facility]06-05-2024 Miscellaneous Notes* Telephone Encounter - Florentino Frost - 09/30/2023 3:13 PM EDT Rec'd images. Uploaded via [employer] [employer] d[employer] 07/10/23 NM Stress dtd 09/16/23 documented in this encounterSumma Health06-05-2024 NoteCholesterol Ratio (LDL/HDL)September 30, 2023 10:42am2.14<2.54Reference:1. National Cholesterol Education Program ATP III Guideline At-A-Glance Quick Desk Reference: National Heart, Lung, and Blood [place]. National Institutes of Health. 2001: NIH PublicationNo. 01-3305.2. An International Atherosclerosis Society position paper: global recommendations for the management of dyslipidemia: executive summary, Atherosclerosis. 2014: 232(2):410-413.[facility] Comment on above:Reference:1. National Cholesterol Education Program ATP III Guideline At-A-Glance Quick Desk Reference: National Heart, Lung, and Blood [place]. National Institutes of Health. 2001: NIH PublicationNo. 3305.2. An International Atherosclerosis Society position paper: global recommendations for the management of dyslipidemia: executive summary, Atherosclerosis. 2014: 232(2):410413.09-30-2023 NoteCholesterol Ratio (LDL/HDL)September 30, 2023 10:42am 2.14<2.54Reference:1. National Cholesterol Education Program ATP III Guideline At-A-Glance Quick Desk Reference: National Heart, Lung, and Blood [place]. National Institutes of Health. 2001: NIH PublicationNo. 3305.2. An International Atherosclerosis Society position paper: global recommendations for the management of dyslipidemia: executive summary, Atherosclerosis. 2014: 232(2):410-413.[facility] HospitalComment on above:Reference:1. National Cholesterol Education Program ATP III Guideline At-A-Glance Quick Desk Reference: National Heart, Lung, and Blood [place]. National Institutes of Health. 2001: NIH PublicationNo. 3305.2. An International Atherosclerosis Society position paper: global recommendations for the management of dyslipidemia: executive summary, Atherosclerosis. 2014: 232(2):410-413. 09-30-2023 NoteCholesterol Ratio (LDL/HDL)September 30, 2023 10:42am2.14<2.54 Reference:1. National Cholesterol Education Program ATP III Guideline At-A-Glance Quick Desk Reference: National Heart, Lung, and Blood [place]. National Institutes of Health. 2001: NIH PublicationNo. 3305.2. An International Atherosclerosis Society position paper: global recommendations for the management of dyslipidemia: executive summary, Atherosclerosis. 2014: 232(2):410-413.[facility] HospitalComment on above:Reference:1. National Cholesterol Education Program ATP III Guideline At-A-Glance Quick Desk Reference: National Heart, Lung, and Blood [place]. National Institutes of Health. 2001: NIH PublicationNo. 3305.2. An International Atherosclerosis Society position paper: global recommendations for the management of dyslipidemia: executive summary, Atherosclerosis. 2014: 232(2):410-413. 09-30-2023 NoteCholesterol Ratio (LDL/HDL)September 30, 2023 10:42am2.14<2.54 Reference:1. National Cholesterol Education Program ATP III Guideline At-A-Glance Quick Desk Reference: National Heart, Lung, and Blood [place]. National Institutes of Health. 2000: NIH PublicationNo. .2. An International Atherosclerosis Society position paper: global recommendations for the management of dyslipidemia: executive summary, Atherosclerosis. 2014: 232(2):410-413.[facility] HospitalComment on above:Reference:1. National Cholesterol Education Program ATP III Guideline At-A-Glance Quick Desk Reference: National Heart, Lung, and Blood [place]. National Institutes of Health. 2001: NIH PublicationNo. .2. An International Atherosclerosis Society position paper: global recommendations for the management of dyslipidemia: executive summary, Atherosclerosis. 2014: 232(2):410-413. 09-30-2023 History of Present illness Narrative* Milagros Turner MD - 09/30/2023 8:45 AM EDT Images from the original note were not included. [facility] [place] Vinny Mclaughlin Department of Cardiovascular Medicine SECTION [...] on file. HISTORY OF PRESENT ILLNESS: Mr. Ocampo is a 48 year old male who presents today - CPOE RF DMx18y, male, Body mass index is 32.08 kg/m . 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 There are no contraindications to the procedure. Kassi Carvajal Anthonyvaleri expressed understanding and agreed to proceed. TCI [...] a second opinion. He was seeing a stitch welder in [place] for palpitations/fluttering that started about one year ago when he was taking Trulicity injections. That stitch welder had him do an echocardiogram and a stress test. He was told thestress test was abnormal and it was suggested he have a CT scan and a heart cath, but the testing was not available in [place] until October. 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 Wcykteiibsljv-Yjmfbxvp-Etosyj (MULTIVITAMIN 50 PLUS) tab Take 1 tablet [...] for review. OSH testing above IMPRESSION: Mr. Ocampo is a 48 year old male - CPOE RF DMx18y, male, Body mass index is 32.08 kg/m . 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 he needs to clear being off 5-7 days post procedure for being cloth layer Tent Thursday The procedure including risks, benefits, options and personnel performing the procedure was discussed with the patient. There are no contraindications to the procedure. Kassi Ocampo expressed understanding and agreed to proceed. TCI [...] 12.5/pm -?HLP Rx as indicated . Milagros Turner MD September 30, 2023 10:22 AM documented in this encounterSumma Health06-05-2024 NoteHNO ID: [id number] Author: MILAGROS TURNER MD Service: ? Author Type: Physician Type: Progress Notes Filed: 09/30/2023 10:52 Note Text: [facility] [place] [facility] Department of Cardiovascular Medicine SECTION [...] on file. HISTORY OF PRESENT ILLNESS: Mr. Ocampo is a 48 year old male who presents today - CPOE RF DMx18y, male, Body mass index is 32.08 kg/m?. 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 There are no contraindications to the procedure. Kassi Ocampo expressed understanding and agreed to proceed. TCI [...] a second opinion. He was seeing a stitch welder in [place] for palpitations/fluttering that started about one year ago when he was taking Trulicity injections. That stitch welder had him do an echocardiogram and a stress test. He was told the stress test was abnormal and it was suggested he have a CT scan and a heart cath, but the testing was not available in [place] until October. 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01[facility] Evaluation note* Encounter Date Diagnosis Assessment Notes Treatment Notes Treatment Clinical Notes Apr, DANIELLE (obstructive sleep apnea) (ICD-10 - G47.33) AHI 17, Psat 79% [facility] 12-01-2023 Evaluation note* Encounter Date Diagnosis [...] Microalbumin, Dilated eye exam and Foot exam [facility] Other 11-16-2023 Evaluation note* Encounter Date Diagnosis Assessment Notes Treatment Notes Treatment Clinical Notes Feb, Controlled type 2 diabetes mellitus with hyperglycemia, without long-term current use of insulin (ICD-10 - E11.65) 16 Feb, 2023 Type 2 diabetes mellitus with hyperglycemia (ICD-10 - E11.65) [facility] Other 11-14-2023 Evaluation note* Encounter Date Diagnosis Assessment Notes Treatment Notes Treatment Clinical Notes Feb, Rupture of right quadriceps tendon, initial encounter (ICD-10 - S76.111A) Feb, Acute non-recurrent frontal sinusitis (ICD-10 - J01.10) Feb, Acute non-recurrent maxillary sinusitis (ICD-10 - J01.00) Feb, Type 2 diabetes mellitus with diabetic polyneuropathy, without long-term current use of insulin (ICD-10 - E11.42) [facility] Other 11-14-2023 Evaluation note* Encounter Date Diagnosis Assessment Notes Treatment Notes Treatment Clinical Notes Feb, Controlled type 2 diabetes mellitus with hyperglycemia, without long-term current use of insulin (ICD-10 - E11.65) Feb, Type 2 diabetes mellitus with hyperglycemia (ICD-10 - E11.65) [facility] Other 11-10-2023 Evaluation note* Encounter Date Diagnosis Assessment Notes Treatment Notes Treatment Clinical Notes Feb, Intermittent palpitations (ICD-10 - R00.2) Feb, Heart murmur (ICD-10 - R01.1) Feb, Primary hypertension (ICD-10 - I10) [facility] Other 10-23-2023 Evaluation note* Encounter Date Diagnosis [...] index [BMI] 34.0-34.9, adult (ICD-10 - Z68.34) [facility] Other 10-16-2023 Evaluation note* Encounter Date Diagnosis Assessment Notes Treatment Notes Treatment Clinical Notes Jan, Controlled type 2 diabetes mellitus with hyperglycemia, without long-term current use of insulin (ICD-10 - E11.65) [facility] Other 10-09-2023 Evaluation note* Encounter Date Diagnosis Assessment Notes Treatment Notes Treatment Clinical Notes Jan, Controlled type 2 diabetes mellitus with hyperglycemia, without long-term current use of insulin (ICD-10 - E11.65) [facility] Other 09-27-2023 Evaluation note* Encounter Date Diagnosis Assessment Notes Treatment Notes Treatment Clinical Notes Dec, Acute non-recurrent maxillary sinusitis (ICD-10 - J01.00) Instructed to use Robitussin or Mucinex for cough, saline or Flonase NS for congestion, Tylenol for pain and fever. Dec, Primary hypertension (ICD-10 - I10) Avoid use of decongestants w/ BP meds [facility] Other 09-13-2023 Evaluation note* Encounter Date Diagnosis [...] Patient can f/u on a PRN basis. [facility] Other 08-03-2023 Evaluation note* Encounter Date Diagnosis Assessment Notes Treatment Notes Treatment Clinical Notes Nov, Acute non-recurrent maxillary sinusitis (ICD-10 - J01.00) Instructed to use Robitussin or Mucinex for cough, saline or Flonase NS for congestion, Tylenol for pain and fever. [facility] Other 07-19-2023 Evaluation note* Encounter Date Diagnosis Assessment Notes Treatment Notes Treatment Clinical Notes Oct, Rupture of right quadriceps tendon, initial encounter (ICD-10 - S76.111A) Rx given for Medrol Dosepak. We will also submit for [facility] approval for cortisone injection bilateral knees and MRI of bilateral knees. Patient instructed on the use of Voltaren Gel in the meantime as he is unable to take oral NSAIDs Oct, Rupture of left quadriceps tendon, initial encounter (ICD-10 - S76.112A) [facility] Other 06-27-2023 Evaluation note* Encounter Date Diagnosis [...] Discussed choices and mutually agreed on Cologuard [facility] Other 04-04-2023 Evaluation note* Encounter Date Diagnosis [...] Notify office w/ fever or purulent drainage [facility] Other 02-14-2023 Evaluation note* Encounter Date Diagnosis Assessment Notes Treatment Notes Treatment Clinical Notes May, Rupture of right quadriceps tendon, initial encounter (ICD-10 - S76.111A) Patient returns to recheck bilateral knees. Bilateral knee cortisone injections given on 02/21/2022. Bilateral patella tendon repair ([facility] DOS 06/02/2020). Patient states he has [...] quadriceps tendon, initial encounter (ICD-10 - S76.112A) [facility] Other 01-06-2023 Evaluation note* Encounter Date Diagnosis [...] quadriceps tendon, initial encounter (ICD-10 - S76.112A) [facility] Other 12-02-2022 Evaluation note* Encounter Date Diagnosis Assessment Notes Treatment Notes Treatment Clinical Notes Mar, Rupture of right quadriceps tendon, initial encounter (ICD-10 - S76.111A) We will submit for [facility] approval for Lidocaine Patches, Voltaren Gel, and Copper Fit Knee Sleeves Mar, Rupture of left quadriceps tendon, initial encounter (ICD-10 - S76.112A) [facility] Other 12-02-2022 Evaluation note* Encounter Date Diagnosis Assessment Notes Treatment Notes Treatment Clinical Notes Mar, Rupture of right quadriceps tendon, initial encounter (ICD-10 - S76.111A) Mar, Rupture of left quadriceps tendon, initial encounter (ICD-10 - S76.112A) [facility] Other 10-28-2022 Evaluation note* Encounter Date Diagnosis Assessment Notes Treatment Notes Treatment Clinical Notes Jan, Rupture of right quadriceps tendon, initial encounter (ICD-10 - S76.111A) Bilateral knees injected with cortisone under sterile technique, patient tolerated well. Patient also instructed on the use of topical Voltaren Gel and Lidocaine Patches, Rx given Jan, Rupture of left quadriceps tendon, initial encounter (ICD-10 - S76.112A) [facility] Other 08-12-2022 Evaluation note* Encounter Date Diagnosis Assessment Notes Treatment Notes Treatment Clinical Notes Nov, Rupture of right quadriceps tendon, initial encounter (ICD-10 - S76.111A) Continue use of Naproxen. We will check labs at return appointment Nov, Rupture of left quadriceps tendon, initial encounter (ICD-10 - S76.112A) [facility] Other 07-15-2022 Evaluation note* Encounter Date Diagnosis Assessment Notes Treatment Notes Treatment Clinical Notes Oct, Rupture of right quadriceps tendon, initial encounter (ICD-10 - S76.111A) Patient instructed on the use of NSAID regularly, RX Naproxen. We will also submit for [facility] approval for physical therapy with modalities. May consider cortisone injection in future - will submit for [facility] approval for injection Oct, Rupture of left quadriceps tendon, initial encounter (ICD-10 - S76.112A) [facility] Other 03-22-2022 Evaluation note* Encounter Date Diagnosis Assessment Notes Treatment Notes Treatment Clinical Notes Jun, Rupture of right quadriceps tendon, initial encounter (ICD-10 - S76.111A) Activity as tolerated Jun, Rupture of left quadriceps tendon, initial encounter (ICD-10 - S76.112A) [facility] Other 01-25-2022 Evaluation note* Encounter Date Diagnosis [...] quadriceps tendon, initial encounter (ICD-10 - S76.112A) [facility] Other 11-24-2021 Evaluation note* Encounter Date Diagnosis Assessment Notes Treatment Notes Treatment Clinical Notes Feb, Rupture of right quadriceps tendon, initial encounter (ICD-10 - S76.111A) Take NSAID regularly. Continue working 20 hours per week and current weight limitations until after first of year then increase to 30 hours per week. Feb, Rupture of left quadriceps tendon, initial encounter (ICD-10 - S76.112A) [facility] Other 02-06-2021 History general Narrative - Reported* Type Description Date Medical History DM Surgical History bilateral patella tendon repair 06/02/20 [facility] Other 02-06-2021 History general Narrative - Reported* Type Description Date Medical History DM Medical History bilateral quadriceps tendon rupt ure Surgical History bilateral patella tendon repair 06/02/20 [facility] Other Evaluation noteNo InformationNort Any.DO Other Evaluation noteNo assessment information available [facility] Work Phone: Evaluation note* Diagnosis Onset Date Resolution Status Rupture of left quadriceps muscle acute Rupture of right quadriceps tendon acute [facility] Work Phone: Evaluation note* Diagnosis Hyperlipidemia LDL goal <70- Primary Other and unspecified hyperlipidemia Abnormal stress test Other nonspecific abnormal cardiovascular system function study Type 2 diabetes mellitus with other circulatory complication, without long-term current use of insulin ([facility]) Class 1 obesity due to excess calories with serious comorbidity and body mass index (BMI) of 32.0 to 32.9 in adult Hypertension goal BP (blood pressure) < 140/80 Unspecified essential hypertension Abnormal stress test Other nonspecific abnormal cardiovascular system function study [facility] Diagnosis OPENED IN ERROR- Primary To allow closing an encounter opened in error (used in SmartSet) [facility] Diagnosis Onset Date Resolution Status Cervical radiculopathy acute Rotator cuff syndrome of right shoulder acute [facility] Work Phone: Evaluation note* Diagnosis Onset Date Resolution Status Cervical radiculopathy acute Rotator cuff syndrome of right shoulder acute Obesity acute DANIELLE (obstructive sleep apnea) acute Primary hypertension acute Type 2 diabetes mellitus with hyperglycemia acute Wellness examination noneact martha [facility] Work Phone: Evaluation note* Diagnosis Onset Date Resolution Status Cervical radiculopathy acute Rotator cuff syndrome of right shoulder acute Obesity acute DANIELLE (obstructive sleep apnea) acute Primary hypertension acute Type 2 diabetes mellitus with hyperglycemia acute Wellness examination noneact martha Cervical radiculopathy acute Rotator cuff syndrome of right shoulder acute [facility] Work Phone: Evaluation note* Diagnosis Onset Date Resolution Status Cervical radiculopathy acute Rotator cuff syndrome of right shoulder acute Obesity acute DANIELLE (obstructive sleep apnea) acute Primary hypertension acute Type 2 diabetes mellitus with hyperglycemia acute Wellness examination noneact martha Cervical radiculopathy acute Rotator cuff syndrome of right shoulder acute Cervical radiculopathy acute Rotator cuff syndrome of right shoulder acute [facility] Work Phone: Evaluation note* Diagnosis Onset Date Resolution Status Obesity acute DANIELLE (obstructive sleep apnea) acute Primary hypertension acute Type 2 diabetes mellitus with hyperglycemia acute Wellness examination noneact martha Cervical radiculopathy acute Rotator cuff syndrome of right shoulder acute Cervical radiculopathy acute Rotator cuff syndrome of right shoulder acute [facility] Work Phone: Evaluation note* Diagnosis Type 2 diabetes mellitus with hyperglycemia, without long-term current use of insulin ([facility])- Primary Primary hypertension ([facility]) Unspecified essential hypertension Vitamin D deficiency Encounter for dietary consultation Class 1 obesity without serious comorbidity with body mass index (BMI) of 31.0 to 31.9 in adult, unspecified obesity type documented in this encounter [facility] HealthcareEvaluation note* Diagnosis Type 2 diabetes mellitus with hyperglycemia, unspecified whether half-way insulin use (CMS/[facility]) documented in this encounter [facility] HealthcareEvaluation [facility]* Diagnosis Type 2 diabetes mellitus with hyperglycemia, 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 ([facility]) documented in this encounter [facility] HealthcareEvaluation note* Diagnosis Onset Date Resolution Status Cervical radiculopathy acute Rotator cuff syndrome of right shoulder acute Cervical radiculopathy acute Rotator cuff syndrome of right shoulder acute Cervical radiculopathy acute Cervical pain (neck) acute Chronic pain acute Other spondylosis with radiculopathy, cervical region acute [facility] Work Phone: Evaluation note* Diagnosis Type 2 diabetes mellitus with hyperglycemia, without long-term current use of insulin (CMS/HCC)- Primary Primary hypertension (CMS/HCC) Unspecified essential hypertension Vitamin D deficiency Encounter for dietary consultation Class 1 obesity due to excess calories with serious comorbidity and body mass index (BMI) of 32.0 to 32.9 in adult documented in this encounter [facility] HealthcareEvaluation note* Diagnosis Type 2 diabetes mellitus with hyperglycemia, without long-term current use of insulin (CMS/[facility])- Primary documented in this encounter [facility] HealthcareEvaluation note* Diagnosis Onset Date Resolution Status Admit Date Rupture of left quadriceps muscle acute June 24, 2 025 7:59am Rupture of right quadriceps tendon acute June 24, 025 7:59am [facility] Work Phone: Evaluation note* Diagnosis Type 2 diabetes mellitus with hyperglycemia, without long-term current use of insulin (CMS/[facility])- Primary Primary hypertension (CMS/HCC) Unspecified essential hypertension Vitamin D deficiency Encounter for dietary consultation Class 1 obesity due to excess calories with serious comorbidity and body mass index (BMI) of 33.0 to 33.9 in adult documented in this encounter [facility] HealthcareHistory general Narrative - Reported* Type Description Date [...] repair 06/02/20 Hospitalization History SEE SURGICAL HX [facility] Other History general Narrative - Reported* Type [...] repair 06/02/20 Hospitalization History SEE SURGICAL HX [facility] Other History of Present illness Narrative* Susan Bennett MD - 09/14/2024 2:40 PM EDT Kassi Ocampo is a 49 y.o. male No ref. provider found presents with chief complaint of Diabetes and Follow-up HPI: History of Present Illness The patient presents for a follow-up of diabetes. He has been unable to initiate Mounjaro due to financial constraints. Concerns about the affordability of continuous glucose monitoring devices were expressed, and he inquired about the possibility of using a fingerstick glucometer instead. He mentioned having an older model from [facility] at home. He recalled that his insurance did not cover Januvia when it was previously prescribed. Currently, he is on a regimen of metformin 1000 mg twice daily, Actos 45 mg, and Jardiance 25 mg, and reports adherence to this medication schedule. He has not yet incorporated Mounjaro into his treatment plan. Additionally, he noted that glipizide induces hunger, which could potentially lead to weight gain. Interim history on 05/2024 Follow up visit on 06/06/2024. A1c 9.6 blood sugar 154 and he is on metformin 1000 twice a day, Actos 45 and Jardiance 25. DEXCOM not covered. Interim history on 01/2024 Follow up visit on 02/01/2024. A1c 9.3 blood sugar 173 and he is on metformin 1000 twice a day, Actos 45 and Jardiance 25. Asking for DEXCOM . Interim history on 09/2023 Follow up visit on 10/20/2023. A1c 10.9, blood sugar 246 and he is on currently metformin 500 twice a day, Actos 30 and Jardiance 25. He has coronary artery disease, no stent done. He lost weight, butsugars get up. HPI: 06/2023 New patient came by himself. A1c in with his labs recently 6.5; blood sugar in our office 245; in lab back in January 2023 was 8.1; kidney function within normal limits; and total cholesterol 157, HDL 42, LDL 92; urine microalbumin 12.3. Currently, he is on glimepiride 2 mg once a day, metformin 500 twice a day, Actos 30. He used to be on Trulicity, gave him palpitations, now doing well. Januvia does not work for him and he has come here for second opinion. SUBJECTIVE: MEDICATIONS: Current Outpatient Medications Medication Instructions aspirin 81 mg, Daily RT atorvastatin (LIPITOR) 10 mg, Daily Continuous Glucose [employer] (Dexcom G7 [employer]) device 1 kit, Subcutaneous, Continuous doxepin (SINEquan) 10 MG capsule TAKE 1 TO 2 CAPSULES BY MOUTH EVERY DAY AT BEDTIME empagliflozin (JARDIANCE) 25 mg, Oral, Daily with breakfast lisinopril 5 MG tablet 1 tablet, Daily RT metFORMIN (Glucophage) 500 MG tablet 1 tablet, 2 times daily with meals metFORMIN (GLUCOPHAGE) 1,000 mg, Oral, 2 times daily metoprolol succinate XL (TOPROL-XL) 12.5 mg, Nightly naproxen (EC NAPROSYN) 500 mg, 2 times daily with meals pioglitazone (ACTOS) 45 mg, Daily RT pioglitazone (ACTOS) 45 mg, Oral, Daily SITagliptin (JANUVIA) 100 mg, Oral, Daily ALLERGIES: Allergies Allergen Reactions Dulaglutide Palpitations Januvia [Sitagliptin] Other Chest pain Past Medical History: Diagnosis Date Diabetes mellitus (CMS/HCC) Hypertension (CMS/HCC) Vitamin D deficiency, unspecified Past Surgical History: Procedure Laterality Date EYE SURGERY KNEE SURGERY Bilateral REVIEW OF SYMPTOMS: 14 POINT OF SYSTEM REVIEWED AND NEGATIVE OBJECTIVE: Constitutional: Afebrile @ home; no weakness or night sweats SKIN: No change in skin color; no itching, rash or lesions; no hair loss; HEENT: No HAs or injury; no dizziness; No difficulty with vision; no eye pain, discharge or lesions; no hearing loss or difficulty; no nasal discharge, NECK: No pain, limitation of motion, lumps or swollen glands RESP: No cough, wheezing or difficulty breathing. No CP with breathing; CARDIO: No CP , SOB or fatigue, No edema, palpitations or dyspnea with exertion GI: No N/V/D or abd. pain; good appetite with no recent change. No heart burn, liver or gallbladderdisease; no rectal bleeding or pain : No urinary pain , frequency or odor. MUSCULOSKELETAL: No muscle pain or cramps; no extremity weakness.No joint pain, stiffness, swellingor limitation of movement NEUROLOGY: No H/O seizures, stroke or fainting. No weakness, tremors. Hematology: No bleeding problems or excessive bruising ENDOCRINE: No increase in hunger, thirst or urination; admits compliance to medical management plan Feet: numbness tingling yes , ulcers or skin break no Lab Results Component Value Date HGBA1C 9.0 09/14/2024 HGBA1C 9.6 06/06/2024 HGBA1C 9.3 02/01/2024 Lab Results Component Value Date GLU 203 09/14/2024 GLU 154 06/06/2024 GLU 173 02/01/2024 10/07/2023 4:10 PM 10/20/2023 11:47 AM 02/01/2024 11:24 AM 06/06/2024 3:06 PM 09/14/2024 1:51 PM Vitals BMI 32.34 kg/m2 32.99 kg/m2 31.01 kg/m2 32.36 kg/m2 33.15 kg/m2 BSA (m2) 2.2 m2 2.17 m2 2.15 m2 2.18 m2 2.18 m2 Systolic 120 112 104 100 104 Diastolic 78 82 72 82 64 Heart Rate 65 73 88 75 SpO2 99 % 98 % 99 % 99 % Resp 16 16 18 16 Height (in) 5' 9 5' 8 5' 9 5' 8.5 5' 8 Weight (lb) 219 217 210 216 218 Visit Report Report Report Report Report ASSESSMENT AND PLAN: Assessment/Plan Diagnoses and all orders for this visit: Type 2 diabetes mellitus with hyperglycemia, without long-term current use of insulin ([facility]) - POCT glucose manually resulted - POCT glycosylated hemoglobin (Hb A1C) docked device - SITagliptin (Januvia) 100 MG tablet; Take 1 tablet (100 mg) by mouth Daily Primary hypertension ([facility]) Vitamin D deficiency Encounter for dietary consultation Class 1 obesity due to excess calories with serious comorbidity and body mass index (BMI) of 33.0 to 33.9 in adult Diet and exercise reviewed with the patient Assessment & Plan 1. Diabetes Mellitus: - A1c level has improved from 9.6 to 9. Blood glucose level is 203. - Currently on metformin 1000 mg twice a day, Actos 45 mg, and Jardiance 25 mg. - Discussed the addition of Januvia to his treatment plan. Advised to monitor blood glucose levels once daily at varying times. - Januvia will be added to his regimen. Advised to purchase a meter and strips from [employer] for blood glucose monitoring. Follow-up: The patient will follow up in 3 months. [facility] Narrative No data available for this section [facility] Dis[facility] instructions Additional Instructions Ice to the [...] bladder or bowel control or any other [facility] Work Phone: Hospital Discharge instructionsAmbulatory Orders* Referral to Pain Management Location: None Selected * Referral to PT / OT / Speech (PT/OT/SP) Location: None Selected [facility] Work Phone: Progress note No data available for this section [facility] HealthcareReason for referral (narrative)* Outpatient Procedure (Routine) - [...] ECHO TTHRC R-T 2D W/WOM-MODE COMPL SPEC&COLR Milagros Fuller MD [address] [place] [address] [facility] [place] [address] [place] [address] Referral ID Status Reason Start Date Expiration Date Visits Requested Visits Authorized [id number] Pending Review Auto-Generat ed Referral 09/30/2023 09/29/2024 1 1 * Outpatient Procedure (Routine) - Pending Review Specialty Diagnoses / Procedures Referred By Contac t Referred To Contact [facility] [place] Diagnoses Hyperlipidemia LDL goal <70 Abnormal stress test Type 2 diabetes mellitus with other circulatory complication, without long-term current use of insulin (HCC) Class 1 obesity due to excess calories with serious comorbidity and body mass index (BMI) of 32.0 to 32.9 in adult Hypertension goal BP (blood pressure) < 140/80 Procedures ECG COMPLETE ECG ROUTINE ECG W/LEAST 12 LDS W/I&R Milagros Turner MD [address] [place] [address] [facility] [address] [address] Referral ID Status Reason Start Date Expiration Date Visits Requested Visits Authorized [id number] Pending Review Auto-Generat ed Referral 09/30/2023 09/29/2024 1 1 * Transition of Care (Routine) - Ref Not Required Specialty Diagnoses / Procedures Referred By Contreba t Referred To Contact [facility] [place] Procedures CARDIOVASCULAR MEDICINE OP FOLLOW UP APPT ORDER Milagros Turner MD [address] [place] [address] [facility] [address] [address] Referral ID Status Reason Start Date Expiration Date Visits Requested Visits Authorized [id number] Ref Not Required PCP Requested Referral 07/01/2024 09/29/2024 1 1 * Outpatient Procedure (Routine) - Closed Specialty Diagnoses / Procedures Referred By Contac t Referred To Contact [facility] [place] Diagnoses Hyperlipidemia LDL goal <70 Abnormal stress test Procedures ECG COMPLETE ECG ROUTINE ECG W/LEAST 12 LDS W/I&R Milagros Turner MD [address] [place] [address] [facility] [address] [address] Referral ID Status Reason Start Date Expiration Date V isits Requested Visits Authorized [id number] Closed Auto-Generate d Referral 09/30/2023 09/29/2024 1 1 [facility] Summary Purpose Family History No Family History [...] Advance Directives No June 01, 2020 4:34pm Advance Directive Response Recorded Date/ Time Advance Directives No December 12:05pm Advance Directive Response Recorded Date/ Time Advance Directives No December 11:05am Chief Complaint and Reason for Visit Chief [...] 2 diabetes mellitus with hyperglycemia Wellness examination Chief Complaint M25.511 m54.2 NEW RT SHOULDER/ARM PAIN NX Wellness R shoulder rotator cuff 8 WEEK RECHECK Reason for Visit Cervical radiculopat hy Rotator cuff syndrome of right shoulder Obesity DANIELLE (obstructive sleep apnea) Primary hypertension Type 2 diabetes mellitus with hyperglycemia Wellness examination Cervical radiculopathy Rotator cuff syndrome of right shoulder Chief Complaint M25.511 m54.2 NEW RT SHOULDER/ARM PAIN NX Wellness R shoulder rotator cuff 8 WEEK RECHECK M54.12 Reason for Visit Cervical radiculopat hy Rotator cuff syndrome of right shoulder Obesity DANIELLE (obstructive sleep apnea) Primary hypertension Type 2 diabetes mellitus with hyperglycemia Wellness examination Cervical radiculopathy Rotator cuff syndrome of right shoulder Chief Complaint M25.511 m54.2 NEW RT SHOULDER/ARM PAIN NX Wellness R shoulder rotator cuff 8 WEEK RECHECK M54.12 MRI RESULTS Reason for Visit Cervical radiculopat hy Rotator cuff syndrome of right shoulder Obesity DANIELLE (obstructive sleep apnea) Primary hypertension Type 2 diabetes mellitus with hyperglycemia Wellness examination Cervical radiculopathy Rotator cuff syndrome of right shoulder Cervical radiculopathy Rotator cuff syndrome of right shoulder Chief Complaint Wellness R shoulder rotator cuff 8 WEEK RECHECK M54.12 MRI RESULTS Radiculopathy, cervical region Reason for Visit Obesity DANIELLE (obstructive sleep apnea) Primary hypertension Type 2 diabetes mellitus with hyperglycemia Wellness examination Cervical radiculopathy Rotator cuff syndrome of right shoulder Cervical radiculopathy Rotator cuff syndrome of right shoulder Chief Complaint R shoulder rotator c uff 8 WEEK RECHECK M54.12 MRI RESULTS Radiculopathy, cervical region Cervical Radiculopathy REFF BY DR. RAÚL HARVEY Reason for Visit Cervical radiculopat hy Rotator cuff syndrome of right shoulder Cervical radiculopathy Rotator cuff syndrome of right shoulder Cervical radiculopathy Cervical pain (neck) Chronic pain Other spondylosis with radiculopathy, cervical region Chief Complaint Admit Date M54.12 December 30, 2023 6:41am MRI RESULTS January 04, 2024 7:41am Radiculopathy, cervical region January 312023 8:16am REFF BY DR. RAÚL HARVEY February 23, 2024 3:44pm Cervical Radiculopathy March 01 4:15pm Reason for Visit Admit Date Cervical radiculopathy January 03 7:41am Rotator cuff syndrome of right shoulder January 04, 2024 7:41am Cervical radiculopathy February 01, 2024 8:16am Cervical pain (neck) February 23, 2024 3:44pm Chronic pain February 23, 2024 3 :44pm Other spondylosis with radiculopathy, ce rvical region February 23, 2024 3:44pm Chief Complaint Admit Date M54.12 December 30, 2023 6:41am MRI RESULTS January 04, 2024 7:41am Radiculopathy, cervical region January 312023 8:16am REFF BY DR. RAÚL HARVEY February 23, 2024 3:44pm Cervical Radiculopathy March 08 4:15pm M54.12 March 09, 2024 12:06pm Chief Complaint Admit Date REFF BY DR. RAÚL HARVEY February 23, 2024 3:44pm M54.March 09, 2024 12:06pm Cervical Radiculopathy March 31 4:15pm Reason for Visit Admit Date Cervical pain (neck) February 23, 2024 3:44pm Chronic pain February 23, 2024 3 :44pm Other spondylosis with radiculopathy, ce rvical region February 23, 2024 3:44pm Chief Complaint Admit Date Cervical Radiculopathy March 31 4:15pm 1 year recheck June 24, 2024 7:59am Reason for Visit Admit Date Rupture of left quadriceps muscle Februa ry 2024 7:59am Rupture of right quadriceps tendon Febru deepthi 2024 7:59am Additional Source Comments (unrecognized sect ion and content) No Status Records FoundNo Status Records FoundNo Status Records FoundNo Status Records FoundNo Status Records FoundNo Status Records FoundNo Status Records FoundNo Status Records Found INFORMATION SOURCE (unrecogn ized section and content) DATE CREATED AUTHOR 10/20/2017 [facility] DATE CREATED AUTHOR AUTHOR'S ORGANIZ ATION 07/05/2022 [facility] DATE CREATED AUTHOR AUTHOR'S ORGANIZ ATION 10/16/2023 [facility] DATE CREATED AUTHOR AUTHOR'S ORGANIZ ATION 10/18/2023 [facility] DATE CREATED AUTHOR AUTHOR'S ORGANIZ ATION 10/18/2023 [facility] DATE CREATED AUTHOR AUTHOR'S ORGANIZ ATION 05/28/2024 [facility] DATE CREATED AUTHOR AUTHOR'S ORGANIZ ATION 09/21/[address] [facility] DATE CREATED AUTHOR AUTHOR'S ORGANIZ ATION 10/08/2024 [facility] REASON FOR VISIT (unrecogniz ed section and content) Reason Comments New Patient Reason Comments Received Outside Medical Records [facility] Reason Comments Received Outside Medical Records Reason Comments Patient Education Reason Comments Diabetes Follow-up Reason Comments Med Refill Reason Onset Date Comments Medication Problem 06/14/2024 Care Teams (unrecognized sec tion and content) Team Status: Active Member Role Status Dates José Miguel Guerra DO Primary Care Provider Active Team Status: Inactive Member Role Status Dates José Miguel Guerra DO Primary Care Provider Active Start: December 30, 2023 End: December 30, 2023 Shravan Hutchison DO Attending Provider Active St art: December 30, 2023 End: December 30, 2023 Team Status: Inactive Member Role Status Dates José Miguel Guerra DO Primary Care Provider Active Start: January 04, 2024 End: January 04, 2024 Shravan Hutchison DO Attending Provider Active St art: January 04, 2024 End: January 04, 2024 Team Status: Inactive Member Role Status Dates José Miguel Guerra DO Primary Care Provider Active Start: February 01, 2024 End: February 01, 2024 Raúl Harvey , Attending Provider Active S tart: February 01, 2024 End: February 01, 2024 Team Status: Inactive Member Role Status Dates José Miguel Guerra DO Primary Care Provider Active Start: February 23, 2024 End: February 23, 2024 Salvador Sanchez MD Attending Provider Active Sta rt: February 23, 2024 End: February 23, 2024 Raúl Harvey , Referring Provider Active S tart: February 23, 2024 End: February 23, 2024 Team Status: Active Member Role Status Dates José Miguel Guerra DO Primary Care Provider Active Start: March 01, 2024 Raúl Harvey DO Attending Provider Active S tart: March 01, 2024 Team Status: Active Member Role Status Dates José Miguel Guerra DO Primary Care Provider Active Start: December 07, 2023 Shravan Hutchison DO Attending Provider Active St art: December 07, 2023 Team Status: Inactive Member Role Status Susan Guerra DO Primary Care Provider Active Start: December 08, 2023 End: December 08, 2023 Shravan Hutchison DO Attending Provider Active St art: December 08, 2023 End: December 08, 2023 Team Status: Active Member Role Status Dates José Miguel Guerra DO Primary Care Provider Active Start: February 17, 2024 Raúl Harvey , DO Attending Provider Active S tart: February 17, 2024 Team Status: Inactive Member Role Status Dates José Miguel Guerra DO Primary Care Provide r, Attending Provider Active Start: November 04, 2023 End: November 04, 2023 Team Status: Active Member Role Status Dates José Miguel Guerra DO Primary Care Provide r, Attending Provider Active Start: November 13, 2023 Team Status: Active Member Role Status Dates José Miguel Guerra DO Primary Care Provider Active Start: September 30, 2023 Milagros Turner MD Attending Provider Active Start: September 30, 2023 Team Status: Active Member Role Status Dates José Miguel Guerra DO Primary Care Provider Active Start: October 09, 2023 Milagros Turner MD Attending Provider Active Start: October 09, 2023 Team Status: Active Member Role Status Dates José Miguel Guerra DO Primary Care Provider Active Start: October 13, 2023 Shravan Hutchison DO Attending Provider Active St art: October 13, 2023 Team Status: Inactive Member Role Status Dates José Miguel Guerra DO Primary Care Provider Active Start: October 13, 2023 End: October 13, 2023 Shravan Hutchison DO Attending Provider Active St art: October 13, 2023 End: October 13, 2023 Team Status: Inactive Member Role Status Dates José Miguel Guerra DO Primary Care Provider Active Emma Stevenson , [facility] Emergency Provider Active Team Status: Inactive Member Role Status Susan Guerra DO Primary Care Provider Active Karlene Ureña MD Attending Provider Active Team Status: Inactive Member Role Status Susan Guerra DO Attending Provider Active Sta rt: March 27, 2023 End: March 27, 2023 Team Status: Active Member Role Status Dates Provider Conversion Attending Provider Active St art: May 14, 2023 Team Status: Inactive Member Role Status Dates José Miguel Guerra DO Primary Care Provider Active Start: June 16, 2023 End: June 16, 2023 Karlene Ureña MD Attending Provider Active Start: June 16, 2023 End: June 16, 2023 Undercover Operator Relationship Specialty Start Date End Date José Miguel Guerra DO [address] [place] [address] PCP - General Internal Medicine 09/30/23 Undercover Operator Relationship Specialty Start Date End Date José Miguel Guerra DO [address] [place], [place] [id number] PCP - General Internal Medicine 09/30/23 Undercover Operator Relationship Specialty Start Date End Date José Miguel Guerra DO [address] [place] [id number] PCP - General Internal Medicine 09/30/23 Team Status: Active Member Role Status Dates José Miguel Guerra DO Primary Care Provider Active Start: October 21, 2023 Shravan Hutchison DO Attending Provider Active St art: October 21, 2023 Undercover Operator Relationship Specialty Start Date End Date José Miguel Guerra MD [address] [place] [id number] PCP - General 09/30/23 Undercover Operator Relationship Specialty Start Date End Date José Miguel Guerra MD [address] [place] [address] PCP - General 09/30/23 Undercover Operator Relationship Specialty Start Date End Date José Miguel Guerra MD [address] [place] [address] PCP - General 09/30/23 Undercover Operator Relationship Specialty Start Date End Date José Miguel Guerra MD [address] [place] [address] PCP - General 09/30/23 Undercover Operator Relationship Specialty Start Date End Date José Miguel Guerra MD [address] [place] [address] PCP - General 09/30/23 Team Status: Active Member Role Status Dates José Miguel Guerra DO Primary Care Provider Active Start: March 08, 2024 Raúl Harvey DO Attending Provider Active S tart: March 08, 2024 Team Status: Inactive Member Role Status Dates José Miguel Guerra DO Primary Care Provider Active Start: March 09, 2024 End: March 09, 2024 Raúlfarideh Harvey , DO Attending Provider Active S tart: March 09, 2024 End: March 09, 2024 Team Status: Active Member Role Status Dates José Miguel Guerra DO Primary Care Provider Active Start: March 09, 2024 Raúlfarideh Harvey , DO Other Provider Active Start : March 09, 2024 Louis Euceda MD Attending Provider Active Start: March 09, 2024 Team Status: Inactive Member Role Status Dates José Miguel Guerra DO Primary Care Provider Active Start: March 31, 2024 End: March 31, 2024 Raúlfarideh Harvey , DO Attending Provider Active S tart: March 31, 2024 End: March 31, 2024 Undercover Operator Relationship Specialty Start Date End Date José Miguel Guerra MD [address] [place] [address] PCP - General 09/30/23 Undercover Operator Relationship Specialty Start Date End Date José Miguel Guerra MD [address] [place] [address] PCP - General 09/30/23 Undercover Operator Relationship Specialty Start Date End Date José Miguel Guerra MD [address] [place] [address] PCP - General 09/30/23 Team Status: Inactive Member Role Status Dates José Miguel Guerra DO Primary Care Provider Active Start: June 24, 2024 End: June 24, 2024 Karlene Ureña MD Attending Provider Active Start: June 24, 2024 End: June 24, 2024 Undercover Operator Relationship Specialty Start Date End Date José Miguel Guerra DO PCP - General 09/30/23 Goals (unrecognized section and content) Goals may be documented in a n alternate section Source Comments (unrecognize d section and content) In the event this informatio n is protected by the Federal Confidentiality of Alcohol and Drug Abuse Patient Records regulations: The Federal rules restrict any use of the information to criminally investigate or prosecute any alcohol or drug abuse patient.[facility] Health[facility] the event this information is protected by the Federal Confidentiality of Alcohol and Drug Abuse Patient Records regulations: The Federal rules restrict any use of the information to criminally investigate or prosecute any alcohol or drug abuse patient.[facility] HealthIn the event this information is protected by the Federal Confidentiality of Alcohol and Drug Abuse Patient Records regulations: The Federal rules restrict any use of the information to criminally investigate or prosecute any alcohol or drug abuse patient.[facility] Health[facility] the event this information is protected by the Federal Confidentiality of Alcohol and Drug Abuse Patient Records regulations: The Federal rules restrict any use of the information to criminally investigate or prosecute any alcohol or drug abuse patient.[facility] HealthIn the event this information is protected by the Federal Confidentiality of Alcohol and Drug Abuse Patient Records regulations: The Federal rules restrict any use of the information to criminally investigate or prosecute any alcohol or drug abuse patient.[facility] HealthIn the event this information is protected by the Federal Confidentiality of Alcohol and Drug Abuse Patient Records regulations: The Federal rules restrict any use of the information to criminally investigate or prosecute any alcohol or drug abuse patient.[facility] FOR RECORDS PERTAINING TO PATIENTS WHO ARE [...] BE BASED ON THE PRIMARY CLINICAL RECORDS. [facility] [employer] [facility]. provides no warranty or guarantee of the accuracy or completeness of information in this document.
[2024-11-19 07:37] LABS: Hematocrit 44.9 % (42.0-54.0); Hemoglobin 15.5 g/dL (14.0-18.0); Immature Granulocytes Abs Auto 0.01 10^3/uL (0.00-0.03); Immature Granulocytes Pct Auto 0.2 % (0.0-0.5); Lymphocytes Absolute Auto 1.9 10^3/uL (1.2-3.8); Mean Corpuscular HGB Conc 34.5 g/dL (29.9-35.2); Mean Corpuscular Hemoglobin 31.8 pg (25.9-34.0); Mean Corpuscular Volume 92.2 fL (80.0-94.0); Platelet Count 179 10^3/uL (150-450); Red Blood Count 4.87 10^6/uL (4.70-6.10); White Blood Count 5.8 10^3/uL (4.0-11.0)
[2024-11-19 08:17] LABS: Alanine Aminotransferase 25 U/L (16-63); Albumin Globulin Ratio 1.2; Albumin Level 3.9 g/dL (3.4-5.0); Alkaline Phosphatase 51 U/L (46-116); Anion Gap 11.5; Aspartate Amino Transferase 16 U/L (15-37); Blood Urea Nitrogen 26.0 mg/dL (7.0-18.0); Calcium 9.2 mg/dL (8.5-10.1); Carbon Dioxide 28.4 mmol/L (21.0-32.0); Chloride 103 mmol/L (98-107); Cholesterol 96 mg/dL (<=200); Estimated GFR (African America >60 (>=60 mL/min/1.73m^2); Estimated GFR (Non-African Ame >60 (>=60 mL/min/1.73m^2); Globulin 3.2 g/dL; Glucose 158 mg/dL (74-106); HDL Cholesterol 48 mg/dL (40-60); Magnesium 2.0 mg/dL (1.8-2.4); Potassium 4.9 mmol/L (3.5-5.1); Sodium 138 mmol/L (136-145); TSH W/ REFLEX FT4 2.147 uIU/mL (0.358-3.740); Total Protein 7.1 g/dL (6.4-8.2); Triglycerides 93 mg/dL (<=150); VLDL CHOLESTEROL 18.6 mg/dL
== END 2024-11-19 07:20 | disposition home or self-care (01) ==
LOC: LAB 07:20
PROVIDERS: PCP Internal Medicine; Visit Provider Nurse Practitioner Family
DX: R00.2 Palpitations (principal); I49.3 Ventricular premature depolarization; I25.10 Atherosclerotic heart disease of native coronary artery without angina pectoris
CPT/HCPCS: 36415; 80053; 80061; 83735; 84443; 85025

== ENCOUNTER 2025-01-14 08:01 | Outpatient (OUT) | payer BC, SELFPAY ==
--- OUTSIDE RECORDS SUMMARY | 2025-01-14 08:07 | XMS_ITS | CCD ---
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 Hematology and Cell countson 09-14-2024 HbA1c (Bld) [Mass fraction] 9 % [facility] No Panel Informationon 09-14 [facility] Glucose (Bld) [Mass/Vol]on 0 06-06-2024 Glucose Blood, POC 154 mg/dL [facility] - Hematology and Cell countson 06-06-2024 HbA1c (Bld) [Mass fraction] 9.6 % [facility] No Panel Informationon 06-06 [facility] Office Visiton 05-30-2024 Follow-up visit [id number] Fr nellie Schneider 1975 M Date Provider Department Center 05/30/2024 [facility]-MYRON AL[facility]ZA [facility] Family History Problem Relation Age of Onset Coronary artery disease Father Hypertension Father Family Status - Relation Status Age at Father Level of Service:40150 ID OFFICE/OUTPATIENT ESTABLISHED LOW MDM 20 MIN Normal [facility] Glucose (Bld) [Mass/Vol]on 1 Glucose Blood, POC 173 mg/dL [facility] HbA1c (Bld) [Mass fraction]o n 02-01-2024 [facility] - Hematology and Cell countson 02-01-2024 HbA1c (Bld) [Mass fraction] 9.3 % [facility] MR cervical spine wo conon 0 12-30-2023 MR cervical spine wo con [facility] [place] [place] [address] MRI Report Signed Patient: Kassi Schneider MR#: [id number] : 1975 Acct:[id number] Age/Sex: 48 / M ADM Date: 12/30/23 Loc: Room: Type: [facility] Attending Dr: Shravan Hutchison DO Copies to: [...] Donell Marquez M.D.12/30/2023 12:41 PM Dictation Location: [place] [address] Transcribed By: [facility] 12/30/23 1241 Dictated By: Donell Marquez II, MD 12/30/23 1227 Signed By: 12/30/23 1241 Normal [facility] Basophils Auto (Bld) [#/Vol] on 11-13-2023 Basophils (Bld) [#/Vol] 0.0 10 3/uL 0.0-0.1 [facility] Basophils/100 WBC Auto (Bld) on 11-13-2023 Basophils/100 WBC (Bld) 0.5 % 0.2-2.0 [facility] Cholesterol in LDL Calc [Mas s/Vol]on 11-13-2023 Cholesterol in LDL [Mass/Vol] 26.8 mg/dL [facility] Comment on above: <100 mg/dl [id number] 0-129 mg/dl NEAR OR ABOVE [id number] mg/dl BORDERLINE [id number] mg/dl HIGH>190 mg/dl VERY HIGH Cholesterol in VLDL Calc [Ma ss/Vol]on 11-13-2023 Cholesterol in VLDL [Mass/Vol] 18.2 mg/dL [facility] Eosinophils/100 WBC Auto (Bl d)on 11-13-2023 Eosinophils/100 WBC (Bld) 4.0 % 0.9-7.0 [facility] Erythrocyte distribution wid th Auto (RBC) [Ratio]on 11-13-2023 Erythrocyte distribution width (RBC) [Ratio] 12.5 % 11.0-15.0 [facility] Estimated glomerular filtrat ion rate (GFR) non- Americanon 11-13-2023 GFR/1.73 sq M.predicted among non-blacks MDRD (S/P/Bld) [Vol rate/Area] 57 mL/min/{1.73_m2} Low >=60 [facility] Globulin Calc (S) [Mass/Vol] on 11-13-2023 Globulin (S) [Mass/Vol] 3.2 g/dL [facility] Hematocrit Auto (Bld) [Volum e fraction]on 11-13-2023 Hematocrit (Bld) [Volume fraction] 45.8 % 42.0-54.0 [facility] Hemoglobin [Mass/volume] in Bloodon 11-13-2023 Hemoglobin (Bld) [Mass/Vol] 15.6 g/dL 14.0-18.0 [facility] Laboratory - Chemistry and C hemistry - challengeon 11-13-2023 Albumin [Mass/Vol] 3.7 g/dL 3.4-5.0 [facility] ALP [Catalytic activity/Vol] 52 U/L 46-116 [facility] ALT [Catalytic activity/Vol] 32 U/L 16-63 [facility] AST [Catalytic activity/Vol] 23 U/L 15-37 [facility] Bilirubin [Mass/Vol] 0.6 mg/dL 0.2-1.0 [facility] Calcium [Mass/Vol] 9.1 mg/dL 8.5-10.1 [facility] Chloride [Moles/Vol] 101 mmol/L 98-107 [facility] Cholesterol [Mass/Vol] 92 mg/dL <=200 [facility] Cholesterol in HDL [Mass/Vol] 47 mg/dL 40-60 [facility] Comment on above: > or =60 mg/dl - LOW CARDIOVASCULAR RISK<40 mg/dl - HIGH CARDIOVASCULAR RISK CO2 [Moles/Vol] 30.4 mmol/L 21.0-32.0 [facility] Creatinine [Mass/Vol] 1.34 mg/dL High 0.70-1.30 [facility] GFR/1.73 sq M.predicted MDRD (S/P/Bld) [Vol rate/Area] mL/min/{1.73_m2} >=60 [facility] Glucose [Mass/Vol] 157 mg/dL High 74-106 [facility] Potassium [Moles/Vol] 4.9 mmol/L 3.5-5.1 [facility] Protein [Mass/Vol] 6.9 g/dL 6.4-8.2 [facility] Sodium [Moles/Vol] 137 mmol/L 136-145 [facility] Triglyceride [Mass/Vol] 91 mg/dL <=150 [facility] TSH Qn 2.189 m[IU]/L 0.358-3.74 0 [facility] Urea nitrogen [Mass/Vol] 25.0 mg/dL High 7.0-18.0 [facility] Urea nitrogen/Creatinine [Mass ratio] 18.7 mg/mg [facility] Laboratory - Hematology and Cell countson 11-13-2023 Immature granulocytes/100 WBC (Bld) 0.2 % 0.0-0.5 [facility] Leukocytes [#/volume] correc ernestine for nucleated erythrocytes in Blood by Automated counon 11-13-2023 WBC corrected for nucl RBC Auto (Bld) [#/Vol] 5.8 10 3/uL 4.0-11.0 [facility] Lymphocytes Auto (Bld) [#/Vo l]on 11-13-2023 Lymphocytes (Bld) [#/Vol] 2.1 10 3/uL 1.2-3.8 [facility] Lymphocytes/100 WBC Auto (Bl d)on 11-13-2023 Lymphocytes/100 WBC (Bld) 36.9 % 20.5-60.0 [facility] MCH Auto (RBC) [Entitic mass ]on 11-13-2023 MCH (RBC) [Entitic mass] 31.3 pg 25.9-34.0 [facility] MCHC Auto (RBC) [Mass/Vol]on 11-13-2023 MCHC (RBC) [Mass/Vol] 34.1 g/dL 29.9-35.2 [facility] MCV Auto (RBC) [Entitic vol] on 11-13-2023 MCV (RBC) [Entitic vol] 91.8 fL 80.0-94.0 [facility] Monocytes Auto (Bld) [#/Vol] on 11-13-2023 Monocytes (Bld) [#/Vol] 0.5 10 3/uL 0.3-0.8 [facility] Monocytes/100 WBC Auto (Bld) on 11-13-2023 Monocytes/100 WBC (Bld) 8.3 % 1.7-12.0 [facility] Neutrophils Auto (Bld) [#/Vo l]on 11-13-2023 Neutrophils (Bld) [#/Vol] 2.9 10 3/uL 1.4-6.5 [facility] Neutrophils/100 WBC Auto (Bl d)on 11-13-2023 Neutrophils/100 WBC (Bld) 50.1 % 43.0-75.0 [facility] No Panel Informationon 11-12 Eosinophils # (Auto) 0.2 10 3/uL 0.0-0.7 [facility] Immature Granulocyte # (Auto) 0.01 10 3/uL 0.00-0.03 [facility] Platelet mean volume Auto (B ld) [Entitic vol]on 11-13-2023 Platelet mean volume (Bld) [Entitic vol] 9.3 fL Low 9.5-13.5 [facility] Platelets Auto (Bld) [#/Vol] on 11-13-2023 Platelets (Bld) [#/Vol] 205 10 3/uL 150-450 [facility] RBC Auto (Bld) [#/Vol]on RBC (Bld) [#/Vol] 4.99 10 6/uL 4.70-6.10 [facility] Serum or plasma albumin/glob ulin mass ratioon 11-13-2023 Albumin/Globulin [Mass ratio] 1.2 {ratio} [facility] Serum or plasma anion gap de terminationon 11-13-2023 Anion gap [Moles/Vol] 10.5 mmol/L [facility] Serum or plasma total choles terol/high density lipoprotein (HDL) cholesterol mass jani 11-13-2023 Cholesterol.total/Cho lesterol in HDL [Mass ratio] 2.0 {ratio} [facility] Comment on above: 3.3 - 4.4 LOW RISK4. 4 - 7.1 AVERAGE RISK7.1 - 11.0 MODERATE RISK>11.0 HIGH RISK Office Visiton 10-27-2023 Follow-up visit [id number] Fr nellie Schneider 1975 M Date Provider Department Center 10/27/2023 [facility]8-MYRON ALMANZA CARD [facility] Family History Problem Relation Age of Onset Coronary artery disease Father Hypertension Father Family Status - Relation Status Age at Father Level of Service:04237 ID OFFICE/OUTPATIENT ESTABLISHED LOW MDM 20 MIN Normal [facility] Coding Summary.on 10-17-2023 Coding Summary. CDXZSyla35ESe6hIu+PG hlYWQ+ TQ0XGOXzN66hbVFerW5pC5QOLY hDYkdmXKZGYNfCDjYzvbXoWC4f aXNjZXJu IC8+YT2jOATnYwelnMZot9H0jC Y4L86bck6lWOxclWG5ZHHgQaSx nmkpu2dfaJn7SVunCwuaHySg DYZjtT70MPU0gI90Aa58aPBqhI Kji9sufOd4NrZsDZXrKQD9pNos XFevv5UeVPLcJ34urGNsa6J2 UXGsnMxjyPXsAeBsuYU1wB3yNO gwohdid8duwitnWjp4ob59oFBa d5B9cXY8G4BcolA7EMEdnVYo JzustQJIrY4xurjzj2zboirfPg JpZGTaWVn7NPi4XWTawOvnCmLc KE35YMO6ETXwdeKgY6ZwXLFw wKxvVvR3q4M7Qp3QA0KBZqkvB0 VNTUFSWTwvdGQ+OB32lp68P2Th YeesBhh4HOTrSVB1oOV2bC6h PYWhFFfkh8B2vVF4H3VxuoAaow 2tg8cyEDVnYJwqZ18snRFiv0L7 IYMsgPO4SUHmpCwpYhCjzQ20 Oyc+REGmvOmec3IsVdtfj3gky7 xjyXj2OcvnEKIcorTuxLriKUJ9 b2TiLp5fKAKpfDB5zUL0uN6q QdQjLtV4XVoqE027QrWzcBByPw pmA31nT1BroYE+HTIuMth8SIWo aNvnAM7dC5AuVIRurrzhjLJa mRocKC4rJNFacgsbGQSacP6zVI LxU4b1TfAmElC3KMctB7ByLRCa qinsHl15xT9vMbNsDpX4VBdx L7RmuvA2YIGkdYMrUTywMSR4A6 8rg4G6RABqBNKyILK9fPI8jF9i bGlnbjogbGVmdDsgdmVydGlj EEygKOfxE484BJCpuFmuUgZhIX luZyBEYXRlOiAgMDYvMjIvMjAy NDwvdGQ+JLPfVSU5yNrvPROf dJJqEYxeIh7mrZfhwXhcQI9lWF PeazdzNDSvsF9rZEPvmKYssRdl XV4uQLUigxyex647LxAsUFA8 QFXlzCHqF1KwsS2rZtFxADNxJV ZdF0YrzZUyRSnkF306HLenYwB2 TNWontOdF8TmEKVgmTjuEbK2 g5B4Gl9Qo3SequgqP8JqgUCgAr CeRnxkXJi8R2OdUhuymAB+PC90 NRBbBV01LHf5WVF1jUuoICky JAGdS0PebN7yPdFkFWMjZOBrLq c+PHRhYmxlIHdpZHRoPScxMDAl YpMnbOtaXE2yEg3yCQUrKMKn eSqukRHqEtIhm6ixOVZkGGzrZS 5slIelP3RvuPV2NIFti4u6Gm25 T55kJ5ZzwJV+SJZrvPY9pQF1 pG1aUqPpFtB9SUxcY248UhQpgL UfFmnop6bac6kdeZw5NvD7QPYb dgVoyPxcGHL2o5WgKf80I35o IHdpZHRoPSIxNSUiIHZhbGlnbj 4hiL0rPa7+SGGrvHB2rYA7bL3d KjPcVvE5IVzbA574CvTrlAFz Ipqnk8drk0pjhCz1OwKaIMMmth RvvLloQYD7i0PcDk90C2AktNnp n3UrZso4jq84vANxg6C9wSB8 L0IrQRBdtkfsbEIpuKhfZS7tUL BqeqhvUYRlsO8aEUXoY8a4HrTb KeR3REipP5IycfE4PUPuzQIz ZUEtvAERqC3opnweb5qpgbovGh CkGZGiXFf5ZBi0LKUtsVdzRnRf NQT4ViV0EBB3oKTcqY4ybKsr qejvxE1kMpz+OWF5tOAbiHTJJH 1lOjwvdGQ+UQQmPMD1lGijMJjg RDPosP3xYPArK1i8BeCoNmM2 ZRakV4DpsnI6PVPvpNZmULRtmU OJrN3rqpycs5ohpzhfKqNhFYNn DRj7JLn7PXCuiPxuLsXdPTB5 WdT7RBV6eANesU8ytMdvwsvvgL 9wOyc+HakufShyEDX5SUk1F6Rv Alf0OQAhcIleLD5pbEOsRSeb Fm6moRsviRhsVK6pBLPwyhgbz9 87LcAvb0guKOCvpTQfRTwrSFF8 H46aa0U7WMZpARUmJDQ1rHK3 wU6vbCexuqmuiUUmfOurneCknS trZIjsGJdvV170LZGizNoiYaRq KPn3N1KaKqx3RBUglRizEO5d fOMeGNpsFf0acDuguIvdPR3oNP Pgijlrp567HlMro0zpUOOomORu YGcxPOS4W16to5U5TMJtWYYl HJK4iIJ9lM5ioJnrarqzvCOnuO egpqQdgHzwHXhgSQpvS556MZLh hLdyVwGhiRt0H9KtKzx3IRJg rRhtSF0apERbDLhcVl6zsAkfzO utJJ1fQRHnwxopi845IuNji2js EUPazONqDNjyMQW2I27xy7L3 NMHhLRQmSSI3mFR9wG0fuDjjma ogbGVmdDsgdmVydGljYWwtYWxp S914PORqiBjfYqJalSljnkEf OEckZWc1D8LxTeajxZM+PC90YW OdEO63rCSaoNFju2xzpFp8UoLd LESqJFK8zOxoEJllo2ElIFJh L85ekOZim6L7IKCjdGdguLCpYk YtpIV9bQ7mUOfvvanes6jknifm Urqwu8xrnc87sC92U39lANit KXIhHHMrTWTpFPOmeHejow6tgM 9wIi8+GCPdiOY5jSJ3mL4rJZOe LpM8OGxlG009IyEciGJfWjhm j6naq9jjwSa7FaL5YJPkcmZfrG kaZBO0j5JmIx18B60oQIyzCNAa LXYoBGWgNSNaiJusqa4hvL5o Ii8+UMFagBV0hWK2iU7eRqTlOn V0LDbxH547LcDwfURkYclvQ97b V7DpgQI+BTZuMrg2HTIzeJgl IB1rlHHxPMyaAk3uXBR7WoDnEq XtBMngU2SzHZLqqqkpwjjjpDR8 CQNoZISlbG26Ku1kcSrzFBCl eNIYbO9mnascm7iebemoCrYcDV TuIVq6BUr8UZUgcIvyIbVsLTN2 DoR1JRP2tDTveO9dcRiwgsha vD6lN0TcOTIqeveiUh23kO4pQt YuVhV8THnmOug+Bt2NAK7BNshj RlJBTksgSjwvdGQ+PHRkIHN0 mZgoUMmzNBCicF9dVPBqB2s0Wy TdXaL2GDsmQ5LhHRTuduinZa41 rQ7bMaChEjB9XEoeT5PretN4 KRFamVQlYTmnBDJ5E09kb4Z6CQ GzWYQwGPY9tGK3bM9csLcjhmil bGVmdDsgdmVydGljYWwtYWxp H913UQTxxByrBkM6PgB4SkN1Mi N5S9NbQse1YSZczGfiZJ2slAHk UXraIa4luAghsFhpKI5hEMZw uvltNKFlbZ4uQBQysIJpeAraVE 0zJNIdusdnd422OlDzISU1FOYq gZSmG7CvwR3sKmEhBAWsVQIk I3NuuPZlIHkwR641ZOzuXhN0PT VxmsLnP1ZlUBKqxQsoJwK2o4K4 Dw82OZCPPPKhvzxsgIB+PHRk RYA4oUimIJgkBKFfgC1xNASuD9 a5FdUwHzF7APknO8IcARWdolrh Gt74hF2pNvXrCyQ5UPfzZ2Fz edW8TGNpeSSsOWopGGH7S60jt6 L4JJRqRZKuBKM2mSE3aS6rqQvq bjogbGVmdDsgdmVydGljYWwt YGjnP802XMQzbVejIl9yhSB1Q1 KhJfg2FBRgvLyqDR8yxPZoXDai Uj2emQmgsPiiDZ9yDLJxsrhm AVUekI4aGFWwoGZhfSycLX0xCT Djxdsud209IoUxOBN6BNWixWSj T5MfxM3sMwRiHLAeMSSgL8Uf iMGcUYmbW706XVyyLoJ5OPOszy TgQ2RmXVBikCjsBqO0n5A7Rw7E fMBsP3ToS6f9F6QwQmjxsJP+ MB84ACZhFJ30qRWocWIhu3auhD z7BvPiAQGmTZE7uPnbCYfkq9Ou TDEdL94zwDSkm7L0PCNseKem pKVwNbAyhCX4eT7nHHwteburd0 hnsmmgXagtv7mdsu35nU33Z46p IHdpZHRoPSIzMCUiIHZhbGln qy1fqP2hDu2+DYNwhCH4qYM0fH 2uZpEsXcS8LKkxP567QlNscCUi Kngbe2nts8hhfXk5FlOmIGDo yfLccRpwXFX7b8DxSe80U53iHR znBXHrGAYeJUKuKWQnpXssuq5l zN2wEt4+VD6pi3zfmf95dQ66 dHI+ECGuLBO6gIsfTVivKQZbfT 0tNZglRtH5CBHgCtMypE02lSTw GQuuMm8yjHmysLgmQU5pBUXf fbtvd862JqCla8epXBCtqPAlZN nvJWQ3G04ua4V8QWWvVTZhKYW6 pUJ2bE9wdChaoynmiBTroRur dfPvrIdgQDvcPVshO964DEEfxM lyJaIjhQQrC4pakbPZKN0eGetn dGQ+HTUlBVH4rHsjNHczDIQy fZ4dNPNfY5z5LiPpGxF3JIcuX3 UgpgW9CKKfoQViCBGnuZDSnK3t iljvl6lndlsuBnIvFTEtNXl2 LFe8WGYttSnvKhIfHOQ1KwJ8KJ R2jXDogU3eoKdqvkzabT0lOhw+ RklOOjwvdGQ+JHYoZTB7nAdp DVdmOSVajN4dVVUtB1t3PpLqIz B3MOilO3EwsaO5DCEhaCOeSGCa qHYQxJ9uidoys1wrblraNsSw RKDnVIn2TTk4GRDlcVawZbOhAW A0HgJ3KND1kIOieQ8xwQpqwwzk uF5sXvp+TVJOOjwvdGQ+PHRk AZM5fCfyQNudEZPlfT6sVGSwY4 z7QxPcYbR3JNbnW8MnpiG0AMWl aALfJDAddQGIvA1wgonyr4ij nfgzStVbDTWqRSs6LEr8USWrcB gfVsHlKXT9FzC6EQH7tTQgaI0h zEirxdckqQ4wMxm+DIL5MMZ2 ZX91VH92E9NuSprhqQDwmTU+PH RhYmxlIHdpZHRoPScxMDAlJyBz wDacZG5cCo2xASQvJQAekPkw eLOeOzJax5ydG (more content not included)... Normal [facility] CHEMISTRYOrdered By: Lab ROP User on 10-14-2023 Glucose [Mass/Vol] 240 mg/dL High 55 - 99 mg/dL [facility] POC Subsection Comment on above: Result Comment: Trevor tian RN/MD POC Device SN [id number] 1 Invalid Interpretation Code [facility] POC Subsection POC User ID [id number] 1 Invalid Interpretation Code [facility] POC Subsection POC Username EDISON VUONG Invalid Interpretation Code [facility] POC Subsection CNPMarlen 10-14-2023 CNPN Telephone (CATHMN) -- KASSI SCHNEIDER ([id number]) 1975 M Date Time Provider Department 10/14/23 MILAGROS GUARDADO During your visit today, we recorded the following information about you: Tianna Mendes 10/14/2023 2:41 PM Signed Call from spouse with concern of swelling and tingling at the catheter insertion site. S/p cath on 10/08. Only noticed these symptoms today No redness, some discomfort, some bruising. Call back number [phone] Jinny Galvez APRN.[facility] 10/14/2023 4:56 PM Signed Pt experienced some [...] two times a day with meals. - Dcctxhwniwppt-Szcucwbg-Yrq ein (MULTIVITAMIN 50 PLUS) tab Take 1 tablet by mouth once daily. - Ascorbic Acid (VITAMIN C) 1,000 mg tablet Take 1,000 mg by mouth once daily. - aspirin, enteric coated (ECOTRIN LOW STRENGTH) 81 mg EC tablet Take 1 tablet by mouth once daily. Problem List As Of Date: 10/14/2023 (None) Encounter Status:Closed by JINNY GALVEZ on 10/14/23 Normal [facility] Capillary Glucose POCon 09-25 Glucose [Mass/Vol] 240 mg/dL High 55-99 [facility] Comment on above: Result Comment: Trevor tian RN/ Performed By: #### 2 [id number] #### [facility] [address] [place] [address] Consent for Treatmenton 09-25 Consent for Treatment [id number] Normal [facility] Discharge Instructionson Discharge Instructions [id number] Normal [facility] ED Clinical Summaryon 2023 ED Clinical Summary (Inserted Image. Marlee ble to display) [place] [id number] ED Clinical Summary Person Information Name: KASSI SCHNEIDER [place] Age: 48 Years : 1975 Sex: Male Language: Khmer PCP: JOSÉ MIGUEL CHEUNG DO Marital Status: Phone: [phone] Visit Id: Visit Reason: Post surgical problem; [...] 10/14/2023 17:26:15 10/14/2023 17:26:15 10/14/2023 17:26:15 ADDRESS: [address] [place] [id number] PHYS DOC NOTES: MEDICAL INFORMATION: Prescriptions Given: PATIENT EDUCATION INFORMATION: Instructions: Follow up: With: Address: When: Chris Dave [address] [place] [address] Business (1) In 3 days 10/17/2023 Comments: Call Dr for diagnosis based follow up DIAGNOSIS: Post surgical complication; Swelling of right wrist Normal [facility] ED Note-Physicianon 10-14-19 24 ED Note-Physician Basic Information Time Seen: Robinson [...] Reports he had a heart catheterization in [facility] that he really went to his right [...] concerns, I did reach out to our automotive porter, Dr. Jo, and did discuss the case [...] Chris Dave In 3 days 10/17/[address] [place] [id number] [facility] (1) Additional Instructions: Call Dr for diagnosis based follow up Attestation Patient seen and evaluated by the physician assistant chief of police. Attending physician was present in the emergency department and supervised care. This visit was performed by both the physician and an APC. I performed all aspects of the MDM as documented. This report was transcribed using voice recognition software. Every effort was made to ensure accuracy, however, inadvertently computerized clerk secretary mistakes may be present. Appropriate healthcare PPE [...] per year, (more content not included)... Normal [facility] Comment on above: Result Comment: Elec tronically Signed By: Robinson Grace PA-C\.br\Date and Time Signed: 10/14/23 18:28 EDT\.br\Electronically Co-Signed By: Shravan Colunga DO\.br\Date and Time Co-Signed: 10/14/23 18:38 EDT ED Patient Education Noteon 10-14-2023 ED Patient Education Note Normal [facility] ED Patient Summaryon 024 ED Patient Summary (Inserted Image. Marlee ble to display) [place] [id number] Patient Discharge Instructions Person Information Name: KASSI SCHNEIDER Age: 48 Years Arrival Date: 10/14/2023 15:50:28 Discharge Diagnosis: Post surgical complication; Swelling of right wrist Primary Care Physician: JOSÉ MIGUEL CHEUNG DO Provider Information Primary Provider: Shravan Colunga DO Advanced Radio Interference Trouble Shooter:None The exam and treatment you received in the Emergency Department were for an urgent problem and are not intended as complete care. It is important that you follow up with a doctor, nurse practitioner, or physician?s assistant chief of police for ongoing care. If your symptoms become [...] Address: When: Chris Dave [address] [place] [address] Business (1) In 3 days 10/17/2023 Comments: [...] opioids can be used to help relieve ypplblev-wl-mzvwwv pain and are often prescribed following a [...] guidance from the Food and Drug Administration (www.fda.gov/Drugs/Resourc esForYou). ? Visit www.cdc.gov/drugoverdose to learn about the risks of opioids abuse and overdose. ? If you believe you may be struggling with addiction, tell your health day care home mother and ask for guidance or call SAMHSA?S National Helpline at (more content not included)... Normal [facility] US UE Venous Duplex Righton 10-14-2023 US UE Venous Duplex Right Exam Date/Time: 10/14/2023 [...] Parish DO Transcribed by: KAL Technologist: TERESA [facility] XR cerv spine AP/LAT/FLX/EXT on 10-13-2023 XR cerv spine AP/LAT/FLX/EXT [facility] [place] [facility] [address] [place] [address] XRay Report Signed Patient: Kassi Schneider MR#: [id number] 816 : 1975 Acct:[id number] Age/Sex: 48 / M ADM Date: 10/13/23 Loc: [facility] Room: Type: [facility] CLI Attending Dr: Shravan Hutchison DO Copies [...] Bianca Pérez M.D.10/13/2023 2:34 PM Dictation Location: [place] [address] Transcribed By: [facility] 10/13/23 1434 Dictated By: Bianca Pérez MD 10/13/23 1431 Signed By: 10/13/23 1434 Normal [facility] XR shoulder RT min 2V*on XR shoulder RT min 2V* [facility] [place] [facility] Formerly named [facility] [place] [address] XRay Report Signed Patient: Kassi Schneider MR#: [id number] 816 : 1975 Acct:[id number] Age/Sex: 48 / M ADM Date: 10/13/23 Loc: [facility] Room: Type: [facility] Attending Dr: Shravan Hutchison DO Copies to: [...] Delmer Keith M.D.10/13/2023 12:08 PM Dictation Location: [place] [address] Transcribed By: [facility] 10/13/23 1208 Dictated By: Demler Keith DO 10/13/23 1204 Signed By: 10/13/23 1208 Normal [facility] Basic metabolic 2000 panelon 10-09-2023 Anion gap [Moles/Vol] 10 mmol/L Normal 8-15 [facility] Comment on above: Order Comment: Speci men Type: BLOOD SPECIMEN Ordering Facility: [facility] Address: [address] [place] [address] Performed By: #### 2 4321-2 #### [facility] CLIA [id number] [address] [place] [address] [place] Calcium [Mass/Vol] 9.8 mg/dL Normal 8.5-10.2 [facility] Comment on above: Order Comment: Speci men Type: BLOOD SPECIMEN Ordering Facility: [facility] Address: [address] [place] [address] Performed By: #### 2 4321-2 #### [facility] CLIA [id number] [address] [place] [address] [place] Chloride [Moles/Vol] 101 mmol/L Normal 98-[address] [facility] Comment on above: Order Comment: Speci men Type: BLOOD SPECIMEN Ordering Facility: [facility] Address: [address] [place] [address] Performed By: #### 2 4321-2 #### [facility] CLIA [id number] [address] [place] [address] [place] CO2 [Moles/Vol] 26 mmol/L Normal 22-30 [facility] Comment on above: Order Comment: Speci men Type: BLOOD SPECIMEN Ordering Facility: [facility] Address: [address] [place] [address] Performed By: #### 2 4321-2 #### [facility] CLIA [id number] [address] [place] [address] [place] Creatinine [Mass/Vol] 1.24 mg/dL High 0.73-1.22 [facility] Comment on above: Order Comment: Speci men Type: BLOOD SPECIMEN [facility] [facility] Address: [address] [place] [address] Performed By: #### 2 4321-2 #### [facility] CLIA [id number] [address] [place] [address] [place] Creatinine and Glomerular filtration rate.predicted panel (S/P/Bld) 71 mL/min/1.73m??? Normal >=60 [facility] Comment on above: Order Comment: Speci men Type: BLOOD SPECIMEN Ordering Facility: [facility] Address: [address] [place] [address] Result Comment: Haven mated Glomerular Filtration Rate [...] GFR. Performed By: #### 2 4321-2 #### [facility] CLIA [id number] [address] [place] [address] [place] Glucose [Mass/Vol] 198 mg/dL High 74-99 [facility] Comment on above: Order Comment: Speci men Type: BLOOD SPECIMEN Ordering Facility: [facility] Address: [address] [place] [address] Result Comment: The [place] Diabetes Association (ADA) provides guidance for cutoff [...] Standards of Medical Care in Diabetes 2016, [place] [employer]. Diabetes Care. 2016.39(Suppl 1). Performed By: #### 2 4321-2 #### [facility] CLIA [id number] [address] [place] [address] [place] Potassium [Moles/Vol] 4.6 mmol/L Normal 3.7-5.1 [facility] Comment on above: Order Comment: Armandoi men Type: BLOOD SPECIMEN Ordering Facility: [facility] Address: [address] [place] [address] Performed By: #### 2 4321-2 #### [facility] CLIA [id number] [address] [place] [address] [place] Sodium [Moles/Vol] 137 mmol/L Normal 136-144 [facility] Comment on above: Order Comment: Speci men Type: BLOOD SPECIMEN Ordering Facility: [facility] Address: [address] [place] [address] Performed By: #### 2 4321-2 #### [facility] CLIA [id number] [address] [place] [address] [place] Urea nitrogen [Mass/Vol] 22 mg/dL Normal 9-24 [facility] Comment on above: Order Comment: Speci men Type: BLOOD SPECIMEN Ordering Facility: [facility] Address: [address] [place] [address] Performed By: #### 2 4321-2 #### [facility] CLIA [id number] [address] [place] [address] [facility] CARD CATH DIAGNOSTICon 10-08 CARD CATH DIAGNOSTIC Site Id: [facility] Lab #: [facility] HVI Physician Office Specialist 5 Study Date: 10/09/2023 Start Time: 10/09/2023 [...] kg/m BSA: 2.09 m Allergies: NKDA + -----+ CLINICAL HISTORY/INDICATION(s) + -----+ Intermediate-risk noninvasive findings with worsening/limiting symptoms; AUC [...] management of Risk Factors for CAD. + ---------+ ADVERSE OUTCOME(s)/COMPLICATION(s) + ---------+ None + -----+ PROCEDURAL & TECHNICAL DETAILS + -----+ Status Category Description Used Catheter, Diagnostic Imaging [...] On: 10/09/2023 at 4:16:17 PM Final CC [employer] [facility] Image : [id number] See Link below for Image Normal [facility] CBC panel Auto (Bld)on 10-08 Erythrocyte distribution width (RBC) [Ratio] 12.1 % Normal 11.5-15.0 [facility] Comment on above: Order Comment: Speci men Type: BLOOD SPECIMEN Ordering Facility: [facility] Address: [address] [place] [address] Performed By: #### 5 8410-2 #### [facility] CLIA [id number] [address] [place] [address] [place] Hematocrit (Bld) [Volume fraction] 48.9 % Normal 39.0-51.0 [facility] Comment on above: Order Comment: Speci men Type: BLOOD SPECIMEN Ordering Facility: [facility] Address: [address] [place] [address] Performed By: #### 5 8410-2 #### [facility] CLIA [id number] [address] [place] [address] [place] Hemoglobin (Bld) [Mass/Vol] 16.5 g/dL Normal 13.0-17.0 [facility] Comment on above: Order Comment: Speci men Type: BLOOD SPECIMEN Ordering Facility: [facility] Address: [address] [place] [address] Performed By: #### 5 8410-2 #### [facility] CLIA [id number] [address] [place] [address] [place] MCH (RBC) [Entitic mass] 30.7 pg Normal 26.0-34.0 [facility] Comment on above: Order Comment: Speci men Type: BLOOD SPECIMEN Ordering Facility: [facility] Address: [address] [place] [address] Performed By: #### 5 8410-2 #### [facility] CLIA [id number] [address] [place] [address] [place] MCHC (RBC) [Mass/Vol] 33.7 g/dL Normal 30.5-36.0 [facility] Comment on above: Order Comment: Speci men Type: BLOOD SPECIMEN Ordering Facility: [facility] Address: [address] [place] [address] Performed By: #### 5 8410-2 #### [facility] CLIA [id number] [address] [place] [address] [place] MCV (RBC) [Entitic vol] 91.1 fL Normal 80.0-100.0 [facility] Comment on above: Order Comment: Speci men Type: BLOOD SPECIMEN Ordering Facility: [facility] Address: [address] [place] [address] Performed By: #### 5 8410-2 #### [facility] CLIA [id number] [address] [place] [address] [place] Nucleated RBC (Bld) [#/Vol] 10*3/uL Normal <0.01 [facility] Comment on above: Order Comment: Speci men Type: BLOOD SPECIMEN Ordering Facility: [facility] Address: [address] [place] [address] Performed By: #### 5 8410-2 #### [facility] CLIA [id number] [address] [place] [address] [place] Platelet mean volume (Bld) [Entitic vol] 9.5 fL Normal 9.0-12.7 [facility] Comment on above: Order Comment: Speci men Type: BLOOD SPECIMEN Ordering Facility: [facility] Address: [address] [place] [address] Performed By: #### 5 8410-2 #### [facility] CLIA [id number] [address] [place] [address] [place] Platelets (Bld) [#/Vol] 211 10*3/uL Normal 150-400 [facility] Comment on above: Order Comment: Speci men Type: BLOOD SPECIMEN Ordering Facility: [facility] Address: [address] [place] [address] Performed By: #### 5 8410-2 #### [facility] CLIA [id number] [address] [place] [address] [place] RBC (Bld) [#/Vol] 5.37 10*6/uL Normal 4.20-6.00 [facility] Comment on above: Order Comment: Speci men Type: BLOOD SPECIMEN Ordering Facility: [facility] Address: [address] [place] [address] Performed By: #### 5 8410-2 #### [facility] CLIA [id number] [address] [place] [address] [place] WBC (Bld) [#/Vol] 5.43 10*3/uL Normal 3.70-11.00 [facility] Comment on above: Order Comment: Speci men Type: BLOOD SPECIMEN Ordering Facility: [facility] Address: [address] [place] [address] Performed By: #### 5 8410-2 #### [facility] CLIA [id number] [address] [place] [address] [place] ECG COMPLETEon 10-09-2023 ECG COMPLETE Ventricular Rate : 6 2 BPM Atrial Rate : 62 BPM P-R Interval : 138 ms QRS Duration : 84 ms Q-T Interval : 408 ms QTC Calculation(Bazett) : 414 ms Calculated P [place] : 28 degrees Calculated R [place] : -9 degrees Calculated T [place] : -2 degrees NORMAL SINUS RHYTHM NORMAL ECG Confirmed by JOSUÉ MONIQUE MD ([id number]) on 10/18/2023 2:13:12 PM NAME : KASSI SCHNEIDER PID : [id number] : 1975 Gender : Male Race : ORD : [id number] Procedure Date : Oct 09 2023 09:24:20 Edit Date : Oct 18 2023 14:13:18 Diagnosis: NORMAL SINUS RHYTHM NORMAL ECG Confirmed by JOSUÉ MONIQUE MD ([id number]) on 10/18/2023 2:13:12 PM Test Reason : 921 Location : 23 : [id number] Overread By : JOSUÉ MONIQUE MD Edited By : JOSUÉ MONIQUE MD Referred By : , Acquired by : [id number], Normal [facility] Erythrocyte distribution wid th Auto (RBC) [Ratio]on 10-09-2023 Erythrocyte distribution width (RBC) [Ratio] 12.1 % 11.5-15.0 [facility] Hematocrit Auto (Bld) [Volum e fraction]on 10-09-2023 Hematocrit (Bld) [Volume fraction] 48.9 % 39.0-51.0 [facility] Hemoglobin [Mass/volume] in Bloodon 10-09-2023 Hemoglobin (Bld) [Mass/Vol] 16.5 g/dL 13.0-17.0 [facility] Laboratory - Chemistry and C hemistry - challengeon 10-09-2023 Calcium [Mass/Vol] 9.8 mg/dL 8.5-10.2 [facility] Chloride [Moles/Vol] 101 mmol/L 98-107 [facility] CO2 [Moles/Vol] 26 mmol/L 22-30 [facility] Creatinine [Mass/Vol] 1.24 mg/dL High 0.73-1.22 [facility] Glucose [Mass/Vol] 198 mg/dL High 74-99 [facility] Comment on above: The [place] Diabete s Association (ADA) provides guidance for [...] Standards of Medical Care in Diabetes 2016, [place] [employer]. Diabetes Care. 2016.39(Suppl 1). Potassium [Moles/Vol] 4.6 mmol/L 3.7-5.1 [facility] Sodium [Moles/Vol] 137 mmol/L 136-144 [facility] Urea nitrogen [Mass/Vol] 22 mg/dL 9-24 [facility] Leukocytes [#/volume] correc ernestine for nucleated erythrocytes in Blood by Automated counon 10-09-2023 WBC corrected for nucl RBC Auto (Bld) [#/Vol] 5.43 k/uL 3.70-11.00 [facility] MCH Auto (RBC) [Entitic mass ]on 10-09-2023 MCH (RBC) [Entitic mass] 30.7 pg 26.0-34.0 [facility] MCHC Auto (RBC) [Mass/Vol]on 10-09-2023 MCHC (RBC) [Mass/Vol] 33.7 g/dL 30.5-36.0 [facility] MCV Auto (RBC) [Entitic vol] on 10-09-2023 MCV (RBC) [Entitic vol] 91.1 fL 80.0-100.0 [facility] No Panel Informationon 10-08 Estimated GFR (CKD-EPI) 71 mL/min/1.73m??? >=60 [facility] Comment on above: Estimated Glomerular Filtration Rate [...] 10-09-2023 Nucleated RBC (Bld) [#/Vol] 10*3/uL <0.01 [facility] Platelet mean volume Auto (B ld) [Entitic vol]on 10-09-2023 Platelet mean volume (Bld) [Entitic vol] 9.5 fL 9.0-12.7 [facility] Platelets Auto (Bld) [#/Vol] on 10-09-2023 Platelets (Bld) [#/Vol] 211 10*3/uL 150-400 [facility] RBC Auto (Bld) [#/Vol]on RBC (Bld) [#/Vol] 5.37 10*6/uL 4.20-6.00 [facility] Serum or plasma anion gap de terminationon 10-09-2023 Anion gap [Moles/Vol] 10 mmol/L 8-15 [facility] CNPNon 10-08-2023 CNPN Telephone (CATBraulio) -- KASSI SCHNEIDER ([id number]) 1975 M Date Time Provider Department 10/08/23 [...] Lisa Martínez RN. In Department of CARDIOLOGY. Allergies As [...] two times a day with meals. - Fzmafifahuhah-Qhbjtral-Iyx ein (MULTIVITAMIN 50 PLUS) tab Take 1 tablet by mouth once daily. - Ascorbic Acid (VITAMIN C) 1,000 mg tablet Take 1,000 mg by mouth once daily. - aspirin, enteric coated (ECOTRIN LOW STRENGTH) 81 mg EC tablet Take 1 tablet by mouth once daily. Problem List As Of Date: 10/08/2023 (None) Encounter Status:Closed by LISA MARTÍNEZ on 10/08/23 [facility] Mathew 10-02-2023 [facility] (ADARSH[facility] -- KSASI SCHNEIDER ([id number]) 1975 M Date Time Provider Department 10/02/23 MILAGROS GUARDADO During your visit today, we recorded the following information about you: Florentino Schaeffer 10/02/2023 4:52 PM Signed Saved medical records to scanned documents. Allergies As of Date: 10/02/2023 (No Known Allergies) Date Reviewed: 09/30/2023 Reviewed by: Sonny Greenberg, RN - Fully Assessed Reason for Visit: Received Outside Medical Records [[id number]] Prescriptions as of 10/02/2023 - metFORMIN (GLUCOPHAGE) [...] two times a day with meals. - Pwimlafduwlhw-Krujyvgc-Aiz ein (MULTIVITAMIN 50 PLUS) tab Take 1 tablet by mouth once daily. - Ascorbic Acid (VITAMIN C) 1,000 mg tablet Take 1,000 mg by mouth once daily. - aspirin, enteric coated (ECOTRIN LOW STRENGTH) 81 mg EC tablet Take 1 tablet by mouth once daily. Problem List As Of Date: 10/02/2023 (None) Encounter Status:Closed by FLORENTINO SCHAEFFER on 10/02/23 Normal [facility] CBC panel Auto (Bld)on 09-29 Erythrocyte distribution width (RBC) [Ratio] 12.2 % 11.5 - 15.0 % [facility] Hematocrit (Bld) [Volume fraction] 47.6 % 39.0 - 51.0 % [facility] Hemoglobin (Bld) [Mass/Vol] 15.8 g/dL 13.0 - 17.0 g/dL [facility] Interpretation and review of laboratory results Normal [facility] MCH (RBC) [Entitic mass] 30.4 pg 26.0 - 34.0 pg [facility] MCHC (RBC) [Mass/Vol] 33.2 g/dL 30.5 - 36.0 g/dL [facility] MCV (RBC) [Entitic vol] 91.7 fL 80.0 - 100.0 fL [facility] Nucleated RBC (Bld) [#/Vol] NINF [facility] Platelet mean volume (Bld) [Entitic vol] 10.0 fL 9.0 - 12.7 fL [facility] Platelets (Bld) [#/Vol] 208 10*3/uL [facility] RBC (Bld) [#/Vol] 5.19 10*6/uL 4.20 - 6.00 m/uL [facility] WBC (Bld) [#/Vol] 5.69 10*3/uL [facility] Erythrocyte distribution width (RBC) [Ratio] 12.2 % Normal 11.5-15.0 [facility] Comment on above: Order Comment: Speci men Type: BLOOD SPECIMEN Ordering Facility: [facility] Address: [address] [place] [address] Performed By: #### 5 8410-2 #### [facility] CLIA [id number] [address] [place] [address] [facility] Hematocrit (Bld) [Volume fraction] 47.6 % Normal 39.0-51.0 [facility] Comment on above: Order Comment: Speci men Type: BLOOD SPECIMEN Ordering Facility: [facility] Address: [address] [place] [address] Performed By: #### 5 8410-2 #### [facility] CLIA [id number] [address] [place] [address] [place] Hemoglobin (Bld) [Mass/Vol] 15.8 g/dL Normal 13.0-17.0 [facility] Comment on above: Order Comment: Speci men Type: BLOOD SPECIMEN Ordering Facility: [facility] Address: [address] [place] [address] Performed By: #### 5 8410-2 #### [facility] CLIA [id number] [address] [place] [address] [place] MCH (RBC) [Entitic mass] 30.4 pg Normal 26.0-34.0 [facility] Comment on above: Order Comment: Speci men Type: BLOOD SPECIMEN Ordering Facility: [facility] Address: [address] [place] [address] Performed By: #### 5 8410-2 #### [facility] CLIA [id number] [address] [place] [address] [place] MCHC (RBC) [Mass/Vol] 33.2 g/dL Normal 30.5-36.0 [facility] Comment on above: Order Comment: Speci men Type: BLOOD SPECIMEN Ordering Facility: [facility] Address: [address] [place] [address] Performed By: #### 5 8410-2 #### [facility] CLIA [id number] [address] [place] [address] [place] MCV (RBC) [Entitic vol] 91.7 fL Normal 80.0-100.0 [facility] Comment on above: Order Comment: Speci men Type: BLOOD SPECIMEN Ordering Facility: [facility] Address: [address] [place] [address] Performed By: #### 5 8410-2 #### [facility] CLIA [id number] [address] [place] [address] [place] Nucleated RBC (Bld) [#/Vol] 10*3/uL Normal <0.01 [facility] Comment on above: Order Comment: Speci men Type: BLOOD SPECIMEN Ordering Facility: [facility] Address: [address] [place] [address] Performed By: #### 5 8410-2 #### [facility] CLIA [id number] [address] [place] [address] [place] Platelet mean volume (Bld) [Entitic vol] 10.0 fL Normal 9.0-12.7 [facility] Comment on above: Order Comment: Speci men Type: BLOOD SPECIMEN Ordering Facility: [facility] Address: [address] [place] [address] Performed By: #### 5 8410-2 #### [facility] CLIA [id number] [address] [place] [address] [place] Platelets (Bld) [#/Vol] 208 10*3/uL Normal 150-400 [facility] Comment on above: Order Comment: Speci men Type: BLOOD SPECIMEN Ordering Facility: [facility] Address: [address] [place] [address] Performed By: #### 5 8410-2 #### [facility] CLIA [id number] [address] [place] [address] [place] RBC (Bld) [#/Vol] 5.19 10*6/uL Normal 4.20-6.00 [facility] Comment on above: Order Comment: Speci men Type: BLOOD SPECIMEN Ordering Facility: [facility] Address: [address] [place] [address] Performed By: #### 5 8410-2 #### [facility] CLIA [id number] [address] [place], [place] [address] [place] [address] [place] WBC (Bld) [#/Vol] 5.69 10*3/uL Normal 3.70-11.00 [facility] Comment on above: Order Comment: Speci men Type: BLOOD SPECIMEN Ordering Facility: [facility] Address: [address] [place] [address] Performed By: #### 5 8410-2 #### [facility] CLIA [id number] [address] [place] [address] [place] CNOVon 09-30-2023 CNOV Office Visit (CATHMN ) -- KASSI SCHNEIDER ([id number]) 1975 M Date Time Provider Department 09/30/23 8:45 AM MILAGROS GUARDADO CATHKASSIE During your visit today, we recorded the following information about you: Pulse Respiration Blood pressure Weight 67/minute 18/minute 118/76 95.7 kg Height 1.727 m Milagros Guardado MD 09/30/2023 10:52 AM [facility] [place] Vinny Mclaughlin Department of Cardiovascular Medicine SECTION [...] 32.08 kg/m?. 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 He was seeing a automotive porter in [place] for palpitations/fluttering that started about one year ago when he was taking Trulicity injections. That automotive porter had him do an echocardiogram and a stress test. He was told the stress test was abnormal and it was suggested he have a CT scan and a heart cath, but the testing was not available in [place] until October. 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 Normal [facility] Mathew 09-30-2023 NAIF Telephone (ADARSH) -- KASSI SCHNEIDER ([id number]) 1975 M Date Time Provider Department 09/30/23 MILAGROS GUARDADO During your visit today, we recorded the following information about you: Lailajean paulJaimeFlorentino Nemesio 09/30/2023 3:23 PM Signed Rec'd images. Uploaded via [facility] Echo dtd 07/10/23 NM Stress dtd 5/22/24 Allergies As of Date: 09/30/2023 (No Known Allergies) Date Reviewed: 09/30/2023 Reviewed by: Sonny Greenberg RN - Fully Assessed Reason for Visit: Received Outside Medical Records [[id number]] Cmt: [facility] Prescriptions as of 09/30/2023 - metFORMIN (GLUCOPHAGE) [...] two times a day with meals. - Hbyanyicnrhde-Jvgqxjlt-Kbk ein (MULTIVITAMIN 50 PLUS) tab Take 1 tablet by mouth once daily. - Ascorbic Acid (VITAMIN C) 1,000 mg tablet Take 1,000 mg by mouth once daily. - aspirin, enteric coated (ECOTRIN LOW STRENGTH) 81 mg EC tablet Take 1 tablet by mouth once daily. Problem List As Of Date: 09/30/2023 (None) Encounter Status:Closed by FLORENTINO SCHAEFFER on 09/30/23 Normal [facility] Cholesterol in LDL Calc [Mas s/Vol]on 09-30-2023 Cholesterol in LDL [Mass/Vol] 75 mg/dL <100 [facility] Comment on above: <100 mg/dL, Optimal 100-129 mg/dL, Near optimal/above optimal 130-159 mg/dL, Borderline high 160-189 mg/dL, High>189 mg/dL, Very highSecondary prevention optimal LDL Cholesterol levels are recommended to be < 70 mg/dL Cholesterol in VLDL Calc [Ma ss/Vol]on 09-30-2023 Cholesterol in VLDL [Mass/Vol] 52 mg/dL High <30 [facility] Comprehensive metabolic 2000 panelon 09-30-2023 Albumin [Mass/Vol] 4.3 g/dL 3.9 - 4.9 g/dL [facility] ALP [Catalytic activity/Vol] 60 U/L 38 - 113 U/L [facility] ALT [Catalytic activity/Vol] 21 U/L 10 - 54 U/L [facility] Anion gap [Moles/Vol] 10 mmol/L 8 - 15 mmol/L [facility] AST [Catalytic activity/Vol] 17 U/L 14 - 40 U/L [facility] Bilirubin [Mass/Vol] 0.4 mg/dL 0.2 - 1 .3 mg/dL [facility] Calcium [Mass/Vol] 10.2 mg/dL 8.5 - 10. 2 mg/dL [facility] Chloride [Moles/Vol] 99 mmol/L 98 - 10 7 mmol/L [facility] CO2 [Moles/Vol] 26 mmol/L 22 - 30 mmol/L [facility] Creatinine [Mass/Vol] 1.21 mg/dL 0.73 - 1.22 mg/dL [facility] GFR/1.73 sq M.predicted among non-blacks MDRD (S/P/Bld) [Vol rate/Area] 73 mL/min/{1.73_m2} - PINF [facility] Comment on above: Estimated Glomerular Filtration Rate [...] 281 mg/dL High 74 - 99 mg/dL [facility] Comment on above: The [place] Diabete s Association (ADA) provides guidance for [...] Standards of Medical Care in Diabetes 2016, [place] [employer]. Diabetes Care. 2016.39(Suppl 1). Potassium [Moles/Vol] 5.1 mmol/L 3.7 - 5.1 mmol/L [facility] Protein [Mass/Vol] 7.1 g/dL 6.3 - 8.0 g/dL [facility] Sodium [Moles/Vol] 135 mmol/L Low 136 - 144 mmol/L [facility] Urea nitrogen [Mass/Vol] 22 mg/dL 9 - 24 mg/dL [facility] Albumin [Mass/Vol] 4.3 g/dL Normal 3.9-4.9 [facility] Comment on above: Order Comment: Speci men Type: BLOOD SPECIMEN Ordering Facility: [facility] Address: [address] [place] [address] Performed By: #### 2 4323-8, 43659-8 #### [facility] CLIA [id number] [address] [place] [address] [place] ALP [Catalytic activity/Vol] 60 U/L Normal 38-113 [facility] Comment on above: Order Comment: Speci men Type: BLOOD SPECIMEN Ordering Facility: [facility] Address: [address] [place] [address] Performed By: #### 2 4323-8, 82506-0 #### [facility] CLIA [id number] [address] [place] [address] [place] ALT [Catalytic activity/Vol] 21 U/L Normal 10-54 [facility] Comment on above: Order Comment: Speci men Type: BLOOD SPECIMEN Ordering Facility: [facility] Address: [address] [place] [address] Performed By: #### 2 4323-8, 66670-8 #### [facility] CLIA [id number] [address] [place] [address] [place] Anion gap [Moles/Vol] 10 mmol/L Normal 8-15 [facility] Comment on above: Order Comment: Speci men Type: BLOOD SPECIMEN Ordering Facility: [facility] Address: [address] [place] [address] Performed By: #### 2 4323-8, 66781-8 #### [facility] CLIA [id number] [address] [place], [place] [id number] [place] AST [Catalytic activity/Vol] 17 U/L Normal 14-40 [facility] Comment on above: Order Comment: Speci men Type: BLOOD SPECIMEN Ordering Facility: [facility] Address: [address] [place] [address] Performed By: #### 2 4323-8, 26808-5 #### [facility] CLIA [id number] [address] [place] [address] [place] Bilirubin [Mass/Vol] 0.4 mg/dL Normal 0.2-1.[address] [facility] Comment on above: Order Comment: Speci men Type: BLOOD SPECIMEN Ordering Facility: [facility] Address: [address] [place] [address] Performed By: #### 2 4323-8, 09796-2 #### [facility] CLIA [id number] [address] [place] [address] [place] Calcium [Mass/Vol] 10.2 mg/dL Normal 8.5-10.2 [facility] Comment on above: Order Comment: Speci men Type: BLOOD SPECIMEN Ordering Facility: [facility] Address: [address] [place] [address] Performed By: #### 2 4323-8, 36494-0 #### [facility] CLIA [id number] [address] [place], [place] [address] [place] Chloride [Moles/Vol] 99 mmol/L Normal 98-[address] [facility] Comment on above: Order Comment: Speci men Type: BLOOD SPECIMEN Ordering Facility: [facility] Address: [address] [place] [address] Performed By: #### 2 4323-8, 86140-9 #### [facility] CLIA [id number] [address] [place] [address] [place] CO2 [Moles/Vol] 26 mmol/L Normal 22-30 [facility] Comment on above: Order Comment: Speci men Type: BLOOD SPECIMEN Ordering Facility: [facility] Address: [address] [place] [address] Performed By: #### 2 4323-8, 70391-8 #### [facility] CLIA [id number] [address] [place] [address] [place] Creatinine [Mass/Vol] 1.21 mg/dL Normal 0.73-1.22 [facility] Comment on above: Order Comment: Speci men Type: BLOOD SPECIMEN Ordering Facility: [facility] Address: [address] [place] [address] Performed By: #### 2 4323-8, 65775-3 #### [facility] CLIA [id number] [address] [place] [address] [place] Creatinine and Glomerular filtration rate.predicted panel (S/P/Bld) 73 mL/min/1.73m??? Normal >=60 [facility] Comment on above: Order Comment: Speci men Type: BLOOD SPECIMEN Ordering Facility: [facility] Address: [address] [place] [address] Result Comment: Haven mated Glomerular Filtration Rate [...] actual GFR. Performed By: #### 2 4323-8, 47600-4 #### [facility] CLIA [id number] [address] [place] [address] [place] Glucose [Mass/Vol] 281 mg/dL High 74-99 [facility] Comment on above: Order Comment: Speci men Type: BLOOD SPECIMEN Ordering Facility: [facility] Address: [address] [place] [address] Result Comment: The [place] Diabetes Association (ADA) provides guidance for cutoff [...] Standards of Medical Care in Diabetes 2016, [place] [employer] Association. Diabetes Care. 2016.39(Suppl 1). Performed By: #### 2 4323-8, 52326-8 #### [facility] CLIA [id number] [address] [place] [address] [place] Potassium [Moles/Vol] 5.1 mmol/L Normal 3.7-5.1 [facility] Comment on above: Order Comment: Speci men Type: BLOOD SPECIMEN Ordering Facility: [facility] Address: [address] [place] [address] Performed By: #### 2 4323-8, 39390-1 #### [facility] CLIA [id number] [address] [place] [address] [place] Protein [Mass/Vol] 7.1 g/dL Normal 6.3-8.0 [facility] Comment on above: Order Comment: Speci men Type: BLOOD SPECIMEN Ordering Facility: [facility] Address: [address] [place] [address] Performed By: #### 2 4323-8, 68117-6 #### [facility] CLIA [id number] [address] [place] [address] [place] Sodium [Moles/Vol] 135 mmol/L Low 136-144 [facility] Comment on above: Order Comment: Speci men Type: BLOOD SPECIMEN Ordering Facility: [facility] Address: [address] [id number] Performed By: #### 2 4323-8, 57166-5 #### [facility] CLIA [id number] [address] [place] [address] [place] Urea nitrogen [Mass/Vol] 22 mg/dL Normal 9-24 [facility] Comment on above: Order Comment: Speci men Type: BLOOD SPECIMEN Ordering Facility: [facility] Address: [address] [place] [address] Performed By: #### 2 4323-8, 88282-1 #### [facility] CLIA [id number] [facility] [place] [address] [place] ECG COMPLETEon 09-30-2023 ECG COMPLETE Ventricular Rate : 5 8 BPM Atrial Rate : 58 BPM P-R Interval : 132 ms QRS Duration : 92 ms Q-T Interval : 412 ms QTC Calculation(Bazett) : 404 ms Calculated P [place] : 28 degrees Calculated R [place] : -10 degrees Calculated T [place] : -7 degrees SINUS BRADYCARDIA MINIMAL VOLTAGE CRITERIA FOR LVH, MAY BE NORMAL VARIANT ( R in aVL ) BORDERLINE ECG Confirmed by SHAILESH SHINE MD ([id number]) on 10/18/2023 4:21:36 PM NAME : KASSI SCHNEIDER PID : [id number] : 1975 Gender : Male Race : ORD : [id number] Procedure Date : Sep 30 2023 10:26:33 Edit Date : Oct 18 2023 16:21:38 Diagnosis: SINUS BRADYCARDIA MINIMAL VOLTAGE CRITERIA FOR LVH, MAY BE NORMAL VARIANT ( R in aVL ) BORDERLINE ECG Confirmed by SHAILESH SHINE MD ([id number]) on 10/18/2023 4:21:36 PM Test Reason : Location : 314 : J14 J14 Overread By : SHAILESH SHINE MD Edited By : SHAILESH SHINE MD Referred By : MILAGROS GUARDADO Acquired by : CHLOE MARK Normal [facility] Erythrocyte distribution wid th Auto (RBC) [Ratio]on 09-30-2023 Erythrocyte distribution width (RBC) [Ratio] 12.2 % 11.5-15.0 [facility] Hematocrit Auto (Bld) [Volum e fraction]on 09-30-2023 Hematocrit (Bld) [Volume fraction] 47.6 % 39.0-51.0 [facility] Hemoglobin [Mass/volume] in Bloodon 09-30-2023 Hemoglobin (Bld) [Mass/Vol] 15.8 g/dL 13.0-17.0 [facility] Laboratory - Chemistry and C hemistry - challengeon 09-30-2023 Albumin [Mass/Vol] 4.3 g/dL 3.9-4.9 [facility] ALP [Catalytic activity/Vol] 60 U/L 38-113 [facility] ALT [Catalytic activity/Vol] 21 U/L 10-54 [facility] AST [Catalytic activity/Vol] 17 U/L 14-40 [facility] Bilirubin [Mass/Vol] 0.4 mg/dL 0.2-1.3 [facility] Calcium [Mass/Vol] 10.2 mg/dL 8.5-10.2 [facility] Chloride [Moles/Vol] 99 mmol/L 98-107 [facility] Cholesterol [Mass/Vol] 162 mg/dL <200 [facility] Comment on above: <200 mg/dL, Desirabl e 200-239 mg/dL, Borderline high>239 mg/dL, High Cholesterol in HDL [Mass/Vol] 35 mg/dL Low >39 [facility] Comment on above: 40-59 mg/dL, Accepta ble>59 mg/dL, High: Negative risk factor for coronary heart disease<40 mg/dL, Low: Positive risk factor for coronary heart disease CO2 [Moles/Vol] 26 mmol/L 22-30 [facility] Creatinine [Mass/Vol] 1.21 mg/dL 0.73-1.22 [facility] Glucose [Mass/Vol] 281 mg/dL High 74-99 [facility] Comment on above: The [place] Diabete s Association (ADA) provides guidance for [...] Standards of Medical Care in Diabetes 2016, [place] [employer]. Diabetes Care. 2016.39(Suppl 1). Potassium [Moles/Vol] 5.1 mmol/L 3.7-5.1 [facility] Sodium [Moles/Vol] 135 mmol/L Low 136-144 [facility] Triglyceride [Mass/Vol] 260 mg/dL High <150 [facility] Comment on above: <150 mg/dL, Normal 1 50-199 mg/dL, Borderline high 200-499 mg/dL, High>499 mg/dL, Very high Urea nitrogen [Mass/Vol] 22 mg/dL 9-24 [facility] Leukocytes [#/volume] correc ernestine for nucleated erythrocytes in Blood by Automated counon 09-30-2023 WBC corrected for nucl RBC Auto (Bld) [#/Vol] 5.69 k/uL 3.70-11.00 [facility] Lipid 1996 panelon 4 Cholesterol [Mass/Vol] 162 mg/dL NINF - 200 mg/dL [facility] Comment on above: <200 mg/dL, Desirabl e 200-239 mg/dL, Borderline high >239 mg/dL, High Cholesterol in HDL [Mass/Vol] 35 mg/dL Low 39 - PINF mg/dL [facility] Comment on above: 40-59 mg/dL, Accepta ble >59 mg/dL, High: Negative risk factor for coronary heart disease <40 mg/dL, Low: Positive risk factor for coronary heart disease Cholesterol in LDL [Mass/Vol] 75 mg/dL NINF - 100 mg/dL [facility] Comment on above: <100 mg/dL, Optimal 100-129 mg/dL, Near optimal/above optimal 130-159 mg/dL, Borderline high 160-189 mg/dL, High >189 mg/dL, Very high Secondary prevention optimal LDL Cholesterol levels are recommended to be < 70 mg/dL Cholesterol in LDL/Cholesterol in HDL [Mass ratio] 2.14 {ratio} NINF - 2.54 [facility] Comment on above: Reference: 1. National Cholesterol Education Program ATP III Guideline At-A-Glance Quick Desk Reference: National Heart, Lung, and Blood [place]. National Institutes of Health. 2001: NIH Publication No. 01-3305. 2. An International Atherosclerosis Society position paper: global recommendations for the management of dyslipidemia: executive summary, Atherosclerosis. 2014: 232(2):410-413. Cholesterol in VLDL [Mass/Vol] 52 mg/dL High NINF - 30 mg/dL [facility] Cholesterol non HDL [Mass/Vol] 127 mg/dL NINF - 130 mg/dL [facility] Comment on above: <130 mg/dL, Optimal 130-159 mg/dL, Near optimal/above optimal 160-189 mg/dL, Borderline high 190-219 mg/dL, High >219 mg/dL, Very high Secondary prevention optimal non HDL Cholesterol levels are recommended to be <100 mg/dL Cholesterol.total/Cho lesterol in HDL [Mass ratio] 4.63 {ratio} NINF - 5.10 [facility] Fasting Time 0 hrs [facility] Triglyceride [Mass/Vol] 260 mg/dL High NINF - 150 mg/dL [facility] Comment on above: <150 mg/dL, Normal 150-199 mg/dL, Borderline high 200-499 mg/dL, High >499 mg/dL, Very high Cholesterol [Mass/Vol] 162 mg/dL Normal <200 [facility] Comment on above: Order Comment: Speci men Type: BLOOD SPECIMEN Ordering Facility: [facility] Address: [address] [place] [address] Result Comment: <200 mg/dL, Desirable 200-239 mg/dL, Borderline high >239 mg/dL, High Performed By: #### 2 4323-8, 31706-1 #### [facility] CLIA [id number] [address] [place], [place] [address] [id number] [place] [address] [place] Cholesterol in HDL [Mass/Vol] 35 mg/dL Low >39 [facility] Comment on above: Order Comment: Speci men Type: BLOOD SPECIMEN Ordering Facility: [facility] Address: [address] [place] [address] Result Comment: 40-5 9 mg/dL, Acceptable >59 mg/dL, High: Negative risk factor for coronary heart disease <40 mg/dL, Low: Positive risk factor for coronary heart disease Performed By: #### 2 4323-8, 86829-3 #### [facility] CLIA [id number] [address] [place] [address] [place] Cholesterol in LDL [Mass/Vol] 75 mg/dL Normal <100 [facility] Comment on above: Order Comment: Speci men Type: BLOOD SPECIMEN Ordering Facility: [facility] Address: [address] [place] [address] Result Comment: <100 mg/dL, Optimal 100-129 mg/dL, Near optimal/above optimal 130-159 mg/dL, Borderline high 160-189 mg/dL, High >189 mg/dL, Very high Secondary prevention optimal LDL Cholesterol levels are recommended to be < 70 mg/dL Performed By: #### 2 4323-8, 67462-3 #### [facility] CLIA [id number] [address] [place] [address] [place] Cholesterol in LDL/Cholesterol in HDL [Mass ratio] 2.14 {ratio} Normal <2.54 [facility] Comment on above: Order Comment: Armandoi men Type: BLOOD SPECIMEN Ordering Facility: [facility] Address: [address] [place] [address] Result Comment: Refe renmayra: 1. National Cholesterol Education Program ATP III Guideline At-A-Glance Quick Desk Reference: National Heart, Lung, and Blood [place]. National Institutes of Health. 2001: NIH Publication No. 01-3305. 2. An International Atherosclerosis Society position paper: global recommendations for the management of dyslipidemia: executive summary, Atherosclerosis. 2014: 232(2):410-413. Performed By: #### 2 4323-8, 03092-6 #### [facility] CLIA [id number] [address] [place] [address] [place] Cholesterol in VLDL [Mass/Vol] 52 mg/dL High <30 [facility] Comment on above: Order Comment: Speci men Type: BLOOD SPECIMEN Ordering Facility: [facility] Address: [address] [id number] Performed By: #### 2 4323-8, 53284-8 #### [facility] CLIA [id number] [address] [place] [address] [place] Cholesterol non HDL [Mass/Vol] 127 mg/dL Normal <130 [facility] Comment on above: Order Comment: Speci men Type: BLOOD SPECIMEN Ordering Facility: [facility] Address: [address] [place] [address] Result Comment: <130 mg/dL, Optimal 130-159 mg/dL, Near optimal/above optimal 160-189 mg/dL, Borderline high 190-219 mg/dL, High >219 mg/dL, Very high Secondary prevention optimal non HDL Cholesterol levels are recommended to be <100 mg/dL Performed By: #### 2 4323-8, 73388-2 #### [facility] CLIA [id number] [address] [place] [address] [place] Cholesterol.total/Cho lesterol in HDL [Mass ratio] 4.63 {ratio} Normal <5.10 [facility] Comment on above: Order Comment: Speci men Type: BLOOD SPECIMEN Ordering Facility: [facility] Address: [address] [place] [address] Performed By: #### 2 4323-8, 92617-2 #### [facility] CLIA [id number] [address] [place] [address] [place] FASTING TIME 0 hrs Normal [facility] Comment on above: Order Comment: Speci men Type: BLOOD SPECIMEN Ordering Facility: [facility] Address: [address] [place], [place] [address] Performed By: #### 2 4323-8, 52887-6 #### [facility] CLIA [id number] [address] [place] [address] [place] Triglyceride [Mass/Vol] 260 mg/dL High <150 [facility] Comment on above: Order Comment: Speci men Type: BLOOD SPECIMEN Ordering Facility: [facility] Address: [address] [place], [place] [address] Result Comment: <150 mg/dL, Normal 150-199 mg/dL, Borderline high 200-499 mg/dL, High >499 mg/dL, Very high Performed By: #### 2 4323-8, 41361-1 #### [facility] CLIA [id number] [address] [place] [address] [id number] [place], [place] [id number] [place] MCH Auto (RBC) [Entitic mass ]on 09-30-2023 MCH (RBC) [Entitic mass] 30.4 pg 26.0-34.0 [facility] MCHC Auto (RBC) [Mass/Vol]on 09-30-2023 MCHC (RBC) [Mass/Vol] 33.2 g/dL 30.5-36.0 [facility] MCV Auto (RBC) [Entitic vol] on 09-30-2023 MCV (RBC) [Entitic vol] 91.7 fL 80.0-100.0 [facility] No Panel Informationon 09-29 Interpretation and review of laboratory results Abnormal [facility] Estimated GFR (CKD-EPI) 73 mL/min/1.73m??? >=60 [facility] Comment on above: Estimated Glomerular Filtration Rate [...] reflect actual GFR. Fasting Status 0 hrs [facility] Non-HDL Cholesterol 127 mg/dL <130 [facility] Comment on above: <130 mg/dL, Optimal 130-159 mg/dL, Near optimal/above optimal 160-189 mg/dL, Borderline high 190-219 mg/dL, High>219 mg/dL, Very highSecondary prevention optimal non HDL Cholesterol levels are recommended to be <100 mg/dL Nucleated RBC Auto (Bld) [#/ Vol]on 09-30-2023 Nucleated RBC (Bld) [#/Vol] 10*3/uL <0.01 [facility] Platelet mean volume Auto (B ld) [Entitic vol]on 09-30-2023 Platelet mean volume (Bld) [Entitic vol] 10.0 fL 9.0-12.7 [facility] Platelets Auto (Bld) [#/Vol] on 09-30-2023 Platelets (Bld) [#/Vol] 208 10*3/uL 150-400 [facility] Protein [Mass/volume] in Ser um or Plasmaon 09-30-2023 Protein [Mass/Vol] 7.1 g/dL 6.3-8.0 [facility] RBC Auto (Bld) [#/Vol]on RBC (Bld) [#/Vol] 5.19 10*6/uL 4.20-6.00 [facility] Serum or plasma anion gap de terminationon 09-30-2023 Anion gap [Moles/Vol] 10 mmol/L 8-15 [facility] Serum or plasma total choles terol/high density lipoprotein (HDL) cholesterol mass jani 09-30-2023 Cholesterol.total/Cho lesterol in HDL [Mass ratio] 4.63 {ratio} <5.10 [facility] GLYCOHEMOGLOBIN A1Con 2022 ADA RECOMMENDATION SEE BELOW Normal [facility] Comment on above: Result Comment: ADA RECOMMENDED LIMIT 4.0 - 6.0 ADA THERAPEUTIC TARGET < 7.0 ACTION SUGGESTED > 7.0 Performed By: #### A 1C #### [facility] [address] [place] [address] Dr. Farheen Carrillo Glucose [Mass/Vol] 140 mg/dL Normal [facility] Comment on above: Performed By: #### A 1C #### [facility] [address] [address] [address] Farheen Carrillo HbA1c (Bld) [Mass fraction] 6.5 % Critically high 4.5-6.2 [facility] Comment on above: Performed By: #### A 1C #### [facility] [address] [address] [address] Farheen Carrillo TESTOSTERONE, TOTALon 2021 Testosterone [Mass/Vol] 389 ng/dL Normal 264-916 [facility] Comment on above: Result Comment: Adul t male reference interval is based on a population of healthy nonobese males (BMI <30) between 19 and 39 years old. emmett Muse.al. JCEM 2017,102;[id number]. PMID: [id number]. Performed By: #### T ESTTOT #### [facility] [address] [address] [address] Farheen Carrillo GLYCOHEMOGLOBIN A1Con 2021 ADA RECOMMENDATION SEE BELOW Normal [facility] Comment on above: Result Comment: ADA RECOMMENDED LIMIT 4.0 - 6.0 ADA THERAPEUTIC TARGET < 7.0 ACTION SUGGESTED > 7.0 Performed By: #### A 1C #### [facility] [address] [place] [address] Dr. Farheen Carrillo Glucose [Mass/Vol] 194 mg/dL Normal [facility] Comment on above: Performed By: #### A 1C #### [facility] [address] [place] [address] Dr. Farheen Carrillo HbA1c (Bld) [Mass fraction] 8.4 % Critically high 4.5-6.2 [facility] Comment on above: Performed By: #### A 1C #### [facility] [address] [place] [address] Dr. Farheen Carrillo CBC AUTO DIFFon 08-17-2021 BASO # 0.0 103/ul Normal 0.0-0.1 [facility] Comment on above: Performed By: #### D ATCBC #### [facility] [address] [place] [address] Dr. Farheen Carrillo Basophils/100 WBC (Bld) 0.7 % Normal 0.2-2.0 [facility] Comment on above: Performed By: #### D ATCBC #### [facility] [address] [place] [address] Dr. Farheen Carrillo EO # 0.3 103/ul Normal 0.0-0.7 [facility] Comment on above: Performed By: #### D ATCBC #### [facility] [address] [place] [address] Dr. Farheen Carrillo Eosinophils/100 WBC (Bld) 5.5 % Normal 0.9-7.0 [facility] Comment on above: Performed By: #### D ATCBC #### [facility] [address] [place] [address] Dr. Farheen Carrillo Erythrocyte distribution width (RBC) [Ratio] 12.0 % Normal 11.0-15.0 [facility] Comment on above: Performed By: #### D ATCBC #### [facility] [address] [place] [address] Dr. Farheen Carrillo Hematocrit (Bld) [Volume fraction] 44.7 % Normal 42.0-54.0 [facility] Comment on above: Performed By: #### D ATCBC #### [facility] [address] [place] [address] Dr. Farheen Carrillo Hemoglobin (Bld) [Mass/Vol] 15.6 g/dL Normal 14.0-18.0 [facility] Comment on above: Performed By: #### D ATCBC #### [facility] [address] [place] [address] Dr. Farheen Carrillo IG # 0.02 10e3/ul Normal 0.00-0.03 [facility] Comment on above: Performed By: #### D ATCBC #### [facility] [address] [place] [address] Dr. Farheen Carrillo IG % 0.3 % Normal 0.0-0.5 [facility] Comment on above: Performed By: #### D ATCBC #### [facility] [address] [place] [address] Dr. Farheen Carrillo LYMPH # 2.3 103/ul Normal 1.2-3.8 [facility] Comment on above: Performed By: #### D ATCBC #### [facility] [address] [place] [address] Dr. Farheen Carrillo Lymphocytes/100 WBC (Bld) 39.1 % Normal 20.5-60.0 [facility] Comment on above: Performed By: #### D ATCBC #### [facility] [address] [place] [address] Dr. Farheen Carrillo MCH (RBC) [Entitic mass] 31.1 pg Normal 25.9-34.0 [facility] Comment on above: Performed By: #### D ATCBC #### [facility] [address] [place] [address] Dr. Farheen Carrillo MCHC (RBC) [Mass/Vol] 34.9 g/dL Normal 29.9-35.2 [facility] Comment on above: Performed By: #### D ATCBC #### [facility] [address] [place] [address] Dr. Farheen Carrillo MCV (RBC) [Entitic vol] 89.0 fL Normal 80.0-94.0 [facility] Comment on above: Performed By: #### D ATCBC #### [facility] [address] [place] [address] Dr. Farheen Carrillo MONO # 0.5 103/ul Normal 0.3-0.8 [facility] Comment on above: Performed By: #### D ATCBC #### [facility] [address] [place] [address] Dr. Farheen Carrillo Monocytes/100 WBC (Bld) 8.5 % Normal 1.7-12.0 [facility] Comment on above: Performed By: #### D ATCBC #### [facility] [address] [place] [address] Dr. Farheen Carrillo NEUT # 2.7 103/ul Normal 1.4-6.5 [facility] Comment on above: Performed By: #### D ATCBC #### [facility] [address] [place] [address] Dr. Farheen Carrillo Neutrophils/100 WBC (Bld) 45.9 % Normal 43.0-75.0 [facility] Comment on above: Performed By: #### D ATCBC #### [facility] [address] [place] [address] Dr. Farheen Carrillo Platelet mean volume (Bld) [Entitic vol] 8.9 fL Critically low 9.5-13.5 [facility] Comment on above: Performed By: #### D ATCBC #### [facility] [address] [place] [address] Dr. Farheen Carrillo PLT 208 103/ul Normal 150-450 [facility] Comment on above: Performed By: #### D ATCBC #### [facility] [address] [address] [address] Farheen Carrillo RBC 5.02 106/ul Normal 4.70-6.10 [facility] Comment on above: Performed By: #### D ATCBC #### [facility] [address] [address] [address] Farheen Carrillo WBC 5.9 103/ul Normal 4.0-11.0 [facility] Comment on above: Performed By: #### D ATCBC #### [facility] [address] [place] [address] Dr. Farheen Carrillo MARGIE- BMP WITH LIPIDon 2021 Anion gap [Moles/Vol] 10.1 mmol/L Normal [facility] Comment on above: Performed By: #### D ATBMP #### [facility] [address] [place] [address] Dr. Farheen Carrillo Calcium [Mass/Vol] 8.5 mg/dL Normal 8.5-10.[address] [facility] Comment on above: Performed By: #### D ATBMP #### [facility] [address] [address] [address] Farheen Carrillo Chloride [Moles/Vol] 100 mmol/L Normal 98-107 [facility] Comment on above: Performed By: #### D ATBMP #### [facility] [address] [address] [address] Farheen Carrillo Cholesterol [Mass/Vol] 164 mg/dL Normal <=200 [facility] Comment on above: Performed By: #### D ATBMP #### [facility] [address] [address] [address] Farheen Carrillo Cholesterol in HDL [Mass/Vol] 35 mg/dL Critically low 40-60 [facility] Comment on above: Performed By: #### D ATBMP #### [facility] [address] [address] [address] Farheen Carrillo Cholesterol in LDL [Mass/Vol] 77.8 mg/dL Normal [facility] Comment on above: Performed By: #### D ATBMP #### [facility] [address] [address] [address] Farheen Carrillo CO2 [Moles/Vol] 29.4 mmol/L Normal 21.0-32.0 [facility] Comment on above: Performed By: #### D ATBMP #### [facility] [address] [address] [address] Farheen Carrillo Creatinine [Mass/Vol] 1.13 mg/dL Normal 0.70-1.30 [facility] Comment on above: Performed By: #### D ATBMP #### [facility] [address] [address] [address] Farheen Carrillo EGFR-AF NIGERIEN >60 Normal >=60 [facility] Comment on above: Performed By: #### D ATBMP #### [facility] [address] [address] [address] Farheen Carrillo EGFR-NON AF NIGERIEN >60 Normal >=60 [facility] Comment on above: Performed By: #### D ATBMP #### [facility] [address] [address] [address] Farheen Carrillo Glucose [Mass/Vol] 246 mg/dL Critically high 74-[address] [facility] Comment on above: Performed By: #### D ATBMP #### [facility] [address] [address] [address] Farheen Carrillo HDL NORMAL > or = 60 mg/dl - LO W CARDIOVASCULAR RISK <40 mg/dl - HIGH CARDIOVASCULAR RISK Normal [facility] Comment on above: Performed By: #### D ATBMP #### [facility] [address] [address] [address] Farheen Carrillo LDL CALC NORMAL SEE BELOW Normal [facility] Comment on above: Result Comment: <100 mg/dl OPTIMAL 100 - 129 mg/dl NEAR OR ABOVE OPTIMAL 130 - 159 mg/dl BORDERLINE HIGH 160 - 189 mg/dl HIGH >190 mg/dl VERY HIGH Performed By: #### D ATBMP #### [facility] [address] [address] [address] Farheen Carrillo Potassium [Moles/Vol] 4.5 mmol/L Normal 3.5-5.1 [facility] Comment on above: Performed By: #### D ATBMP #### [facility] [address] [address] [address] Farheen Carrillo Sodium [Moles/Vol] 135 mmol/L Critically low 136-145 [facility] Comment on above: Performed By: #### D ATBMP #### [facility] [address] [place] [address] Dr. Farheen Carrillo Triglyceride [Mass/Vol] 256 mg/dL Critically high <=150 [facility] Comment on above: Performed By: #### D ATBMP #### [facility] [address] [place] [address] Dr. Farheen Carrillo Urea nitrogen [Mass/Vol] 18.0 mg/dL Normal 7.0-18.0 [facility] Comment on above: Performed By: #### D ATBMP #### [facility] [address] [place] [address] Dr. Farheen Carrillo Urea nitrogen/Creatinine [Mass ratio] 15.9 mg/mg Normal [facility] Comment on above: Performed By: #### D ATBMP #### [facility] [address] [place] [address] Dr. Farheen Carrillo VLDL CALC 51.2 mg/dL Normal [facility] Comment on above: Performed By: #### D ATBMP #### [facility] [address] [place] [address] Dr. Farheen Carrillo GLYCOHEMOGLOBIN A1Con 2021 ADA RECOMMENDATION SEE BELOW Normal [facility] Comment on above: Result Comment: ADA RECOMMENDED LIMIT 4.0 - 6.0 ADA THERAPEUTIC TARGET < 7.0 ACTION SUGGESTED > 7.0 Performed By: #### D ATA1C #### [facility] [address] [place], [place] [address] Dr. Farheen Carrillo Glucose [Mass/Vol] 263 mg/dL Normal [facility] Comment on above: Performed By: #### D ATA1C #### [facility] [address] [place], [place] [address] Dr. Farheen Carrillo HbA1c (Bld) [Mass fraction] 10.8 % Critically high 4.5-6.2 [facility] Comment on above: Performed By: #### D ATA1C #### [facility] [address] [place], [place] [address] Dr. Farheen Carrillo XR knee BI 3Von 07-16-2021 XR knee BI 3V [facility] [employer] Other XR knee BI 3V [facility] [employer] Other XR knee BI 3V [address] [place] [address] [employer] Other XR knee BI 3V [address] [employer] Other XR knee BI 3V XRay Report [employer] Other XR knee BI 3V Signed [employer] Other XR knee BI 3V Patient: Zoila Schneider MR#: [id number] [employer] Other XR knee BI 3V 816 [employer] Other XR knee BI 3V : 1975 Acct:[id number] [employer] Other XR knee BI 3V Age/Sex: 45 / M ADM Date: 07/16/21 [employer] Other XR knee BI 3V Loc: [facility] Room: Type : [facility] [employer] Other XR knee BI 3V Attending Dr: Cindy Trevino MD [employer] Other XR knee BI 3V Ordering Provider: Nigel Trevino MD [employer] Other XR knee BI 3V Date of Service: 07/16/21 [employer] Other XR knee BI 3V [id number]) XR/XR knee BI 3V - NOT FOR ER USE: Rupture of right quadriceps tendon, [employer] Other XR knee BI 3V initial encounter;Ruptur [employer] Other XR knee BI 3V Copies to: Karlene Trevino MD [employer] Other XR knee BI 3V [address] ain film [employer] Other XR knee BI 3V COMPARISON:06/02/20 No rthoccer Other XR knee BI 3V HISTORY:Bilateral pa tellar tendon repair. [employer] Other XR knee BI 3V Postsurgical changes of bilateral patellar repair identified. There are small bony density inferior [employer] Other XR knee BI 3V to the RIGHT patella . This likely incidental. Bony alignment adequate. No acute bony findings seen. [employer] Other XR knee BI 3V X R/XR knee BI 3V - NOT FOR ER USE [employer] Other XR knee BI 3V IMPRESSION:No postsu rgical complication. [employer] Other XR knee BI 3V Impression dictated by: Delmer Keith M.D.07/16/2021 12:20 PM [employer] Other XR knee BI 3V Dictation Location: [facility]-- [employer] Other XR knee BI 3V Transcribed By: LUCI 07/16/21 1220 [employer] Other XR knee BI 3V Dictated By: Randy Keith DO 07/16/21 1218 [employer] Other XR knee BI 3V Signed By: [facility] [employer] Other XR knee BI 3V 07/16/21 1220 [facility] [employer] Other Coding Summaryon 04-13-2017 Coding Summary CODING DATE: 017 [facility] STATUS: Home PAYOR: Workers Compensation [...] Sang Rebolledo' Date Saved: 04/13/2017 08:58 am [facility] Coding Summary CODING DATE: 017 [facility] STATUS: Home PAYOR: Workers Compensation [...] Donovan Rebolledo Date Saved: 04/13/2017 08:58 am [facility] Discharge Instructionson Discharge Instructions [id number] [facility] ED Note-Nursingon 04-11-2017 ED Note-Nursing Pt leaves a message on our voicemail to report he is Fine back to work . [facility] ED Note-Nursing No answer, message w ith return # left [facility] ED Clinical Summaryon 2016 ED Clinical Summary [facility] ? Urgent [address] [place] [address] clinical SummaryPERSON INFORMATIONName: KASSI SCHNEIDER Age: 41 Years Sex: MALEDOB: [birth year] MRN: Acct#:Visit Reason: UC - Wrist/Hand/Finger Pain or Swelling; LEFT 3RD FINGER LACERATION Arrival:04/10/17 11:59:00 Discharge: 04/10/17 12:51:00LOS: 000 00:52 Check In: 04/10/17 11:59:00 Checkout: 04/10/17 12:51:00Address:[address] [id number]: José Miguel Cheung EPROVIBALJIT INFORMATIONProvider Role Assigned UnassignedSpasic Mark BRITO ED PA 04/10/17 12:02:11Zaida De Dios [employer] WORKER Nurse 04/10/17 12:08:50VITALS INFORMATIONVital Sign Triage LatestTemperature TympanicTemperature Temporal ArteryPulse Rate 73 bpm 73 bpmO2 Sat 97 % 97 %Respiratory Rate 16 br/min 16 br/minBlood Pressure 122 mmHg/82 mmHg 122 mmHg/82 mmHgMEDICAL INFORMATIONMedications Given:Medication Dose Routebacitracin topical 500 unit(s) TOPAllergy Information:No Known Medication AllergiesPHYSICIAN DOCUMENTATIONDISCHARGE INFORMATION:Discharge Disposition: HomeDischarge Location: HomePATIENT EDUCATION INFORMATIONInstructions: Crush Injury of the Hand, Emin-sp-DxqqLixvfw-Up:With : Address: When:José Miguel Cheung [address] [place] [address] Business (1)Comments:Keep the injury clean and dry, do not submerge in the waterCan take ibuprofen and/or Tylenol as needed for pain, can elevate as needed to help reduce swellingAny increase in discomfort or any inability to perform your work duties return for reevaluationDIAGNOSIS:Sujey h injury - 3rd digit left handComment: [facility] ED Note - Physicianon 2016 ED Note - Physician Patient: FR NELLIE SCHNEIDER : 41 years Sex: MALE : [...] other complaints or concerns. Patient works for [employer]. Nail and nailbed is intact for range [...] Lungs are clear to auscultation, respirations are non-labored.Musculoskeleta l: Normal ROM, no deformity, No deformity, MSPS intact, capillary refill less than 2 seconds, full flexion and full extension intact.Lymphatics: No lymphadenopathy.Psychiatri c: Cooperative, appropriate mood & affect.Medical Decision MakingOrders Launch OrdersRadiology:XR Finger Left (Order): 04/10/17 12:11 EST Stat, struck 3rd digit left hand with hammer, ecchymosis, Allow Modification Per Radiologist, Transport Mode: Cart, Launch OrdersPatient Care:Brace/Splint ED (Order): 04/10/17 12:37 EST, Finger splint, left third digit, Launch OrdersPharmacy:bacitracin topical (Order): 1 jamarcus, TOP, Once.Pt was offered off the rest of today, additionally offered offay patient declines , states wanting to go [...] PlanDiagnosisCrush injury - 3rd digit left hand ([id number] T14.8XXA, Discharge, Medical)PlanPrescriptions: Launch prescriptionsPharmacy:Kefl ex 500 mg oral capsule (Prescribe): 500 mg, 1 cap(s), PO, q12hr, for 5 day(s), 10 cap(s), 0 Refill(s).Patient was given the following educational materials: Crush Injury of the Hand, Bfaz-cx-Xmiy.Follow up with: José Miguel Cheung Keep the injury clean and dry, do not submerge in the waterCan take ibuprofen and/or Tylenol as needed for pain, can elevate as needed to help reduce swellingAny increase in discomfort or any inability to perform your work duties return for reevaluation.Counseled: Patient, Regarding diagnosis, Regarding diagnostic results, Regarding treatment plan, Regarding prescription, Patient indicated understanding of instructions.[Electronical ly Signed on: 04/10/2017 13:20 EST] Mark Kilgore[Verified on: 04/10/2017 13:20 EST] Mark Kilgore [facility] ED Note-Nursingon 04-10-2017 ED Note-Nursing Order to clean, use bacitracin, dress the wound and apply splint. Wound cleaned with betasept, bacitracin applied, 2x2, fingercot gauze applied, baseball splint applied per orders. [facility] ED Note-Nursing Injured digit L hand soaking in tepid h2o and betasept. [facility] ED Patient Summaryon 017 ED Patient Summary [facility] ? Urgent [address] [place] [id number] pATIENT DISCHARGE INSTRUCTIONSPatient InformationName: KASSI SCHNEIDER Age: 41 YearsDate of : [birth year]MRN: [id number] Visit: UC - Wrist/Hand/Finger Pain or Swelling; LEFT 3RD FINGER LACERATIONArrival Time: 04/10/17 11:59:00Phone: Primary Care Physician: José Miguel Cheung Physician: Blanco Kilgoreomment:Patient EducationWith: Address: When:José Miguel Cheung [address] [phone] Business (1)Comments:Keep the injury clean and dry, [...] cannot use soap and water, use hand completion manager.? Change your bandage as told by your [...] take a bath or a shower.? Take lfur-mob-zpnntny and prescription medicines only as told by [...] Document Reviewed: 12/05/2015[employer] Patient Education ?2017 [employer].Medication Information:The exam and treatment you received today in the [facility] were for an urgent problem and are not intended as complete care. It is important for you to follow up with a doctor, nurse practitioner, or physician?s assistant chief of police for ongoing care. If your symptoms become [...] number so we can reach you if necessary.[facility] has provided you with a complete list of medications post discharge. Please inform your freezer person/provider of your visit and for further instruction [...] (T14.8XXA) UC - Wrist/Hand/Finger Pain or Swelling ([id number])If you received any narcotics, sedation, or any [...] Weight: 97.5 kg Body Mass Index: 32.69 kg/h7Werytlte List:Problem Onset CommentsNo Problems foundMajor Tests and Procedures:The following procedures and tests were performed during your ED visit.LaboratoryRadiologyX R Finger Left 04/10/17 12:11:00 EST Stat, struck 3rd digit left hand with hammer, ecchymosis, Allow Modification Per Radiologist, Transport Mode: Cart, 04/10/17 12:11:00 ESTCardiology Viruses or BacteriaWhat?s got you sick?Antibiotics only treat bacterial infections. Viral illnesses cannot be treated with antibiotics. When an antibiotic is not prescribed, ask your healthcare professional for tips on how to relieve symptoms and feel better. Usual CauseIllnessVirusesBacteri a Antibiotic NeededCold/Runny Nose NOBronchitis/Chest Cold (in otherwise healthy children and adults) NOWhooping Cough YesFlu NOStrep Throat YesSore Throat (except strep) NOFluid in the middle ear (otitis media with effusion) NOUrinary Tract Infection YesAntibiotics Aren?t Always the Answerwww.cdc.gov/getsmart GET SMART Know When Antibiotics [place] Department of Health and Human ServicesCenters for Disease Control and Prevention December 2013 Normal [facility] [address]17 Urgent Care Record [facility] ? Urgent [address] [place] [address] pATIENT DISCHARGE INSTRUCTIONSPatient InformationName: KASSI SCHNEIDER Age: 41 YearsDate of : [birth year]MRN: [id number] Visit: UC - Wrist/Hand/Finger Pain or Swelling; LEFT 3RD FINGER LACERATIONArrival Time: 04/10/17 11:59:00Phone: Primary Care Physician: José Miguel Cheung Physician: Wyatt Kilgorement:Visit Diagnosis:Diagnoses This Visit Crush injury - 3rd digit left hand (T14.8XXA) UC - Wrist/Hand/Finger Pain or Swelling ([id number])If you received any narcotics, sedation, or any [...] legal documentsWith: Address: When:José Miguel Cheung [address] [phone] Business (1)Comments:Keep the injury clean and dry, do not submerge in the waterCan take ibuprofen and/or Tylenol as needed for pain, can elevate as needed to help reduce swellingAny increase in discomfort or any inability to perform your work duties return for reevaluationMedication Information:The exam and treatment you received today in the [facility] were for an urgent problem and are not intended as complete care. It is important for you to follow up with a doctor, nurse practitioner, or physician?s assistant chief of police for ongoing care. If your symptoms become [...] number so we can reach you if necessary.[facility] has provided you with a complete list of medications post discharge. Please inform your freezer person/provider of your visit and for further instruction [...] 1 tab(s) Oral 2 times a day.Visit InformationAllergies:Subst ance Reaction Symptoms Type CommentsNo Known Medication Allergies [...] Weight: 97.5 kg Body Mass Index: 32.69 kg/d6Alskmzmw List:Problem Onset CommentsNo Problems found Patient EducationCrush [...] cannot use soap and water, use hand completion manager.? Change your bandage as told by your [...] take a bath or a shower.? Take uroq-sni-arggcen and prescription medicines only as told by [...] Document Reviewed: 12/05/2015[employer] Patient Education ?2017 [employer]. Viruses or BacteriaWhat?s got you sick?Antibiotics only treat bacterial infections. Viral illnesses cannot be treated with antibiotics. When an antibiotic is not prescribed, ask your healthcare professional for tips on how to relieve symptoms and feel better. Usual CauseIllnessVirusesBacteri a Antibiotic NeededCold/Runny Nose NOBronchitis/Chest Cold (in otherwise healthy children and adults) NOWhooping Cough YesFlu NOStrep Throat YesSore Throat (except strep) NOFluid in the middle ear (otitis media with effusion) NOUrinary Tract Infection YesAntibiotics Aren?t Always the Answerwww.cdc.gov/getsmart GET SMART Know When Antibiotics [place] Department of Health and Human ServicesCenters for Disease Control and Prevention December 2013 [facility] XR Finger Lefton 04-10-2017 XR Finger [...] FRACTURE ORDISLOCATION.2. FOLLOW-UP NEEDED.Obed Oliveira MDJOB #: [id number]: 04/10/2017T: 04/10/2017 Final Dictated by: Obed Oliveira MD SDictated DT/TM: 04/10/17 1:07Signed (Electronic Signature): Obed Oliveira MD 04/10/17 4:38 pmTechnologist: Mallory LOMAX [facility] Vital Signs Date Time Vital Sign Value Performing Clinician Facility 11-22-2024 15:14-0400 Body height 171.45 cm José Miguel Ball DO Work Phone: [facility] 11-22-2024 15:14-0400 Body mass index (BMI) [Ratio] 33.3 kg/m2 José Miguel Ball DO Work Phone: [facility] 11-22-2024 15:14-0400 Body weight 98.14 kg José Miguel Ball DO Work Phone: [facility] 11-22-2024 15:14-0400 Diastolic blood pressure 80 mm[Hg] José Miguel Ball DO Work Phone: [facility] 11-22-2024 15:14-0400 Heart rate 67 /min José Miguel Ball DO Work Phone: [facility] 11-22-2024 15:14-0400 Respiratory rate 12 /min José Miguel Ball DO Work Phone: [facility] 11-22-2024 15:14-0400 Systolic blood pressure 116 mm[Hg] José Miguel Ball DO Work Phone: [facility] 09-14-2024 13:51-0400 Body height 172.7 cm Susan Haider MD Work Phone: [facility] 09-14-2024 13:51-0400 Body mass index (BMI) [Ratio] 33.15 kg/m2 Susan Haider MD Work Phone: [facility] 09-14-2024 13:51-0400 Body weight 98.88 kg Susan Haider MD Work Phone: [facility] 09-14-2024 13:51-0400 Diastolic blood pressure 64 mm[Hg] Susan Haider MD Work Phone: [facility] 09-14-2024 13:51-0400 Heart rate 75 /min Susan Haider MD Work Phone: [facility] 09-14-2024 13:51-0400 Respiratory rate 16 /min Susan Haider MD Work Phone: [facility] 09-14-2024 13:51-0400 SaO2% (BldA) [Mass fraction] 99 % Susan Haider MD Work Phone: [facility] 09-14-2024 13:51-0400 Systolic blood pressure 104 mm[Hg] Susan Haider MD Work Phone: [facility] 06-06-2024 15:06-0500 Body height 174 cm Susan Haider MD Work Phone: [facility] 06-06-2024 15:06-0500 Body mass index (BMI) [Ratio] 32.36 kg/m2 Susan Haider MD Work Phone: [facility] 06-06-2024 15:06-0500 Body weight 97.98 kg Susan Haider MD Work Phone: [facility] 06-06-2024 15:06-0500 Diastolic blood pressure 82 mm[Hg] Susan Haider MD Work Phone: [facility] 06-06-2024 15:06-0500 Heart rate 88 /min Susan Haider MD Work Phone: [facility] 06-06-2024 15:06-0500 Respiratory rate 18 /min Susan Haider MD Work Phone: [facility] 06-06-2024 15:06-0500 SaO2% (BldA) [Mass fraction] 99 % Susan Haider MD Work Phone: [facility] 06-06-2024 15:06-0500 Systolic blood pressure 100 mm[Hg] Susan Haider MD Work Phone: [facility] 02-01-2024 11:24-0400 Body height 175.3 cm Susan Haider MD Work Phone: [facility] 02-01-2024 11:24-0400 Body mass index (BMI) [Ratio] 31.01 kg/m2 Susan Haider MD Work Phone: [facility] 02-01-2024 11:24-0400 Body weight 95.25 kg Susan Haider MD Work Phone: [facility] 02-01-2024 11:24-0400 Diastolic blood pressure 72 mm[Hg] Susan Haider MD Work Phone: [facility] 02-01-2024 11:24-0400 Systolic blood pressure 104 mm[Hg] Susan Haider MD Work Phone: [facility] 02-01-2024 08:18-0400 Body height 171.45 cm DO José Miguel Ball Work Phone: [facility] 02-01-2024 08:18-0400 Body mass index (BMI) [Ratio] 32.4 kg/m2 DO José Miguel Ball Work Phone: [facility] 02-01-2024 08:18-0400 Body weight 95.31 kg DO José Miguel Ball Work Phone: [facility] 11-04-2023 15:03-0400 Body height 171.45 cm DO José Miguel Ball Work Phone: [facility] 11-04-2023 15:03-0400 Body mass index (BMI) [Ratio] 33.2 kg/m2 DO José Miguel Ball Work Phone: [facility] 11-04-2023 15:03-0400 Body weight 97.74 kg DO José Miguel Ball Work Phone: [facility] 11-04-2023 15:03-0400 Diastolic blood pressure 76 mm[Hg] DO José Miguel Ball Work Phone: [facility] 11-04-2023 15:03-0400 Heart rate 73 /min DO José Miguel Ball Work Phone: [facility] 11-04-2023 15:03-0400 Respiratory rate 12 /min DO José Miguel Ball Work Phone: [facility] 11-04-2023 15:03-0400 Systolic blood pressure 109 mm[Hg] DO José Miguel Ball Work Phone: [facility] 10-14-2023 16:34-0400 gluc 240 mg/dL Shravan Keanu [facility] 10-14-2023 16:34-0400 gluc Shravan Colunga [facility] 10-14-2023 15:54-0400 Body temperature 98.24 [degF] Shravan Colunga [facility] 10-14-2023 15:54-0400 Diastolic blood pressure 80 mm[Hg] Shravan [facility] 10-14-2023 15:54-0400 Heart rate 73 /min Shravan [facility] 10-14-2023 15:54-0400 Respiratory rate 18 /min Shravan [facility] 10-14-2023 15:54-0400 SaO2% (BldA) [Mass fraction] 98 % Shravan [facility] 10-14-2023 15:54-0400 Systolic blood pressure 122 mm[Hg] Shravan [facility]ung[facility] 09-30-2023 09:15-0400 Diastolic blood pressure 76 mm[Hg] Milagros Guardado MD Work Phone: [facility] 09-30-2023 09:15-0400 Systolic blood pressure 118 mm[Hg] Milagros Guardado MD Work Phone: [facility] 09-30-2023 09:06-0400 Body height 172.7 cm Milagros Guardado MD Work Phone: [facility] 09-30-2023 09:06-0400 Body mass index (BMI) [Ratio] 32.08 kg/m2 Milagros Guardado MD Work Phone: [facility] 09-30-2023 09:06-0400 Body weight 95.71 kg Milagros Guardado MD Work Phone: [facility] 09-30-2023 09:06-0400 Heart rate 67 /min Milagros Guardado MD Work Phone: [facility] 09-30-2023 09:06-0400 Respiratory rate 18 /min Milagros Guardado MD Work Phone: [facility] 09-30-2023 09:06-0400 SaO2% (BldA) [Mass fraction] 98 % Milagros Guardado MD Work Phone: [facility] Comment on above: RA 02-16-2023 15:30-0400 Body height 171.45 cm José Miguel Ball Other [employer] Other 02-16-2023 15:30-0400 Body mass index (BMI) [Ratio] 34.59 kg/m2 José Miguel Ball Other [employer] Other 02-16-2023 15:30-0400 Body weight 101.7 kg José Miguel Ball Other [employer] Other 02-16-2023 15:30-0400 Diastolic blood pressure 87 mm[Hg] José Miguel Ball Other [employer] Other 02-16-2023 15:30-0400 Respiratory rate 12 /min José Miguel Ball Other [employer] Other 02-16-2023 15:30-0400 Systolic blood pressure 129 mm[Hg] José Miguel Ball Other [employer] Other 10-21-2022 15:30-0400 Body height 171.45 cm José Miguel Ball Other [employer] Other 10-21-2022 15:30-0400 Body mass index (BMI) [Ratio] 34.78 kg/m2 José Miguel Ball Other [employer] Other 10-21-2022 15:30-0400 Body weight 102.24 kg José Miguel Ball Other [employer] Other 10-21-2022 15:30-0400 Diastolic blood pressure 92 mm[Hg] José Miguel Ball Other [employer] Other 10-21-2022 15:30-0400 Respiratory rate 12 /min José Miguel Ball Other [employer] Other 10-21-2022 15:30-0400 Systolic blood pressure 133 mm[Hg] José Miguel Ball Other [employer] Other 07-29-2022 16:30-0400 Body height 171.45 cm José Miguel Ball Other [employer] Other 07-29-2022 16:30-0400 Body mass index (BMI) [Ratio] 34.96 kg/m2 José Miguel Ball Other [employer] Other 07-29-2022 16:30-0400 Body weight 102.79 kg José Miguel Ball Other [employer] Other 07-29-2022 16:30-0400 Diastolic blood pressure 76 mm[Hg] José Miguel Ball Other [employer] Other 07-29-2022 16:30-0400 Respiratory rate 12 /min José Miguel Ball Other [employer] Other 07-29-2022 16:30-0400 Systolic blood pressure 122 mm[Hg] José Miguel Ball Other [employer] Other 07-23-2022 13:04-0400 Body height 172.72 cm DO José Miguel Ball Work Phone: [facility] 07-23-2022 13:04-0400 Body temperature 98.7 [degF] DO José Miguel Ball Work Phone: [facility] 07-23-2022 13:04-0400 Body weight 101 kg DO José Miguel Ball Work Phone: [facility] 07-23-2022 13:04-0400 Diastolic blood pressure 85 mm[Hg] DO José Miguel Ball Work Phone: [facility] 07-23-2022 13:04-0400 Heart rate 91 /min DO José Miguel Ball Work Phone: [facility] 07-23-2022 13:04-0400 Respiratory rate 18 /min DO José Miguel Ball Work Phone: [facility] 07-23-2022 13:04-0400 SaO2% (BldA) [Mass fraction] 98 % DO José Miguel Ball Work Phone: [facility] 07-23-2022 13:04-0400 Systolic blood pressure 139 mm[Hg] DO José Miguel Ball Work Phone: [facility] 05-02-2022 09:15-0500 Body height 171.45 cm Karlene Whyvillebecky Other [employer] [facility] [employer] Other 05-02-2022 09:15-0500 Body mass index (BMI) [Ratio] 37.03 kg/m2 Karlene Whyvillebecky Other [employer] Other 05-02-2022 09:15-0500 Body weight 108.86 kg Karlenemaxine Trevino Other [employer] Other 12-06-2021 09:15-0400 Body height 171.45 cm Karlene Trevino Other [employer] Other 12-06-2021 09:15-0400 Body mass index (BMI) [Ratio] 37.03 kg/m2 Karlene Calvbecky Other [employer] Other 12-06-2021 09:15-0400 Body weight 108.86 kg Karlene Calvey Other [employer] Other 11-08-2021 10:15-0400 Body height 171.45 cm Karlene Calvey Other [employer] Other 11-08-2021 10:15-0400 Body mass index (BMI) [Ratio] 37.03 kg/m2 Karlene Calvey Other [employer] Other 11-08-2021 10:15-0400 Body weight 108.86 kg Karlene Calvey Other [employer] Other 07-16-2021 09:15-0400 Body height 171.45 cm Karlene Calvey Other [employer] Other 07-16-2021 09:15-0400 Body mass index (BMI) [Ratio] 37.03 kg/m2 Karlene Calvey Other [employer] Other 07-16-2021 09:15-0400 Body weight 108.86 kg Karlene Calvey Other [employer] Other 03-20-2021 10:30-0500 Body height 171.45 cm Karlene Calvey Other [employer] Other 03-20-2021 10:30-0500 Body mass index (BMI) [Ratio] 32.4 kg/m2 Karlene Calvey Other [employer] Other 03-20-2021 10:30-0500 Body weight 95.26 kg Karlene Calvey Other [employer] Other Encounters Encounter Date Encounter Type Care Provider Facility Start: 11-22-2024 End: 11-22-2024 ambulatory José Miguel Cheung DO Work Phone: [facility] Work Phone: Start: 11-22-2024 End: 11-22-2024 Patient encounter procedure José Miguel Cheung DO -[facility] Work Phone: Start: 11-22-2024 End: 11-22-2024 Patient encounter status José Miguel Cheung DO [facility] Start: 11-19-2024 Non-patient / Non-visit William Foote [facility] [place] Work Phone: Start: 10-06-2024 End: 10-06-2024 ambulatory WILLIAM CHEN [facility] Start: 09-14-2024 End: 09-14-2024 Office outpatient visit 25 minutes Susan Haider MD Work Phone: [facility] Comment on above: Type 2 diabetes antolin itus with hyperglycemia, without long-term current use of insulin (CMS/HCC) (Primary Dx); Primary hypertension (CMS/HCC); Vitamin D deficiency; Encounter for dietary consultation; Class 1 obesity due to excess calories with serious comorbidity and body mass index (BMI) of 33.0 to 33.9 in adult Start: 09-14-2024 End: 09-14-2024 ambulatory SUSAN HAIDER Not Available Start: 06-24-2024 End: 06-24-2024 ambulatory José Miguel Cheung DO Work Phone: [facility] Work Phone: Start: 06-24-2024 End: 06-24-2024 Patient encounter procedure José Miguel Cheung DO Work Phone: [facility] Work Phone: Start: 06-14-2024 End: 06-14-2024 Telephone encounter Susan Haider MD Work Phone: [facility] Comment on above: Medication Problem Start: 06-06-2024 End: 06-06-2024 Office outpatient visit 25 minutes Susan Haider MD Work Phone: [facility] Comment on above: Type 2 diabetes antolin itus with hyperglycemia, without long-term current use of insulin ([facility]/HCC) (Primary Dx); Primary hypertension (CMS/[facility]); Vitamin D deficiency; Encounter for dietary consultation; Class 1 obesity due to excess calories with serious comorbidity and body mass index (BMI) of 32.0 to 32.9 in adult Start: 06-06-2024 End: 06-06-2024 ambulatory SUSAN HAIDER Not Available Start: 06-06-2024 End: 06-06-2024 Bamboo flowsheet Susan Haider MD Work Phone: [facility] Start: 06-06-2024 End: 06-06-2024 Bamboo flowsheet Susan Haider MD Work Phone: [facility] Start: 05-30-2024 End: 05-31-2024 ambulatory GELYBOSTONKiya [facility] Start: 04-04-2024 End: 04-05-2024 Telephone encounter Susan Haider MD Work Phone: [facility] Start: 03-31-2024 End: 03-31-2024 ambulatory José Miguel Ball DO Work Phone: [facility] Work Phone: Start: 03-31-2024 End: 03-31-2024 Discharged Recurring José Miguel Ball DO Work Phone: [facility]-Physical Therapy [place] Start: 03-09-2024 End: 03-09-2024 Patient encounter procedure José Miguel Ball DO Work Phone: [facility]-EMG Work Phone: Start: 03-09-2024 End: 03-09-2024 ambulatory José Miguel Ball DO Work Phone: [facility] Work Phone: Start: 03-09-2024 Non-patient / Non-visit Benjam in Ball DO Work Phone: [facility] Work Phone: Start: 03-08-2024 Registered Recurring José Miguel Cheung DO Work Phone: [facility]-Physical Therapy [place] Start: 03-01-2024 Registered Recurring José Miguel Cheung DO Work Phone: [facility]-Physical Therapy [place] Start: 02-23-2024 End: 02-23-2024 ambulatory DO José Miguel Cheung Work Phone: [facility] Work Phone: Start: 02-23-2024 End: 02-23-2024 Patient encounter procedure DO José Miguel Cheung Work Phone: [facility] Work Phone: Start: 02-21-2024 End: 02-21-2024 Refill Susan Haider MD Work Phone: [facility] Comment on above: Type 2 diabetes antolin itus with hyperglycemia, unspecified whether terminal worker insulin use ([facility]); Type 2 diabetes mellitus with hyperglycemia, without long-term current use of insulin ([facility]) Start: 02-20-2024 End: 02-21-2024 Refill Susan Haider MD Work Phone: [facility] Comment on above: Type 2 diabetes antolin itus with hyperglycemia, unspecified whether terminal worker insulin use ([facility]); Type 2 diabetes mellitus with hyperglycemia, without long-term current use of insulin ([facility]) Start: 02-17-2024 Registered Recurring DO Benjam in Ball Work Phone: [facility]-Physical Therapy [place] Start: 02-09-2024 End: 02-16-2024 Telephone encounter Susan Haider MD Work Phone: [facility] Start: 02-01-2024 End: 02-01-2024 Bamboo flowsheet Susan Haider MD Work Phone: [facility] Start: 02-01-2024 End: 02-01-2024 Bamboo flowsheet Susan Haider MD Work Phone: [facility] Start: 02-01-2024 End: 02-01-2024 Office outpatient visit 25 minutes Susan Haider MD Work Phone: [facility] Comment on above: Type 2 diabetes antolin itus with hyperglycemia, without long-term current use of insulin (CMS/[facility]) (Primary Dx); Primary hypertension (CMS/[facility]); Vitamin D deficiency; Encounter for dietary consultation; Class 1 obesity without serious comorbidity with body mass index (BMI) of 31.0 to 31.9 in adult, unspecified obesity type Start: 02-01-2024 End: 02-01-2024 ambulatory SUSAN HAIDER Not Available Start: 02-01-2024 End: 02-01-2024 ambulatory DO José Miguel Ball Work Phone: [facility] Work Phone: Start: 02-01-2024 End: 02-01-2024 Patient encounter procedure DO José Miguel Ball Work Phone: [facility] Work Phone: Start: 01-04-2024 End: 01-04-2024 ambulatory DO José Miguel Ball Work Phone: [facility] Work Phone: Start: 01-04-2024 End: 01-04-2024 Patient encounter procedure DO José Miguel Ball Work Phone: [facility] Work Phone: Start: 12-30-2023 End: 12-30-2023 Patient encounter procedure DO José Miguel Ball Work Phone: [facility] [place] Work Phone: Start: 12-30-2023 End: 12-30-2023 ambulatory DO José Miguel Ball Work Phone: [facility] Work Phone: Start: 12-08-2023 End: 12-08-2023 ambulatory DO José Miguel Cheung Work Phone: [facility] Work Phone: Start: 12-08-2023 End: 12-08-2023 Patient encounter procedure DO José Miguel Cheung Work Phone: [facility] Work Phone: Start: 12-07-2023 End: 12-07-2023 ambulatory Shravan Hutchison Facility:[facility] Start: 12-07-2023 Registered Recurring DO Benjam in Ball Work Phone: [facility]-Physical Therapy [place] Start: 11-13-2023 Non-patient / Non-visit DO Erik Cheung Work Phone: [facility] Work Phone: Start: 11-04-2023 End: 11-04-2023 ambulatory DO José Miguel Cheung Work Phone: [facility] Work Phone: Start: 11-04-2023 End: 11-04-2023 Encounter for general adult medical examination without abnormal findings DO José Miguel Cheung Work Phone: [facility] Start: 11-04-2023 End: 11-04-2023 Patient encounter procedure DO José Miguel Cheung Work Phone: [facility] Work Phone: Start: 10-27-2023 End: 10-28-2023 ambulatory [facility] Start: 10-21-2023 Registered Recurring DO Benjam in Ball Work Phone: [facility]-Physical Therapy [place] Start: 10-14-2023 End: 10-14-2023 Emergency department patient visit Shravan [facility] Start: 10-14-2023 Telephone encounter Robin Guardado MD Work Phone: Cardiology Start: 10-13-2023 End: 10-13-2023 Patient encounter procedure DO José Miguel Cheung Work Phone: [facility] Work Phone: Start: 10-13-2023 End: 10-13-2023 ambulatory DO José Miguel Cheung Work Phone: [facility] Work Phone: Start: 10-09-2023 Non-patient / Non-visit DO Erik grajeda Charlie Work Phone: [facility] Work Phone: Start: 10-09-2023 [...] ical Records Start: 09-30-2023 Telephone encounter Robin Guardado MD Work Phone: Cardiology Comment on above: Received Outside Med ical Records ([facility]) Start: 09-30-2023 Non-patient / Non-visit DO Erik Cheung Work Phone: [facility] Work Phone: Start: 09-30-2023 End: 09-30-2023 ambulatory MILAGROS GUARDADO Facility:[facility] Start: 09-30-2023 End: 09-30-2023 ambulatory MILAGROS GUARDADO Facility:[facility] Start: 09-30-2023 End: 09-30-2023 Patient encounter [...] End: 08-26-2023 ambulatory José Miguel Cheung Other [employer] Other Start: 08-26-2023 Telephone encounter José Miguel Cheung [facility] Start: 06-16-2023 End: 06-16-2023 ambulatory [facility] Work Phone: Start: 06-16-2023 End: 06-16-2023 Patient encounter procedure [facility] [place] [facility] Work Phone: Start: 05-18-2023 End: 05-18-2023 ambulatory José Miguel Cheung Other [employer] Other Start: 05-18-2023 Telephone encounter José Miguel Cheung [facility] Start: 05-14-2023 End: 05-14-2023 ambulatory José Miguel Cheung Other [employer] Other Start: 05-14-2023 Telephone encounter José Miguel Cheung [facility] Start: 05-14-2023 Patient encounter procedure [facility]- Start: 05-11-2023 End: 05-11-2023 ambulatory José Miguel Cheung Other [employer] Other Start: 05-11-2023 Telephone encounter José Miguel Cheung [facility] Start: 05-04-2023 End: 05-04-2023 ambulatory José Miguel Cheung Other [employer] Other Start: 05-04-2023 Telephone encounter José Miguel Cheung [facility] Start: 03-27-2023 End: 03-27-2023 ambulatory José Miguel Ball Other [employer] Other Start: 03-27-2023 Office outpatient vi sit 15 minutes José Miguel Cheung [facility] Start: 03-27-2023 End: 03-27-2023 Patient encounter procedure [facility] Work Phone: Start: 03-23-2023 End: 03-23-2023 ambulatory José Miguel Cheung Other [employer] Other Start: 03-23-2023 Telephone encounter José Miguel Cheung [facility] Start: 03-12-2023 End: 03-12-2023 ambulatory José Miguel Cheung Other [employer] Other Start: 03-12-2023 Telephone encounter José Miguel Cheung [facility] Start: 03-10-2023 End: 03-10-2023 ambulatory José Miguel Cheung Other [employer] Other Start: 03-10-2023 Telephone encounter José Miguel Cheung [facility] Start: 03-06-2023 End: 03-06-2023 ambulatory José Miguel Ball Other [employer] Other Start: 03-06-2023 Telephone encounter José Miguel Cheung [facility] Start: 02-16-2023 End: 02-16-2023 ambulatory José Miguel Ball Other [employer] Other Start: 02-16-2023 Office outpatient vi sit 25 minutes José Miguel Ball [facility] Start: 02-09-2023 End: 02-09-2023 ambulatory José Miguel Ball Other [employer] Other Start: 02-09-2023 Telephone encounter José Miguel Ball [facility] Start: 02-02-2023 End: 02-02-2023 ambulatory José Miguel Ball Other [employer] Other Start: 02-02-2023 Telephone encounter José Miguel Cheung [facility] Start: 01-21-2023 End: 01-21-2023 ambulatory José Miguel Cheung Other [employer] Other Start: 01-21-2023 Office outpatient vi sit 15 minutes José Miguel Ball [facility] Start: 01-07-2023 End: 01-07-2023 ambulatory Karlene Calvey Other [employer] Other Start: 01-07-2023 Office outpatient vi sit 15 minutes Karlene Calvey [facility] Start: 12-31-2022 End: 12-31-2022 ambulatory DO José Miguel Cheung Work Phone: [facility] Work Phone: Start: 12-31-2022 End: 12-31-2022 Patient encounter procedure DO José Miguel Cheung Work Phone: [facility] [place] Work Phone: Start: 11-27-2022 End: 11-27-2022 ambulatory José Miguel Cheung Other [employer] Other Start: 11-27-2022 Office outpatient vi sit 15 minutes José Miguel Cheung [facility] Start: 11-12-2022 End: 11-12-2022 Patient encounter procedure DO José Miguel Cheung Work Phone: [facility] [place] [facility] Start: 11-12-2022 End: 11-12-2022 ambulatory Karlene Calvey Other [employer] Other Start: 11-12-2022 Office outpatient vi sit 15 minutes Karlene Calvey [facility] Start: 10-21-2022 End: 10-21-2022 ambulatory José Miguel Cheung Other [employer] Other Start: 10-21-2022 Encounter for genera l adult medical examination without abnormal findings José Miguel Cheung [facility] Start: 10-21-2022 Periodic preventive med est patient 40-64yrs José Miguel Cheung [facility] Start: 07-29-2022 End: 07-29-2022 ambulatory José Miguel Cheung Other [employer] Other Start: 07-29-2022 Office outpatient vi sit 15 minutes José Miguel Cheung [facility] Start: 07-23-2022 End: 07-23-2022 Emergency department patient visit DO José Miguel Cheung Work Phone: [facility]-Emergency Room Work Phone: Start: 07-01-2022 End: 07-02-[address] JOSÉ MIGUEL CHEUNG Facility: Start: 06-10-2022 End: 06-10-2022 ambulatory Karlene Trevino Other [employer] Other Start: 06-10-2022 Office outpatient vi sit 15 minutes Karlene Uriel [facility] Start: 06-02-2022 End: 06-02-2022 ambulatory José Miguel Cheung Other [employer] Other Start: 06-02-2022 Telephone encounter José Miguel Cheung [facility] Start: 05-02-2022 End: 05-02-2022 ambulatory Karlene Trevino Other [employer] Other Start: 05-02-2022 Office outpatient vi sit 15 minutes Karlene Uriel [facility] Start: 03-28-2022 End: 03-28-2022 ambulatory Karlene Janaey Other [employer] Other Start: 03-28-2022 Office outpatient vi sit 15 minutes Karlene Janaey [facility] Start: 03-28-2022 Telephone encounter Karlene Trevino [facility] Start: 02-21-2022 End: 02-21-2022 ambulatory Karlene Janaey Other [employer] Other Start: 02-21-2022 Office outpatient vi sit 15 minutes Karlene Calvey [facility] Start: 02-08-2022 End: 02-09-[address] JOSÉ MIGUEL CHEUNG Facility:[facility] Start: 01-29-2022 Adult health examination Nabornabeel Cheung Other [employer] Other Start: 12-06-2021 End: 12-06-2021 ambulatory Karlene Calvey Other [employer] Other Start: 12-06-2021 Office outpatient vi sit 15 minutes Karlene Calvey [facility] Start: 11-18-2021 End: 12-05-[address] JOSÉ MIGUEL CHEUNG Facility:[facility] Start: 11-08-2021 End: 11-08-2021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 Fghkjdtuzxhcz-Gcdchuwt-Spzwpt (MULTIVITAMIN 50 PLUS) tab Take 1 tablet [...] kg/m . 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 he needs to clear being off 5-7 days post procedure for being materials planner Tent Thursday The procedure including risks, benefits, [...] 30, 2023 10:22 AM [facility] NoteHNO ID: [id number] Author: MILAGROS GUARDADO MD Service: ? Author Type: Physician Type: Progress Notes Filed: 09/30/2023 10:52 Note Text: [facility] [place] Vinny Mclaughlin Department of Cardiovascular Medicine SECTION OF INTERVENTIONAL CARDIOLOGY OUTPATIENT VISIT DATE September 29, 2023 OUTPATIENT VISIT TYPE NEW PRIMARY CARE PHYSICIAN: To use this Smartlink, specify the provider ID whose address you want to display, e.g., .LocomizerADDR[1 (where 1 is the provider ID). REFERRING PHYSICIAN: No referring provider defined for this encounter. CHIEF COMPLAINT: No chief complaint on file. HISTORY OF PRESENT ILLNESS: Mr. Schneider is a 48 year old male who presents today - CPOE RF DMx18y, male, Body mass index is 32.08 kg/m?. 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 He was seeing a automotive porter in [place] for palpitations/fluttering that started about one year ago when he was taking Trulicity injections. That automotive porter had him do an echocardiogram and a stress test. He was told the stress test was abnormal and it was suggested he have a CT scan and a heart cath, but the testing was not available in [place] until October. 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 OSH Echo: Conclusions Global left ventricular [...] Paternal Grandfather heavy s (more content not included)...[facility]01-18-2024 Evaluation note* Encounter Date Diagnosis Assessment Notes Treatment Notes Treatment Clinical Notes Apr, DANIELLE (obstructive sleep apnea) (ICD-10 - G47.33) AHI 17, Psat 79% [facility] Other 12-01-2023 Evaluation note* Encounter Date Diagnosis [...] Microalbumin, Dilated eye exam and Foot exam [facility] Other 11-16-2023 Evaluation note* Encounter Date Diagnosis Assessment Notes Treatment Notes Treatment Clinical Notes Feb, 2023 Controlled type 2 diabetes mellitus with hyperglycemia, without long-term current use of insulin (ICD-10 - E11.65) 16 Feb, 2023 Type 2 diabetes mellitus with hyperglycemia (ICD-10 - E11.65) [facility] Other 11-14-2023 Evaluation note* Encounter Date Diagnosis Assessment Notes Treatment Notes Treatment Clinical Notes Feb, Rupture of right quadriceps tendon, initial encounter (ICD-10 - S76.111A) Feb, Acute non-recurrent frontal sinusitis (ICD-10 - J01.10) Feb, Acute non-recurrent maxillary sinusitis (ICD-10 - J01.00) Feb, Type 2 diabetes mellitus with diabetic polyneuropathy, without long-term current use of insulin (ICD-10 - E11.42) [facility] Other 11-14-2023 Evaluation note* Encounter Date Diagnosis Assessment Notes Treatment Notes Treatment Clinical Notes Feb, Controlled type 2 diabetes mellitus with hyperglycemia, without long-term current use of insulin (ICD-10 - E11.65) Feb, Type 2 diabetes mellitus with hyperglycemia (ICD-10 - E11.65) [facility] Other 11-10-2023 Evaluation note* Encounter Date Diagnosis Assessment Notes Treatment Notes Treatment Clinical Notes Feb, Intermittent palpitations (ICD-10 - R00.2) Feb, Heart murmur (ICD-10 - R01.1) Feb, Primary hypertension (ICD-10 - I10) [facility] Other 10-23-2023 Evaluation note* Encounter Date Diagnosis [...] index [BMI] 34.0-34.9, adult (ICD-10 - Z68.34) [facility] Other 10-16-2023 Evaluation note* Encounter Date Diagnosis Assessment Notes Treatment Notes Treatment Clinical Notes Jan, Controlled type 2 diabetes mellitus with hyperglycemia, without long-term current use of insulin (ICD-10 - E11.65) [facility] Other 10-09-2023 Evaluation note* Encounter Date Diagnosis Assessment Notes Treatment Notes Treatment Clinical Notes Jan, Controlled type 2 diabetes mellitus with hyperglycemia, without long-term current use of insulin (ICD-10 - E11.65) [facility] Other 09-27-2023 Evaluation note* Encounter Date Diagnosis Assessment Notes Treatment Notes Treatment Clinical Notes Dec, Acute non-recurrent maxillary sinusitis (ICD-10 - J01.00) Instructed to use Robitussin or Mucinex for cough, saline or Flonase NS for congestion, Tylenol for pain and fever. Dec, Primary hypertension (ICD-10 - I10) Avoid use of decongestants w/ BP meds [facility] Other 09-13-2023 Evaluation note* Encounter Date Diagnosis [...] Patient can f/u on a PRN basis. [facility] Other 08-03-2023 Evaluation note* Encounter Date Diagnosis Assessment Notes Treatment Notes Treatment Clinical Notes Nov, Acute non-recurrent maxillary sinusitis (ICD-10 - J01.00) Instructed to use Robitussin or Mucinex for cough, saline or Flonase NS for congestion, Tylenol for pain and fever. [facility] Other 07-19-2023 Evaluation note* Encounter Date Diagnosis Assessment Notes Treatment Notes Treatment Clinical Notes Oct, Rupture of right quadriceps tendon, initial encounter (ICD-10 - S76.111A) Rx given for Medrol Dosepak. We will also submit for [facility] approval for cortisone injection bilateral knees and MRI of bilateral knees. Patient instructed on the use of Voltaren Gel in the meantime as he is unable to take oral NSAIDs Oct, Rupture of left quadriceps tendon, initial encounter (ICD-10 - S76.112A) [facility] Other 06-27-2023 Evaluation note* Encounter Date Diagnosis [...] Discussed choices and mutually agreed on Cologuard [facility] Other 04-04-2023 Evaluation note* Encounter Date Diagnosis [...] Notify office w/ fever or purulent drainage [facility] Other 02-14-2023 Evaluation note* Encounter Date Diagnosis Assessment Notes Treatment Notes Treatment Clinical Notes May, Rupture of right quadriceps tendon, initial encounter (ICD-10 - S76.111A) Patient returns to recheck bilateral knees. Bilateral knee cortisone injections given on 02/21/2022. Bilateral patella tendon repair ([facility] DOS 06/02/2020). Patient states he has been [...] quadriceps tendon, initial encounter (ICD-10 - S76.112A) [facility] Other 01-06-2023 Evaluation note* Encounter Date Diagnosis [...] quadriceps tendon, initial encounter (ICD-10 - S76.112A) [facility] Other 12-02-2022 Evaluation note* Encounter Date Diagnosis Assessment Notes Treatment Notes Treatment Clinical Notes Mar, Rupture of right quadriceps tendon, initial encounter (ICD-10 - S76.111A) We will submit for [facility] approval for Lidocaine Patches, Voltaren Gel, and Copper Fit Knee Sleeves Mar, Rupture of left quadriceps tendon, initial encounter (ICD-10 - S76.112A) [facility] Other 12-02-2022 Evaluation note* Encounter Date Diagnosis Assessment Notes Treatment Notes Treatment Clinical Notes Mar, Rupture of right quadriceps tendon, initial encounter (ICD-10 - S76.111A) Mar, Rupture of left quadriceps tendon, initial encounter (ICD-10 - S76.112A) [facility] Other 10-28-2022 Evaluation note* Encounter Date Diagnosis Assessment Notes Treatment Notes Treatment Clinical Notes Jan, Rupture of right quadriceps tendon, initial encounter (ICD-10 - S76.111A) Bilateral knees injected with cortisone under sterile technique, patient tolerated well. Patient also instructed on the use of topical Voltaren Gel and Lidocaine Patches, Rx given Jan, Rupture of left quadriceps tendon, initial encounter (ICD-10 - S76.112A) [facility] Other 08-12-2022 Evaluation note* Encounter Date Diagnosis Assessment Notes Treatment Notes Treatment Clinical Notes Nov, Rupture of right quadriceps tendon, initial encounter (ICD-10 - S76.111A) Continue use of Naproxen. We will check labs at return appointment Nov, Rupture of left quadriceps tendon, initial encounter (ICD-10 - S76.112A) [facility] Other 07-15-2022 Evaluation note* Encounter Date Diagnosis Assessment Notes Treatment Notes Treatment Clinical Notes Oct, Rupture of right quadriceps tendon, initial encounter (ICD-10 - S76.111A) Patient instructed on the use of NSAID regularly, RX Naproxen. We will also submit for [facility] approval for physical therapy with modalities. May consider cortisone injection in future - will submit for [facility] approval for injection Oct, Rupture of left quadriceps tendon, initial encounter (ICD-10 - S76.112A) [facility] Other 03-22-2022 Evaluation note* Encounter Date Diagnosis Assessment Notes Treatment Notes Treatment Clinical Notes Jun, Rupture of right quadriceps tendon, initial encounter (ICD-10 - S76.111A) Activity as tolerated Jun, Rupture of left quadriceps tendon, initial encounter (ICD-10 - S76.112A) [facility] Other 01-25-2022 Evaluation note* Encounter Date Diagnosis [...] quadriceps tendon, initial encounter (ICD-10 - S76.112A) [facility] Other 11-24-2021 Evaluation note* Encounter Date Diagnosis Assessment Notes Treatment Notes Treatment Clinical Notes Feb, Rupture of right quadriceps tendon, initial encounter (ICD-10 - S76.111A) Take NSAID regularly. Continue working 20 hours per week and current weight limitations until after first of year then increase to 30 hours per week. Feb, Rupture of left quadriceps tendon, initial encounter (ICD-10 - S76.112A) [facility] Other 02-06-2021 History general Narrative - Reported* Type Description Date Medical History DM Surgical History bilateral patella tendon repair 06/02/20 [facility] Other 02-06-2021 History general Narrative - Reported* Type Description Date Medical History DM Medical History bilateral quadriceps tendon rupt ure Surgical History bilateral patella tendon repair 06/02/20 [facility] Other Evaluation noteNo InformationNort [employer] Other Evaluation noteNo assessment information available [facility] Work Phone: Evalufudtt note* Diagnosis Onset Date Resolution Status Rupture of left quadriceps muscle acute Rupture of right quadriceps tendon acute [facility] Work Phone: Evaluation note* Diagnosis Hyperlipidemia LDL goal <70- Primary Other and unspecified hyperlipidemia Abnormal stress test Other nonspecific abnormal cardiovascular system function study Type 2 diabetes mellitus with other circulatory complication, without long-term current use of insulin ([facility]) Class 1 obesity due to excess calories with serious comorbidity and body mass index (BMI) of 32.0 to 32.9 in adult Hypertension goal BP (blood pressure) < 140/80 Unspecified essential hypertension Abnormal stress test Other nonspecific abnormal cardiovascular system function study [facility] Diagnosis OPENED IN ERROR- Primary To allow closing an encounter opened in error (used in SmartSet) documented in this [facility]* Diagnosis Onset Date Resolution Status Cervical radiculopathy acute Rotator cuff syndrome of right shoulder acute [facility] Work Phone: Evaluation note* Diagnosis Onset Date Resolution Status Cervical radiculopathy acute Rotator cuff syndrome of right shoulder acute Obesity acute DANIELLE (obstructive sleep apnea) acute Primary hypertension acute Type 2 diabetes mellitus with hyperglycemia acute Wellness examination noneact martha [facility] Work Phone: Evaluation note* Diagnosis Onset Date Resolution Status Cervical radiculopathy acute Rotator cuff syndrome of right shoulder acute Obesity acute DANIELLE (obstructive sleep apnea) acute Primary hypertension acute Type 2 diabetes mellitus with hyperglycemia acute Wellness examination noneact martha Cervical radiculopathy acute Rotator cuff syndrome of right shoulder acute [facility] Work Phone: Evaluation note* Diagnosis Onset Date Resolution Status Cervical radiculopathy acute Rotator cuff syndrome of right shoulder acute Obesity acute DANIELLE (obstructive sleep apnea) acute Primary hypertension acute Type 2 diabetes mellitus with hyperglycemia acute Wellness examination noneact martha Cervical radiculopathy acute Rotator cuff syndrome of right shoulder acute Cervical radiculopathy acute Rotator cuff syndrome of right shoulder acute [facility] Work Phone: Evaluation note* Diagnosis Onset Date Resolution Status Obesity acute DANIELLE (obstructive sleep apnea) acute Primary hypertension acute Type 2 diabetes mellitus with hyperglycemia acute Wellness examination noneact martha Cervical radiculopathy acute Rotator cuff syndrome of right shoulder acute Cervical radiculopathy acute Rotator cuff syndrome of right shoulder acute [facility] Work Phone: Evaluation note* Diagnosis Type 2 diabetes mellitus with hyperglycemia, without long-term current use of insulin ([facility])- Primary Primary hypertension ([facility]) Unspecified essential hypertension Vitamin D deficiency Encounter for dietary consultation Class 1 obesity without serious comorbidity with body mass index (BMI) of 31.0 to 31.9 in adult, unspecified obesity type documented in this encounter [facility]* Diagnosis Type 2 diabetes mellitus with hyperglycemia, unspecified whether terminal worker insulin use (CMS/HCC) documented in this encounter [facility]* Diagnosis Type 2 diabetes mellitus with hyperglycemia, unspecified whether terminal worker insulin use (CMS/HCC) documented in this encounter [facility]* Diagnosis Onset Date Resolution Status Cervical radiculopathy acute Rotator cuff syndrome of right shoulder acute Cervical radiculopathy acute Rotator cuff syndrome of right shoulder acute Cervical radiculopathy acute Cervical pain (neck) acute Chronic pain acute Other spondylosis with radiculopathy, cervical region acute [facility] Work Phone: Evaluation note* Diagnosis Type 2 diabetes mellitus with hyperglycemia, without long-term current use of insulin (CMS/HCC)- Primary Primary hypertension (CMS/HCC) Unspecified essential hypertension Vitamin D deficiency Encounter for dietary consultation Class 1 obesity due to excess calories with serious comorbidity and body mass index (BMI) of 32.0 to 32.9 in adult documented in this encounter [facility] HealthcareEvaluation note* Diagnosis Type 2 diabetes mellitus with hyperglycemia, without long-term current use of insulin ([facility]/HCC)- Primary documented in this encounter [facility] HealthcareEvaluation note* Diagnosis Onset Date Resolution Status Admit Date Rupture of left quadriceps muscle acute June 24, 025 7:59am Rupture of right quadriceps tendon acute June 24 025 7:59am [facility] Work Phone: Evaluation note* Diagnosis Type 2 diabetes mellitus with hyperglycemia, without long-term current use of insulin ([facility])- Primary Primary hypertension ([facility]/HCC) Unspecified essential hypertension Vitamin D deficiency Encounter for dietary consultation Class 1 obesity due to excess calories with serious comorbidity and body mass index (BMI) of 33.0 to 33.9 in adult documented in this encounter [facility] HealthcareEvaluation note* Diagnosis Onset Date Resolution Status Admit Date ASHD (arteriosclerotic heart disease) acute November 22, 2024 2:55pm Cervical radiculopathy acute Ju 2024 2:55pm Obesity acute November 22 2:55pm DANIELLE (obstructive sleep apnea) acute November 22, 2024 2:55pm Primary hypertension acute November 22, 2024 2:55pm Screening PSA (prostate specific antigen) acute November 22 2:55pm Type 2 diabetes mellitus wit h hyperglycemia acute November 22, 2024 2:55pm Wellness examination noneactive November 22, 2024 2:55pm [facility] Work Phone: History general Narrative - [...] repair 06/02/20 Hospitalization History SEE SURGICAL HX [facility] Other History general Narrative - Reported* Type [...] repair 06/02/20 Hospitalization History SEE SURGICAL HX [facility] Other History of Present illness Narrative* Susan Haider MD - 09/14/2024 2:40 PM EDT Kassi Schneider is a 49 y.o. male No ref. [...] He mentioned having an older model from [employer] at home. He recalled that his insurance [...] atorvastatin (LIPITOR) 10 mg, Daily Continuous Glucose Park Maintainer (Dexcom G7 Park Maintainer) device 1 kit, Subcutaneous, Continuous doxepin (SINEquan) [...] hyperglycemia, without long-term current use of insulin ([facility]) - POCT glucose manually resulted - POCT glycosylated hemoglobin (Hb A1C) docked device - SITagliptin (Januvia) 100 MG tablet; Take 1 tablet (100 mg) by mouth Daily Primary hypertension ([facility]) Vitamin D deficiency Encounter for [...] to purchase a meter and strips from [employer] for blood glucose monitoring. Follow-up: The patient will follow up in 3 months. documented [facility] Narrative No data available for this section [facility] Additional Instructions Ice to the [...] bladder or bowel control or any other [facility] Work Phone: Hospital Discharge instructionsAmbulatory Orders* Referral to Pain Management Location: None Selected * Referral to PT / OT / Speech (PT/OT/SP) Location: None Selected [facility] Work Phone: Progress note No data available for this section [facility] (narrative)* Outpatient Procedure (Routine) - Pending Review Specialty Diagnoses / Procedures Referred By Contac t [facility]erred To [facility] Diagnoses Hyperlipidemia LDL goal <70 Abnormal stress test Type 2 diabetes mellitus with other circulatory complication, without long-term current use of insulin ([facility]) Class 1 obesity due to excess calories with serious comorbidity and body mass index (BMI) of 32.0 to 32.9 in adult Hypertension goal BP (blood pressure) < 140/80 Procedures ECHO ECHO TTHRC R-T 2D W/WOM-MODE COMPL SPEC&COLR D Milagros Guardado MD [address] [place] [address] [facility] [place] [address] Referral ID Status Reason Start Date Expiration Date Visits Requested Visits Authorized [id number] Pending Review Auto-Generat ed Referral 09/30/2023 09/29/2024 1 1 * Outpatient Procedure (Routine) - Pending Review Specialty Diagnoses / Procedures Referred By Contac t Referred To Contact [facility] Diagnoses Hyperlipidemia LDL goal <70 Abnormal stress [...] W/LEAST 12 LDS W/I&R Milagros Guardado MD [address] [place] [address] [facility] [place] [id number] Referral ID Status Reason Start Date Expiration Date Visits Requested Visits Authorized [id number] Pending Review Auto-Generat ed Referral 09/30/2023 09/29/2024 1 1 * Transition of Care (Routine) - Ref Not Required Specialty Diagnoses / Procedures Referred By Contac t Referred To Contact [facility] Procedures CARDIOVASCULAR MEDICINE OP FOLLOW [place] [address] [place], [place] [id number] [facility] [place] [id number] Referral ID Status Reason Start Date Expiration Date Visits Requested Visits Authorized [id number] Ref Not Required PCP Requested Referral 07/01/2024 09/29/2024 1 1 * Outpatient Procedure (Routine) - Closed Specialty Diagnoses / Procedures Referred By Contac t Referred To [facility] Diagnoses Hyperlipidemia LDL goal <70 Abnormal stress test Procedures ECG COMPLETE ECG ROUTINE ECG W/LEAST 12 LDS W/I&R Milagros Guardado MD [address] [place] [address] [facility] [place] [address] [place] [address] Referral ID Status Reason Start Date Expiration Date V isits Requested Visits Authorized [id number] Closed Auto-Generate d Referral 09/30/2023 09/29/2024 1 1 [facility] for referral (narrative)No reason for referral [facility] Work Phone: Summary Purpose Family History Relationship [...] DR. RAÚL HARVEY February 23, 2024 3:44pm M54.12 March 09, 2024 12:06pm Cervical Radiculopathy March 31 [...] right quadriceps tendon Febru deepthi 2024 7:59am Chief Complaint Admit Date wellness November 22, 2024 2:55 pm Reason for Visit Admit Date ASHD (arteriosclerotic heart disease) Ju ly 2024 2:55pm Cervical radiculopathy November 22, 2024 2 :55pm Obesity November 22, 2024 2:55 pm DANIELLE (obstructive sleep apnea) November 22, 2024 2:55pm Primary hypertension November 22, 2024 2:5 5pm Screening PSA (prostate specific antigen ) November 22, 2024 2:55pm Type 2 diabetes mellitus with hyperglyce ramon November 22, 2024 2:55pm Wellness examination November 22, 2024 2:5 5pm Additional Source Comments (unrecognized sect ion and content) No Status Records FoundNo Status Records FoundNo Status Records FoundNo Status Records FoundNo Status Records FoundNo Status Records FoundNo Status Records FoundNo Status Records Found INFORMATION SOURCE (unrecogn ized section and content) DATE CREATED AUTHOR 10/20/2017 [facility] DATE CREATED AUTHOR AUTHOR'S ORGANIZ ATION 07/05/2022 [facility] DATE CREATED AUTHOR AUTHOR'S ORGANIZ ATION 10/16/2023 [facility] DATE CREATED AUTHOR AUTHOR'S ORGANIZ ATION 10/18/2023 [facility] DATE CREATED AUTHOR AUTHOR'S ORGANIZ ATION 10/18/2023 [facility] DATE CREATED AUTHOR AUTHOR'S ORGANIZ ATION 05/28/2024 [facility] DATE CREATED AUTHOR AUTHOR'S ORGANIZ ATION 09/21/2024 [facility] EPIC DATE CREATED AUTHOR AUTHOR'S ORGANIZ ATION 10/08/[address] [facility] REASON FOR VISIT (unrecogniz ed section and content) Reason Comments New Patient Reason Comments Received Outside Medical Records [facility] Reason Comments Received Outside Medical Records Reason Comments Patient Education Reason Comments Diabetes Follow-up Reason Comments Med Refill Reason Onset Date Comments Medication Problem 06/14/2024 Care Teams (unrecognized sec tion and content) Team Status: Active Member Role Status Dates José Miguel Cheung DO Primary Care Provider Active Team Status: Active Member Role Status Dates José Miguel Cheung DO Primary Care Provider Active Start: November 19, 2024 JOSEFA Landon Attending Provider Active Start: November 19, 2024 Team Status: Inactive Member Role Status Dates José Miguel Cheung DO Primary Care Provider Active Start: November 22, 2024 End: November 22, 2024 José Miguel Cheung DO Attending Provider Active Sta rt: November 22, 2024 End: November 22, 2024 Team Status: Active Member Role Status Susan Cheung DO Primary Care Provider Active Team Status: Inactive Member Role Status Dates José Miguel Cheung DO Primary Care Provider Active Start: December 30, 2023 End: December 30, 2023 Shravan Hutchison DO Attending Provider Active St art: December 30, 2023 End: December 30, 2023 Team Status: Inactive Member Role Status Dates José Miguel Cheung DO Primary Care Provider Active Start: January 04, 2024 End: January 04, 2024 Shravan Hutchison , DO Attending Provider Active St art: January 04, 2024 End: January 04, 2024 Team Status: Inactive Member Role Status Dates José Miguel Cheung DO Primary Care Provider Active Start: February 01, 2024 End: February 01, 2024 Raúl Harvey , DO Attending Provider Active S tart: February 01, 2024 End: February 01, 2024 Team Status: Inactive Member Role Status Susan Cheung DO Primary Care Provider Active Start: February 23, 2024 End: February 23, 2024 Salvador Sanchez MD Attending Provider Active Sta rt: February 23, 2024 End: February 23, 2024 Raúl Harvey DO Referring Provider Active S tart: February 23, 2024 End: February 23, 2024 Team Status: Active Member Role Status Susan Cheung DO Primary Care Provider Active Start: March 01, 2024 Raúl Harvey , DO Attending Provider Active S tart: March 01, 2024 Team Status: Active Member Role Status Dates José Miguel Cheung DO Primary Care Provider Active Start: December 07, 2023 Shravan Hutchison DO Attending Provider Active St art: December 07, 2023 Team Status: Inactive Member Role Status Susan Cheung DO Primary Care Provider Active Start: December 08, 2023 End: December 08, 2023 Shravan Hutchison DO Attending Provider Active St art: December 08, 2023 End: December 08, 2023 Team Status: Active Member Role Status Susan Cheung DO Primary Care Provider Active Start: February 17, 2024 Raúl Harvey DO Attending Provider Active S tart: February 17, 2024 Team Status: Inactive Member Role Status Susan Cheung DO Primary Care Provide r, Attending [...] Primary Care Provider Active Emma Stevenson , [facility]- Emergency Provider Active Team Status: Inactive Member [...] June 16, 2023 End: June 16, 2023 Shanker Out Relationship Specialty Start Date End Date José Miguel Cheung DO [address] [place] [address] PCP - General Internal Medicine 09/30/23 Shanker Out Relationship Specialty Start Date End Date José Miguel Cheung DO [address] [place] [address] PCP - General Internal Medicine 09/30/23 Shanker Out Relationship Specialty Start Date End Date José Miguel Cheung DO [address] [place] [address] PCP - General Internal Medicine 09/30/23 Team Status: Active Member Role Status Dates José Miguel Cheung DO Primary Care Provider Active Start: October 21, 2023 Shravan Hutchison , Attending Provider Active St art: October 21, 2023 Shanker Out Relationship Specialty Start Date End Date José Miguel Cheung MD [address] [facility] [place] [place] [id number] PCP - General 09/30/23 Shanker Out Relationship Specialty Start Date End Date José Miguel Cheung MD [address] [facility] [place] [place] [id number] PCP - General 09/30/23 Shanker Out Relationship Specialty Start Date End Date José Miguel Cheung MD [address] [facility] [place] [place] [phone] PCP - General 09/30/23 Shanker Out Relationship Specialty Start Date End Date José Miguel Cheung MD [address] [facility] [place] [phone] PCP - General 09/30/23 Shanker Out Relationship Specialty Start Date End Date José Miguel Cheung MD [address] [facility] [place] [place] [phone] PCP - General 09/30/23 Team Status: Active Member Role Status Dates José Miguel Cheung DO Primary Care Provider Active Start: March 08, 2024 Raúl N Bialaski , DO Attending Provider Active S tart: March 08, 2024 Team Status: Inactive Member Role Status Dates José Miguel Cheung DO Primary Care Provider Active Start: March 09, 2024 End: March 09, 2024 Raúl Harvey DO Attending Provider Active S tart: March 09, 2024 End: March 09, 2024 Team Status: Active Member Role Status Dates José Miguel Cheung DO Primary Care Provider Active Start: March 09, 2024 Raúl Harvey DO Other Provider Active Start : March 09, 2024 Louis Euceda MD Attending Provider Active Start: March 09, 2024 Team Status: Inactive Member Role Status Dates José Miguel Cheung DO Primary Care Provider Active Start: March 31, 2024 End: March 31, 2024 Raúl Harvey DO Attending Provider Active S tart: March 31, 2024 End: March 31, 2024 Shanker Out Relationship Specialty Start Date End Date José Miguel Cheung MD [address] [place] [id number] PCP - General 09/30/23 Shanker Out Relationship Specialty Start Date End Date José Miguel Cheung MD [address] [place] [address] PCP - General 09/30/23 Shanker Out Relationship Specialty Start Date End Date José Miguel Cheung MD [address] [place] [address] PCP - General 09/30/23 Team Status: Inactive Member Role Status Dates José Miguel Cheung DO Primary Care Provider Active Start: June 24, 2024 End: June 24, 2024 Karlene Trevino MD Attending Provider Active Start: June 24, 2024 End: June 24, 2024 Shanker Out Relationship Specialty Start Date End Date José Miguel Cheung DO PCP - General 09/30/23 Team Status: Active Member Role Status Dates José Miguel Cheung DO Primary Care Provider Active Start: November 19, 2024 JOSEFA Landon Attending Provider Active Start: November 19, 2024 Team Status: Inactive Member Role Status Dates José Miguel Cheung DO Primary Care Provider Active Start: November 22, 2024 End: November 22, 2024 José Miguel Cheung , Attending Provider Active Sta rt: November 22, 2024 End: November 22, 2024 Goals (unrecognized section and content) Goals may be documented in a n alternate section Source Comments (unrecognize d section and content) In the event this informatio n is protected by the Federal Confidentiality of Alcohol and Drug Abuse Patient Records regulations: The Federal rules restrict any use of the information to criminally investigate or prosecute any alcohol or drug abuse patient.[facility] CenterIn the event this information is protected by the Federal Confidentiality of Alcohol and Drug Abuse Patient Records regulations: The Federal rules restrict any use of the information to criminally investigate or prosecute any alcohol or drug abuse patient.[facility] CenterIn the event this information is protected by the Federal Confidentiality of Alcohol and Drug Abuse Patient Records regulations: The Federal rules restrict any use of the information to criminally investigate or prosecute any alcohol or drug abuse patient.[facility] CenterIn the event this information is protected by the Federal Confidentiality of Alcohol and Drug Abuse Patient Records regulations: The Federal rules restrict any use of the information to criminally investigate or prosecute any alcohol or drug abuse patient.[facility] CenterIn the event this information is protected by the Federal Confidentiality of Alcohol and Drug Abuse Patient Records regulations: The Federal rules restrict any use of the information to criminally investigate or prosecute any alcohol or drug abuse patient.[facility] CenterIn the event this information is protected by the Federal Confidentiality of Alcohol and Drug Abuse Patient Records regulations: The Federal rules restrict any use of the information to criminally investigate or prosecute any alcohol or drug abuse patient.[facility] FOR RECORDS PERTAINING TO PATIENTS WHO ARE [...] BE BASED ON THE PRIMARY CLINICAL RECORDS. [facility]. provides no warranty or guarantee of the accuracy or completeness of information in this document.
== END 2025-01-14 08:02 | disposition home or self-care (01) ==
PROVIDERS: PCP Internal Medicine; Visit Provider Internal Medicine
DX: E11.65 Type 2 diabetes mellitus with hyperglycemia (principal); Z12.5 Encounter for screening for malignant neoplasm of prostate
CPT/HCPCS: 36415; 82043; 82570; 83036; G0103

== ENCOUNTER 2025-04-12 15:41 | Outpatient (OUT) | payer BC, SELFPAY ==
--- NOTE | 2025-04-12 15:44 | CA_ITS ---
Patient Name: KASSI SCHNEIDER MR#: [id number] : 1975 Exam Date: 04/12/2025 Ordering Doctor: WILLIAM QUILES CNP ECHOCARDIOGRAM REPORT PROCEDURE: CA ECHO DOPPLER COMPLETE INDICATIONS: Palpitations, PVC COMPARISON: None. DESCRIPTION: COMPLETE ECHOCARDIOGRAM Real-time transthoracic echocardiography with 2D, M-mode, spectral and color flow Doppler performed. QUALITY: Technical quality was good. LEFT VENTRICLE: Normal chamber size. Normal left ventricular wall thickness. Global left ventricular systolic function is normal. Estimated left ventricular ejection fraction is 55-60%. LV EF: Normal left ventricular ejection fraction, (>55%). DIASTOLIC: Normal diastolic function. ATRIAL SEPTUM: LEFT ATRIUM: Normal chamber size. RIGHT ATRIUM: Normal chamber size. RIGHT VENTRICLE: Normal chamber size. Normal right ventricular systolic function. TRICUSPID VALVE: Normal mobility and thickness. No stenosis with mild regurgitation. No evidence of pulmonary hypertension. RVSP 31 mmHg. MITRAL VALVE: Normal mobility and thickness. No evidence of mitral valve stenosis. There is no mitral annular calcification. Trivial mitral regurgitation. AORTIC VALVE: Normal trileaflet appearance. Thickened aortic valve. Normal leaflet mobility. No evidence of aortic valve stenosis. No aortic regurgitation. AORTIC ROOT: Normal diameter and appearance. The aortic root measures 3.5 cm. The ascending aorta is normal in size measuring 3.5 cm. PULMONIC VALVE: Normal thickness and mobility. No stenosis. Trivial regurgitation. PERICARDIUM: No evidence of pericardial effusion. IVC: Collapses with inspiration. The IVC is normal in size measuring 1.6 cm. PLEURA: CONCLUSION: 1. Normal left ventricular size and systolic function. Estimated LVEF is 55 to 60%. 2. Normal right ventricular size and systolic function. 3. Mild tricuspid regurgitation. 4. Normal right-sided pressures. Adult Echocardiography Procedure Report Left Ventricle LVEDD (3.7 - 5.6 cm): 4.75 cm LVESD (2.2 - 4.0 cm): 3.30 cm LVIVS thickness (0.6 - 1.2 cm): 0.90 cm LVPW thickness (0.5 - 1.0 cm): 0.73 cm e': 0.12 m/s E - e': 6.43 LVOT Max Gradient: 2.65 mm[Hg] LVOT Area (cm2): 0.81 m/s Peak Velocity (LVOT): 0.81 m/s Mean Velocity (LVOT): 0.56 m/s LVOT Diameter 2.12 cm Left Ventricular Ejection Fraction: 55-60 % Left Atrium LA Volume Index (2D A2C): 23.77 ml/m2 Left Atrium Systolic Dimension: 3.80 cm Mitral Valve MV E to A Ratio: 1.33 Mitral Valve A-Wave Peak Velocity: 0.60 m/s Mitral Valve E-Wave Peak Velocity: 0.79 m/s Right Ventricle RV Internal Diastolic Dimension: 3.81 cm Aorta AO Root Diam: 3.47 cm Ascending Ao Diam: 3.53 cm Aortic Valve AoV Area (Peak Prasanna): 2.58 cm2, 2.58 cm2 AoV Area (VTI): 2.64 cm2, 2.64 cm2 Peak Velocity(Antegrade Flow): 1.11 m/s Peak Gradient(Antegrade Flow): 4.96 mm[Hg] Mean Velocity(Antegrade Flow): 0.71 m/s Mean Gradient(Antegrade Flow): 2.45 mm[Hg] Velocity Time Integral: 22.80 cm Tricuspid Valve Peak Velocity (Regurgitant Flow): 2.62 m/s, 2.42 m/s, 2.46 m/s, 2.65 m/s Pulmonic Valve Mean Gradient: 1.56 mm[Hg], 2.08 mm[Hg] Mean Velocity: 0.57 m/s, 0.67 m/s Peak Velocity: 0.94 m/s Peak Gradient: 3.22 mm[Hg], 3.88 mm[Hg] Right Atrium Right Atrium Systolic Pressure: 70.43 ml, 70.43 ml Dictated by: Reilly Starks M.D. on 04/12/2025 at 20:41 Approved by: Reilly Starks M.D. on 04/12/2025 at 20:45
--- OUTSIDE RECORDS SUMMARY | 2025-04-12 15:45 | XMS_ITS | Clinical Summary ---
Author Organization [facility] Address [address] [place] [address] Care Team Providers Care Claims Adjudicator Name Role Phone José Miguel Cheung Primary Care Provider [phone] Allergies No known active allergies Medications MedicationSigDispense QuantityRefillsLast FilledStart DateEnd DateStatus metFORMIN (GLUCOPHAGE) 500 mg tablet Take 1 tablet by mouth two times a day with meals.09/27/2023ctive JARDIANCE 25 mg tablet Take 25 mg by mouth daily with breakfast.08/31/2023ctive pioglitazone (ACTOS) 30 mg tablet Take 30 mg by mouth once daily.Active lisinopril (ZESTRIL) 5 mg tablet Take 1 tablet by mouth every afternoon.09/10/2023ctive metoprolol succinate ER (TOPROL XL) 25 mg 24 hr tablet Take 12.5 mg by mouth daily at bedtime.09/18/2023ctive Naproxen SR (EC-NAPROSYN) 500 mg EC tablet Take 500 mg by mouth two times a day with meals.06/16/2023ctive Psbvpbkhakkkr-Dkxrrwca-Vaiczi (MULTIVITAMIN 50 PLUS) tab Take 1 tablet by mouth once daily.Active Ascorbic Acid (VITAMIN C) 1,000 mg tablet Take 1,000 mg by mouth once daily.Active aspirin, enteric coated (ECOTRIN LOW STRENGTH) 81 mg EC tablet Take 1 tablet by mouth once daily.09/30/2023ctive isosorbide mononitrate ER (IMDUR) 30 mg 24 hr tablet Take 0.5 tablets by mouth once daily. 45 tablet 10/09/2023ctive Family History Medical HistoryRelationCommentsCoronary Artery DiseaseFatherCABG (twice)Stroke FatherHeart AttackPaternal Grandfatherheavy smokerRelationStatusCommentsFather Paternal Grandfather Social History Tobacco UseTypesPacks/DayYears UsedDateSmoking Tobacco: NeverSmokeless Tobacco: Never Tobacco Cessation:Counseling Given: Not Answered Alcohol UseStandard Drinks/WeekCommentsNot Currently0 (1 standard drink = 0.6 oz pure alcohol)very littleArea Deprivation IndexAnswerDate RecordedNational Score (1-100), lower number is lower rnfa018509/30/2023State Score (1-10), lower number is lower kvpv65609/30/2023ata from: https://www.neighborhoodatlas.medicine.[facility]/. Last address used for mmoqinnoz[address]09/30/2023Sex and Gender InformationValueDate RecordedSex Assigned at BirthNot on fileLegal TnxYgry06/02/2012 8:51 AM ESTGender Identity Male09/24/2023 6:50 AM EDTSexual OrientationNot on file Last Filed Vital Signs Vital SignReadingTime TakenCommentsBlood Wfiycqsh514/6306 2:30 PM EDT Wweco787110/09/2023 2:30 PM ECEUugdumpyswn76.9 ??C (98.4 ??F)10/09/2023 11:01 AM EDTRespiratory Gool956210/09/2023 2:30 PM EDTOxygen Rolrivehaf92%10/09/2023 2:30 PM EDTInhaled Oxygen Concentration--Vrauoc12.7 kg (210 lb 15.7 oz)10/09/2023 9:22 AM FPFRgujob311.7 cm (5' 8 )09/30/2023 9:06 AM EDTBody Mass Index32.08 09/30/2023 9:06 AM EDT Plan of Treatment Health MaintenanceDue DateLast DoneCommentsAnxiety Khvjcjenn06/04/1993Depression Gfznvhrzf27/04/1993HIV Unctehbcb07/04/1993Hepatitis C Xaxvxvzfm60/04/1993 DTaP,Tdap,Td Vaccine (1 - Tdap)1993Hepatitis B Vaccine (1 of 3 - 19+ 3- dose series)1993CT Doxnvsrstxrw86/04/8264Nbuyanrnpck35/04/2020Fecal Occult Blood08/29/20199813Cscjikdvrjhdq03/04/2020Pneumococcal Vaccine: 50+ (1 of 1 - PCV) 2024RSV Vaccine (1 - Risk 50-74 years 1-dose series)2024Shingrix Vaccine (1 of 2)5Covid-19 Vaccine (4 - season)2024 03/28/2021, 08/10/2020, 07/20/2020Influenza Vaccine (#1)/08/2019, 02/01/2018Cologuard (FIT-DNA)olorectal Cancer Screening 11/03/2025Diabetes Wouddxgsj56, 09/30/2023Lipid Screening Goals GoalPatient Goal TypeAssociated ProblemsRecent ProgressPatient-Stated?Author Blood Pressure < 140/90 Blood Gnhsdcjc946/63(10/09/2023 2:30 PM EDT)Dl Barber MD Procedures Procedure NamePriorityDate/TimeAssociated DiagnosisCommentsBASIC METABOLIC PANEL STAT10/09/2023 9:26 AM EDT LIPID PANEL, XEJQLVLJljjcnd74/05/2024 10:42 AM EDT Hyperlipidemia LDL goal <70 Abnormal stress test from Last 3 Months or Most Recently Relevant to Health Maintenance Results * (ABNORMAL) BASIC METABOLIC PANEL (10/09/2023 9:26 AM EDT)ComponentValueRef RangeTest MethodAnalysis TimePerformed AtPathologist CpmjodhugDkgdszx126(H)74 - 99 mg/dL10/09/2023 10:20 AM EDTCSUMMA [facility] LABComment: The Canadian Diabetes Association (ADA) provides guidance for cutoff values for fasting glucose andrandom glucose. The ADA defines fasting as no [...] Standards of Medical Care in Diabetes 2016, Canadian Diabetes Association. Diabetes Care. 2016.39(Suppl 1). UTH848 - 24 mg/dL10/09/2023 10:[address] [facility] Creatinine1.24(H)0.73 - 1.22 mg/dL10/09/2023 10:[address] [facility] PCJDjxrno973445 - 144 mmol/L10/09/2023 10:[address] [facility] LABPotassium4.63.7 - 5.1 mmol/L10/09/2023 10:[address] [facility] RSYWfrnveqs63636 - 107 mmol/L10/09/2023 10:[address] [facility] FWYEG13734 - 30 mmol/L10/09/2023 10:[address] [facility] LABAnion Nhc912 - 15 mmol/L10/09/2023 10:[address] [facility] LABCalcium, Total9.88.5 - 10.2 mg/dL10/09/2023 10:[address] [facility] LABEstimated Glomerular Filtration Rate71>=60 mL/min/1.73m 10/09/2023 10:[address] [facility] LABComment:Estimated Glomerular Filtration Rate (eGFR) is calculated using the 2020 CKD-EPI creatinine equation. This equation utilizes serum creatinine, sex, and age as parameters. The creatinine assay has traceable calibration to isotope dilution- mass spectrometry. Refer to KDIGO guidelines for clinical interpretation. In patients with unstable renal function, e.g. those with acute kidney injury, the eGFRmay not accurately reflect actual GFR.Specimen (Source)Anatomical Location / LateralityCollection Method / VolumeCollection TimeReceived TimeBloodBLOOD SPECIMEN / UnknownVenipuncture / Kqtxyrr1510/09/2023 9:26 AM EDT10/09/2023 9:53 AM EDT Narrative Authorizing ProviderResult TypeResult StatusChristopher Yue DUTTALABORATORYFinal ResultPerforming OrganizationAddressCity/State/ZIP CodePhone Number [facility] [address] [place] [address], * (ABNORMAL) LIPID PANEL BASIC (09/30/2023 10:42 AM EDT)ComponentValueRef Range Test MethodAnalysis TimePerformed AtPathologist SignatureCholesterol, Wcqxi409 <200 mg/dL09/30/2023 2:[address] [facility] LABComment: <200 mg/dL, Desirable 200-239 mg/dL, Borderline high >239 mg/dL, High Kndswqzhxvcl914(H)<150 mg/dL09/30/2023 2:[address] [facility] LABComment: <150 mg/dL, Normal 150-199 mg/dL, Borderline high 200-499 mg/dL, High >499 mg/dL, Very high HDL Jdwzfghgzsc30(L)>39 mg/dL09/30/2023 2:[address] [facility] LABComment: 40-59 mg/dL, Acceptable >59 mg/dL, High: Negative risk factor for coronary heart disease <40 mg/dL, Low: Positive risk factor for coronary heart disease Non HDL Ijjsvswowyi081<130 mg/dL09/30/2023 2:[address] [facility] LABComment: <130 mg/dL, Optimal 130-159 mg/dL, Near optimal/above optimal 160-189 mg/dL, Borderline high 190-219 mg/dL, High >219 mg/dL, Very high Secondary prevention optimal non HDL Cholesterol levels are recommended to be <100 mg/dL Fasting Nyxv0dvb95/05/2024 2:[address] [facility] LABVLDL Tbeyuxbtlcs52(H)<30 mg/dL09/30/2023 2:[address] [facility] TC:HDL Ratio4.63<5.10009/30/2023 2:[address] [facility] LABLDL Cholesterol, Fuwyeqqwpc68<100 mg/dL09/30/2023 2:[address] [facility] LABComment: <100 mg/dL, Optimal 100-129 mg/dL, Near optimal/above optimal 130-159 mg/dL, Borderline high 160-189 mg/dL, High >189 mg/dL, Very high Secondary prevention optimal LDL Cholesterol levels are recommended to be < 70 mg/dL LDL:HDL Ratio2.14<2.54009/30/2023 2:10 PM EDTCSUMMA HE[facility] Comment: Reference: 1. National Cholesterol Education Program ATP III Guideline At-A-Glance Quick Desk Reference: National Heart, Lung, and Blood [place]. National Institutes of Health. 2001: NIH Publication No. 01-3305. 2. An International Atherosclerosis Society position paper: global recommendations for the management of dyslipidemia: executive summary, Atherosclerosis. 2014: 232(2):410-413. Specimen (Source)Anatomical Location / LateralityCollection Method / Volume Collection TimeReceived TimeBloodBLOOD SPECIMEN / UnknownVenipuncture / Unknown 09/30/2023 10:42 AM EDT09/30/2023 10:42 AM EDT Narrative Authorizing ProviderResult TypeResult StatusChristopher Yue DUTTALABORATORYFinal ResultPerforming OrganizationAddressCity/State/ZIP CodePhone Number [facility] [address] [place] [address], from Last 3 Months or Most Recently Relevant to Health Maintenance Insurance MemberSubscriberPlan / Payer (Effective 2022-Present)Name:Roberto Ocampo Relation to Subscriber:SelfName:Roberto Ocampo Payer ID:[id number] (NAIC) Type:PPO Address: [facility] [address] [place] [id number] Care Teams Team MemberRelationshipSpecialtyStart DateEnd Date José Miguel Cheung DO [address] [place] [address] PCP - GeneralInternal Medicine09/30/23
--- OUTSIDE RECORDS SUMMARY | 2025-04-12 15:45 | XMS_ITS | Clinical Summary ---
Author Organization [facility] Address [address] [place] [address], [address] [place] [address] Care Team Providers Care Energy Analyst Name Role Phone Unavailable Primary Care Provider Unavailabl e Social History Tobacco UseTypesPacks/DayYears UsedDateSmoking Tobacco: Never AssessedSex and Gender InformationValueDate RecordedSex Assigned at BirthNot on fileLegal Sex Male06/06/2012 7:47 PM ESTGender IdentityNot on fileSexual OrientationNot on file Plan of Treatment Not on file
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
--- OUTSIDE RECORDS SUMMARY | 2025-04-12 15:45 | XMS_ITS | Patient Health Record ---
Author Organization [facility] Address [address] [place] [address] Care Team Providers Care Business Area Manager Name Role Phone Carlos Cheung Primary Care Provider Unavailabl e Allergies No Known Allergies Reason For Referral No Information Medications Medication SIG (Take, Route, Frequency, Duration) Notes Start Date End Date Status Lisinopril *Please review and pick correct strength-formulation from Medispan options. If intended option is not shown, discontinue and re-order from Quick Search*Active Pioglitazone HCl*Please review and pick correct strength-formulation from Medispan options. If intended option is not shown, discontinue and re-order from Quick Search*ActivemetFORMIN HCl*Please review and pick correct strength- formulation from Medispan options. If intended option is not shown, discontinue and re-order from Quick Search*ActiveGlimepiride*Please review and pick correct strength-formulation from Medispan options. If intended option is not shown, discontinue and re-order from Quick Search*Active Immunizations Vaccine Route Administration Date Status Comme nts z2022 Fluzone Quad MDV (0.5m L Admin) 6mo & older Unknown 11/16/2021 Others Social History Tobacco Use: Social History Observation Description Date Details (start date - stop date) Never Smoker NA - NA Tobacco Use Question Answer Notes Are you a Never smoker Problems Problem Type SNOMED Code ICD Code Onset Dates Problem Status W/U Status Risk Notes Finding Body mass index 30.0 0 to 34.99 (681931322198637) BMI 31.0-31.9,adult (Z68.31) ActiveconfirmedFindingElevated blood-pressure reading without diagnosis of hypertension (506114645)Elevated blood pressure reading (R03.0)Activeconfirmed DiagnosisAcute frontal sinusitis (87682102)Acute non-recurrent frontal sinusitis (J01.10)ActiveconfirmedProblemEssential hypertension (08035943)Benign essential HTN (I10)Activeconfirmed Plan Of Treatment No Information Insurance Providers Payer Name Payer Address Payer Phone Subscriber Number Group Number Insured Name Patient Relationship to Insured Coverage Start Date Coverage End Date [employer] [address] [address] [place] [address] [id number] Roberto Ocampo Self - patient is the insured Medical (General) History Medical History History ICD Code hypertension type 2 diabetesSurgical History Surgery Date(Month/Year) Knee repair/fx Hospitalization History Reason Date(Month/Year) surgeries
--- OUTSIDE RECORDS SUMMARY | 2025-04-12 15:45 | XMS_ITS | Clinical Summary ---
Author Organization [facility] Address [address] [place] [place] [address] Care Team Providers Care Staff Educator Name Role Phone José Miguel Cheung Primary Care Provider [phone] Allergies Active AllergyReactionsCriticalityNoted DateCommentsDulaglutidePalpitationsLow 10/27/20236454RwvrzudynxyXuugaQau71/10/2024 Chest pain Medications MedicationSigDispense QuantityRefillsLast FilledStart DateEnd DateStatus aspirin 81 MG EC tablet Take 81 mg by mouth in the morning.09/30/2023ctive lisinopril 5 MG tablet Take 1 tablet by mouth in the morning.06/08/2023ctive metFORMIN (Glucophage) 500 MG tablet Take 1 tablet by mouth in the morning and 1 tablet in the evening. Take with meals.09/27/2023ctive metoprolol succinate XL (Toprol-XL) 25 MG 24 hr tablet Take 12.5 mg by mouth at xdyzgve9909/18/2023ctive naproxen (EC Naprosyn) 500 MG EC tablet Take 500 mg by mouth in the morning and 500 mg in the evening. Take with meals. 06/16/2023ctive pioglitazone (Actos) 30 MG tablet Take 45 mg by mouth in the morning.06/22/2023ctive doxepin (SINEquan) 10 MG capsule Indications:Primary insomniaTAKE 1 TO 2 CAPSULES BY MOUTH EVERY DAY AT BEDTIME 180 capsule ctive atorvastatin (Lipitor) 10 MG tablet Take 10 mg by mouth DailyActive Continuous Glucose School Community Relations Coordinator ([employer] G7 School Community Relations Coordinator) device Indications:Type 2 diabetes mellitus with hyperglycemia, without long-term current use of insulin ([facility])Inject 1 kit under the skin continuously 1 each 4Active Additional Information Patient not taking.Reported on 09/14/2024 metFORMIN (Glucophage) 1000 MG tablet Indications:Type 2 diabetes mellitus with hyperglycemia, unspecified whether equipment operator intermodal yard insulin use ([facility]),Type 2 diabetes mellitus with hyperglycemia, without long-term current use of insulin ([facility])Take 1 tablet by mouth twice daily 60 tablet 3055Active SITagliptin (Januvia) 100 MG tablet Indications:Type 2 diabetes mellitus with hyperglycemia, without long-term current use of insulin ([facility])Take 1 tablet (100 mg) by mouth Daily 90 tablet 505/6Active empagliflozin (Jardiance) 25 MG Indications:Type 2 diabetes mellitus with hyperglycemia, without long-term current use of insulin ([facility])TAKE 1 TABLET BY MOUTH IN THE MORNING WITH MEALS 90 tablet 5Active pioglitazone (Actos) 45 MG tablet Indications:Type 2 diabetes mellitus with hyperglycemia, unspecified whether equipment operator intermodal yard insulin use ([facility]),Type 2 diabetes mellitus with hyperglycemia, without long-term current use of insulin ([facility])Take 1 tablet by mouth once daily 30 tablet 505Active Active Problems ProblemNoted DateDiagnosed DateType 2 diabetes mellitus with hyperglycemia 01/05/2024Vitamin D deficiency, tspbqjcwwav57/10/2024Essential (primary) xirmaoqdhwry16/10/2024 Family History Medical HistoryRelationNameCommentsDiabetesFatherHypertensionFatherStrokeFather Parkinsons DiseaseMotherRelationNameStatusCommentsFatherAliveMotherAlive Social History Tobacco UseTypesPacks/DayYears UsedDateSmoking Tobacco: NeverSmokeless Tobacco: Never Tobacco Cessation:Counseling Given: Not Answered Alcohol UseStandard Drinks/WeekCommentsNever0 (1 standard drink = 0.6 oz pure alcohol)Sex and Gender InformationValueDate RecordedSex Assigned at BirthMale 10/29/2022 2:20 PM EDTLegal MnvFhqa8207/09/2022 7:34 PM EDTGender IdentityNot on fileSexual OrientationNot on file Last Filed Vital Signs Vital SignReadingTime TakenCommentsBlood Axfernkn498/6405 1:51 PM EDT Wuadb6163 1:51 PM EDTTemperature--Respiratory Wxhb814209/14/2024 1:51 PM EDTOxygen Mwykligxqt30%09/14/2024 1:51 PM EDTInhaled Oxygen Concentration-- Zosulq66.9 kg (218 lb)09/14/2024 1:51 PM WDFMotywa996.7 cm (5' 8 )09/14/2024 1:51 PM EDTBody Mass Index33.15009/14/2024 1:51 PM EDT Plan of Treatment Not on file Insurance Care Teams Team MemberRelationshipSpecialtyStart DateEnd Date José Miguel Cheung DO [address] [place] [phone] [facility] - General09/30/23
== END 2025-04-12 15:42 | disposition home or self-care (01) ==
LOC: CARD 15:42
PROVIDERS: PCP Internal Medicine; Visit Provider Nurse Practitioner Family
DX: R00.2 Palpitations (principal); I49.3 Ventricular premature depolarization
CPT/HCPCS: 93306